=== PATIENT | male | born 1980 | race African-American/Black ===

== ENCOUNTER 2016-05-15 11:04 | Emergency (ER) | payer MEDICARE, OTHER ==
[2016-05-15 11:27] VITALS: RESP 18
[2016-05-15] MEDS ORDERED: IPRATROPIUM-ALBUTEROL 3 ML NEB INHALATION STA (11:50)
--- NOTE | 2016-05-15 11:51 | ED ---
General Adult HPI - General Chief complaint: Upper Respiratory Infection Stated complaint: poss bronchitis, body pain Time Seen by Provider: 05/15/16 11:40 Source: patient, RN notes reviewed Mode of arrival: ambulatory Limitations: no limitations - History of Present Illness Initial comments: Patient 35-year-old male who presents emergency room today with a chief complaint of cough congestion body aches with chills over the last 3 days. He does admit to positive sputum production as been yellow in color. Patient does admit to a history of asthma. He denies any other complaints or associated symptoms currently. Patient denies any recent shortness of breath, chest pain, back pain, abdominal pain, nausea or vomiting, numbness or tingling, dysuria or hematuria, constipation or diarrhea, headaches or visual changes, or any other complaints. - Related Data Home Medications Medication Instructions Recorded Confirmed ALPRAZolam [Xanax] 1 mg PO TID PRN 12/12/13 05/15/16 HYDROcodone/APAP 10-325MG [[place] 1 tab PO QID PRN 12/12/13 05/15/16 10-325] Previous Rx's Medication Instructions Recorded Albuterol Nebulized [Ventolin 2.5 mg INHALATION Q4H PRN 10 Days 05/15/16 Nebulized] Azithromycin [Zithromax Z-pack] 0 mg PO DIRECTED #6 tab 05/15/16 Allergies Allergy/AdvReac Type Severity Reaction Status Date / Time Penicillins Allergy Nausea & Verified 05/15/16 12:09 Vomiting Review of Systems ROS Statement: Those systems with pertinent positive or pertinent negative responses have been documented in the HPI. ROS Other: All systems not noted in ROS Statement are negative. Past Medical History Additional Past Medical History / Comment(s): Sickle Cell History of Any Multi-Drug Resistant Organisms: None Reported Past Surgical History: No Surgical Hx Reported Past Psychological History: Anxiety Smoking Status: Current some day smoker Past Alcohol Use History: Occasional Past Drug Use History: None Reported General Exam - General Exam Comments Initial Comments: General: The patient is awake and alert, in no distress, and does not appear acutely ill. Eye: Pupils are equal, round and reactive to light, extra-ocular movements are intact. No nystagmus. There is normal conjunctiva bilaterally. No signs of icterus. Ears, nose, mouth and throat: There are moist mucous membranes and no oral lesions. Neck: The neck is supple, there is no tenderness or JVD. Cardiovascular: There is a regular rate and rhythm. No murmur, rub or gallop is appreciated. Respiratory: Expiratory wheeze on the right. respirations are non-labored, breath sounds are equal. No stridor, rales, or rhonchi. Musculoskeletal: Normal ROM, no tenderness. Strength 5/5. Sensation intact. Pulses equal bilaterally 2+. Neurological: A&O x 3. CN II-XII intact, There are no obvious motor or sensory deficits. Coordination appears grossly intact. Speech is normal. Skin: Skin is warm and dry and no rashes or lesions are noted. Psychiatric: Cooperative, appropriate mood & affect, normal judgment. Limitations: no limitations Course Vital Signs 05/15/16 05/15/16 11:24 12:02 Temperature 99.6 F Pulse Rate 91 92 Respiratory 18 18 Rate Blood Pressure 126/77 O2 Sat by Pulse 96 Oximetry Medical Decision Making - Medical Decision Making Patient's influenza test negative. The emergency room. Chest x-ray negative for any sign of pneumonia. Does show some possible nodular densities on the right suprahilar region. Discussed findings with patient and advised follow-up chest x-ray to be repeated. Patient does have cough congestion with positive sputum production. History of asthma. Will be covered with antibiotic of azithromycin. - Lab Data Lab Results 05/15/16 Range/Units 11:56 Influenza Type A RNA Not Detected (Not Detectd) Influenza Type B (PCR) Not Detected (Not Detectd) Disposition Clinical Impression: Acute bronchitis Disposition: HOME SELF-CARE Condition: Good Instructions: Upper Respiratory Infection (ED) Additional Instructions: Please use medication as discussed. Please follow-up with family doctor in the next 2 days. Please follow-up family doctor have repeat chest x-ray as discussed. Please return to emergency room if the symptoms increase or worsen or for any other concerns. Prescriptions: Albuterol Nebulized [Ventolin Nebulized] 2.5 mg INHALATION Q4H PRN 10 Days PRN Reason: Cough Azithromycin [Zithromax Z-pack] 0 mg PO DIRECTED #6 tab Time of Disposition: 12:32
--- NOTE | 2016-05-15 12:26 | XR ---
EXAMINATION TYPE: XR chest 2V DATE OF EXAM: 05/15/2016 12:21 PM COMPARISON: 05/02/2016 HISTORY: The FINDINGS: The lungs are clear and there is no pneumothorax, pleural effusion, or focal pneumonia. Heart is enl arged. More nodular density seen in the right suprahilar region measuring 1 cm. IMPRESSION: 1. No acute process. Stable cardiomegaly. 2. Nodular density right suprahilar region may be on the basis of superimposed structures. Recommend short-term follow-up PA and lateral views the chest.
[2016-05-15 12:44] VITALS: BP 142/89; PULSE 85; TEMP 98.7
== END 2016-05-15 12:45 | disposition home or self-care (01) ==
LOC: EC 11:04
DX: J02.9 Acute pharyngitis, unspecified (principal); I51.7 Cardiomegaly; F17.200 Nicotine dependence, unspecified, uncomplicated; Z88.0 Allergy status to penicillin
CPT/HCPCS: 71020; 87502; 94640; 99283

== ENCOUNTER 2016-07-31 03:10 | Emergency (ER) | payer MEDICARE, OTHER ==
[2016-07-31 03:15] VITALS: TEMP 98.3
[2016-07-31] MEDS ORDERED: HYDROmorphone 1 MG/ML 1 ML SYRINGE IVP STA ×2 (03:23→04:09)
[2016-07-31] MEDS ORDERED: SODIUM CHLORIDE 0.9% 1,000 ML IV STA ×2 (03:23)
[2016-07-31] MEDS ORDERED: ONDANSETRON 4 MG/2 ML VIAL IVP STA (03:23)
[2016-07-31 03:54] LABS: ALT 26 U/L (21-72); AST 25 U/L (17-59); Alkaline Phosphatase 58 U/L (38-126); Amylase 126 U/L (30-110); Anion Gap 9 mmol/L; Blood Urea Nitrogen 9 mg/dL (9-20); Calcium 9.1 mg/dL (8.4-10.2); Carbon Dioxide 26 mmol/L (22-30); Chloride 106 mmol/L (98-107); Glucose 83 mg/dL (74-99); INR 1.1 (<1.1); Non-African American GFR(MDRD) >60 (>60 ml/min/1.73 sqM); Partial Thromboplastin Time 27.4 sec (22.0-30.0); Potassium 3.8 mmol/L (3.5-5.1); Prothrombin Time 10.9 sec (9.0-12.0); Sodium 141 mmol/L (137-145); Total Bilirubin 1.3 mg/dL (0.2-1.3); Total Protein 6.9 g/dL (6.3-8.2)
--- NOTE | 2016-07-31 04:06 | ED ---
Abdominal Pain HPI - General Source: patient, family, RN notes reviewed Mode of arrival: EMS Limitations: no limitations <Emma Curran - Last Filed: 07/31/16 05:01> <Birgit Guerrero - Last Filed: 07/31/16 08:32> - General Chief Complaint: Abdominal Pain Stated Complaint: Pain/Hx sickel cell anemia Time Seen by Provider: 07/31/16 03:22 - History of Present Illness Initial Comments: Patient is a 35-year-old male with a history of sickle cell disease presents emergency Department with a chief complaint of acute onset of flank and left lower quadrant abdominal pain. Patient reports that he still has his spleen. Patient states that he takes pain medication but does not take anything else at this time to manage his sickle cell. Patient reports that he was feeling somewhat ill earlier in the evening however it got progressively worse in the past 2 hours. Patient states that he's had a few episodes of vomiting. Patient states the pain is currently 10 out of 10. Is worse with movement. Patient reports that he has been treated for bronchitis for the past few days, he does not know the antibiotic and is currently on.. He has had a mild cough with sputum. Patient states that prior to today's been eating and drinking normally denies any pain with bowel movements or blood in his stools. Patient states that he has never had a pain crisis in which it's been in his abdomen before. (Emma Curran) - Related Data Home Medications Medication Instructions Recorded Confirmed ALPRAZolam [Xanax] 1 mg PO TID PRN 12/12/13 05/15/16 HYDROcodone/APAP 10-325MG [Golden 1 tab PO QID PRN 12/12/13 05/15/16 10-325] Previous Rx's Medication Instructions Recorded Albuterol Nebulized [Ventolin 2.5 mg INHALATION Q4H PRN 10 Days 05/15/16 Nebulized] Azithromycin [Zithromax Z-pack] 0 mg PO DIRECTED #6 tab 05/15/16 Clarithromycin [Biaxin] 500 mg PO Q12HR #20 tablet 07/31/16 Allergies Allergy/AdvReac Type Severity Reaction Status Date / Time Penicillins Allergy Nausea & Verified 05/15/16 12:09 Vomiting Review of Systems ROS Other: All systems not noted in ROS Statement are negative. <Emma Curran - Last Filed: 07/31/16 05:01> ROS Other: All systems not noted in ROS Statement are negative. <Birgit Guerrero - Last Filed: 07/31/16 08:32> ROS Statement: Those systems with pertinent positive or pertinent negative responses have been documented in the HPI. Past Medical History Additional Past Medical History / Comment(s): Sickle Cell History of Any Multi-Drug Resistant Organisms: None Reported Past Surgical History: No Surgical Hx Reported Past Psychological History: Anxiety Smoking Status: Current some day smoker Past Alcohol Use History: Occasional Past Drug Use History: None Reported <Emma Curran - Last Filed: 07/31/16 05:01> General Exam Limitations: no limitations General appearance: alert, in no apparent distress Head exam: Present: atraumatic, normocephalic, normal inspection Eye exam: Present: normal appearance, PERRL, EOMI. Absent: scleral icterus, conjunctival injection, periorbital swelling ENT exam: Present: normal exam, mucous membranes moist Neck exam: Present: normal inspection. Absent: tenderness, meningismus, lymphadenopathy Respiratory exam: Present: normal lung sounds bilaterally. Absent: respiratory distress, wheezes, rales, rhonchi, stridor Cardiovascular Exam: Present: regular rate, normal rhythm, normal heart sounds. Absent: systolic murmur, diastolic murmur, rubs, gallop, clicks GI/Abdominal exam: Present: soft, tenderness (Left lower quadrant and left upper quadrant abdominal tenderness.), normal bowel sounds. Absent: distended, guarding, rebound, rigid Extremities exam: Present: normal inspection, full ROM, normal capillary refill. Absent: tenderness, pedal edema, joint swelling, calf tenderness Back exam: Present: normal inspection, CVA tenderness (L). Absent: CVA tenderness (R), muscle spasm, paraspinal tenderness, vertebral tenderness Neurological exam: Present: alert, oriented X3, CN II-XII intact Psychiatric exam: Present: normal affect, normal mood Skin exam: Present: warm, dry, intact, normal color. Absent: rash <Emma Curran - Last Filed: 07/31/16 05:01> <Birgit Guerrero - Last Filed: 07/31/16 08:32> - General Exam Comments Initial Comments: Ill appearing 35-year-old male. Patient appears to be in discomfort. (Emma Curran) Course <Emma Curran - Last Filed: 07/31/16 05:01> <Birgit Guerrero - Last Filed: 07/31/16 08:32> Vital Signs 07/31/16 07/31/16 07/31/16 03:13 05:15 05:46 Temperature 98.3 F Pulse Rate 69 57 L 68 Respiratory 14 16 16 Rate Blood Pressure 135/78 128/71 136/75 O2 Sat by Pulse [address] Morgan endorsed the patient to me around 8 AM to follow up on his CT of the abdomen, his CT was reviewed around 8 8:15 AM, reviewed his labs from white count is 811.8 with some left shift T count is 2.7 Has a metabolic panel is negative. INR is negative UA is positive for some hematuria CT of the abdomen showed chronic old infiltrate to the right posterior long then I went to see the patient, there was nobody in the room . Considering the old infiltrate at the right posterior elongation considering a history of sickle cell I'll go ahead and now will start him on antibiotics though he had left AMA before I seen him over call antibiotics to his pharmacy is [facility] to penicillin will go ahead and do Biaxin 500 mg twice daily for 10 days and is advised follow-up with his family doctor or come back to the ER (Birgit Guerrero) Medical Decision Making - Lab Data Result diagrams: 07/31/16 03:34 07/31/16 03:34 - Radiology Data Radiology results: report reviewed <Emma Curran - Last Filed: 07/31/16 05:01> - Lab Data Result diagrams: 07/31/16 03:34 07/31/16 03:34 <Birgit Guerrero - Last Filed: 07/31/16 08:32> - Lab Data Lab Results 07/31/16 07/31/16 07/31/16 Range/Units 03:34 03:34 03:34 WBC 11.8 H (3.8-10.6) k/uL RBC 4.15 L (4.30-5.90) m/uL Hgb 12.3 L (13.0-17.5) gm/dL Hct 35.5 L (39.0-53.0) % MCV 85.5 (80.0-100.0) fL MCH 29.7 (25.0-35.0) pg MCHC 34.8 (31.0-37.0) g/dL RDW 15.5 (11.5-15.5) % Plt Count 176 (150-450) k/uL Neutrophils % (Manual) 67.0 % Band Neutrophils % 3.5 % Lymphocytes % (Manual) 23.5 % Monocytes % (Manual) 6.0 % Neutrophils # (Manual) 8.3 H (1.3-7.7) k/uL Lymphocytes # (Manual) 2.8 (1.0-4.8) k/uL Monocytes # (Manual) 0.7 (0-1.0) k/uL Nucleated RBCs 1 H (0-0) /100 WBC Toxic Vacuolation Present Large Platelets Present Polychromasia Present Hyperchromasia Slight Poikilocytosis Slight Anisocytosis (manual) Present Target Cells Present Fragmented RBCs Present Retic Count (0.5-2.0) % PT 10.9 (9.0-12.0) sec INR 1.1 (<1.1) APTT 27.4 (22.0-30.0) sec Sodium 141 (137-145) mmol/L Potassium 3.8 (3.5-5.1) mmol/L Chloride 106 (98-107) mmol/L Carbon Dioxide 26 (22-30) mmol/L Anion Gap 9 mmol/L BUN 9 (9-20) mg/dL Creatinine 0.90 (0.66-1.25) mg/dL Est GFR (MDRD) Af Amer >60 (>60 ml/min/1.73 sqM) Est GFR (MDRD) Non-Af >60 (>60 ml/min/1.73 sqM) Glucose 83 (74-99) mg/dL Calcium 9.1 (8.4-10.2) mg/dL Total Bilirubin 1.3 (0.2-1.3) mg/dL AST 25 (17-59) U/L ALT 26 (21-72) U/L Alkaline Phosphatase 58 (38-126) U/L Total Protein 6.9 (6.3-8.2) g/dL Albumin 4.1 (3.5-5.0) g/dL Amylase 126 H (30-110) U/L Lipase 265 (23-300) U/L Urine Color Urine Appearance (Clear) Urine pH (5.0-8.0) Ur Specific [place] (1.001-1.035) Urine Protein (Negative) Urine Glucose (UA) (Negative) Urine Ketones (Negative) Urine Blood (Negative) Urine Nitrite (Negative) Urine Bilirubin (Negative) Urine Urobilinogen (<2.0) mg/dL Ur Leukocyte Esterase (Negative) Urine RBC (0-5) /hpf Urine WBC (0-5) /hpf Urine Mucus (None) /hpf 07/31/16 07/31/16 Range/Units 03:34 04:40 WBC (3.8-10.6) k/uL RBC (4.30-5.90) m/uL Hgb (13.0-17.5) gm/dL Hct (39.0-53.0) % MCV (80.0-100.0) fL MCH (25.0-35.0) pg MCHC (31.0-37.0) g/dL RDW (11.5-15.5) % Plt Count (150-450) k/uL Neutrophils % (Manual) % Band Neutrophils % % Lymphocytes % (Manual) % Monocytes % (Manual) % Neutrophils # (Manual) (1.3-7.7) k/uL Lymphocytes # (Manual) (1.0-4.8) k/uL Monocytes # (Manual) (0-1.0) k/uL Nucleated RBCs (0-0) /100 WBC Toxic Vacuolation Large Platelets Polychromasia Hyperchromasia Poikilocytosis Anisocytosis (manual) Target Cells Fragmented RBCs Retic Count 2.7 H (0.5-2.0) % PT (9.0-12.0) sec INR (<1.1) APTT (22.0-30.0) sec Sodium (137-145) mmol/L Potassium (3.5-5.1) mmol/L Chloride (98-107) mmol/L Carbon Dioxide (22-30) mmol/L Anion Gap mmol/L BUN (9-20) mg/dL Creatinine (0.66-1.25) mg/dL Est GFR (MDRD) Af Amer (>60 ml/min/1.73 sqM) Est GFR (MDRD) Non-Af (>60 ml/min/1.73 sqM) Glucose (74-99) mg/dL Calcium (8.4-10.2) mg/dL Total Bilirubin (0.2-1.3) mg/dL AST (17-59) U/L ALT (21-72) U/L Alkaline Phosphatase (38-126) U/L Total Protein (6.3-8.2) g/dL Albumin (3.5-5.0) g/dL Amylase (30-110) U/L Lipase (23-300) U/L Urine Color Yellow Urine Appearance Clear (Clear) Urine pH 5.5 (5.0-8.0) Ur Specific [place] 1.008 (1.001-1.035) Urine Protein Negative (Negative) Urine Glucose (UA) Negative (Negative) Urine Ketones Trace H (Negative) Urine Blood Moderate H (Negative) Urine Nitrite Negative (Negative) Urine Bilirubin Negative (Negative) Urine Urobilinogen <2.0 (<2.0) mg/dL Ur Leukocyte Esterase Trace H (Negative) Urine RBC 37 H (0-5) /hpf Urine WBC 7 H (0-5) /hpf Urine Mucus Rare H (None) /hpf - Radiology Data Nonspecific bowel gas pattern. Serial abdominal radiographs recommended as indicated to assess for any change. Externally CT abdomen and pelvis confirmed for further evaluation. No radiopaque renal calculi. Probable pelvic phleboliths. Chest x-ray shows no dense consolidation or effusion. Finding of a right suprahilar region. Decreased in conspicuity. (Emma Curran) Disposition <Emma Curran - Last Filed: 07/31/16 05:01> <Birgit Guerrero - Last Filed: 07/31/16 08:32> Clinical Impression: Chronic pneumonia Disposition: Left Against Medical Advice Condition: Fair Prescriptions: Clarithromycin [Biaxin] 500 mg PO Q12HR #20 tablet Referrals: Rosalino Martinez MD [Primary Care Provider] - 1-2 days
[2016-07-31 04:28] LABS: CH 32.3; CHCM 38.1; HCT 35.5 % (39.0-53.0); HDW 3.47; HGB 12.3 gm/dL (13.0-17.5); Hyperchromasia Slight; MCH 29.7 pg (25.0-35.0); MCHC 34.8 g/dL (31.0-37.0); MCV 85.5 fL (80.0-100.0); Mean Platelet Volume 8.9; Poikilocytosis Slight; RBC 4.15 m/uL (4.30-5.90); RDW 15.5 % (11.5-15.5); WBC (Perox) 12.83
--- NOTE | 2016-07-31 04:32 | XR ---
EXAM: XR Abdomen Complete, 2 or More Views. CLINICAL HISTORY: Reason: abdominal pain TECHNIQUE: Frontal view of the abdomen/pelvis with upright view of the abdomen. COMPARISON: No relevant prior studies available. FINDINGS: Intraperitoneal space: No free air identified. No abnormal calcification in the upper abdomen. Gastrointestinal tract: Scattered air-fluid levels in small and large bowel loops, nonspecific. No focal small bowel dilatation. Air seen throughout the large bowel Organs: Calcifications in the pelvis, probable phleboliths. Bones/joints: Unremarkable. IMPRESSION: Nonspecific bowel gas pattern. Serial abdominal radiographs recommended as indicated to assess for any change. Alternatively, CT of the abdomen and pelvis could be performed for further evaluation No radiopaque renal calculi. Probable pelvic phleboliths.
--- NOTE | 2016-07-31 04:41 | XR ---
EXAM: XR Chest, 2 Views. CLINICAL HISTORY: Reason: Pain TECHNIQUE: Frontal and lateral views of the chest. COMPARISON: FINDINGS: Lungs: No dense consolidation. Previously noted slight nodularity in the right suprahilar region appears slightly decreased in conspicuity. No new lesions seen. Pleural space: Unremarkable. No pneumothorax. Heart: Stable cardiovascular silhouette. Cardiovascular silhouette is upper limits of normal. Mediastinum: See above. Bones/joints: Unremarkable. IMPRESSION: No dense consolidation or effusion. Finding in the right suprahilar region, decreased in conspicuity likely benign.
[2016-07-31 05:01] LABS: Reticulocyte % 2.7 % (0.5-2.0)
[2016-07-31 05:09] LABS: Add Differential Manual Differential
[2016-07-31 05:15] LABS: Band Neutrophils % 3.5 %; Nucleated Red Blood Cells 1 /100 WBC (0-0); Total Cells Counted 200
[2016-07-31 05:16] LABS: WBC 11.8 k/uL (3.8-10.6)
[2016-07-31 05:17] VITALS: RESP 16
[2016-07-31 05:18] LABS: Polychromasia Present; Target Cells Present
[2016-07-31 05:24] LABS: Large Platelets Present; Toxic Vacuolation Present
[2016-07-31 05:47] VITALS: BP 136/75; PULSE 68
[2016-07-31 05:48] LABS: Appearance,Urine Clear (Clear); Bilirubin,Urine Negative (Negative); Glucose,Urine (UA) Negative (Negative); Ketones,Urine Trace (Negative); Leukocyte Esterase,Urine Trace (Negative); Mucus,Urine Rare /hpf; Nitrite,Urine Negative (Negative); PH, Urine 5.5 (5.0-8.0); Particle Count 1562; Protein,Urine Negative (Negative); RBC,Urine 37 /hpf (0-5); Specific Gravity,Urine 1.008 (1.001-1.035); UA Billing (MACRO vs. MICRO) MICRO; Urobilinogen,Urine <2.0 mg/dL (<2.0); WBC,Urine 7 /hpf (0-5)
[2016-07-31] MEDS ORDERED: LORazepam 1 MG TAB PO STA (06:59)
--- NOTE | 2016-07-31 07:56 | CT ---
EXAMINATION TYPE: CT abdomen pelvis wo con DATE OF EXAM: 07/31/2016 7:26 AM COMPARISON: NONE HISTORY: Lt flank pain, microscopic hematuria CT DLP: 218.9 mGycm Automated exposure control for dose reduction was used. TECHNIQUE: Helical acquisition of images was performed from the lung bases through the pelvis. FINDINGS: There is some mild infiltrate at the right posterior lung base. There is no pleural effusion. Left amaya ng bases clear. Liver appears normal. There are numerous calcifications throughout the spleen. This could relate to s plenic infarct. There is no evidence of a pancreatic mass. Gallbladder appears normal. Kidneys have normal size and contour. There is no hydronephrosis. There is no sign of retroperitoneal adenopathy. There is no ascites. I see no intestinal wall thickening. There are no dilated loops. Bl adder distends smoothly. There are multiple phleboliths in the pelvis. I see no bony destructive proc ess. There is linear calcification in the right lower quadrant. This is probably the appendix which is not enlarged. Exam is limited by lack of any contrast. IMPRESSION: CHRONIC INFILTRATE AT THE RIGHT POSTERIOR LUNG BASE IS CONSISTENT WITH SCARRING. NO EVIDENCE OF RENAL STONE OR OBSTRUCTION. 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 NO ADVERSE CHANGE COMPARED TO OLD CT SCAN OF 09/15/2012.
== END 2016-07-31 08:30 | disposition left against medical advice (07) ==
LOC: EC 03:10
DX: J18.9 Pneumonia, unspecified organism (principal); D57.1 Sickle-cell disease without crisis; F17.200 Nicotine dependence, unspecified, uncomplicated; Z88.0 Allergy status to penicillin
CPT/HCPCS: 99285 ×2; 96365 ×2; 96375 ×3; 96376 ×2; 96361 ×4; 96374; 36415; 80053; 82150; 83021; 83690; 85025; 85610; 85045; 85730; 81001; 71020; 74000; 74176; J2405; J0696; J1170

== ENCOUNTER 2016-09-02 12:43 | Emergency (ER) | payer MEDICARE, OTHER ==
[2016-09-02 12:54] VITALS: RESP 18
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
[2016-09-02 15:02] VITALS: BP 123/71; PULSE 98; TEMP 100.8
== END 2016-09-02 15:16 | disposition home or self-care (01) ==
LOC: EC 12:43
DX: M54.5 Low back pain (principal); F41.9 Anxiety disorder, unspecified; F41.0 Panic disorder [episodic paroxysmal anxiety]; V79.59XA Passenger on bus injured in collision with other motor vehicles in traffic accident, initial encounter; G89.29 Other chronic pain; D57.1 Sickle-cell disease without crisis; J44.9 Chronic obstructive pulmonary disease, unspecified; F17.200 Nicotine dependence, unspecified, uncomplicated; Z88.0 Allergy status to penicillin
CPT/HCPCS: 72110; 99284

== ENCOUNTER 2016-10-25 20:55 | Observation (INO) | payer MEDICARE, OTHER ==
[2016-10-25] MEDS ORDERED: SODIUM CHLORIDE 0.9% 1,000 ML IV STA (22:34)
[2016-10-25] MEDS ORDERED: ONDANSETRON 4 MG/2 ML VIAL IVP STA (22:34)
[2016-10-25] MEDS ORDERED: PANTOPRAZOLE 40 MG/10 ML VIAL IVP STA (22:34)
[2016-10-25] MEDS ORDERED: HYDROmorphone 1 MG/ML 1 ML SYRINGE IVP STA (22:34)
--- NOTE | 2016-10-25 22:41 | ED ---
General Adult HPI - General Source: patient, RN notes reviewed, old records reviewed Mode of arrival: ambulatory Limitations: no limitations <Perry Stein - Last Filed: 10/26/16 00:59> <Zenon Amador - Last Filed: 10/26/16 03:29> - General Chief complaint: Abdominal Pain Stated complaint: abd pain Time Seen by Provider: 10/25/16 21:39 - History of Present Illness Initial comments: Chief complaint and history of present illness this is a 36-year-old male to complaint of nausea vomiting diarrhea. 10 days ago he did take some antibiotics for bronchitis. He also has a history of sickle cell disease. For which he takes [place] tens at home. Denies seeing blood in the vomit or diarrhea. (Perry Stein) - Related Data Home Medications Medication Instructions Recorded Confirmed ALPRAZolam [Xanax] 1 mg PO TID PRN 12/12/13 10/25/16 HYDROcodone/APAP 10-325MG [[place] 1 tab PO QID PRN 12/12/13 10/25/16 10-325] Levofloxacin [Levaquin] 500 mg PO DAILY 10/25/16 10/25/16 Allergies Allergy/AdvReac Type Severity Reaction Status Date / Time Penicillins Allergy Anaphylaxis Verified 10/25/16 21:27 Review of Systems ROS Other: All systems not noted in ROS Statement are negative. <Perry Stein - Last Filed: 10/26/16 00:59> ROS Other: All systems not noted in ROS Statement are negative. <Zenon Amador - Last Filed: 10/26/16 03:29> ROS Statement: Those systems with pertinent positive or pertinent negative responses have been documented in the HPI. review of systems no headache or visual acuity changes no chest pain or shortness of breath he has abdominal discomfort mainly in the left side. Nausea vomiting and diarrhea. No back pain. No complaint of a neuro deficits. All systems are reviewed. Past medical problems significant for sickle cell disease, COPD. Occasional bronchitis. Denies any surgeries. Family history hypertension diabetes. ALLERGIES to penicillin. He does smoke strongly encouraged stop drink alcohol socially. (Perry Stein) Past Medical History Past Medical History: COPD Additional Past Medical History / Comment(s): Sickle Cell History of Any Multi-Drug Resistant Organisms: None Reported Past Surgical History: No Surgical Hx Reported Past Psychological History: Anxiety Smoking Status: Current some day smoker Past Alcohol Use History: Occasional Past Drug Use History: None Reported <Perry Stein - Last Filed: 10/26/16 00:59> General Exam Limitations: no limitations <Perry Stein - Last Filed: 10/26/16 00:59> <Zenon Amador - Last Filed: 10/26/16 03:29> - General Exam Comments Initial Comments: General: The patient is awake and alert, playing of abdominal pain. Ongoing for about a 0.1 day nausea vomiting diarrhea. Vital signs show temperature 98.8 pulse 85 respiratory rate 20 pulse ox 96% room air blood pressure 142/77 Eye: Pupils are equal, round and reactive to light, extra-ocular movements are intact ; there is normal conjunctiva bilaterally. No signs of icterus. Ears, nose, mouth and throat: There are moist mucous membranes and no oral lesions. Neck: The neck is supple, there is no tenderness . Cardiovascular: There is a regular rate and rhythm. No murmur, rub or gallop is appreciated. Respiratory: Lungs are clear to auscultation, respirations are non-labored, breath sounds are equal. No wheezes, stridor, rales, or rhonchi. Gastrointestinal: patient complains of abdominal pain. Active bowel sounds. voluntary guarding.. Back: There is no tenderness to palpation in the midline. There is no obvious deformity. No rashes noted. Musculoskeletal: Normal ROM, no tenderness, There is no pedal edema. There is no calf tenderness or swelling. Sensation intact. Pulses equal bilaterally 2+. Neurological: no neuro deficits Skin: Skin is warm and dry and no rashes or lesions are noted. (Perry Stein) Course <EmilPerry - Last Filed: 10/26/16 00:59> <Zenon Amador - Last Filed: 10/26/16 03:29> Vital Signs 10/25/16 10/25/16 10/25/16 21:01 22:55 23:24 Temperature 98.8 F 97.9 F 98.9 F Pulse Rate 65 52 L 71 Respiratory 20 18 18 Rate Blood Pressure 142/77 140/82 140/83 O2 Sat by Pulse 96 96 96 Oximetry 10/26/16 10/26/16 10/26/16 00:24 01:08 01:59 Temperature 98.8 F 97.8 F Pulse Rate 60 57 L 50 L Respiratory 16 18 16 Rate Blood Pressure 132/93 137/72 119/70 O2 Sat by Pulse 97 96 98 Oximetry 10/26/16 02:45 Temperature 99.3 F Pulse Rate 54 L Respiratory 16 Rate Blood Pressure 127/65 O2 Sat by Pulse 95 Oximetry - Reevaluation(s) Reevaluation #1: 10/26/16 01:23 I did evaluate the patient after/mL. The patient continues to have crampy abdominal pain he thinks he may have a bug such as food poisoning. He will receive further IV fluids and medication. (Zenon Amador) Reevaluation #2: 10/26/16 03:28 The patient is so arranged some nausea with a bowel pain radiated slight improvement. His been having watery diarrhea is likely a combination of sickle cell was gastroenteritis. He will be admitted for continued hydration and pain control. (Zenon Amador) Medical Decision Making - Lab Data Result diagrams: 10/25/16 21:37 10/25/16 21:37 <Perry Stein - Last Filed: 10/26/16 00:59> - Lab Data Result diagrams: 10/25/16 21:37 10/25/16 21:37 <Zenon Amador - Last Filed: 10/26/16 03:29> - Medical Decision Making medical decision making white count is 10.9 and hemoglobin 15 hematocrit of 43 with a potassium 4.9 C. diff is negative. BUN 9 creatinine 0.8 GFR greater than 60, glucose 76.retic count elevated 3.1 x-ray of the abdomen was done and reviewed by radiologist his findings are intact.No pneumatosis or pneumoperitoneum. Nonobstructive bowel gas pattern. No acute osseous abnormality. 7 cm pelvic calcifications or favored to be vascular. Impression; nonobstructive bowel gas pattern. No pneumatosis or pneumoperitoneum. As read by Dr. moseley Patient states that very slightly better after the first hydration and pain medication. The patient will receive more fluids and decision was made after approximately one hour S without the patient should be admitted. The patient prefers to go home. Final disposition by Dr. Davey Amador (Perry Stein) - Lab Data Lab Results 10/25/16 10/25/16 10/25/16 Range/Units 21:37 21:37 21:37 WBC 10.9 H (3.8-10.6) k/uL RBC 5.02 (4.30-5.90) m/uL Hgb 15.0 (13.0-17.5) gm/dL Hct 43.9 (39.0-53.0) % MCV 87.4 (80.0-100.0) fL MCH 29.8 (25.0-35.0) pg MCHC 34.1 (31.0-37.0) g/dL RDW 15.0 (11.5-15.5) % Plt Count 285 (150-450) k/uL Neutrophils % 62 % Lymphocytes % 30 % Monocytes % 6 % Eosinophils % 1 % Basophils % 0 % Neutrophils # 6.7 (1.3-7.7) k/uL Lymphocytes # 3.2 (1.0-4.8) k/uL Monocytes # 0.6 (0-1.0) k/uL Eosinophils # 0.1 (0-0.7) k/uL Basophils # 0.0 (0-0.2) k/uL Manual Slide Review Performed Target Cells Present Retic Count 3.1 H (0.5-2.0) % Sodium 142 (137-145) mmol/L Potassium 4.9 (3.5-5.1) mmol/L Chloride 102 (98-107) mmol/L Carbon Dioxide 27 (22-30) mmol/L Anion Gap 13 mmol/L BUN 9 (9-20) mg/dL Creatinine 0.80 (0.66-1.25) mg/dL Est GFR (MDRD) Af Amer >60 (>60 ml/min/1.73 sqM) Est GFR (MDRD) Non-Af >60 (>60 ml/min/1.73 sqM) Glucose 76 (74-99) mg/dL Plasma Lactic Acid Jony 1.4 (0.7-2.0) mmol/L Calcium 10.0 (8.4-10.2) mg/dL Total Bilirubin 1.5 H (0.2-1.3) mg/dL AST 32 (17-59) U/L ALT 26 (21-72) U/L Alkaline Phosphatase 77 (38-126) U/L Total Protein 8.0 (6.3-8.2) g/dL Albumin 4.9 (3.5-5.0) g/dL Amylase 110 (30-110) U/L Lipase 31 (23-300) U/L Urine Color Urine Appearance (Clear) Urine pH (5.0-8.0) Ur Specific [place] (1.001-1.035) Urine Protein (Negative) Urine Glucose (UA) (Negative) Urine Ketones (Negative) Urine Blood (Negative) Urine Nitrite (Negative) Urine Bilirubin (Negative) Urine Urobilinogen (<2.0) mg/dL Ur Leukocyte Esterase (Negative) Urine WBC (0-5) /hpf Ur Squamous Epith Cells (0-4) /hpf Urine Mucus (None) /hpf C. difficile (EIA) Intrp (Negative) 10/25/16 10/25/16 Range/Units 21:37 22:37 WBC (3.8-10.6) k/uL RBC (4.30-5.90) m/uL Hgb (13.0-17.5) gm/dL Hct (39.0-53.0) % MCV (80.0-100.0) fL MCH (25.0-35.0) pg MCHC (31.0-37.0) g/dL RDW (11.5-15.5) % Plt Count (150-450) k/uL Neutrophils % % Lymphocytes % % Monocytes % % Eosinophils % % Basophils % % Neutrophils # (1.3-7.7) k/uL Lymphocytes # (1.0-4.8) k/uL Monocytes # (0-1.0) k/uL Eosinophils # (0-0.7) k/uL Basophils # (0-0.2) k/uL Manual Slide Review Target Cells Retic Count (0.5-2.0) % Sodium (137-145) mmol/L Potassium (3.5-5.1) mmol/L Chloride (98-107) mmol/L Carbon Dioxide (22-30) mmol/L Anion Gap mmol/L BUN (9-20) mg/dL Creatinine (0.66-1.25) mg/dL Est GFR (MDRD) Af Amer (>60 ml/min/1.73 sqM) Est GFR (MDRD) Non-Af (>60 ml/min/1.73 sqM) Glucose (74-99) mg/dL Plasma Lactic Acid Jony (0.7-2.0) mmol/L Calcium (8.4-10.2) mg/dL Total Bilirubin (0.2-1.3) mg/dL AST (17-59) U/L ALT (21-72) U/L Alkaline Phosphatase (38-126) U/L Total Protein (6.3-8.2) g/dL Albumin (3.5-5.0) g/dL Amylase (30-110) U/L Lipase (23-300) U/L Urine Color Yellow Urine Appearance Cloudy (Clear) Urine pH 5.5 (5.0-8.0) Ur Specific [place] 1.013 (1.001-1.035) Urine Protein 1+ H (Negative) Urine Glucose (UA) Negative (Negative) Urine Ketones 1+ H (Negative) Urine Blood Small H (Negative) Urine Nitrite Negative (Negative) Urine Bilirubin Negative (Negative) Urine Urobilinogen <2.0 (<2.0) mg/dL Ur Leukocyte Esterase Negative (Negative) Urine WBC 3 (0-5) /hpf Ur Squamous Epith Cells 1 (0-4) /hpf Urine Mucus Moderate H (None) /hpf C. difficile (EIA) Intrp Negative (Negative) Disposition <Perry Stein - Last Filed: 10/26/16 00:59> <Zenon Amador - Last Filed: 10/26/16 03:29> Clinical Impression: Abdominal pain, Sickle cell crisis, Gastroenteritis Disposition: ADMITTED IP TO THIS [facility] Condition: Stable Referrals: Rosalino Martinez MD [Primary Care Provider] - 1-2 days
[2016-10-25 22:53] LABS: Basophils % (A) 0 %; CH 32.4; CHCM 37.4; Eosinophils # (A) 0.1 k/uL (0-0.7); Eosinophils % (A) 1 %; HCT 43.9 % (39.0-53.0); HDW 3.17; Luc # (Auto) 0.18; Luc % (Auto) 2; Lymphocytes # (A) 3.2 k/uL (1.0-4.8); Lymphocytes % (A) 30 %; MCH 29.8 pg (25.0-35.0); MCHC 34.1 g/dL (31.0-37.0); MCV 87.4 fL (80.0-100.0); Mean Platelet Volume 7.4; Monocytes # (A) 0.6 k/uL (0-1.0); Monocytes % (A) 6 %; Neutrophils # (A) 6.7 k/uL (1.3-7.7); Neutrophils % (A) 62 %; RBC 5.02 m/uL (4.30-5.90); Reticulocyte % 3.1 % (0.5-2.0); WBC 10.9 k/uL (3.8-10.6); WBC (Perox) 12.09
[2016-10-25 23:01] LABS: ALT 26 U/L (21-72); AST 32 U/L (17-59); Alkaline Phosphatase 77 U/L (38-126); Amylase 110 U/L (30-110); Anion Gap 13 mmol/L; Appearance,Urine Cloudy (Clear); Bilirubin,Urine Negative (Negative); Blood Urea Nitrogen 9 mg/dL (9-20); Carbon Dioxide 27 mmol/L (22-30); Chloride 102 mmol/L (98-107); Glucose 76 mg/dL (74-99); Glucose,Urine (UA) Negative (Negative); Ketones,Urine 1+ (Negative); Leukocyte Esterase,Urine Negative (Negative); Mucus,Urine Moderate /hpf; Nitrite,Urine Negative (Negative); Non-African American GFR(MDRD) >60 (>60 ml/min/1.73 sqM); PH, Urine 5.5 (5.0-8.0); Particle Count 11615; Potassium 4.9 mmol/L (3.5-5.1); Protein,Urine 1+ (Negative); Sodium 142 mmol/L (137-145); Specific Gravity,Urine 1.013 (1.001-1.035); Squamous Epithelial Cell,Urine 1 /hpf (0-4); Total Bilirubin 1.5 mg/dL (0.2-1.3); UA Billing (MACRO vs. MICRO) MICRO; Urobilinogen,Urine <2.0 mg/dL (<2.0); WBC,Urine 3 /hpf (0-5)
--- NOTE | 2016-10-25 23:22 | XR ---
EXAM: XR Abdomen Complete, 2 or More Views CLINICAL HISTORY: Reason: abdominal pain TECHNIQUE: Frontal view of the abdomen/pelvis with upright view of the abdomen. COMPARISON: 07/31/2016 FINDINGS: Intraperitoneal space: No pneumatosis or pneumoperitoneum. Gastrointestinal tract: Nonobstructive bowel gas pattern. Bones/joints: No acute osseous abnormality. Vasculature: Subcentimeter pelvic calcifications are favored to be vascular. IMPRESSION: Nonobstructive bowel gas pattern. No pneumatosis or pneumoperitoneum.
[2016-10-26 00:09] LABS: Manual Review Performed; Target Cells Present
[2016-10-26] MEDS ORDERED: SODIUM CHLORIDE 0.9% 500 ML IV STA (00:58)
[2016-10-26] MEDS ORDERED: MORPHINE SULFATE 2 MG/ML SYRINGE IVP ONE (00:59)
[2016-10-26] MEDS ORDERED: SODIUM CHLORIDE 0.9% 1,000 ML IV STA (01:22)
[2016-10-26] MEDS ORDERED: KETOROLAC 30 MG/ML 1 ML VIAL IVP STA (01:22)
[2016-10-26] MEDS ORDERED: DICYCLOMINE 10 MG/ML 2 ML AMP IM STA (01:22)
[2016-10-26 02:00] VITALS: RESP 16
[2016-10-26] MEDS ORDERED: ONDANSETRON 4 MG/2 ML VIAL IVP PRN (03:29)
[2016-10-26] MEDS ORDERED: NALOXONE 0.4 MG/ML 1 ML VIAL IV PRN (03:29)
[2016-10-26] MEDS ORDERED: KETOROLAC 30 MG/ML 1 ML VIAL IVP PRN (03:29)
[2016-10-26] MEDS ORDERED: ALPRAZolam 0.5 MG TAB PO PRN (03:32)
[2016-10-26 04:26] VITALS: BMI 19.7
[2016-10-26] MEDS: HYDROcodone/APAP 10-325MG 1 EACH TAB PO PRN ×3 (04:46→16:52)
[2016-10-26] MEDS: SODIUM CHLORIDE 0.9% 1,000 ML IV SCH ×2 (04:48→12:58)
[2016-10-26] MEDS ORDERED: PANTOPRAZOLE 40 MG/10 ML VIAL IV SCH (09:00)
[2016-10-26] MEDS ORDERED: RX INFO: IV CONTRAST WAS GIVEN 1 EACH MISC MISCELLANE PRN (12:45)
[2016-10-26] MEDS: IOHEXOL 350 MG/ML 25 ML BOTTLE (ORAL USE) PO PRN ×2 (14:31→15:22)
[2016-10-26 16:00] VITALS: BP 132/85; PULSE 45; TEMP 98.3
--- NOTE | 2016-10-26 16:34 | CT ---
EXAMINATION TYPE: CT abdomen pelvis w con DATE OF EXAM: 10/26/2016 COMPARISON: CT abdomen and pelvis July 31, 2016 HISTORY: Patient complains of generalized pelvic pain, nausea, vomiting, and diarrhea. CT DLP: 732 mGycm, Automated Exposure Control for Dose Reduction was Utilized. CONTRAST: CT scan of the abdomen and pelvis is performed with oral and with IV Contrast, patient injected with 100 mL of Omnipaque 300. FINDINGS: Patient has very little intra-abdominal fat making evaluation suboptimal LUNG BASES: There are persistent tiny effusions and associated bibasilar atelectasis. LIVER/GB: No significant abnormality is appreciated. PANCREAS: No significant abnormality is seen. SPLEEN: Heterogeneous partially calcified spleen is redemonstrated. ADRENALS: No significant abnormality is seen. KIDNEYS: No significant abnormality is seen. BOWEL: Oral contrast reaches at least level of transverse colon. There is no suspicious small or larg e bowel dilatation appreciated PROSTATE/SEMINAL VESICLES: Prostate gland is upper limits of normal in size. LYMPH NODES: No greater than 1cm abdominal or pelvic lymph nodes are appreciated. OSSEOUS STRUCTURES: No significant abnormality is seen. OTHER: Small to moderate amount of free fluid in pelvis is present, etiology uncertain. IMPRESSION: Small to moderate amount of free fluid in pelvis of uncertain etiology. No bowel obstruct ion is present.
--- NOTE | 2016-10-27 07:59 | HP ---
DATE OF ADMISSION: This dictation is both H&P and DISCHARGE SUMMARY. The patient is a 36-year-old with history of ( ) , which is sickle cell disease, not a trait. Comes in with nausea, vomiting, diarrhea. Ten days ago, the patient received antibiotics for bronchitis. Patient was admitted for possibility of C. difficile, testing was obtained which was negative. Patient is still complaining of lower crampy abdominal pain about 7 out of [address] Obt[address] a [address] of the abdomen, which did not show any significant abnormality. Patient will be discharged today. Patient is able to tolerate diet well and I do not believe patient has any sickle cell crisis. The patient was diagnosed with sickle cell ( ) at [facility] when he was months old, although patient's hemoglobin is ( ) , not typical for ( ). Patient denied any fever, chills. Patient completed his antibiotic therapy. Patient's bronchitis symptoms improved. REVIEW OF SYSTEMS: CONSTITUTIONAL: No fever, no malaise, no fatigue. HEENT: No recent visual problems or hearing problems. Denied any sore throat. CARDIOVASCULAR: No chest pain, orthopnea, PND, no palpitations, no syncope. PULMONARY: No shortness of breath, no cough, no hemoptysis. GASTROINTESTINAL: As described in HPI. NEUROLOGICAL: No headaches, no weakness, no numbness. HEMATOLOGICAL: Denies any bleeding or petechiae. GENITOURINARY: Denies any burning micturition, frequency, or urgency. MUSCULOSKELETAL/RHEUMATOLOGICAL: Denies any joint pain, swelling, or any muscle pain. ENDOCRINE: Denies any polyuria or polydipsia. The rest of the 14 point review of systems is negative. Home medications include: 1. Xanax. 2. Hydrocodone. 3. Acetaminophen. 4. Levofloxacin. ALLERGIES: Allergic to PENICILLIN. PAST MEDICAL HISTORY: Significant for COPD, sickle cell disease, anxiety disorder. Patient does smoke, denied any alcohol abuse or any drug abuse. FAMILY HISTORY: Significant for sickle cell anemia in the family. PHYSICAL EXAMINATION: VITAL SIGNS: Temperature 98.4, pulse of 54. Patient has sinus bradycardia, going down to as low as 45. Blood pressure is 132/85. Saturating at 97% on room. GENERAL: The patient is alert and oriented x3, not in any acute distress. Well developed, well nourished. HEENT: Pupils are round and equally reacting to light. EOMI. No scleral icterus. No conjunctival pallor. Normocephalic, atraumatic. No pharyngeal erythema. No thyromegaly. CARDIOVASCULAR: S1 and S2 present. No murmurs, rubs, or gallops. PULMONARY: Chest is clear to auscultation, no wheezing or crackles. ABDOMEN: Soft, nontender, nondistended, normoactive bowel sounds. No palpable organomegaly. MUSCULOSKELETAL: No joint swelling or deformity. EXTREMITIES: No cyanosis, clubbing, or pedal edema. NEUROLOGICAL: Gross neurological examination did not reveal any focal deficits. SKIN: No rashes. LABORATORY DATA: CBC and CMP are abnormal for elevated WBC of 10,900 secondary to gastritis and reactive in nature. CT of the abdomen and pelvis showed some nonspecific fluid in the abdomen. ASSESSMENT AND PLAN: 1. Nausea, vomiting, diarrhea, may be related to gastritis or related to antibiotics, although patient completed antibiotic therapy and ruled out for Clostridium difficile. Patient will be discharged today. 2. Leukocytosis, reactive in nature. 3. Nicotine abuse counseling was provided. 4. History of sickle cell disease. I do not believe patient has sickle cell crisis at this point of time. Patient will be discharged today in stable medical condition to home. Recent bronchitis for which patient is on levofloxacin. Anxiety disorder. Continue with his home medications. Patient will be discharged today. This dictation is both H&P and discharge summary
== END 2016-10-26 17:37 | disposition home or self-care (01) ==
LOC: EC 20:55 → 4MS4W 10-26 03:29
PROVIDERS: ADMIT Family Medicine; ATTEND Family Medicine
DX: R11.2 Nausea with vomiting, unspecified (principal); R19.7 Diarrhea, unspecified; R10.30 Lower abdominal pain, unspecified; D72.829 Elevated white blood cell count, unspecified; F17.200 Nicotine dependence, unspecified, uncomplicated; J40 Bronchitis, not specified as acute or chronic; F41.9 Anxiety disorder, unspecified; D57.1 Sickle-cell disease without crisis; Z88.0 Allergy status to penicillin; Z82.49 Family history of ischemic heart disease and other diseases of the circulatory system
CPT/HCPCS: 99285 ×2; 96361 ×3; 96374 ×2; 96375 ×7; 96372 ×2; 96376; 36415; 80053; 82150; 83605; 83690; 85025; 85045; 81001; 87324; 87045; 87046; 74020; 74177; G0378; J0500; J2405 ×2; J1885; J2270; J1170; Q9967; C9113 ×2

== ENCOUNTER 2016-11-18 02:26 | Emergency (ER) | payer MEDICARE ==
[2016-11-18 02:34] VITALS: RESP 18
[2016-11-18] MEDS ORDERED: SODIUM CHLORIDE 0.9% 1,000 ML IV STA (02:53)
--- NOTE | 2016-11-18 02:55 | ED ---
Abdominal Pain HPI - General Stated Complaint: abd pain Time Seen by Provider: 11/18/16 02:44 Source: patient, RN notes reviewed Mode of arrival: ambulatory Limitations: no limitations - History of Present Illness Initial Comments: 36 yo male presents to the ER with cc of abdominal pain. Patient has been having the specific abdominal pain on and off for a long time now. Patient states it never actually found the cause of it. Patient states his flareup out of nowhere and will go away. Patient states he has had a few episodes of vomiting and a few episodes of diarrhea with this. Patient states that he has thought that he has not noticed any fever at home. Patient states he doesn't have history of sickle cell. Patient states that he was concerned due to his symptoms he thought that he should be evaluated. Patient denies any recent fever, chills, shortness of breath, chest pain, back pain, numbness or tingling , dysuria or hematuria, constipation, headaches or visual changes, or any other current symptoms. - Related Data Home Medications Medication Instructions Recorded Confirmed ALPRAZolam [Xanax] 1 mg PO TID PRN 12/12/13 11/18/16 HYDROcodone/APAP 10-325MG [[place] 1 tab PO QID PRN 12/12/13 11/18/16 10-325] Allergies Allergy/AdvReac Type Severity Reaction Status Date / Time amoxicillin Allergy Unknown Verified 11/18/16 02:34 Penicillins Allergy Anaphylaxis Verified 11/18/16 02:34 Review of Systems ROS Statement: Those systems with pertinent positive or pertinent negative responses have been documented in the HPI. ROS Other: All systems not noted in ROS Statement are negative. Past Medical History Past Medical History: COPD Additional Past Medical History / Comment(s): Sickle Cell History of Any Multi-Drug Resistant Organisms: None Reported Past Surgical History: No Surgical Hx Reported Past Anesthesia/Blood Transfusion Reactions: No Reported Reaction Past Psychological History: Anxiety, Depression Smoking Status: Current every day smoker Past Alcohol Use History: None Reported Past Drug Use History: None Reported - Past Family History Mother Additional Family Medical History / Comment(s): sickle cell trait Father Additional Family Medical History / Comment(s): sickle cell trait General Exam - General Exam Comments Initial Comments: General: The patient is awake and alert, in no distress, and does not appear acutely ill. Eye: Pupils are equal, round and reactive to light, extra-ocular movements are intact; there is normal conjunctiva bilaterally. No signs of icterus. Ears, nose, mouth and throat: There are moist mucous membranes. Neck: The neck is supple, there is no tenderness. Cardiovascular: There is a regular rate and rhythm. No murmur, rub or gallop is appreciated. Respiratory: Lungs are clear to auscultation, respirations are non-labored, breath sounds are equal. No wheezes, stridor, rales, or rhonchi. Gastrointestinal: Soft, non-distended, non-tender abdomen without masses or organomegaly noted. There is no rebound or guarding present. No CVA tenderness. Bowel sounds are unremarkable. Back: There is no tenderness to palpation in the midline. There is no obvious deformity. No rashes noted. Musculoskeletal: Normal ROM, no tenderness, There is no pedal edema. There is no calf tenderness or swelling. Sensation intact. Pulses equal bilaterally 2+. Neurological: CN II-XII intact, There are no obvious motor or sensory deficits. Coordination appears grossly intact. Speech is normal. Skin: Skin is warm and dry and no rashes or lesions are noted. Psychiatric: Cooperative, appropriate mood & affect, normal judgment. Limitations: no limitations Course Vital Signs 11/18/16 02:32 Temperature 99.2 F Pulse Rate 96 Respiratory 18 Rate Blood Pressure 163/77 O2 Sat by Pulse 98 Oximetry Medical Decision Making - Medical Decision Making 36-year-old male presents to the emergency department with a chief complaint of abdominal pain that he has on and off for many years. At this time x-ray is reviewed as well as lab work. At this time patient states this is much like his typical chronic abdominal pain. Patient at this time was given pain medication he did start to feel better. She was offered a CAT scan be states this is much like his typical pain. Patient did state that he rather have discharge and follow-up. This time we discussed continued outpatient follow-up we did give him GI for follow-up. We discussed return parameters all of the patient's questions. He stated that he understood and he is in agreement with this plan. This time we will be discharged home. - Lab Data Result diagrams: 11/18/16 03:15 Lab Results 11/18/16 11/18/16 Range/Units 03:15 03:15 Sodium 141 (137-145) mmol/L Potassium 4.0 (3.5-5.1) mmol/L Chloride 108 H (98-107) mmol/L Carbon Dioxide 24 (22-30) mmol/L Anion Gap 9 mmol/L BUN 8 L (9-20) mg/dL Creatinine 0.90 (0.66-1.25) mg/dL Est GFR (MDRD) Af Amer >60 (>60 ml/min/1.73 sqM) Est GFR (MDRD) Non-Af >60 (>60 ml/min/1.73 sqM) Glucose 91 (74-99) mg/dL Calcium 9.2 (8.4-10.2) mg/dL Total Bilirubin 1.3 (0.2-1.3) mg/dL AST 31 (17-59) U/L ALT 27 (21-72) U/L Alkaline Phosphatase 77 (38-126) U/L Total Protein 6.7 (6.3-8.2) g/dL Albumin 4.2 (3.5-5.0) g/dL Urine Color Yellow Urine Appearance Clear (Clear) Urine pH 6.0 (5.0-8.0) Ur Specific [place] 1.013 (1.001-1.035) Urine Protein Negative (Negative) Urine Glucose (UA) Negative (Negative) Urine Ketones Negative (Negative) Urine Blood Trace H (Negative) Urine Nitrite Negative (Negative) Urine Bilirubin Negative (Negative) Urine Urobilinogen 2.0 (<2.0) mg/dL Ur Leukocyte Esterase Moderate H (Negative) Urine RBC 1 (0-5) /hpf Urine WBC 13 H (0-5) /hpf Ur Squamous Epith Cells <1 (0-4) /hpf Urine Bacteria Rare H (None) /hpf Urine Mucus Rare H (None) /hpf - Radiology Data Radiology results: report reviewed, image reviewed Disposition Clinical Impression: Abdominal pain Disposition: HOME SELF-CARE Condition: Stable Instructions: Abdominal Pain (ED) Additional Instructions: Please use medication as discussed. Please follow up with family doctor if symptoms have not improved over the next two days. Please return to the emergency room if your symptoms increase or worsen or for any other concerns. Referrals: Rosalino Mratinez MD [Primary Care Provider] - 1-2 days Felix Phillip MD [STAFF PHYSICIAN] - 1-2 days
[2016-11-18 03:35] LABS: CH 31.5; CHCM 38.7; HCT 35.1 % (39.0-53.0); HDW 3.42; HGB 13.4 gm/dL (13.0-17.5); Hyperchromasia Moderate; MCH 31.3 pg (25.0-35.0); Mean Platelet Volume 7.2; Poikilocytosis Slight; RBC 4.28 m/uL (4.30-5.90); RDW 15.5 % (11.5-15.5); Reticulocyte % 4.1 % (0.5-2.0); WBC 10.9 k/uL (3.8-10.6)
[2016-11-18 03:42] LABS: ALT 27 U/L (21-72); AST 31 U/L (17-59); Alkaline Phosphatase 77 U/L (38-126); Anion Gap 9 mmol/L; Blood Urea Nitrogen 8 mg/dL (9-20); Calcium 9.2 mg/dL (8.4-10.2); Carbon Dioxide 24 mmol/L (22-30); Chloride 108 mmol/L (98-107); Glucose 91 mg/dL (74-99); Non-African American GFR(MDRD) >60 (>60 ml/min/1.73 sqM); Sodium 141 mmol/L (137-145); Total Bilirubin 1.3 mg/dL (0.2-1.3); Total Protein 6.7 g/dL (6.3-8.2)
--- NOTE | 2016-11-18 03:49 | XR ---
EXAM: XR Abdomen Complete, 2 or More Views CLINICAL HISTORY: Abdominal pain and diarrhea TECHNIQUE: Frontal view of the abdomen/pelvis with upright view of the abdomen. COMPARISON: 10/25/2016 FINDINGS: Intraperitoneal space: No free air. Gastrointestinal tract: Subtle thickening of the colonic haustral folds is suspected, which appears to be present on the prior study. Cannot definitively exclude the possibility of mild colitis given the history of diarrhea. No dilation. Bones/joints: Unremarkable. IMPRESSION: Subtle thickening of the colonic haustral folds is suspected, which appears to be present on the prior study. Cannot definitively exclude the possibility of mild colitis given the history of abdominal pain with diarrhea. Clinical correlation recommended.
[2016-11-18 03:50] LABS: Appearance,Urine Clear (Clear); Bacteria,Urine Rare /hpf; Bilirubin,Urine Negative (Negative); Glucose,Urine (UA) Negative (Negative); Ketones,Urine Negative (Negative); Leukocyte Esterase,Urine Moderate (Negative); Mucus,Urine Rare /hpf; Nitrite,Urine Negative (Negative); Particle Count 1701; Protein,Urine Negative (Negative); RBC,Urine 1 /hpf (0-5); Specific Gravity,Urine 1.013 (1.001-1.035); Squamous Epithelial Cell,Urine <1 /hpf (0-4); UA Billing (MACRO vs. MICRO) MICRO; WBC,Urine 13 /hpf (0-5)
[2016-11-18] MEDS ORDERED: HYDROmorphone 1 MG/ML 1 ML SYRINGE IVP STA (04:03)
[2016-11-18 04:21] LABS: MCHC 38.1 g/dL (31.0-37.0); MCV 82.1 fL (80.0-100.0)
[2016-11-18 04:22] LABS: Add Differential Manual Differential
[2016-11-18 04:30] LABS: Nucleated Red Blood Cells 0 /100 WBC (0-0); Total Cells Counted 100
[2016-11-18 04:31] LABS: Target Cells Present
[2016-11-18 04:32] LABS: Polychromasia Present
[2016-11-18 05:14] VITALS: BP 122/78; PULSE 85; TEMP 98.1
== END 2016-11-18 05:14 | disposition home or self-care (01) ==
LOC: EC 02:26
DX: R10.9 Unspecified abdominal pain (principal); R11.10 Vomiting, unspecified; R19.7 Diarrhea, unspecified; F17.200 Nicotine dependence, unspecified, uncomplicated; Z88.0 Allergy status to penicillin
CPT/HCPCS: 36415; 80053; 85025; 85045; 81001; 87086; 74020; 99284; 96374; 96361; J1170

== ENCOUNTER 2017-01-08 17:49 | Emergency (ER) | payer MEDICARE ==
[2017-01-08 17:55] VITALS: RESP 18
[2017-01-08] MEDS ORDERED: HYDROmorphone 1 MG/ML 1 ML SYRINGE IVP STA (18:11)
[2017-01-08] MEDS ORDERED: SODIUM CHLORIDE 0.9% 1,000 ML IV STA ×2 (18:11)
[2017-01-08] MEDS ORDERED: ONDANSETRON 4 MG/2 ML VIAL IVP STA (18:11)
[2017-01-08] MEDS ORDERED: diphenhydrAMINE 50 MG/ML 1 ML VIAL IVP STA (18:12)
--- NOTE | 2017-01-08 18:50 | ED ---
General Adult HPI - General Chief complaint: Abdominal Pain Stated complaint: nausea, weakness, body aches Time Seen by Provider: 01/08/17 18:08 Source: patient, RN notes reviewed, old records reviewed Mode of arrival: ambulatory Limitations: no limitations - History of Present Illness Initial comments: This is a 36-year-old male out of the ER for evaluation. This patient presents for evaluation regarding the bowel pain, generalized pain. History of sickle cell disease. Patient denies recent illness, no fever or cough or congestion. No nausea vomiting or diarrhea. This is his normal sickle cell pain - Related Data Home Medications Medication Instructions Recorded Confirmed ALPRAZolam [Xanax] 1 mg PO TID PRN 12/12/13 01/08/17 HYDROcodone/APAP 10-325MG [[place] 1 tab PO QID PRN 12/12/13 01/08/17 10-325] Albuterol Nebulized [Ventolin 2.5 mg INHALATION RT-Q6H PRN 01/08/17 01/08/17 Nebulized] Allergies Allergy/AdvReac Type Severity Reaction Status Date / Time amoxicillin Allergy Unknown Verified 01/08/17 18:24 Penicillins Allergy Anaphylaxis Verified 01/08/17 18:24 Review of Systems ROS Statement: Those systems with pertinent positive or pertinent negative responses have been documented in the HPI. ROS Other: All systems not noted in ROS Statement are negative. Past Medical History Past Medical History: COPD Additional Past Medical History / Comment(s): Sickle Cell History of Any Multi-Drug Resistant Organisms: None Reported Past Surgical History: No Surgical Hx Reported Past Anesthesia/Blood Transfusion Reactions: No Reported Reaction Past Psychological History: Anxiety, Depression Smoking Status: Current every day smoker Past Alcohol Use History: None Reported Past Drug Use History: None Reported - Past Family History Mother Additional Family Medical History / Comment(s): sickle cell trait Father Additional Family Medical History / Comment(s): sickle cell trait General Exam Limitations: no limitations General appearance: alert, in no apparent distress Head exam: Present: atraumatic, normocephalic, normal inspection Eye exam: Present: normal appearance, PERRL, EOMI. Absent: scleral icterus, conjunctival injection, periorbital swelling ENT exam: Present: normal exam, mucous membranes moist Neck exam: Present: normal inspection. Absent: tenderness, meningismus, lymphadenopathy Respiratory exam: Present: normal lung sounds bilaterally. Absent: respiratory distress, wheezes, rales, rhonchi, stridor Cardiovascular Exam: Present: regular rate, normal rhythm, normal heart sounds. Absent: systolic murmur, diastolic murmur, rubs, gallop, clicks GI/Abdominal exam: Present: soft, normal bowel sounds. Absent: distended, tenderness, guarding, rebound, rigid Extremities exam: Present: normal inspection, full ROM, normal capillary refill. Absent: tenderness, pedal edema, joint swelling, calf tenderness Back exam: Present: normal inspection Neurological exam: Present: alert, oriented X3, CN II-XII intact Psychiatric exam: Present: normal affect, normal mood Skin exam: Present: warm, dry, intact, normal color. Absent: rash Course Vital Signs 01/08/17 17:52 Temperature 98.5 F Pulse Rate 62 Respiratory 18 Rate Blood Pressure 140/80 O2 Sat by Pulse 99 Oximetry - Reevaluation(s) Reevaluation #1: 01/08/17 19:38 Pain is resolved Medical Decision Making - Medical Decision Making 36 valve ER for evaluation of bright pain, sickle cell pain, generalized pain. Patient will be discharged home - Lab Data Result diagrams: 01/08/17 18:18 01/08/17 18:18 Lab Results 01/08/17 01/08/17 01/08/17 Range/Units 18:18 18:18 18:18 WBC 6.7 (3.8-10.6) k/uL RBC 4.48 (4.30-5.90) m/uL Hgb 14.0 (13.0-17.5) gm/dL Hct 38.4 L (39.0-53.0) % MCV 85.5 (80.0-100.0) fL MCH 31.3 (25.0-35.0) pg MCHC 36.6 (31.0-37.0) g/dL RDW 15.5 (11.5-15.5) % Plt Count 356 (150-450) k/uL Neutrophils % 46 % Lymphocytes % 44 % Monocytes % 7 % Eosinophils % 1 % Basophils % 1 % Neutrophils # 3.1 (1.3-7.7) k/uL Lymphocytes # 2.9 (1.0-4.8) k/uL Monocytes # 0.4 (0-1.0) k/uL Eosinophils # 0.1 (0-0.7) k/uL Basophils # 0.1 (0-0.2) k/uL Hyperchromasia Slight Retic Count 4.9 H (0.5-2.0) % PT (9.0-12.0) sec INR (<1.2) APTT (22.0-30.0) sec Sodium 140 (137-145) mmol/L Potassium 4.3 (3.5-5.1) mmol/L Chloride 105 (98-107) mmol/L Carbon Dioxide 27 (22-30) mmol/L Anion Gap 8 mmol/L BUN 7 L (9-20) mg/dL Creatinine 0.80 (0.66-1.25) mg/dL Est GFR (MDRD) Af Amer >60 (>60 ml/min/1.73 sqM) Est GFR (MDRD) Non-Af >60 (>60 ml/min/1.73 sqM) Glucose 93 (74-99) mg/dL Calcium 9.6 (8.4-10.2) mg/dL Phosphorus 3.2 (2.5-4.5) mg/dL Magnesium 1.9 (1.6-2.3) mg/dL Total Bilirubin 1.4 H (0.2-1.3) mg/dL AST 26 (17-59) U/L ALT 23 (21-72) U/L Alkaline Phosphatase 64 (38-126) U/L Lactate Dehydrogenase 739 H (313-618) U/L Total Creatine Kinase 101 (55-170) U/L CK-MB (CK-2) 0.4 (0.0-2.4) ng/mL CK-MB (CK-2) Rel Index 0.4 Troponin I 0.018 (0.000-0.034) ng/mL Total Protein 7.2 (6.3-8.2) g/dL Albumin 4.2 (3.5-5.0) g/dL 01/08/17 Range/Units 18:18 WBC (3.8-10.6) k/uL RBC (4.30-5.90) m/uL Hgb (13.0-17.5) gm/dL Hct (39.0-53.0) % MCV (80.0-100.0) fL MCH (25.0-35.0) pg MCHC (31.0-37.0) g/dL RDW (11.5-15.5) % Plt Count (150-450) k/uL Neutrophils % % Lymphocytes % % Monocytes % % Eosinophils % % Basophils % % Neutrophils # (1.3-7.7) k/uL Lymphocytes # (1.0-4.8) k/uL Monocytes # (0-1.0) k/uL Eosinophils # (0-0.7) k/uL Basophils # (0-0.2) k/uL Hyperchromasia Retic Count (0.5-2.0) % PT 10.7 (9.0-12.0) sec INR 1.1 (<1.2) APTT 25.7 (22.0-30.0) sec Sodium (137-145) mmol/L Potassium (3.5-5.1) mmol/L Chloride (98-107) mmol/L Carbon Dioxide (22-30) mmol/L Anion Gap mmol/L BUN (9-20) mg/dL Creatinine (0.66-1.25) mg/dL Est GFR (MDRD) Af Amer (>60 ml/min/1.73 sqM) Est GFR (MDRD) Non-Af (>60 ml/min/1.73 sqM) Glucose (74-99) mg/dL Calcium (8.4-10.2) mg/dL Phosphorus (2.5-4.5) mg/dL Magnesium (1.6-2.3) mg/dL Total Bilirubin (0.2-1.3) mg/dL AST (17-59) U/L ALT (21-72) U/L Alkaline Phosphatase (38-126) U/L Lactate Dehydrogenase (313-618) U/L Total Creatine Kinase (55-170) U/L CK-MB (CK-2) (0.0-2.4) ng/mL CK-MB (CK-2) Rel Index Troponin I (0.000-0.034) ng/mL Total Protein (6.3-8.2) g/dL Albumin (3.5-5.0) g/dL - Radiology Data Radiology results: report reviewed (X-ray abdominal series and chest is negative for acute disease), image reviewed Disposition Clinical Impression: Sickle cell pain crisis Disposition: HOME SELF-CARE Condition: Good Instructions: Sickle Cell Crisis (ED) Referrals: Rosalino Martinez MD [Primary Care Provider] - 1-2 days
[2017-01-08 19:02] LABS: INR 1.1 (<1.2); Partial Thromboplastin Time 25.7 sec (22.0-30.0); Prothrombin Time 10.7 sec (9.0-12.0)
--- NOTE | 2017-01-08 19:06 | XR ---
EXAMINATION TYPE: XR abdomen acute w cxr DATE OF EXAM: 01/08/2017 COMPARISON: NONE HISTORY: Pain nausea weakness TECHNIQUE: Acute abdominal series with frontal chest upright and supine views of the abdomen. FINDINGS: Normal bowel gas is present. No free air is present. No differential air-fluid levels are p resent. Psoas margins are normal. Organomegaly is not evident. Lung marin are clear IMPRESSION: 1. Normal acute abdominal series
[2017-01-08 19:15] LABS: ALT 23 U/L (21-72); AST 26 U/L (17-59); Alkaline Phosphatase 64 U/L (38-126); Anion Gap 8 mmol/L; Blood Urea Nitrogen 7 mg/dL (9-20); Calcium 9.6 mg/dL (8.4-10.2); Carbon Dioxide 27 mmol/L (22-30); Chloride 105 mmol/L (98-107); Glucose 93 mg/dL (74-99); LDH 739 U/L (313-618); Magnesium 1.9 mg/dL (1.6-2.3); Non-African American GFR(MDRD) >60 (>60 ml/min/1.73 sqM); Phosphorous 3.2 mg/dL (2.5-4.5); Potassium 4.3 mmol/L (3.5-5.1); Sodium 140 mmol/L (137-145); Total Bilirubin 1.4 mg/dL (0.2-1.3); Total Protein 7.2 g/dL (6.3-8.2)
[2017-01-08 19:23] LABS: Creatine Kinase MB 0.4 ng/mL (0.0-2.4); Troponin I 0.018 ng/mL (0.000-0.034)
[2017-01-08 19:24] LABS: Basophils # (A) 0.1 k/uL (0-0.2); Basophils % (A) 1 %; CH 31.9; CHCM 37.6; Eosinophils # (A) 0.1 k/uL (0-0.7); Eosinophils % (A) 1 %; HCT 38.4 % (39.0-53.0); HDW 3.37; Hyperchromasia Slight; Luc # (Auto) 0.14; Luc % (Auto) 2; Lymphocytes # (A) 2.9 k/uL (1.0-4.8); Lymphocytes % (A) 44 %; MCH 31.3 pg (25.0-35.0); MCHC 36.6 g/dL (31.0-37.0); MCV 85.5 fL (80.0-100.0); Mean Platelet Volume 7.7; Monocytes # (A) 0.4 k/uL (0-1.0); Monocytes % (A) 7 %; Neutrophils # (A) 3.1 k/uL (1.3-7.7); Neutrophils % (A) 46 %; RBC 4.48 m/uL (4.30-5.90); RDW 15.5 % (11.5-15.5); WBC 6.7 k/uL (3.8-10.6); WBC (Perox) 6.88
[2017-01-08 19:26] LABS: Reticulocyte % 4.9 % (0.5-2.0)
[2017-01-08 20:12] VITALS: BP 139/86; PULSE 56; TEMP 98.7
== END 2017-01-08 19:59 | disposition home or self-care (01) ==
LOC: EC 17:49
DX: D57.00 Hb-SS disease with crisis, unspecified (principal); R11.0 Nausea; F17.200 Nicotine dependence, unspecified, uncomplicated; Z88.0 Allergy status to penicillin
CPT/HCPCS: 99284; 96374; 96375 ×2; 96361; 36415; 80053; 82550; 82553; 83615; 83735; 84100; 84484; 85025; 85610; 85045; 85730; 74022; J1200; J2405; J1170

== ENCOUNTER 2017-07-04 09:07 | Emergency (ER) | payer MEDICARE, OTHER ==
[2017-07-04] MEDS ORDERED: ACETAMINOPHEN TAB 500 MG TAB PO STA (09:20)
--- NOTE | 2017-07-04 09:46 | ED ---
URI HPI - General Chief Complaint: Upper Respiratory Infection Stated Complaint: Sob/body pain Time Seen by Provider: 07/04/17 09:19 Source: patient, RN notes reviewed Mode of arrival: ambulatory Limitations: no limitations - History of Present Illness Initial Comments: This a 36-year-old male presents emergency Department chief complaint of fever cough body aches. Patient states symptoms started last 24-48 hours. Patient states he aches all over denies any chest pain. He states he does have sickle cell but states is not having a crisis. Patient states she just feels a he has a cold. Patient denies any ear pain or sore throat. Patient has known ALLERGIES to penicillin. Patient denies any sick contacts. Patient denies any nausea vomiting diarrhea constipation no abdominal pain. - Related Data Previous Rx's Medication Instructions Recorded Azithromycin [Zithromax Z-pack] 0 mg PO DIRECTED #1 pack 07/04/17 Allergies Allergy/AdvReac Type Severity Reaction Status Date / Time amoxicillin Allergy Unknown Verified 07/04/17 09:33 Penicillins Allergy Anaphylaxis Verified 07/04/17 09:33 shellfish derived [Shrimp] Allergy Anaphylaxis Verified 07/04/17 09:33 Review of Systems ROS Statement: Those systems with pertinent positive or pertinent negative responses have been documented in the HPI. ROS Other: All systems not noted in ROS Statement are negative. Past Medical History Past Medical History: COPD Additional Past Medical History / Comment(s): Sickle Cell History of Any Multi-Drug Resistant Organisms: None Reported Past Surgical History: No Surgical Hx Reported Past Anesthesia/Blood Transfusion Reactions: No Reported Reaction Past Psychological History: Anxiety, Depression Smoking Status: Current every day smoker Past Alcohol Use History: None Reported Past Drug Use History: Marijuana - Past Family History Mother Additional Family Medical History / Comment(s): sickle cell trait Father Additional Family Medical History / Comment(s): sickle cell trait General Exam Limitations: no limitations General appearance: alert, in no apparent distress Head exam: Present: atraumatic, normocephalic, normal inspection Eye exam: Present: normal appearance, PERRL, EOMI. Absent: scleral icterus, conjunctival injection, periorbital swelling ENT exam: Present: normal exam, normal oropharynx, mucous membranes moist, TM's normal bilaterally, normal external ear exam Neck exam: Present: normal inspection, full ROM. Absent: tenderness, meningismus, lymphadenopathy Respiratory exam: Present: normal lung sounds bilaterally. Absent: respiratory distress, wheezes, rales, rhonchi, stridor Cardiovascular Exam: Present: regular rate, normal rhythm, normal heart sounds. Absent: systolic murmur, diastolic murmur, rubs, gallop, clicks GI/Abdominal exam: Present: soft, normal bowel sounds. Absent: distended, tenderness, guarding, rebound, rigid Back exam: Absent: CVA tenderness (R), CVA tenderness (L) Skin exam: Present: warm, dry, intact, normal color. Absent: rash Course Vital Signs 07/04/17 07/04/17 07/04/17 09:17 09:20 10:25 Temperature 101.8 F H 100 F H Pulse Rate 94 87 Respiratory 18 18 18 Rate Blood Pressure 133/60 121/67 O2 Sat by Pulse 97 99 Oximetry Medical Decision Making - Medical Decision Making 36-year-old male presents from for fever cough bodyaches. Patient's symptoms are only a few days ago. Patient chest x-ray shows some atelectasis, fluids negative. Patient had lab work which is sent with his history of sickle cell. Patient does not appear to be in acute chest syndrome or crisis. Patient will be treated with azithromycin advise follow-up with PCP and then 14 hours return for worsening symptoms. - Lab Data Result diagrams: 07/04/17 10:14 07/04/17 10:14 Lab Results 07/04/17 07/04/17 07/04/17 Range/Units 09:23 10:14 10:14 WBC 11.8 H (3.8-10.6) k/uL RBC 4.17 L (4.30-5.90) m/uL Hgb 12.6 L (13.0-17.5) gm/dL Hct 35.5 L (39.0-53.0) % MCV 85.0 (80.0-100.0) fL MCH 30.3 (25.0-35.0) pg MCHC 35.7 (31.0-37.0) g/dL RDW 15.0 (11.5-15.5) % Plt Count 245 (150-450) k/uL Retic Count (0.5-2.0) % Sodium 138 (137-145) mmol/L Potassium 4.0 (3.5-5.1) mmol/L Chloride 103 (98-107) mmol/L Carbon Dioxide 29 (22-30) mmol/L Anion Gap 6 mmol/L BUN 6 L (9-20) mg/dL Creatinine 0.80 (0.66-1.25) mg/dL Est GFR (MDRD) Af Amer >60 (>60 ml/min/1.73 sqM) Est GFR (MDRD) Non-Af >60 (>60 ml/min/1.73 sqM) Glucose 79 (74-99) mg/dL Plasma Lactic Acid Jony (0.7-2.0) mmol/L Calcium 9.4 (8.4-10.2) mg/dL Total Bilirubin 1.1 (0.2-1.3) mg/dL AST 25 (17-59) U/L ALT 20 L (21-72) U/L Alkaline Phosphatase 50 (38-126) U/L Lactate Dehydrogenase 850 H (313-618) U/L Total Protein 6.8 (6.3-8.2) g/dL Albumin 4.0 (3.5-5.0) g/dL Influenza Type A RNA Not Detected (Not Detectd) Influenza Type B (PCR) Not Detected (Not Detectd) 07/04/17 07/04/17 Range/Units 10:14 10:14 WBC (3.8-10.6) k/uL RBC (4.30-5.90) m/uL Hgb (13.0-17.5) gm/dL Hct (39.0-53.0) % MCV (80.0-100.0) fL MCH (25.0-35.0) pg MCHC (31.0-37.0) g/dL RDW (11.5-15.5) % Plt Count (150-450) k/uL Retic Count 5.2 H (0.5-2.0) % Sodium (137-145) mmol/L Potassium (3.5-5.1) mmol/L Chloride (98-107) mmol/L Carbon Dioxide (22-30) mmol/L Anion Gap mmol/L BUN (9-20) mg/dL Creatinine (0.66-1.25) mg/dL Est GFR (MDRD) Af Amer (>60 ml/min/1.73 sqM) Est GFR (MDRD) Non-Af (>60 ml/min/1.73 sqM) Glucose (74-99) mg/dL Plasma Lactic Acid Jony 0.8 (0.7-2.0) mmol/L Calcium (8.4-10.2) mg/dL Total Bilirubin (0.2-1.3) mg/dL AST (17-59) U/L ALT (21-72) U/L Alkaline Phosphatase (38-126) U/L Lactate Dehydrogenase (313-618) U/L Total Protein (6.3-8.2) g/dL Albumin (3.5-5.0) g/dL Influenza Type A RNA (Not Detectd) Influenza Type B (PCR) (Not Detectd) Disposition Clinical Impression: Acute bronchitis Disposition: HOME SELF-CARE Condition: Stable Instructions: Upper Respiratory Infection (ED) Additional Instructions: Please return to the Emergency Department if symptoms worsen or any other concerns. Prescriptions: Azithromycin [Zithromax Z-pack] 0 mg PO DIRECTED #1 pack Referrals: Rosalino Martinez MD [Primary Care Provider] - 1-2 days Time of Disposition: 11:49
--- NOTE | 2017-07-04 09:50 | XR ---
EXAMINATION TYPE: XR chest 2V DATE OF EXAM: 07/04/2017 COMPARISON: 07/31/2016 HISTORY: Cough and congestion for 2 days TECHNIQUE: Frontal and lateral views of the chest are obtained. FINDINGS: There is no focal air space opacity, pleural effusion, or pneumothorax seen. Minimal subs egmental right basilar atelectasis is noted. The cardiac silhouette size is within normal limits. T he osseous structures are intact. IMPRESSION: Minimal right basilar subsegmental atelectasis with no other acute cardiopulmonary proce ss.
[2017-07-04] MEDS ORDERED: cefTRIAXone IN SWFI 1,000 MG/10 ML SYRINGE IVP STA (10:03)
[2017-07-04 10:48] LABS: ALT 20 U/L (21-72); AST 25 U/L (17-59); Alkaline Phosphatase 50 U/L (38-126); Anion Gap 6 mmol/L; Blood Urea Nitrogen 6 mg/dL (9-20); Calcium 9.4 mg/dL (8.4-10.2); Carbon Dioxide 29 mmol/L (22-30); Chloride 103 mmol/L (98-107); Glucose 79 mg/dL (74-99); LDH 850 U/L (313-618); Sodium 138 mmol/L (137-145); Total Bilirubin 1.1 mg/dL (0.2-1.3); Total Protein 6.8 g/dL (6.3-8.2)
[2017-07-04 10:56] LABS: HCT 35.5 % (39.0-53.0); HGB 12.6 gm/dL (13.0-17.5); Hyperchromasia Slight; MCH 30.3 pg (25.0-35.0); MCHC 35.7 g/dL (31.0-37.0); Mean Platelet Volume 8.1; Platelet Count 245 k/uL (150-450); Poikilocytosis Slight; RBC 4.17 m/uL (4.30-5.90)
[2017-07-04 11:14] LABS: Reticulocyte % 5.2 % (0.5-2.0)
[2017-07-04 11:42] LABS: Band Neutrophils % 2 %; Lymphocytes # (M) 0.83 k/uL (1.0-4.8); Monocytes # (M) 0.47 k/uL (0-1.0); Neutrophils % (M) 88 %; Nucleated Red Blood Cells 1 /100 WBC (0-0); Total Cells Counted 200; WBC 11.8 k/uL (3.8-10.6)
[2017-07-04 11:43] LABS: Target Cells Present
[2017-07-04 11:44] LABS: Anisocytosis (M) Present
[2017-07-04 11:45] LABS: RBC Fragments Present; Spherocytes Present
[2017-07-04] MEDS ORDERED: KETOROLAC 30 MG/ML 1 ML VIAL IVP STA (11:59)
--- NOTE | 2017-07-04 12:32 | ED ---
Medical Decision Making - Medical Decision Making Patient is refusing to be discharged because he wants narcotic pain meds. I did explain that we do not write chronic pain meds. He states that he has not had his pain meds because his PCP stopped writing from. I did explain that we will not write his pain meds he is complaining, causing a scene. Patient is having drug-seeking behavior. - Lab Data Result diagrams: 07/04/17 10:14 07/04/17 10:14 Lab Results 07/04/17 07/04/17 07/04/17 Range/Units 09:23 10:14 10:14 WBC 11.8 H (3.8-10.6) k/uL RBC 4.17 L (4.30-5.90) m/uL Hgb 12.6 L (13.0-17.5) gm/dL Hct 35.5 L (39.0-53.0) % MCV 85.0 (80.0-100.0) fL MCH 30.3 (25.0-35.0) pg MCHC 35.7 (31.0-37.0) g/dL RDW 15.0 (11.5-15.5) % Plt Count 245 (150-450) k/uL Neutrophils % (Manual) 88 % Band Neutrophils % 2 % Lymphocytes % (Manual) 7 % Monocytes % (Manual) 4 % Neutrophils # (Manual) 10.60 H (1.3-7.7) k/uL Lymphocytes # (Manual) 0.83 L (1.0-4.8) k/uL Monocytes # (Manual) 0.47 (0-1.0) k/uL Nucleated RBCs 1 H (0-0) /100 WBC Hyperchromasia Slight Poikilocytosis Slight Anisocytosis (manual) Present Spherocytes Present Target Cells Present Fragmented RBCs Present Retic Count (0.5-2.0) % Sodium 138 (137-145) mmol/L Potassium 4.0 (3.5-5.1) mmol/L Chloride 103 (98-107) mmol/L Carbon Dioxide 29 (22-30) mmol/L Anion Gap 6 mmol/L BUN 6 L (9-20) mg/dL Creatinine 0.80 (0.66-1.25) mg/dL Est GFR (MDRD) Af Amer >60 (>60 ml/min/1.73 sqM) Est GFR (MDRD) Non-Af >60 (>60 ml/min/1.73 sqM) Glucose 79 (74-99) mg/dL Plasma Lactic Acid Jony (0.7-2.0) mmol/L Calcium 9.4 (8.4-10.2) mg/dL Total Bilirubin 1.1 (0.2-1.3) mg/dL AST 25 (17-59) U/L ALT 20 L (21-72) U/L Alkaline Phosphatase 50 (38-126) U/L Lactate Dehydrogenase 850 H (313-618) U/L Total Protein 6.8 (6.3-8.2) g/dL Albumin 4.0 (3.5-5.0) g/dL Influenza Type A RNA Not Detected (Not Detectd) Influenza Type B (PCR) Not Detected (Not Detectd) 07/04/17 07/04/17 Range/Units 10:14 10:14 WBC (3.8-10.6) k/uL RBC (4.30-5.90) m/uL Hgb (13.0-17.5) gm/dL Hct (39.0-53.0) % MCV (80.0-100.0) fL MCH (25.0-35.0) pg MCHC (31.0-37.0) g/dL RDW (11.5-15.5) % Plt Count (150-450) k/uL Neutrophils % (Manual) % Band Neutrophils % % Lymphocytes % (Manual) % Monocytes % (Manual) % Neutrophils # (Manual) (1.3-7.7) k/uL Lymphocytes # (Manual) (1.0-4.8) k/uL Monocytes # (Manual) (0-1.0) k/uL Nucleated RBCs (0-0) /100 WBC Hyperchromasia Poikilocytosis Anisocytosis (manual) Spherocytes Target Cells Fragmented RBCs Retic Count 5.2 H (0.5-2.0) % Sodium (137-145) mmol/L Potassium (3.5-5.1) mmol/L Chloride (98-107) mmol/L Carbon Dioxide (22-30) mmol/L Anion Gap mmol/L BUN (9-20) mg/dL Creatinine (0.66-1.25) mg/dL Est GFR (MDRD) Af Amer (>60 ml/min/1.73 sqM) Est GFR (MDRD) Non-Af (>60 ml/min/1.73 sqM) Glucose (74-99) mg/dL Plasma Lactic Acid Jony 0.8 (0.7-2.0) mmol/L Calcium (8.4-10.2) mg/dL Total Bilirubin (0.2-1.3) mg/dL AST (17-59) U/L ALT (21-72) U/L Alkaline Phosphatase (38-126) U/L Lactate Dehydrogenase (313-618) U/L Total Protein (6.3-8.2) g/dL Albumin (3.5-5.0) g/dL Influenza Type A RNA (Not Detectd) Influenza Type B (PCR) (Not Detectd) Disposition Clinical Impression: Acute bronchitis, Drug-seeking behavior Disposition: HOME SELF-CARE Condition: Stable Instructions: Upper Respiratory Infection (ED) Additional Instructions: Please return to the Emergency Department if symptoms worsen or any other concerns. Prescriptions: Azithromycin [Zithromax Z-pack] 0 mg PO DIRECTED #1 pack Referrals: Rosalino Martinez MD [Primary Care Provider] - 1-2 days
[2017-07-04 12:48] VITALS: BP 133/56; PULSE 68; RESP 20; TEMP 99.9
== END 2017-07-04 12:30 | disposition home or self-care (01) ==
LOC: EC 09:07
DX: J20.9 Acute bronchitis, unspecified (principal); J98.11 Atelectasis; F17.200 Nicotine dependence, unspecified, uncomplicated; Z88.0 Allergy status to penicillin; Z91.013 Allergy to seafood
CPT/HCPCS: 36415; 80053; 83605; 83615; 85025; 85045; 87040; 87502; 71046; 99284; 96374; 96375; J0696; J1885

== ENCOUNTER 2018-04-02 13:38 | Inpatient (IN) | payer MEDICARE, OTHER ==
[2018-04-02] MEDS ORDERED: SODIUM CHLORIDE 0.9% 1,000 ML IV STA ×2 (14:49)
[2018-04-02] MEDS ORDERED: ACETAMINOPHEN TAB 500 MG TAB PO STA (14:50)
[2018-04-02] MEDS ORDERED: IPRATROPIUM-ALBUTEROL 3 ML NEB INHALATION STA (15:17)
--- NOTE | 2018-04-02 15:29 | XR ---
EXAMINATION TYPE: XR chest 2V DATE OF EXAM: 04/02/2018 COMPARISON: 01/16/2018 HISTORY: Cough and generalized pain for 2 days TECHNIQUE: Frontal and lateral views of the chest are obtained. FINDINGS: Heart is enlarged. There is strand-like density at the right hemidiaphragm unchanged from the prior relating to minimal platelike atelectasis. No new focal consolidation is seen. No sizable p neumothorax or pleural effusion. IMPRESSION: Minimal platelike right basilar atelectasis and cardiomegaly are stable from the prior. No acute cardiopulmonary process.
[2018-04-02 15:39] LABS: Appearance,Urine Clear (Clear); Bilirubin,Urine Negative (Negative); Blood,Urine Negative (Negative); Color,Urine Yellow; Glucose,Urine (UA) Negative (Negative); Ketones,Urine Negative (Negative); Leukocyte Esterase,Urine Negative (Negative); Nitrite,Urine Negative (Negative); PH, Urine 5.5 (5.0-8.0); Protein,Urine Negative (Negative); Urobilinogen,Urine <2.0 mg/dL (<2.0)
[2018-04-02 15:50] LABS: HCT 37.5 % (39.0-53.0); HGB 13.2 gm/dL (13.0-17.5); Hyperchromasia Slight; MCH 30.5 pg (25.0-35.0); MCHC 35.2 g/dL (31.0-37.0); MCV 86.6 fL (80.0-100.0); Mean Platelet Volume 8.1; Platelet Count 321 k/uL (150-450); Poikilocytosis Slight; RBC 4.33 m/uL (4.30-5.90); RDW 15.5 % (11.5-15.5); WBC 14.5 k/uL (3.8-10.6)
--- NOTE | 2018-04-02 15:51 | ED ---
Fever HPI - General Source: patient, RN notes reviewed, old records reviewed Mode of arrival: ambulatory Limitations: no limitations <Emma Curran - Last Filed: 04/02/18 18:00> <Zenon Amador - Last Filed: 04/02/18 18:11> - General Chief Complaint: Fever Stated Complaint: Weak/cough Time Seen by Provider: 04/02/18 14:43 - History of Present Illness Initial Comments: 37-year-old male presents referred to acute plan of weakness, cough. He has history of sickle cell disease. Patient reports that he has had diffuse pain. He reports he feels very dehydrated as well. Patient is a smoker. Patient denies any abdominal pain. He does report some productive cough. He's been vomiting due to the amount of coughing. No history of sick contacts that he is aware of. Patient denies any recent chest pain, back pain, abdominal pain, nausea vomiting, numbness or tingling, dysuria or hematuria, constipation or diarrhea, headaches or visual changes, or any other current symptoms (Emma Curran) - Related Data Home Medications Medication Instructions Recorded Confirmed Acetaminophen Tab [Tylenol Tab] 1,000 mg PO Q6HR PRN 04/02/18 04/02/18 Ibuprofen [Motrin Ib] 200 mg PO Q6H PRN 04/02/18 04/02/18 Allergies Allergy/AdvReac Type Severity Reaction Status Date / Time amoxicillin Allergy Unknown Verified 04/02/18 14:36 Penicillins Allergy Anaphylaxis Verified 04/02/18 14:36 shellfish derived [Shrimp] Allergy Anaphylaxis Verified 04/02/18 14:36 Review of Systems ROS Other: All systems not noted in ROS Statement are negative. <Emma Curran - Last Filed: 04/02/18 18:00> ROS Other: All systems not noted in ROS Statement are negative. <Zenon Amador - Last Filed: 04/02/18 18:11> ROS Statement: Those systems with pertinent positive or pertinent negative responses have been documented in the HPI. Past Medical History Past Medical History: COPD Additional Past Medical History / Comment(s): Sickle Cell History of Any Multi-Drug Resistant Organisms: None Reported Past Surgical History: No Surgical Hx Reported Past Anesthesia/Blood Transfusion Reactions: No Reported Reaction Past Psychological History: Anxiety, Depression Smoking Status: Current every day smoker Past Alcohol Use History: None Reported Past Drug Use History: Marijuana - Past Family History Mother Additional Family Medical History / Comment(s): sickle cell trait Father Additional Family Medical History / Comment(s): sickle cell trait <Emma Curran - Last Filed: 04/02/18 18:00> General Exam Limitations: no limitations General appearance: alert, in no apparent distress Head exam: Present: atraumatic, normocephalic, normal inspection Eye exam: Present: normal appearance, PERRL, EOMI. Absent: scleral icterus, conjunctival injection, periorbital swelling ENT exam: Present: normal exam, mucous membranes moist Neck exam: Present: normal inspection. Absent: tenderness, meningismus, lymphadenopathy Respiratory exam: Present: wheezes. Absent: normal lung sounds bilaterally, respiratory distress, rales, rhonchi, stridor Cardiovascular Exam: Present: regular rate, normal rhythm, normal heart sounds. Absent: systolic murmur, diastolic murmur, rubs, gallop, clicks GI/Abdominal exam: Present: soft, normal bowel sounds. Absent: distended, tenderness, guarding, rebound, rigid Extremities exam: Present: normal inspection, full ROM, normal capillary refill. Absent: tenderness, pedal edema, joint swelling, calf tenderness Back exam: Present: normal inspection Neurological exam: Present: alert, oriented X3, CN II-XII intact Psychiatric exam: Present: normal affect, normal mood Skin exam: Present: warm, dry, intact, normal color. Absent: rash <Emma Curran - Last Filed: 04/02/18 18:00> <Zenon Amador - Last Filed: 04/02/18 18:11> - General Exam Comments Initial Comments: 37-year-old male. Alert. Patient appears in moderate discomfort. (Emma Curran) Course <Emma Curran - Last Filed: 04/02/18 18:00> <Zenon Amador - Last Filed: 04/02/18 18:11> Vital Signs 04/02/18 04/02/18 04/02/18 13:53 15:46 15:56 Temperature 102.5 F H Pulse Rate 77 75 85 Respiratory 18 Rate Blood Pressure 153/82 O2 Sat by Pulse 98 Oximetry 04/02/18 17:23 Temperature 100.6 F H Pulse Rate 73 Respiratory 18 Rate Blood Pressure 112/69 O2 Sat by Pulse 95 Oximetry - Reevaluation(s) Reevaluation #1: 04/02/18 18:10 PA supervision: I proceeded [id number] evaluation the patient and did discuss the findings with him and his . Patient has a fever cough with yellow phlegm right side crepitus with ventilation evidence of atelectasis on x-ray clinically however presents more like pneumonia. Patient also is a smoker with COPD. We did discuss smoking cessation issues the entire conversation lasting 3.1 minutes. Patient will be admitted for inpatient treatment of pneumonia COPD exacerbation. I did discuss case with Dr. garsia. I do agree with the assessment and plan (Zenon Amador) Medical Decision Making - Lab Data Result diagrams: 04/02/18 15:18 04/02/18 15:18 - Radiology Data Radiology results: report reviewed <Emma Curran - Last Filed: 04/02/18 18:00> - Lab Data Result diagrams: 04/02/18 15:18 04/02/18 15:18 <Zenon Amador - Last Filed: 04/02/18 18:11> - Medical Decision Making 37-year-old male with history of sickle cell disease presents today with fever cough congestion. He has significant wheezing noted. Given DuoNeb treatment with minimal improvement. Patient had a fever 102.5. Blood cultures were obtained. Chest x-ray shows evidence of myocardial megaly and atelectasis noted. Clinical concern for bronchitis possibility of early pneumonia. Patient 's white blood cell count is elevated at 14,000. Increased reticulocyte count. Patient at this time will be admitted for bronchitis, COPD exacerbation, and early pneumonia. Started on Rocephin and azithromycin. (Emma Curran) - Lab Data Lab Results 04/02/18 04/02/18 04/02/18 Range/Units 15:18 15:18 15:18 WBC 14.5 H (3.8-10.6) k/uL RBC 4.33 (4.30-5.90) m/uL Hgb 13.2 (13.0-17.5) gm/dL Hct 37.5 L (39.0-53.0) % MCV 86.6 (80.0-100.0) fL MCH 30.5 (25.0-35.0) pg MCHC 35.2 (31.0-37.0) g/dL RDW 15.5 (11.5-15.5) % Plt Count 321 (150-450) k/uL Neutrophils % (Manual) 80 % Band Neutrophils % 2 % Lymphocytes % (Manual) 17 % Monocytes % (Manual) 1 % Neutrophils # (Manual) 11.80 H (1.3-7.7) k/uL Lymphocytes # (Manual) 2.47 (1.0-4.8) k/uL Monocytes # (Manual) 0.15 (0-1.0) k/uL Nucleated RBCs 0 (0-0) /100 WBC Manual Slide Review Performed Hyperchromasia Slight Poikilocytosis Slight Target Cells Present Retic Count (0.5-2.0) % Sodium 138 (137-145) mmol/L Potassium 4.7 (3.5-5.1) mmol/L Chloride 103 (98-107) mmol/L Carbon Dioxide 27 (22-30) mmol/L Anion Gap 8 mmol/L BUN 7 L (9-20) mg/dL Creatinine 0.96 (0.66-1.25) mg/dL Est GFR (CKD-EPI)AfAm >90 (>60 ml/min/1.73 sqM) Est GFR (CKD-EPI)NonAf >90 (>60 ml/min/1.73 sqM) Glucose 75 (74-99) mg/dL Plasma Lactic Acid Jony (0.7-2.0) mmol/L Calcium 9.2 (8.4-10.2) mg/dL Total Bilirubin 1.7 H (0.2-1.3) mg/dL AST 52 (17-59) U/L ALT 14 L (21-72) U/L Alkaline Phosphatase 60 (38-126) U/L Total Protein 7.5 (6.3-8.2) g/dL Albumin 4.2 (3.5-5.0) g/dL Urine Color Urine Appearance (Clear) Urine pH (5.0-8.0) Ur Specific [place] (1.001-1.035) Urine Protein (Negative) Urine Glucose (UA) (Negative) Urine Ketones (Negative) Urine Blood (Negative) Urine Nitrite (Negative) Urine Bilirubin (Negative) Urine Urobilinogen (<2.0) mg/dL Ur Leukocyte Esterase (Negative) Heterophile Antibody Negative (Negative) Influenza Type A RNA (Not Detectd) Influenza Type B (PCR) (Not Detectd) 04/02/18 04/02/18 04/02/18 Range/Units 15:18 15:18 15:18 WBC (3.8-10.6) k/uL RBC (4.30-5.90) m/uL Hgb (13.0-17.5) gm/dL Hct (39.0-53.0) % MCV (80.0-100.0) fL MCH (25.0-35.0) pg MCHC (31.0-37.0) g/dL RDW (11.5-15.5) % Plt Count (150-450) k/uL Neutrophils % (Manual) % Band Neutrophils % % Lymphocytes % (Manual) % Monocytes % (Manual) % Neutrophils # (Manual) (1.3-7.7) k/uL Lymphocytes # (Manual) (1.0-4.8) k/uL Monocytes # (Manual) (0-1.0) k/uL Nucleated RBCs (0-0) /100 WBC Manual Slide Review Hyperchromasia Poikilocytosis Target Cells Retic Count (0.5-2.0) % Sodium (137-145) mmol/L Potassium (3.5-5.1) mmol/L Chloride (98-107) mmol/L Carbon Dioxide (22-30) mmol/L Anion Gap mmol/L BUN (9-20) mg/dL Creatinine (0.66-1.25) mg/dL Est GFR (CKD-EPI)AfAm (>60 ml/min/1.73 sqM) Est GFR (CKD-EPI)NonAf (>60 ml/min/1.73 sqM) Glucose (74-99) mg/dL Plasma Lactic Acid Jony 1.2 (0.7-2.0) mmol/L Calcium (8.4-10.2) mg/dL Total Bilirubin (0.2-1.3) mg/dL AST (17-59) U/L ALT (21-72) U/L Alkaline Phosphatase (38-126) U/L Total Protein (6.3-8.2) g/dL Albumin (3.5-5.0) g/dL Urine Color Yellow Urine Appearance Clear (Clear) Urine pH 5.5 (5.0-8.0) Ur Specific [place] 1.010 (1.001-1.035) Urine Protein Negative (Negative) Urine Glucose (UA) Negative (Negative) Urine Ketones Negative (Negative) Urine Blood Negative (Negative) Urine Nitrite Negative (Negative) Urine Bilirubin Negative (Negative) Urine Urobilinogen <2.0 (<2.0) mg/dL Ur Leukocyte Esterase Negative (Negative) Heterophile Antibody (Negative) Influenza Type A RNA Not Detected (Not Detectd) Influenza Type B (PCR) Not Detected (Not Detectd) 04/02/18 Range/Units 15:18 WBC (3.8-10.6) k/uL RBC (4.30-5.90) m/uL Hgb (13.0-17.5) gm/dL Hct (39.0-53.0) % MCV (80.0-100.0) fL MCH (25.0-35.0) pg MCHC (31.0-37.0) g/dL RDW (11.5-15.5) % Plt Count (150-450) k/uL Neutrophils % (Manual) % Band Neutrophils % % Lymphocytes % (Manual) % Monocytes % (Manual) % Neutrophils # (Manual) (1.3-7.7) k/uL Lymphocytes # (Manual) (1.0-4.8) k/uL Monocytes # (Manual) (0-1.0) k/uL Nucleated RBCs (0-0) /100 WBC Manual Slide Review Hyperchromasia Poikilocytosis Target Cells Retic Count 5.1 H (0.5-2.0) % Sodium (137-145) mmol/L Potassium (3.5-5.1) mmol/L Chloride (98-107) mmol/L Carbon Dioxide (22-30) mmol/L Anion Gap mmol/L BUN (9-20) mg/dL Creatinine (0.66-1.25) mg/dL Est GFR (CKD-EPI)AfAm (>60 ml/min/1.73 sqM) Est GFR (CKD-EPI)NonAf (>60 ml/min/1.73 sqM) Glucose (74-99) mg/dL Plasma Lactic Acid Jony (0.7-2.0) mmol/L Calcium (8.4-10.2) mg/dL Total Bilirubin (0.2-1.3) mg/dL AST (17-59) U/L ALT (21-72) U/L Alkaline Phosphatase (38-126) U/L Total Protein (6.3-8.2) g/dL Albumin (3.5-5.0) g/dL Urine Color Urine Appearance (Clear) Urine pH (5.0-8.0) Ur Specific [place] (1.001-1.035) Urine Protein (Negative) Urine Glucose (UA) (Negative) Urine Ketones (Negative) Urine Blood (Negative) Urine Nitrite (Negative) Urine Bilirubin (Negative) Urine Urobilinogen (<2.0) mg/dL Ur Leukocyte Esterase (Negative) Heterophile Antibody (Negative) Influenza Type A RNA (Not Detectd) Influenza Type B (PCR) (Not Detectd) - Radiology Data Platelike basilar atelectasis and cardiomegaly stable from prior. No acute cardio pulmonary process. (Emma Curran) Disposition Is patient prescribed a controlled substance at d/c from ED?: No Time of Disposition: 18:02 <Emma Curran - Last Filed: 04/02/18 18:00> <Zenon Amador - Last Filed: 04/02/18 18:11> Clinical Impression: Sickle cell anemia, Pneumonia, COPD exacerbation Clinical Impression: (Ruled Out): Bacterial meningitis Disposition: ADMITTED IP TO THIS HOSP Condition: Stable Additional Instructions: Patient advised follow-up with primary care physician. Return to the emergency department if any alarming signs or symptoms occur. Referrals: Christy Sung MD [Primary Care Provider] - 1-2 days
[2018-04-02 15:53] LABS: Reticulocyte % 5.1 % (0.5-2.0)
[2018-04-02 15:56] LABS: ALT 14 U/L (21-72); AST 52 U/L (17-59); Albumin 4.2 g/dL (3.5-5.0); Alkaline Phosphatase 60 U/L (38-126); Anion Gap 8 mmol/L; Blood Urea Nitrogen 7 mg/dL (9-20); Calcium 9.2 mg/dL (8.4-10.2); Carbon Dioxide 27 mmol/L (22-30); Chloride 103 mmol/L (98-107); Glucose 75 mg/dL (74-99); Sodium 138 mmol/L (137-145); Total Bilirubin 1.7 mg/dL (0.2-1.3); Total Protein 7.5 g/dL (6.3-8.2)
[2018-04-02 15:57] LABS: Potassium 4.7 mmol/L (3.5-5.1)
[2018-04-02 16:04] LABS: Band Neutrophils % 2 %; Lymphocytes # (M) 2.47 k/uL (1.0-4.8); Monocytes # (M) 0.15 k/uL (0-1.0); Neutrophils % (M) 80 %; Nucleated Red Blood Cells 0 /100 WBC (0-0); Target Cells Present; Total Cells Counted 100
[2018-04-02] MEDS ORDERED: AZITHROMYCIN 500 MG TAB PO STA (17:23)
[2018-04-02] MEDS ORDERED: PNEUMONIA PROTOCOL UTILIZED 1 EACH MISC PO PRN (18:03)
[2018-04-03] MEDS: HYDROcodone/APAP 10-325MG 1 EACH TAB PO PRN ×4 (00:19→18:52)
[2018-04-03] MEDS: IPRATROPIUM-ALBUTEROL 3 ML NEB INHALATION PRN (08:04)
--- NOTE | 2018-04-03 08:11 | XR ---
EXAMINATION TYPE: XR chest 2V DATE OF EXAM: 04/03/2018 COMPARISON: 04/02/2018 INDICATION: Pneumonia TECHNIQUE: Frontal and lateral views of the chest are obtained. FINDINGS: The heart size is prominent. The pulmonary vasculature is normal. Bibasilar infiltrates are present. This is likely greater at the right base. IMPRESSION: 1. Bibasilar infiltrates can be compatible with pneumonia. 2. Findings are worsening from comparison 04/02/2018
[2018-04-03] MEDS: SODIUM CHLORIDE 0.9% 1,000 ML IV SCH ×2 (10:45→20:16)
[2018-04-03 11:40] LABS: ALT 21 U/L (21-72); AST 24 U/L (17-59); Albumin 3.3 g/dL (3.5-5.0); Alkaline Phosphatase 44 U/L (38-126); Anion Gap 7 mmol/L; Blood Urea Nitrogen 8 mg/dL (9-20); Calcium 8.6 mg/dL (8.4-10.2); Carbon Dioxide 25 mmol/L (22-30); Chloride 106 mmol/L (98-107); Glucose 88 mg/dL (74-99); LDH 847 U/L (313-618); Potassium 4.2 mmol/L (3.5-5.1); Sodium 138 mmol/L (137-145); Total Bilirubin 0.7 mg/dL (0.2-1.3); Total Protein 6.1 g/dL (6.3-8.2)
[2018-04-03 11:54] LABS: HCT 33.2 % (39.0-53.0); MCH 31.2 pg (25.0-35.0); MCHC 36.2 g/dL (31.0-37.0); MCV 86.2 fL (80.0-100.0); Mean Platelet Volume 8.6; Platelet Count 247 k/uL (150-450); RBC 3.86 m/uL (4.30-5.90); RDW 14.4 % (11.5-15.5); WBC 14.3 k/uL (3.8-10.6)
[2018-04-03 12:22] LABS: Anisocytosis (M) Present; Lymphocytes # (M) 3.86 k/uL (1.0-4.8); Monocytes # (M) 0.57 k/uL (0-1.0); Neutrophils # (M) 9.87 k/uL (1.3-7.7); Neutrophils % (M) 69 %; Nucleated Red Blood Cells 0 /100 WBC (0-0); Total Cells Counted 100
[2018-04-03] MEDS ORDERED: ACETAMINOPHEN TAB 500 MG TAB PO PRN (12:25)
[2018-04-03] MEDS ORDERED: IBUPROFEN 200 MG TAB PO PRN (12:25)
[2018-04-03] MEDS ORDERED: ALPRAZolam 0.25 MG TAB PO PRN (12:26)
[2018-04-03] MEDS ORDERED: LORazepam 0.5 MG TAB PO PRN (16:01)
--- NOTE | 2018-04-03 16:03 | P.CNPUL ---
History of Present Illness Consult date: 04/03/18 Reason for consult: dyspnea, cough, hypoxemia, other Chief complaint: Weakness, cough, shortness of breath, diffuse pain History of present illness: This is a 37-year-old -[place] male, patient of Dr. Ana Lilia Harrison, who presented to the emergency department on 04/02/2018 for evaluation of weakness, cough, shortness of breath, fever of 102F, and diffuse generalized pain. Patient has a history of sickle cell disease. Patient felt very dehydrated as well. He is a current smoker. He has been vomiting due to the amount of coughing. His cough is productive. Patient also follows with Dr. Sol for his sickle cell disease. No history of sick contacts, denied any nausea, diarrhea, abdominal pain. Denied any numbness or tingling, denied any headaches, visual changes, denied any lightheadedness or dizziness. Other medical history includes anxiety, depression, marijuana use. Chest x-ray was completed and showed minimal platelike right basilar atelectasis and cardiomegaly, no acute cardiopulmonary process. Follow-up chest x-ray on 2017 showed bibasilar infiltrates. Initial labs showed WBC of 14.5, hemoglobin of 13.2, electrolytes were normal, BUN was 7, creatinine 0.96. LDH was 847, influenza screen was negative, urinalysis was negative. Patient was started on empiric antibiotics with Zithromax and Rocephin, nebulized bronchodilators. Patient was given a liter of IV fluids 0.9 normal saline, and his maintenance IV fluids his 0.9 normal saline at a rate of 100 ML per hour. He is receiving [place] and ibuprofen for pain. Were consulted in regards to dyspnea and acute chest syndrome Review of Systems All systems: negative Constitutional: Reports chronic pain, Reports weakness, Denies chills, Denies fever Eyes: denies blurred vision, denies pain Ears, nose, mouth and throat: Denies headache, Denies sore throat Cardiovascular: Denies chest pain, Denies shortness of breath Respiratory: Reports cough with sputum, Reports dyspnea, Denies cough Gastrointestinal: Denies abdominal pain, Denies diarrhea, Denies nausea, Denies vomiting Musculoskeletal: Denies myalgias Integumentary: Denies pruritus, Denies rash Neurological: Denies numbness, Denies weakness Psychiatric: Denies anxiety, Denies depression Endocrine: Denies fatigue, Denies weight change Past Medical History Past Medical History: COPD Additional Past Medical History / Comment(s): Sickle Cell History of Any Multi-Drug Resistant Organisms: None Reported Past Surgical History: No Surgical Hx Reported Past Anesthesia/Blood Transfusion Reactions: No Reported Reaction Past Psychological History: Anxiety, Depression Smoking Status: Current every day smoker Past Alcohol Use History: Occasional Additional Past Alcohol Use History / Comment(s): Pt states he is a social drinker, infrequent Past Drug Use History: Marijuana - Past Family History Mother Additional Family Medical History / Comment(s): sickle cell trait Father Additional Family Medical History / Comment(s): sickle cell trait Medications and Allergies Home Medications Medication Instructions Recorded Confirmed Type Acetaminophen Tab [Tylenol Tab] 1,000 mg PO Q6HR PRN 04/02/18 04/02/18 History Ibuprofen [Motrin Ib] 200 mg PO Q6H PRN 04/02/18 04/02/18 History Allergies Allergy/AdvReac Type Severity Reaction Status Date / Time amoxicillin Allergy Unknown Verified 04/02/18 14:36 Penicillins Allergy Anaphylaxis Verified 04/02/18 14:36 shellfish derived [Shrimp] Allergy Anaphylaxis Verified 04/02/18 14:36 Physical Exam Vitals: Vital Signs Temp Pulse Pulse Pulse Resp BP BP 04/03/18 14:52 98.6 F 59 L 16 127/80 04/03/18 09:24 16 04/03/18 08:14 84 04/03/18 08:04 84 04/03/18 07:48 97 F L 86 16 114/72 04/03/18 07:24 16 04/03/18 07:00 98.9 F 73 20 134/77 04/03/18 02:26 98.4 F 04/03/18 00:00 16 04/02/18 21:47 97.9 F 79 16 120/68 04/02/18 20:04 100.1 F H 79 18 112/69 04/02/18 17:23 100.6 F H 73 18 112/69 04/02/18 15:56 85 Pulse Ox 04/03/18 14:52 94 L 04/03/18 09:24 04/03/18 08:14 04/03/18 08:04 04/03/18 07:48 97 04/03/18 07:24 04/03/18 07:00 95 04/03/18 02:26 04/03/18 00:00 04/02/18 21:47 96 04/02/18 20:04 95 04/02/18 17:23 95 04/02/18 15:56 Intake and Output 04/03/18 04/03/18 04/03/18 06:59 14:59 22:59 Intake Total 500 Output Total 400 Balance 100 Intake: Oral 500 Output: Urine 400 Other: # Voids 2 # Bowel Movements 0 GENERAL EXAM: Alert, pleasant 37-year-old -[place] male comfortable in no apparent distress. HEAD: Normocephalic/atraumatic. EYES: Normal reaction of pupils, equal size. Conjunctiva pink, sclera white. NOSE: Clear with pink turbinates. THROAT: No erythema or exudates. NECK: No masses, no JVD, no thyroid enlargement, no adenopathy. CHEST: No chest wall deformity. Symmetrical expansion. LUNGS: Equal air entry with no crackles, wheeze, rhonchi or dullness. Diminished breath sounds bilaterally CVS: Regular rate and rhythm, normal S1 and S2, no gallops, no murmurs, no rubs ABDOMEN: Soft, nontender. No hepatosplenomegaly, normal bowel sounds, no guarding or rigidity. EXTREMITIES: No clubbing, no edema, no cyanosis, 2+ pulses and upper and lower extremities. MUSCULOSKELETAL: Muscle strength and tone normal. SPINE: No scoliosis or deformity SKIN: No rashes CENTRAL NERVOUS SYSTEM: Alert and oriented -3. No focal deficits, tone is normal in all 4 extremities. PSYCHIATRIC: Alert and oriented -3. Appropriate affect. Intact judgment and insight. Results - Laboratory Findings CBC and BMP: 04/03/18 10:20 04/03/18 10:20 Abnormal lab findings: Abnormal Labs 04/02/18 04/02/18 04/02/18 15:18 15:18 15:18 WBC 14.5 H RBC Hgb Hct 37.5 L Neutrophils # (Manual) 11.80 H Retic Count 5.1 H BUN 7 L Total Bilirubin 1.7 H ALT 14 L Lactate Dehydrogenase Total Protein Albumin 04/03/18 04/03/18 10:20 10:20 WBC 14.3 H RBC 3.86 L Hgb 12.0 L Hct 33.2 L Neutrophils # (Manual) 9.87 H Retic Count 5.0 H BUN 8 L Total Bilirubin ALT Lactate Dehydrogenase 847 H Total Protein 6.1 L Albumin 3.3 L - Diagnostic Findings Chest x-ray: report reviewed, image reviewed Additional studies: EKG reviewed Assessment and Plan Plan: Assessment: #1. Acute chest syndrome #2. Dyspnea, diffuse pain, cough, fever, mild leukocytosis related to the above #3. Sickle cell disease #4. COPD #5. Family history of sickle cell anemia #6. Anxiety Plan: Continue with IV fluids, continue with empiric antibiotics, and with pain management. Continue supplemental oxygen, nebulized bronchodilators, GI and DVT prophylaxis. Chest x-rays were reviewed by Dr. Patel, patient was seen and evaluated by Dr. Patel. Sputum for culture. We'll continue to follow. I performed a history & physical examination of the patient and discussed their management with my nurse practitioner, Mdeina Gomez. I reviewed the nurse practitioner's note and agree with the documented findings and plan of care. Lung sounds are positive for diminished breath sounds bilaterally. The findings and the impression was discussed with the patient. I attest to the documentation by the nurse practitioner. Time with Patient: Greater than 30
[2018-04-03 17:47] LABS: Glucose,Whole Blood 89 mg/dL (75-99)
--- NOTE | 2018-04-03 18:05 | HP ---
HISTORY AND PHYSICAL CHIEF COMPLAINTS: Shortness of breath, cough and feeling weak. HISTORY OF PRESENT ILLNESS: This 37-year-old gentleman with a past medical history of multiple medical problems, including sickle cell anemia, being followed by Dr. Christy Sung in the outpatient setting, was not feeling well over the past several days. The patient had increasing cough and sputum. Because of lack of improvement the patient came to [facility] and was admitted for further evaluation and treatment. Bibasilar pneumonia is suspected at this time. There is no history of any fever, rigor or chills. No history of headache, loss of consciousness, seizures. The patient also has a history of COPD and anxiety, depression. PAST MEDICAL HISTORY: 1. History of COPD. 2. Sickle cell. 3. Anxiety. 4. Depression. 5. History of nicotine dependence. MEDICATIONS: 1. Ibuprofen 200 mg q.6 hours p.r.n. 2. Tylenol 1000 mg q.6 p.r.n. ALLERGIES: 1. AMOXICILLIN. 2. PENICILLIN. 3. SHELLFISH. FAMILY HISTORY: History of sickle cell trait in the family. SOCIAL HISTORY: History of continued smoking. History of occasional alcohol and marijuana. REVIEW OF SYSTEMS: ENT: No diminished hearing. No diminished vision. CARDIOVASCULAR SYSTEM: No angina, palpitations. RESPIRATORY SYSTEM: As mentioned earlier. GI: No nausea, vomiting. : No dysuria or retention. NERVOUS SYSTEM: No numbness, weakness. ALLERGY/IMMUNOLOGY: No asthma, hayfever. MUSCULOSKELETAL: As mentioned earlier. HEMATOLOGY/ONCOLOGY: No history of anemia. ENDOCRINE: No history of diabetes, hypothyroidism. CONSTITUTIONAL: As mentioned earlier. DERMATOLOGY: Negative. RHEUMATOLOGY: Negative. PSYCHIATRY: As mentioned earlier. PHYSICAL EXAMINATION: Patient is alert and oriented x3. Pulse is 59, blood pressure 127/80, respirations 16, temperature 98.6, pulse ox 94% on room air. HEENT: Conjunctivae normal. NECK: No jugular venous distention. CARDIOVASCULAR SYSTEM: S1, S2 muffled. RESPIRATORY SYSTEM: Breath sounds diminished at the bases. Bilateral scattered rhonchi and crackles. Expiratory wheezing also present. ABDOMEN: Soft, non-tender. No mass palpable. LEGS: No edema. No swelling. NERVOUS SYSTEM: Higher functions as mentioned earlier. Moves all 4 limbs. No focal motor or sensory deficit. LYMPHATICS: No lymph node palpable in neck, axillae or groin. SKIN: No ulcer, rash, bleeding. LABS: WBC 14.3, hemoglobin 12. LDH 847. Flu is negative. ASSESSMENT: 1. Chronic obstructive pulmonary disease, acute exacerbation, with bibasilar pneumonia, possibly gram-negative. 2. Sickle cell anemia. 3. History of chronic obstructive pulmonary disease. 4. History of anxiety, depression. 5. History of nicotine dependence. RECOMMENDATIONS AND DISCUSSION: In this 37-year-old gentleman who presented with multiple complex medical issues, we will monitor the patient closely, continue the current management, continue with symptomatic treatment. Will optimize the bronchodilator treatment. Otherwise, steroids and antibiotics. Closely follow with Pulmonary. Incentive spirometry. Guarded prognosis because of multiple complex medical issues. Further recommendations to follow. A copy of this dictation is being forwarded to Dr. Christy Sung, who is the primary physician. MMANNABELLAL / KAYLEYN: [id number] /
--- NOTE | 2018-04-03 18:48 | P.CONS ---
History of Present Illness - Reason for Consult Consult date: 04/03/18 Sickle Cell Trait Requesting physician: Juan Luis E Sheet - Chief Complaint Pain - History of Present Illness Mr Cabral is a pleasant AAM, initially seen in consult at [facility], in 09/17, when admitted with abdominal pain, nausea, and decreased oral intake. He had a h/o sickle cell trait and had had admissions in 11/16 and 03/19 , for similiar complaints, both attributed to " sickle crises" . It was felt that it was not clear if his symptoms were even due to sickling. His radiologic studies were reviewed with Radiology, and showed no signs of cholecystitis or mesenteric ischemia. The pt followed up post discharge with Dr De Los Santos, and then also with Dr Gillespie, for his chronic pain issues. He continued to have frequent visits to the ER with c/o pain. He was thus referred here for further evaluation. He was put on hydrea trial,did not take it. Hydrea was not recommended as he does not have Sickle Cell Disease and his musculoskeletal pain is not felt to be related to his SS trait. He was seen and evaluated by Dr. Herrera as out patient and then by Dr. Sol. Both felt there was no continued requirement for hematology follow-up as his blood counts and SS trait rarely would relate to the amount of pain he has had recurrent and re-admissions for. It was felt by both blender helper his symptoms were not due to sickling, as SS trait rarely causes symptoms. He presents today with complaints of pain in right chest and abdomen. Chest Xray shows positive infiltrates possible presentation of pneumonia. He states he has chronic pain and manages this with pain medications at home. He continues to smoke marijuana and cigarettes. He has cough, non-productive. Pulmonary is following. Review of Systems A 14 point review of systems is assessed and completed and all negative except HPI. Past Medical History Past Medical History: COPD Additional Past Medical History / Comment(s): Sickle Cell History of Any Multi-Drug Resistant Organisms: None Reported Past Surgical History: No Surgical Hx Reported Past Anesthesia/Blood Transfusion Reactions: No Reported Reaction Past Psychological History: Anxiety, Depression Smoking Status: Current every day smoker Past Alcohol Use History: Occasional Additional Past Alcohol Use History / Comment(s): Pt states he is a social drinker, infrequent Past Drug Use History: Marijuana - Past Family History Mother Additional Family Medical History / Comment(s): sickle cell trait Father Additional Family Medical History / Comment(s): sickle cell trait Medications and Allergies Home Medications Medication Instructions Recorded Confirmed Type Acetaminophen Tab [Tylenol Tab] 1,000 mg PO Q6HR PRN 04/02/18 04/02/18 History Ibuprofen [Motrin Ib] 200 mg PO Q6H PRN 04/02/18 04/02/18 History Allergies Allergy/AdvReac Type Severity Reaction Status Date / Time amoxicillin Allergy Unknown Verified 04/02/18 14:36 Penicillins Allergy Anaphylaxis Verified 04/02/18 14:36 shellfish derived [Shrimp] Allergy Anaphylaxis Verified 04/02/18 14:36 Physical Exam Vitals: Vital Signs Temp Pulse Pulse Pulse Resp BP BP 04/03/18 16:05 98.3 F 53 L 18 126/72 04/03/18 16:00 18 04/03/18 15:59 04/03/18 15:58 53 L 18 04/03/18 14:52 98.6 F 59 L 16 127/80 04/03/18 09:24 16 04/03/18 08:14 84 04/03/18 08:04 84 04/03/18 07:48 97 F L 86 16 114/72 04/03/18 07:24 16 04/03/18 07:00 98.9 F 73 20 134/77 04/03/18 02:26 98.4 F 04/03/18 00:00 16 04/02/18 21:47 97.9 F 79 16 120/68 04/02/18 20:04 100.1 F H 79 18 112/69 Pulse Ox 04/03/18 16:05 96 04/03/18 16:00 04/03/18 15:59 94 L 04/03/18 15:58 04/03/18 14:52 94 L 04/03/18 09:24 04/03/18 08:14 04/03/18 08:04 04/03/18 07:48 97 04/03/18 07:24 04/03/18 07:00 95 04/03/18 02:26 04/03/18 00:00 04/02/18 21:47 96 04/02/18 20:04 95 Intake and Output 04/03/18 04/03/18 04/03/18 06:59 14:59 22:59 Intake Total 500 Output Total 400 Balance 100 Intake: Oral 500 Output: Urine 400 Other: Voiding Method Urinal # Voids 2 # Bowel Movements 0 HEAD: NC, NT EYES: Conjunctiva pink, sclera white. Mouth: No erythema or exudates. NECK: supple no adenopathy. LUNGS: Diminished breath sounds bilaterally CVS: RRR, S1, S2 ABDOMEN: Soft, nontender. No hepatosplenomegaly, normal bowel sounds, no guarding or rigidity. EXTREMITIES: No clubbing, no edema, no cyanosis, 2+ pulses and upper and lower extremities. SKIN: No rashes PSYCHIATRIC: Alert and oriented . Appropriate affect. Intact judgment and insight. Results CBC & Chem 7: 04/03/18 10:20 04/03/18 10:20 Labs: Abnormal Lab Results - Last 24 Hours (Table) 04/03/18 04/03/18 Range/Units 10:20 10:20 WBC 14.3 H (3.8-10.6) k/uL RBC 3.86 L (4.30-5.90) m/uL Hgb 12.0 L (13.0-17.5) gm/dL Hct 33.2 L (39.0-53.0) % Neutrophils # (Manual) 9.87 H (1.3-7.7) k/uL Retic Count 5.0 H (0.5-2.0) % BUN 8 L (9-20) mg/dL Lactate Dehydrogenase 847 H (313-618) U/L Total Protein 6.1 L (6.3-8.2) g/dL Albumin 3.3 L (3.5-5.0) g/dL Microbiology - Last 24 Hours (Table) 04/02/18 15:18 Blood Culture - Preliminary Blood No Growth after 24 hours 04/02/18 15:18 Urine Culture - Preliminary Urine,Clean Catch Assessment and Plan Plan: Assessment and Recommendations: 1. Sickle Cell Trait, no Evidence of Sickle Cell Disease: - CBC Daily - No indication for Hydrea, when previously prescribed he was not compliant - IV Hydration continued - Folic Acid Daily. - Mild Hemolysis, continue to monitor LFTs 2. Pneumonia: - Pulmonary Following - IV Abx - Defer CT Thank you for allowing us to participate in care of your patient we will follow along with you
[2018-04-03] MEDS: INSULIN ASPART 100 UNIT/ML 1 ML 10 ML VIAL SQ SCH ×2 (18:50→21:10)
[2018-04-03] MEDS: methylPREDNISolone SOD SUCCI 125 MG/2 ML VIAL IV SCH ×2 (18:54→23:20)
[2018-04-03] MEDS: HEPARIN SODIUM,PORCINE 5,000 UNIT/ML 1 ML VIAL SQ SCH (20:16)
[2018-04-03] MEDS: SYMBICORT 160-4.5 MCG INHALER INHALATION SCH (20:28)
[2018-04-03 20:57] LABS: Glucose,Whole Blood 126 mg/dL (75-99)
[2018-04-03] MEDS ORDERED: TEMAZEPAM 15 MG CAP PO PRN (21:00)
[2018-04-04] MEDS: HYDROcodone/APAP 10-325MG 1 EACH TAB PO PRN ×3 (00:47→16:53)
[2018-04-04] MEDS: SODIUM CHLORIDE 0.9% 1,000 ML IV SCH ×2 (05:03→16:56)
[2018-04-04] MEDS: methylPREDNISolone SOD SUCCI 125 MG/2 ML VIAL IV SCH (05:04)
[2018-04-04] MEDS: IPRATROPIUM-ALBUTEROL 3 ML NEB INHALATION PRN (06:58)
[2018-04-04] MEDS: SYMBICORT 160-4.5 MCG INHALER INHALATION SCH ×2 (06:58→20:20)
[2018-04-04 07:24] LABS: Glucose,Whole Blood 128 mg/dL (75-99)
[2018-04-04] MEDS: INSULIN ASPART 100 UNIT/ML 1 ML 10 ML VIAL SQ SCH ×4 (07:26→21:05)
[2018-04-04] MEDS: AZITHROMYCIN 500 MG in SODIUM CHLORIDE 0.9% 250 ML IVPB SCH (07:36)
[2018-04-04] MEDS: PANTOPRAZOLE 40 MG TABLET PO SCH (08:57)
[2018-04-04] MEDS: HEPARIN SODIUM,PORCINE 5,000 UNIT/ML 1 ML VIAL SQ SCH ×2 (08:57→20:00)
[2018-04-04] MEDS: NICOTINE 14MG/24HR PATCH TRANSDERM SCH (08:58)
[2018-04-04 09:42] LABS: Basophils % (A) 0 %; Eosinophils # (A) 0.1 k/uL (0-0.7); Eosinophils % (A) 1 %; HCT 38.3 % (39.0-53.0); HGB 13.2 gm/dL (13.0-17.5); Lymphocytes # (A) 1.1 k/uL (1.0-4.8); Lymphocytes % (A) 12 %; MCHC 34.5 g/dL (31.0-37.0); MCV 87.1 fL (80.0-100.0); Mean Platelet Volume 7.7; Monocytes # (A) 0.1 k/uL (0-1.0); Monocytes % (A) 1 %; Neutrophils # (A) 8.5 k/uL (1.3-7.7); Neutrophils % (A) 86 %; Platelet Count 343 k/uL (150-450); RDW 14.6 % (11.5-15.5); WBC 9.9 k/uL (3.8-10.6)
[2018-04-04 09:47] LABS: Anion Gap 8 mmol/L; Blood Urea Nitrogen 10 mg/dL (9-20); Calcium 9.2 mg/dL (8.4-10.2); Carbon Dioxide 28 mmol/L (22-30); Chloride 105 mmol/L (98-107); Glucose 194 mg/dL (74-99); Potassium 4.5 mmol/L (3.5-5.1); Sodium 141 mmol/L (137-145)
[2018-04-04] MEDS: FOLIC ACID 1 MG TAB PO SCH (11:12)
[2018-04-04] MEDS: MULTIVITAMINS, THERA 1 EACH TAB PO SCH (11:12)
[2018-04-04 11:24] LABS: Glucose,Whole Blood 112 mg/dL (75-99)
--- NOTE | 2018-04-04 13:51 | P.PN ---
Subjective Progress Note Date: 04/04/18 Principal diagnosis: Acute chest syndrome, dyspnea, diffuse pain, cough and fever This is a 37-year-old -[place] Citizen male, patient of Dr. Ana Lilia Harrison, who presented to the emergency department on 04/02/2018 for evaluation of weakness, cough, shortness of breath, fever of 102F, and diffuse generalized pain. Patient has a history of sickle cell disease. Patient felt very dehydrated as well. He is a current smoker. He has been vomiting due to the amount of coughing. His cough is productive. Patient also follows with Dr. Sol for his sickle cell disease. No history of sick contacts, denied any nausea, diarrhea, abdominal pain. Denied any numbness or tingling, denied any headaches, visual changes, denied any lightheadedness or dizziness. Other medical history includes anxiety, depression, marijuana use. Chest x-ray was completed and showed minimal platelike right basilar atelectasis and cardiomegaly, no acute cardiopulmonary process. Follow-up chest x-ray on 2017 showed bibasilar infiltrates. Initial labs showed WBC of 14.5, hemoglobin of 13.2, electrolytes were normal, BUN was 7, creatinine 0.96. LDH was 847, influenza screen was negative, urinalysis was negative. Patient was started on empiric antibiotics with Zithromax and Rocephin, nebulized bronchodilators. Patient was given a liter of IV fluids 0.9 normal saline, and his maintenance IV fluids his 0.9 normal saline at a rate of 100 ML per hour. He is receiving [place] and ibuprofen for pain. Were consulted in regards to dyspnea and acute chest syndrome On 03/27/2018 patient seen in follow-up on medical surgical floor. He is feeling slightly better, although she still has the diffuse pain. Continues to bring up colored phlegm. Afebrile, room air pulse ox is 95%, his labs showed a WBC is 9.9, hemoglobin of 13.2, electrodes profile within normal limits. He continues on empiric antibiotics in the form of Zithromax and Rocephin, no fever no chills, he was started on IV Solu-Medrol, no significant wheezing, no significant chest congestion, we will switch patient to oral prednisone. Continue with current treatment. Obtain a sputum culture. Objective - Vital Signs Vital signs: Vital Signs Temp 97.6 F 04/04/18 07:55 Pulse 60 04/04/18 07:55 Resp 18 04/04/18 09:34 BP 126/70 04/04/18 07:55 Pulse Ox 95 04/04/18 07:55 Intake & Output 04/03/18 04/04/18 04/04/18 18:59 06:59 18:59 Output Total 550 600 Balance -550 -600 Output: Urine 550 600 Other: Voiding Method Urinal Toilet Urinal # Voids 2 - Exam GENERAL EXAM: Alert, pleasant 37-year-old -[place] Citizen male comfortable in no apparent distress. HEAD: Normocephalic/atraumatic. EYES: Normal reaction of pupils, equal size. Conjunctiva pink, sclera white. NOSE: Clear with pink turbinates. THROAT: No erythema or exudates. NECK: No masses, no JVD, no thyroid enlargement, no adenopathy. CHEST: No chest wall deformity. Symmetrical expansion. LUNGS: Equal air entry with no crackles, wheeze, rhonchi or dullness. Diminished breath sounds bilaterally CVS: Regular rate and rhythm, normal S1 and S2, no gallops, no murmurs, no rubs ABDOMEN: Soft, nontender. No hepatosplenomegaly, normal bowel sounds, no guarding or rigidity. EXTREMITIES: No clubbing, no edema, no cyanosis, 2+ pulses and upper and lower extremities. MUSCULOSKELETAL: Muscle strength and tone normal. SPINE: No scoliosis or deformity SKIN: No rashes CENTRAL NERVOUS SYSTEM: Alert and oriented -3. No focal deficits, tone is normal in all 4 extremities. PSYCHIATRIC: Alert and oriented -3. Appropriate affect. Intact judgment and insight. - Labs CBC & Chem 7: 04/04/18 08:47 04/04/18 08:47 Labs: Abnormal Lab Results - Last 24 Hours (Table) 04/03/18 04/03/18 04/04/18 Range/Units 10:20 20:56 06:57 Hct (39.0-53.0) % Neutrophils # (1.3-7.7) k/uL Haptoglobin 28.6 L (31.2-198.0) mg/dL Glucose (74-99) mg/dL POC Glucose (mg/dL) 126 H 128 H (75-99) mg/dL 11/04/04/18 04/04/18 Range/Units 08:47 08:47 11:15 Hct 38.3 L (39.0-53.0) % Neutrophils # 8.5 H (1.3-7.7) k/uL Haptoglobin (31.2-198.0) mg/dL Glucose 194 H (74-99) mg/dL POC Glucose (mg/dL) 112 H (75-99) mg/dL Microbiology - Last 24 Hours (Table) 04/02/18 15:18 Urine Culture - Final Urine,Clean Catch 04/02/18 15:18 Blood Culture - Preliminary Blood No Growth after 24 hours Assessment and Plan Plan: Assessment: #1. Acute chest syndrome #2. Dyspnea, diffuse pain, cough, fever, mild leukocytosis related to the above #3. Sickle cell disease #4. COPD #5. Family history of sickle cell anemia #6. Anxiety Plan: Obtain sputum culture, continue with current antibiotics, and with pain management. Continue supplemental oxygen, nebulized bronchodilators, GI and DVT prophylaxis. We'll switch the IV steroids to oral prednisone. Patient is doing a little better, continues to have diffuse generalized pain. We'll continue current medical treatment. We'll continue to follow. I performed a history & physical examination of the patient and discussed their management with my nurse practitioner, Medina Gomez. I reviewed the nurse practitioner's note and agree with the documented findings and plan of care. Lung sounds are positive for diminished breath sounds bilaterally. The findings and the impression was discussed with the patient. I attest to the documentation by the nurse practitioner. Time with Patient: Less than 30
[2018-04-04 16:51] LABS: Glucose,Whole Blood 127 mg/dL (75-99)
--- NOTE | 2018-04-04 17:09 | PN ---
PROGRESS NOTE DATE OF SERVICE: 04/04/2018 This 37-year-old gentleman who was admitted with COPD acute exacerbation also had possible acute chest syndrome as well. Bilateral pneumonia suspected. No chest pain. No palpitations. No fever. EXAM: Alert and oriented times three. Pulse 68. Blood pressure 132/60, respiration 20, temp 98.4, pulse ox 100 percent room air. HEENT: Conjunctivae normal. Neck: No jugular venous distention. Cardiovascular systems: S1, S2. Respiration: Breath sounds diminished in the bases. A few scattered rhonchi and crackles. Abdomen is soft, nontender. Legs are no edema. No swelling. Central nervous system: Higher functions as mentioned earlier. Moves all four extremities. No focal deficits. Lymphatics: No lymph nodes palpable in the neck, axillae or groin. Skin: No ulcer, rash or bleeding. LAB DATA: WBC 9.2, hemoglobin 13.2. ASSESSMENT: 1. Chronic obstructive pulmonary disease exacerbation with pneumonia possibly gram- negative. 2. Sickle cell anemia. 3. Possible acute chest syndrome. 4. History of chronic obstructive pulmonary disease. 5. History of anxiety, depression. 6. History of nicotine dependence. RECOMMENDATIONS AND DISCUSSION: Recommend to continue current medications, management. Symptomatic treatment. Continue the bronchodilators. Continue the rest of medications. Repeat labs. Further recommendations to follow. MMODL / IJN: [id number] /
[2018-04-04 20:54] LABS: Glucose,Whole Blood 133 mg/dL (75-99)
[2018-04-04 23:42] VITALS: RESP 18; TEMP 98.6
[2018-04-05] MEDS: SODIUM CHLORIDE 0.9% 1,000 ML IV SCH ×2 (03:09→12:42)
[2018-04-05 05:51] VITALS: BP 121/62
[2018-04-05 07:25] LABS: Glucose,Whole Blood 116 mg/dL (75-99)
[2018-04-05] MEDS: INSULIN ASPART 100 UNIT/ML 1 ML 10 ML VIAL SQ SCH ×2 (07:29→13:21)
[2018-04-05] MEDS: SYMBICORT 160-4.5 MCG INHALER INHALATION SCH (07:48)
[2018-04-05] MEDS: IPRATROPIUM-ALBUTEROL 3 ML NEB INHALATION PRN ×2 (07:48→11:36)
[2018-04-05] MEDS: HYDROcodone/APAP 10-325MG 1 EACH TAB PO PRN (08:12)
[2018-04-05] MEDS ORDERED: predniSONE 10 MG TAB PO SCH (09:00)
[2018-04-05] MEDS: NICOTINE 14MG/24HR PATCH TRANSDERM SCH (09:04)
[2018-04-05] MEDS: PANTOPRAZOLE 40 MG TABLET PO SCH (09:05)
[2018-04-05] MEDS: FOLIC ACID 1 MG TAB PO SCH (09:05)
[2018-04-05] MEDS: MULTIVITAMINS, THERA 1 EACH TAB PO SCH (09:05)
[2018-04-05] MEDS: HEPARIN SODIUM,PORCINE 5,000 UNIT/ML 1 ML VIAL SQ SCH (09:06)
[2018-04-05] MEDS: AZITHROMYCIN 500 MG in SODIUM CHLORIDE 0.9% 250 ML IVPB SCH (10:18)
[2018-04-05 11:26] LABS: Basophils # (A) 0.1 k/uL (0-0.2); Basophils % (A) 1 %; Eosinophils # (A) 0.1 k/uL (0-0.7); Eosinophils % (A) 1 %; HCT 35.8 % (39.0-53.0); HGB 12.2 gm/dL (13.0-17.5); Lymphocytes # (A) 3.6 k/uL (1.0-4.8); Lymphocytes % (A) 28 %; MCH 29.7 pg (25.0-35.0); MCHC 34.2 g/dL (31.0-37.0); MCV 86.6 fL (80.0-100.0); Mean Platelet Volume 8.7; Monocytes % (A) 7 %; Neutrophils % (A) 62 %; Platelet Count 308 k/uL (150-450); RBC 4.13 m/uL (4.30-5.90); RDW 14.6 % (11.5-15.5); WBC 12.9 k/uL (3.8-10.6)
[2018-04-05 11:27] LABS: Anion Gap 6 mmol/L; Blood Urea Nitrogen 11 mg/dL (9-20); Calcium 9.2 mg/dL (8.4-10.2); Carbon Dioxide 28 mmol/L (22-30); Chloride 106 mmol/L (98-107); Glucose 84 mg/dL (74-99); Potassium 4.3 mmol/L (3.5-5.1); Sodium 140 mmol/L (137-145)
[2018-04-05 11:49] VITALS: PULSE 60
[2018-04-05 11:49] LABS: Poikilocytosis (M) Present
[2018-04-05 11:50] LABS: Target Cells Present
[2018-04-05 12:28] LABS: Glucose,Whole Blood 157 mg/dL (75-99)
--- NOTE | 2018-04-05 14:15 | P.PN ---
Subjective Progress Note Date: 04/05/18 Principal diagnosis: Acute chest syndrome COPD exacerbation This is a 37-year-old -[place] male, patient of Dr. Ana Lilia Harrison, who presented to the emergency department on 04/02/2018 for evaluation of weakness, cough, shortness of breath, fever of 102F, and diffuse generalized pain. Patient has a history of sickle cell disease. Patient felt very dehydrated as well. He is a current smoker. He has been vomiting due to the amount of coughing. His cough is productive. Patient also follows with Dr. Sol for his sickle cell disease. No history of sick contacts, denied any nausea, diarrhea, abdominal pain. Denied any numbness or tingling, denied any headaches, visual changes, denied any lightheadedness or dizziness. Other medical history includes anxiety, depression, marijuana use. Chest x-ray was completed and showed minimal platelike right basilar atelectasis and cardiomegaly, no acute cardiopulmonary process. Follow-up chest x-ray on 2017 showed bibasilar infiltrates. Initial labs showed WBC of 14.5, hemoglobin of 13.2, electrolytes were normal, BUN was 7, creatinine 0.96. LDH was 847, influenza screen was negative, urinalysis was negative. Patient was started on empiric antibiotics with Zithromax and Rocephin, nebulized bronchodilators. Patient was given a liter of IV fluids 0.9 normal saline, and his maintenance IV fluids his 0.9 normal saline at a rate of 100 ML per hour. He is receiving [place] and ibuprofen for pain. Were consulted in regards to dyspnea and acute chest syndrome On 04/04/2018 patient seen in follow-up on medical surgical floor. He is feeling slightly better, although she still has the diffuse pain. Continues to bring up colored phlegm. Afebrile, room air pulse ox is 95%, his labs showed a WBC is 9.9, hemoglobin of 13.2, electrodes profile within normal limits. He continues on empiric antibiotics in the form of Zithromax and Rocephin, no fever no chills, he was started on IV Solu-Medrol, no significant wheezing, no significant chest congestion, we will switch patient to oral prednisone. Continue with current treatment. Obtain a sputum culture. The patient is seen today 04/05/2018 in follow-up on the regular medical floor. He is awake and alert in no acute distress. His chest discomfort has improved. He is maintaining good O2 saturations in the upper 90s on room air. He is afebrile. Hemodynamically stable. Blood and urine cultures reveal no growth. White count 12.9. Hemoglobin 12.2. Creatinine 0.75. He has been maintained on DuoNeb inhalations, Symbicort, IV Solu-Medrol. Antibiotics in the form of ceftriaxone and azithromycin. NicoDerm patch in place. Objective - Vital Signs Vital signs: Vital Signs Temp 98.6 F 04/05/18 05:50 Pulse 60 04/05/18 11:30 Resp 18 04/05/18 05:50 BP 121/62 04/05/18 05:50 Pulse Ox 97 04/05/18 07:48 Intake & Output 04/04/18 04/05/18 04/05/18 18:59 06:59 18:59 Intake Total 600 Output Total 600 700 Balance 0 -700 Weight 70.1 kg Intake: Oral 600 Output: Urine 600 700 Other: Voiding Method Toilet Toilet Urinal Urinal # Voids 1 1 - Exam GENERAL EXAM: Alert, pleasant 37-year-old -[place] male comfortable in no apparent distress. On room air. HEAD: Normocephalic/atraumatic. EYES: Normal reaction of pupils, equal size. Conjunctiva pink, sclera white. NOSE: Clear with pink turbinates. THROAT: No erythema or exudates. NECK: No masses, no JVD, no thyroid enlargement, no adenopathy. CHEST: No chest wall deformity. Symmetrical expansion. LUNGS: Equal air entry with no crackles, wheeze, rhonchi or dullness. Diminished breath sounds bilaterally CVS: Regular rate and rhythm, normal S1 and S2, no gallops, no murmurs, no rubs ABDOMEN: Soft, nontender. No hepatosplenomegaly, normal bowel sounds, no guarding or rigidity. EXTREMITIES: No clubbing, no edema, no cyanosis, 2+ pulses and upper and lower extremities. MUSCULOSKELETAL: Muscle strength and tone normal. SPINE: No scoliosis or deformity SKIN: No rashes CENTRAL NERVOUS SYSTEM: Alert and oriented -3. No focal deficits, tone is normal in all 4 extremities. PSYCHIATRIC: Alert and oriented -3. Appropriate affect. Intact judgment and insight. - Labs CBC & Chem 7: 11/29/18 10:08 04/05/18 10:08 Labs: Abnormal Lab Results - Last 24 Hours (Table) 04/04/18 04/04/18 04/05/18 Range/Units 16:40 20:53 07:23 WBC (3.8-10.6) k/uL RBC (4.30-5.90) m/uL Hgb (13.0-17.5) gm/dL Hct (39.0-53.0) % Neutrophils # (1.3-7.7) k/uL POC Glucose (mg/dL) 127 H 133 H 116 H (75-99) mg/dL 04/05/18 04/05/18 Range/Units 10:08 12:26 WBC 12.9 H (3.8-10.6) k/uL RBC 4.13 L (4.30-5.90) m/uL Hgb 12.2 L (13.0-17.5) gm/dL Hct 35.8 L (39.0-53.0) % Neutrophils # 8.0 H (1.3-7.7) k/uL POC Glucose (mg/dL) 157 H (75-99) mg/dL Microbiology - Last 24 Hours (Table) 04/02/18 15:18 Blood Culture - Preliminary Blood No Growth after 48 hours Assessment and Plan Assessment: Assessment: #1. Acute chest syndrome, improved. #2. Dyspnea, diffuse pain, cough, fever, mild leukocytosis related to the above. Recovered. #3. Sickle cell disease #4. COPD #5. Family history of sickle cell anemia #6. Anxiety Plan: The patient was seen and evaluated by Dr. Patel. He is cleared for discharge from the pulmonary standpoint. Complete a course of antibiotics. Complete a prednisone taper. He could follow-up in our office in 1-2 weeks' time. We'll repeat a chest x-ray then. He is however encouraged to call sooner with any recurrence of symptoms or other questions or concerns. I, the cosigning physician, performed a history & physical examination of the patient. Lungs sounds diminished in posterior bases. Maintaining good O2 saturations in the 90s on room air. I discussed the assessment and plan of care with my nurse practitioner, Rachele Gillespie. I attest to the above note as dictated by her.
[2018-04-05] MEDS ORDERED: IPRATROPIUM-ALBUTEROL 3 ML NEB INHALATION SCH (16:00)
--- NOTE | 2018-04-06 07:51 | CDI ---
Last Revision, April 2017 Documentation Clarification Form Date: 04/06/2018 7:35:53 AM From: Jaclyn Camacho Phone: If you have a question about this query, please contact Yasmine Wallace Sustainability Specialist at [phone] between 8am and 5pm. Admit Date: 04/02/2018 6:09:00 PM Patient Name: Nikko Cabral Visit Number: [id number] Discharge Date:04/05/18 ATTENTION: The Clinical Documentation Specialists (CDI) and [facility] Coding Staff appreciate your assistance in clarifying documentation. Please respond to the clarification below the line at the bottom and electronically sign. The CDI & [facility] Coding staff will review the response and follow-up if needed. Please note: Queries are made part of the Legal Health Record. If you have any questions, please contact the author of this message via ITS. Jimi Ruiz MD Gram negative pneumonia has been documented in the H and P and PN. CXR shows no acute cardiopulmonary process on day of admit. Infiltrates on CXR 04/03, day after admit. Please clarify if the gram neg. pneumonia is POA. History/Risk Factors: COPD exacerbation, smoker, fever, vomiting from cough, atelectasis, SS trait Clinical Indicators:04/03 CXR infiltrates Treatment: abx Definition of Present on Admission (POA): A diagnosis present at the time the order for admission to inpatient status was written. For each diagnosis, documentation must be clear to determine if the condition was present at the time of the patients inpatient admission or developed during the hospital stay. Please clarify if gram neg. pneumonia was one of the following: Y = Yes, the condition was present at the time of the order for inpatient admission. N = No, the condition was not present at the time of the order for inpatient admission. W = Clinically undetermined if the condition was present at the time of the order for inpatient admission. Y = Yes MTDD
--- NOTE | 2018-04-06 07:59 | DS ---
DISCHARGE SUMMARY DATE OF SERVICE: 04/05/2018 FINAL DIAGNOSES: 1. Chronic obstructive pulmonary disease acute exacerbation with bibasilar pneumonia possibly gram-negative. 2. Sickle cell anemia. 3. Possible acute chest syndrome. 4. History of chronic obstructive pulmonary disease. 5. History of anxiety, depression. 6. History of nicotine dependence. DISCHARGE DISPOSITION: The patient will be discharged in stable condition with guarded prognosis. Discharge cleared by Dr. Patel. HISTORY OF PRESENT ILLNESS: This 37-year-old gentleman with a past medical history of multiple medical problems including COPD, pneumonia possibly acute chest syndrome. The patient was treated asymptomatically with bronchodilators. Dr. Patel saw the patient, cleared the patient for discharge. On examination, vital signs are stable. CARDIOVASCULAR: S1 and S2 muffled. RESPIRATORY: A few scattered rhonchi. ABDOMEN: Soft, nontender. DISCHARGE ADVICE: 1. Diet is cardiac. 2. Activity limited until followup. 3. Follow up with Dr. Christy Sung in 2 to 3 days. 4. Follow up with Dr. Patel as recommended. MEDICATIONS ARE: 1. Tylenol 1000 mg q.6 p.r.n. 2. Motrin p.r.n. 3. ProAir 1 to 2 puffs q.i.d. 4. Zithromax 500 mg p.o. daily for 5 days. 5. Symbicort 160/4.5 puff b.i.d. 6. Ceftin 500 mg p.o. b.i.d. for 5 days. 7. Folic acid 1 mg daily. 8. Multivitamins one p.o. daily. 9. Habitrol 14. 10.Prednisone 30 mg daily for 3 days, 20 for 3 days, 10 for 3 days and then stop. Once again, the patient will be discharged in a stable condition with guarded prognosis. MMODL / IJN: [id number] /
[2018-04-06] MEDS ORDERED: AZITHROMYCIN 500 MG TAB PO SCH (09:00)
[2018-04-06 15:02] LABS: Hemoglobin A1C 3.9
== END 2018-04-05 14:48 | disposition home or self-care (01) | DRG 178 ==
LOC: EC 13:38 → 4MS4W 18:09
PROVIDERS: ADMIT Internal Medicine; ATTEND Internal Medicine
DX: J15.6 Pneumonia due to other Gram-negative bacteria (principal); J44.1 Chronic obstructive pulmonary disease with (acute) exacerbation; J98.11 Atelectasis; J44.0 Chronic obstructive pulmonary disease with (acute) lower respiratory infection; R09.02 Hypoxemia; G89.29 Other chronic pain; E86.0 Dehydration; F17.210 Nicotine dependence, cigarettes, uncomplicated; F41.9 Anxiety disorder, unspecified; R56.9 Unspecified convulsions; Z83.2 Family history of diseases of the blood and blood-forming organs and certain disorders involving the immune mechanism; F32.9 Major depressive disorder, single episode, unspecified; Z88.0 Allergy status to penicillin; Z91.013 Allergy to seafood; R11.10 Vomiting, unspecified; R07.1 Chest pain on breathing
CPT/HCPCS: 36415; 71046; 80048; 80053; 81003; 83010; 83036; 83605; 83615; 85025; 85045; 86308; 87040; 87070; 87086; 87205; 87502; 94640; 94760; 96360; 96361; 99285

== ENCOUNTER 2022-01-23 12:04 | Inpatient (IN) | payer MEDICARE, OTHER ==
[2022-01-23] MEDS ORDERED: SODIUM CHLORIDE 0.9% 1,000 ML IV STA (12:37)
[2022-01-23] MEDS ORDERED: ONDANSETRON 4 MG/2 ML VIAL IVP STA (12:38)
[2022-01-23] MEDS ORDERED: HYDROmorphone 1 MG/ML 1 ML SYRINGE IVP STA (12:38)
--- NOTE | 2022-01-23 12:42 | ED ---
General Adult HPI - General Chief complaint: Shortness of Breath Stated complaint: sickle cell crisis Time Seen by Provider: 01/23/22 12:33 Source: patient, RN notes reviewed, old records reviewed Mode of arrival: wheelchair Limitations: no limitations - History of Present Illness Initial comments: 41-year-old male presents to the emergency room with complaints of sickle cell pain that started at 5:30 this morning. Patient states both of his legs hurt and he feels short or breath with chest pain. He has nausea and vomiting. Last sickle cell crisis was a year and half ago he states. He does not smoke cigarettes but does smoke marijuana occasionally. Denies any other medical history. No recent sick exposures, no fevers. -: hour(s) (7) Location: chest, left, right, lower extremity Severity scale (1-10): 10 Quality: constant Consistency: constant Improves with: none Associated Symptoms: cough, nausea/vomiting, shortness of breath, other (body aches) - Related Data Home Medications Medication Instructions Recorded Confirmed Acetaminophen Tab [Tylenol] 1,000 mg PO Q6HR PRN 04/02/18 01/23/22 Ibuprofen [Motrin Ib] 200 mg PO Q6H PRN 04/02/18 01/23/22 Allergies Allergy/AdvReac Type Severity Reaction Status Date / Time shellfish derived [Shrimp] Allergy Anaphylaxis Verified 01/23/22 15:55 amoxicillin AdvReac Nausea & Verified 01/23/22 15:55 Vomiting & Diarrhea Penicillins AdvReac Nausea & Verified 01/23/22 15:55 Vomiting & Diarrhea Review of Systems ROS Statement: Those systems with pertinent positive or pertinent negative responses have been documented in the HPI. ROS Other: All systems not noted in ROS Statement are negative. Past Medical History Past Medical History: COPD Additional Past Medical History / Comment(s): Sickle Cell History of Any Multi-Drug Resistant Organisms: None Reported Past Surgical History: No Surgical Hx Reported Past Anesthesia/Blood Transfusion Reactions: No Reported Reaction Past Psychological History: Anxiety, Depression Smoking Status: Former smoker Past Alcohol Use History: Occasional Past Drug Use History: Marijuana - Past Family History Mother Additional Family Medical History / Comment(s): sickle cell trait Father Additional Family Medical History / Comment(s): sickle cell trait General Exam Limitations: no limitations General appearance: alert, in no apparent distress Head exam: Present: atraumatic Eye exam: Absent: scleral icterus, conjunctival injection, periorbital swelling ENT exam: Present: mucous membranes moist Neck exam: Absent: tenderness, meningismus Respiratory exam: Present: normal lung sounds bilaterally. Absent: respiratory distress, wheezes, rales, rhonchi, stridor, chest wall tenderness, accessory muscle use Cardiovascular Exam: Present: regular rate, normal rhythm GI/Abdominal exam: Present: soft. Absent: distended, tenderness, guarding, re bound, rigid Extremities exam: Present: full ROM, tenderness, normal capillary refill. Absent: pedal edema, calf tenderness Neurological exam: Present: alert, oriented X3 Psychiatric exam: Present: normal affect, normal mood Skin exam: Present: warm, dry, normal color. Absent: cyanosis, diaphoretic, petechiae, pallor Course Vital Signs 01/23/22 01/23/22 01/23/22 12:14 14:30 17:00 Temperature 99.2 F Pulse Rate 79 74 66 Respiratory 14 16 18 Rate Blood Pressure 143/80 132/84 127/71 O2 Sat by Pulse 100 97 96 Oximetry EKG Findings - EKG Results: EKG: sinus rhythm (Ventricular rate 72, FL interval 0.185, QRS 0.79, QTC 0.410; normal axis) Medical Decision Making - Medical Decision Making Patient presents with chest pain, productive cough, and bilateral lower extremity pain. States feels similar to previous sickle cell crisis. Chest x-ray shows borderline heart size with appearance of a trace effusion. Early CHF or fluid overload. There is a patchy right basilar atelectasis versus early infiltrate. BNP is 348. Labs show no evidence of leukocytosis. Reticulocyte count elevated at 4.3. Hemoglobin and hematocrit are stable at 15 and 43 respectively. Troponin is negative at 0.020. EKG shows sinus rhythm with no ST elevation. Magnesium 1.5 and patient was given Mag-Ox. Coronavirus swab is negative. Patient was given multiple doses of Dilaudid and IV fluids with minimal pain relief. He continues to complain of chest pain worse with cough and continued bilateral lower extremity pain. Case discussed with Dr. Cook, patient will be admitted to the hospital with pneumonia, sickle cell pain crisis rule out acute chest syndrome. - Lab Data Result diagrams: 01/23/22 12:50 01/23/22 12:50 Lab Results 01/23/22 01/23/2201/23/22 Range/Units 12:50 12:50 12:50 WBC 10.4 (3.8-10.6) k/uL RBC 5.00 (4.30-5.90) m/uL Hgb 15.7 (13.0-17.5) gm/dL Hct 43.4 (39.0-53.0) % MCV 86.8 (80.0-100.0) fL MCH 31.5 (25.0-35.0) pg MCHC 36.2 (31.0-37.0) g/dL RDW 15.1 (11.5-15.5) % Plt Count 307 (150-450) k/uL MPV 8.5 Neutrophils % 80 % Lymphocytes % 12 % Monocytes % 5 % Eosinophils % 2 % Basophils % 0 % Neutrophils # 8.4 H (1.3-7.7) k/uL Lymphocytes # 1.2 (1.0-4.8) k/uL Monocytes # 0.5 (0-1.0) k/uL Eosinophils # 0.2 (0-0.7) k/uL Basophils # 0.0 (0-0.2) k/uL Manual Slide Review Performed Hyperchromasia Slight Poikilocytosis Slight Target Cells Present Retic Count (0.5-2.0) % PT 10.8 (9.0-12.0) sec INR 1.0 (<1.2) APTT 25.5 (22.0-30.0) sec Sodium 137 (137-145) mmol/L Potassium 4.1 (3.5-5.1) mmol/L Chloride 99 (98-107) mmol/L Carbon Dioxide 27 (22-30) mmol/L Anion Gap 11 mmol/L BUN 7 L (9-20) mg/dL Creatinine 0.86 (0.66-1.25) mg/dL Est GFR (CKD-EPI)AfAm >90 (>60 ml/min/1.73 sqM) Est GFR (CKD-EPI)NonAf >90 (>60 ml/min/1.73 sqM) Glucose 92 (74-99) mg/dL Calcium 9.6 (8.4-10.2) mg/dL Magnesium 1.5 L (1.6-2.3) mg/dL Total Bilirubin 2.1 H (0.2-1.3) mg/dL AST 35 (17-59) U/L ALT 13 (4-49) U/L Alkaline Phosphatase 66 (38-126) U/L Troponin I (0.000-0.034) ng/mL NT-Pro-B Natriuret Pep pg/mL Total Protein 7.8 (6.3-8.2) g/dL Albumin 4.7 (3.5-5.0) g/dL Coronavirus (PCR) (Not Detectd) 01/23/22 01/23/22 01/23/22 Range/Units 12:50 12:50 12:50 WBC (3.8-10.6) k/uL RBC (4.30-5.90) m/uL Hgb (13.0-17.5) gm/dL Hct (39.0-53.0) % MCV (80.0-100.0) fL MCH (25.0-35.0) pg MCHC (31.0-37.0) g/dL RDW (11.5-15.5) % Plt Count (150-450) k/uL MPV Neutrophils % % Lymphocytes % % Monocytes % % Eosinophils % % Basophils % % Neutrophils # (1.3-7.7) k/uL Lymphocytes # (1.0-4.8) k/uL Monocytes # (0-1.0) k/uL Eosinophils # (0-0.7) k/uL Basophils # (0-0.2) k/uL Manual Slide Review Hyperchromasia Poikilocytosis Target Cells Retic Count 4.3 H (0.5-2.0) % PT (9.0-12.0) sec INR (<1.2) APTT (22.0-30.0) sec Sodium (137-145) mmol/L Potassium (3.5-5.1) mmol/L Chloride (98-107) mmol/L Carbon Dioxide (22-30) mmol/L Anion Gap mmol/L BUN (9-20) mg/dL Creatinine (0.66-1.25) mg/dL Est GFR (CKD-EPI)AfAm (>60 ml/min/1.73 sqM) Est GFR (CKD-EPI)NonAf (>60 ml/min/1.73 sqM) Glucose (74-99) mg/dL Calcium (8.4-10.2) mg/dL Magnesium (1.6-2.3) mg/dL Total Bilirubin (0.2-1.3) mg/dL AST (17-59) U/L ALT (4-49) U/L Alkaline Phosphatase (38-126) U/L Troponin I 0.020 (0.000-0.034) ng/mL NT-Pro-B Natriuret Pep 348 pg/mL Total Protein (6.3-8.2) g/dL Albumin (3.5-5.0) g/dL Coronavirus (PCR) (Not Detectd) 01/23/22 Range/Units 15:51 WBC (3.8-10.6) k/uL RBC (4.30-5.90) m/uL Hgb (13.0-17.5) gm/dL Hct (39.0-53.0) % MCV (80.0-100.0) fL MCH (25.0-35.0) pg MCHC (31.0-37.0) g/dL RDW (11.5-15.5) % Plt Count (150-450) k/uL MPV Neutrophils % % Lymphocytes % % Monocytes % % Eosinophils % % Basophils % % Neutrophils # (1.3-7.7) k/uL Lymphocytes # (1.0-4.8) k/uL Monocytes # (0-1.0) k/uL Eosinophils # (0-0.7) k/uL Basophils # (0-0.2) k/uL Manual Slide Review Hyperchromasia Poikilocytosis Target Cells Retic Count (0.5-2.0) % PT (9.0-12.0) sec INR (<1.2) APTT (22.0-30.0) sec Sodium (137-145) mmol/L Potassium (3.5-5.1) mmol/L Chloride (98-107) mmol/L Carbon Dioxide (22-30) mmol/L Anion Gap mmol/L BUN (9-20) mg/dL Creatinine (0.66-1.25) mg/dL Est GFR (CKD-EPI)AfAm (>60 ml/min/1.73 sqM) Est GFR (CKD-EPI)NonAf (>60 ml/min/1.73 sqM) Glucose (74-99) mg/dL Calcium (8.4-10.2) mg/dL Magnesium (1.6-2.3) mg/dL Total Bilirubin (0.2-1.3) mg/dL AST (17-59) U/L ALT (4-49) U/L Alkaline Phosphatase (38-126) U/L Troponin I (0.000-0.034) ng/mL NT-Pro-B Natriuret Pep pg/mL Total Protein (6.3-8.2) g/dL Albumin (3.5-5.0) g/dL Coronavirus (PCR) Not Detected (Not Detectd) Disposition Clinical Impression: Sickle cell crisis, Chest pain, Pneumonia Disposition: ADMITTED IP TO THIS HOSP Decision Date: 01/23/22 Decision Time: 16:49
[2022-01-23 13:14] LABS: Basophils % (A) 0 %; Eosinophils # (A) 0.2 k/uL (0-0.7); Eosinophils % (A) 2 %; HCT 43.4 % (39.0-53.0); HGB 15.7 gm/dL (13.0-17.5); Hyperchromasia Slight; Lymphocytes # (A) 1.2 k/uL (1.0-4.8); Lymphocytes % (A) 12 %; MCH 31.5 pg (25.0-35.0); MCHC 36.2 g/dL (31.0-37.0); MCV 86.8 fL (80.0-100.0); Mean Platelet Volume 8.5; Monocytes # (A) 0.5 k/uL (0-1.0); Monocytes % (A) 5 %; Neutrophils # (A) 8.4 k/uL (1.3-7.7); Neutrophils % (A) 80 %; Platelet Count 307 k/uL (150-450); Poikilocytosis Slight; RDW 15.1 % (11.5-15.5); WBC 10.4 k/uL (3.8-10.6)
[2022-01-23 13:25] LABS: Partial Thromboplastin Time 25.5 sec (22.0-30.0); Prothrombin Time 10.8 sec (9.0-12.0)
[2022-01-23 13:29] LABS: ALT 13 U/L (4-49); AST 35 U/L (17-59); African American GFR (CKD) >90 (>60 ml/min/1.73 sqM); Albumin 4.7 g/dL (3.5-5.0); Alkaline Phosphatase 66 U/L (38-126); Anion Gap 11 mmol/L; Blood Urea Nitrogen 7 mg/dL (9-20); Calcium 9.6 mg/dL (8.4-10.2); Carbon Dioxide 27 mmol/L (22-30); Chloride 99 mmol/L (98-107); Glucose 92 mg/dL (74-99); Magnesium 1.5 mg/dL (1.6-2.3); Non-African American GFR(CKD) >90 (>60 ml/min/1.73 sqM); Potassium 4.1 mmol/L (3.5-5.1); Sodium 137 mmol/L (137-145); Total Bilirubin 2.1 mg/dL (0.2-1.3); Total Protein 7.8 g/dL (6.3-8.2)
--- NOTE | 2022-01-23 13:32 | XR ---
EXAMINATION TYPE: XR chest 2V DATE OF EXAM: 01/23/2022 COMPARISON: 04/03/2018 HISTORY: 41 year-old male shortness of breath, difficulty breathing, body aches TECHNIQUE: AP and lateral views FINDINGS: Heart appears borderline enlarged. Mild interstitial/vascular prominence. Trace effusion on the later al view. Some additional patchy right basilar opacity. IMPRESSION: Borderline heart size, interstitial prominence, and the appearance of a trace effusion. Correlate for possible mild CHF/fluid overload. Patchy right basilar atelectasis versus early infiltrate.
[2022-01-23 13:40] LABS: Target Cells Present
[2022-01-23] MEDS ORDERED: MAGNESIUM OXIDE 400 MG TAB PO STA (13:52)
[2022-01-23 14:16] LABS: Reticulocyte % 4.3 % (0.5-2.0)
[2022-01-23] MEDS ORDERED: HYDROmorphone 0.5 MG/0.5 ML SYRINGE IVP STA ×2 (14:25→16:48)
[2022-01-23] MEDS ORDERED: cefTRIAXone IN SWFI 1,000 MG/10 ML SYRINGE IVP STA (16:47)
[2022-01-23] MEDS ORDERED: AZITHROMYCIN 500 MG in SODIUM CHLORIDE 0.9% 250 ML IVPB STA (16:47)
[2022-01-23] MEDS ORDERED: METOCLOPRAMIDE 5 MG/ML 2 ML VIAL IVP STA (16:48)
[2022-01-23] MEDS ORDERED: NALOXONE 0.4 MG/ML 1 ML VIAL IV PRN (17:03)
[2022-01-23] MEDS: SODIUM CHLORIDE 0.9% 1,000 ML IV SCH (17:14)
[2022-01-23] MEDS: ACETAMINOPHEN TAB 325 MG TAB PO PRN (17:43)
[2022-01-23 17:47] LABS: Appearance,Urine Clear (Clear); Bilirubin,Urine Negative (Negative); Blood,Urine Negative (Negative); Color,Urine Yellow; Glucose,Urine (UA) Negative (Negative); Ketones,Urine Negative (Negative); Leukocyte Esterase,Urine Negative (Negative); Nitrite,Urine Negative (Negative); Protein,Urine Negative (Negative); Specific Gravity,Urine 1.012 (1.001-1.035)
--- NOTE | 2022-01-23 17:51 | P.HPIM ---
History of Present Illness H&P Date: 01/23/22 Chief Complaint: Shortness of breath/sickle cell crisis 41-year-old male presents to the emergency room with complaints of sickle cell pain that started at 5:30 this morning. Patient states both of his legs hurt and he feels short or breath with chest pain. He has nausea and vomiting. Last sickle cell crisis was a year and half ago he states. He does not smoke cigarettes but does smoke marijuana occasionally. Denies any other medical history. No recent sick exposures, no fevers. Patient presents with chest pain, productive cough, and bilateral lower extremity pain. States feels similar to previous sickle cell crisis. Chest x-ray shows borderline heart size with appearance of a trace effusion. Early CHF or fluid overload. There is a patchy right basilar atelectasis versus early infiltrate. BNP is 348. Labs show no evidence of leukocytosis. Reticulocyte count elevated at 4.3. Hemoglobin and hematocrit are stable at 15 and 43 respectively. Troponin is negative at 0.020. EKG shows sinus rhythm with no ST elevation. Magnesium 1.5 and patient was given Mag-Ox. Coronavirus swab is negative. Patient was given multiple doses of Dilaudid and IV fluids with minimal pain relief. He continues to complain of chest pain worse with cough and continued b ilateral lower extremity pain. Review of Systems REVIEW OF SYSTEMS: CONSTITUTIONAL: No fever, no malaise, no fatigue. HEENT: No recent visual problems or hearing problems. Denied any sore throat. CARDIOVASCULAR: No chest pain, orthopnea, PND, no palpitations, no syncope. PULMONARY: No shortness of breath, no cough, no hemoptysis. GASTROINTESTINAL: No diarrhea, no nausea, no vomiting, no abdominal pain. NEUROLOGICAL: No headaches, no weakness, no numbness. HEMATOLOGICAL: Denies any bleeding or petechiae. GENITOURINARY: Denies any burning micturition, frequency, or urgency. MUSCULOSKELETAL/RHEUMATOLOGICAL: Denies any joint pain, swelling, or any muscle pain. ENDOCRINE: Denies any polyuria or polydipsia. The rest of the 14-point review of systems is negative. Past Medical History Past Medical History: COPD Additional Past Medical History / Comment(s): Sickle Cell History of Any Multi-Drug Resistant Organisms: None Reported Past Surgical History: No Surgical Hx Reported Past Anesthesia/Blood Transfusion Reactions: No Reported Reaction Past Psychological History: Anxiety, Depression Smoking Status: Former smoker Past Alcohol Use History: Occasional Past Drug Use History: Marijuana - Past Family History Mother Additional Family Medical History / Comment(s): sickle cell trait Father Additional Family Medical History / Comment(s): sickle cell trait Medications and Allergies Home Medications Medication Instructions Recorded Confirmed Type Acetaminophen Tab [Tylenol] 1,000 mg PO Q6HR PRN 04/02/18 01/23/22 History Ibuprofen [Motrin Ib] 200 mg PO Q6H PRN 04/02/18 01/23/22 History Allergies Allergy/AdvReac Type Severity Reaction Status Date / Time shellfish derived [Shrimp] Allergy Anaphylaxis Verified 01/23/22 15:55 amoxicillin AdvReac Nausea & Verified 01/23/22 15:55 Vomiting & Diarrhea Penicillins AdvReac Nausea & Verified 01/23/22 15:55 Vomiting & Diarrhea Physical Exam Vitals: Vital Signs Temp Pulse Resp BP Pulse Ox 01/23/22 17:38 101.5 F H 01/23/22 17:00 66 18 127/71 96 01/23/22 14:30 74 16 132/84 97 01/23/22 12:14 99.2 F 79 14 143/80 100 Intake and Output 01/23/22 01/23/22 01/23/22 06:59 14:59 22:59 Other: Weight 65.771 kg General appearance: alert, in no apparent distress Head exam: Present: atraumatic Eye exam: Absent: scleral icterus, conjunctival injection, periorbital swelling ENT exam: Present: mucous membranes moist Neck exam: Absent: tenderness, meningismus Respiratory exam: Present: normal lung sounds bilaterally. Absent: respiratory distress, wheezes, rales, rhonchi, stridor, chest wall tenderness, accessory muscle use Cardiovascular Exam: Present: regular rate, normal rhythm GI/Abdominal exam: Present: soft. Absent: distended, tenderness, guarding, rebound, rigid Extremities exam: Present: full ROM, tenderness, normal capillary refill. Absent: pedal edema, calf tenderness Neurological exam: Present: alert, oriented X3 Psychiatric exam: Present: normal affect, normal mood Skin exam: Present: warm, dry, normal color. Absent: cyanosis, diaphoretic, petechiae, pallor Results CBC & Chem 7: 01/23/22 12:50 01/23/22 12:50 Labs: Abnormal Lab Results - Last 24 Hours (Table) 01/23/22 01/23/22 01/23/22 Range/Units 12:50 12:50 12:50 Neutrophils # 8.4 H (1.3-7.7) k/uL Retic Count 4.3 H (0.5-2.0) % BUN 7 L (9-20) mg/dL Magnesium 1.5 L (1.6-2.3) mg/dL Total Bilirubin 2.1 H (0.2-1.3) mg/dL Assessment and Plan Assessment: 1. Sickle cell crisis; rule out acute chest syndrome - patient is placed on supplemental oxygen and IV fluids in form of normal saline at a rate of 75 mL an hour; start patient on; folic acid - Monitor CBC daily - consult hematology for further recommendations 2. Chest pain; likely related to sickle cell crisis; EKG is unremarkable and troponin is negative initially; we will monitor EKG and trend troponin with plans to consult cardiology if any abnormality; obtain a 2-D echo 3. Pneumonia; patient received IV ceftriaxone and azithromycin in ED; we will continue current antibiotics and monitor CBC, CRP and pro-calcitonin 4. Electrolyte imbalance/hypomagnesemia; supplemented in ED; monitor electrolytes closely with plans for further supplementation as needed DVT prophylaxis; SCDs CODE STATUS; full code
[2022-01-23] MEDS: HYDROmorphone 0.5 MG/0.5 ML SYRINGE IVP PRN (19:32)
[2022-01-23] MEDS: FOLIC ACID 1 MG TAB PO SCH (19:34)
[2022-01-24] MEDS: ACETAMINOPHEN TAB 325 MG TAB PO PRN (04:06)
[2022-01-24] MEDS: FOLIC ACID 1 MG TAB PO SCH (08:12)
[2022-01-24] MEDS: SODIUM CHLORIDE 0.9% 1,000 ML IV SCH ×2 (08:13→20:43)
[2022-01-24 09:34] LABS: Basophils # (A) 0.05 X 10*3/uL (0.00-0.10); Basophils % (A) 0.7 %; Eosinophils # (A) 0.02 X 10*3/uL (0.04-0.35); Eosinophils % (A) 0.3 %; HCT 33.7 % (39.6-50.0); HGB 12.3 g/dL (13.0-17.0); Immature Grans, Automated 0.3 %; Lymphocytes # (A) 1.81 X 10*3/uL (0.90-5.00); Lymphocytes % (A) 24.5 %; MCH 30.5 pg (27.0-32.0); MCHC 36.5 g/dL (32.0-37.0); MCV 83.6 fL (80.0-97.0); Mean Platelet Volume 10.7 fL (9.5-12.2); Monocytes # (A) 1.14 X 10*3/uL (0.20-1.00); Monocytes % (A) 15.4 %; NRBC Per 100 WBC 1.2 /100 WBCS (0.0-0.0); Neutrophils # (A) 4.34 X 10*3/uL (1.80-7.70); Neutrophils % (A) 58.8 %; Platelet Count 220 X 10*3/uL (140-440); RBC 4.03 X 10*6/uL (4.40-5.60); RDW 14.5 % (11.5-14.5); WBC 7.38 X 10*3/uL (4.50-10.00)
[2022-01-24 09:44] LABS: African American GFR (CKD) 109.4 (60.0-200.0); Albumin 3.7 g/dL (3.8-4.9); Albumin/Globulin Ratio 1.76 (1.60-3.17); BUN/Creat Ratio 5.3 Ratio (12.00-20.00); Bilirubin, Conjugated 0.29 mg/dL (0.20-0.40); Bilirubin,Unconjugated 0.51 mg/dL (0.20-1.00); Blood Urea Nitrogen 5.3 mg/dL (9.0-27.0); Calcium 8.3 mg/dL (8.7-10.3); Globulin 2.1 g/dL (1.6-3.3); Magnesium 1.6 mg/dL (1.5-2.4); Non-African American GFR(CKD) 94.4 (60.0-200.0); Potassium 3.6 mmol/L (3.5-5.5); Total Bilirubin 0.8 mg/dL (0.30-1.20); Total Protein 5.8 g/dL (6.2-8.2)
[2022-01-24] MEDS: HYDROmorphone 0.5 MG/0.5 ML SYRINGE IVP PRN ×2 (17:36→20:41)
--- NOTE | 2022-01-24 18:07 | CA ---
Transthoracic Echo Report Name: Nkiko Cabral Age: 41 Gender: M : 1980 Exam Date: 01/24/2022 09:47 Exam Location: [facility] Ht (in): 69 Wt (lb): 145 Ordering Physician: Nia Manley MD Attending/Referring Phys: [id number], [employer] Yvette Awad RDCS Procedure CPT: Indications: Chest Pain Cardiac Hx: Technical Quality: Fair Contrast 1: Total Dose (mL): Contrast 2: Total Dose (mL): MEASUREMENTS (Male / Female) Normal Values 2D ECHO LV Diastolic Diameter PLAX 4.8 cm 4.2 - 5.9 / 3.9 - 5.3 cm LV Systolic Diameter PLAX 2.8 cm IVS Diastolic Thickness 1.1 cm 0.6 - 1.0 / 0.6 - 0.9 cm LVPW Diastolic Thickness 1.0 cm 0.6 - 1.0 / 0.6 - 0.9 cm LV Relative Wall Thickness 0.4 RV Internal Dim ED PLAX 3.6 cm M-MODE Aortic Root Diameter MM 3.2 cm LA Systolic Diameter MM 4.1 cm LA Ao Ratio MM 1.3 AV Cusp Separation MM 2.0 cm DOPPLER AV Peak Velocity 133.9 cm/s AV Peak Gradient 7.2 mmHg MV Area PHT 2.7 cm??? Mitral E Point Velocity 96.9 cm/s Mitral A Point Velocity 67.3 cm/s Mitral E to A Ratio 1.4 MV Deceleration Time 281.7 ms TR Peak Velocity 237.5 cm/s TR Peak Gradient 22.6 mmHg Right Ventricular Systolic Press 26.4 mmHg FINDINGS Left Ventricle Mildly increased left ventricular wall thickness. Normal left ventricular systolic function with no obvious regional wall motion abnormalities. Left ventricular ejection fraction is estimated at 55-60 %. Right Ventricle Mild right ventricular dilatation. Right ventricular systolic pressure within normal limits. Right Atrium Normal right atrial size. Left Atrium Mildly increased left atrial area. Mitral Valve Structurally normal mitral valve. Mild mitral regurgitation. Aortic Valve Trileaflet aortic valve. No aortic valve stenosis or regurgitation. Tricuspid Valve Structurally normal tricuspid valve. Mild tricuspid regurgitation. Pulmonic Valve Structurally normal pulmonic valve. Trace pulmonic regurgitation. Pericardium No pericardial effusion. Aorta Normal size aortic root and proximal ascending aorta. CONCLUSIONS Normal LV function mild mitral regurgitation and mild left atrial enlargement Previewed by: Dr. Blaine Chahal MD (Electronically Signed) Final Date: 24 January 2022 18:06
--- NOTE | 2022-01-24 18:08 | P.CONS ---
History of Present Illness - Reason for Consult Consult date: 01/24/22 rule out acute chest Requesting physician: Hebert Caldwell - Chief Complaint cough, weakness - History of Present Illness Mister Cabral is a very pleasant 41-year-old AAM, initially seen in consult at [facility] in 09/17, admitted with abdominal pain, nausea, and decreased oral intake. He had a h/o sickle cell trait and had had admissions in 11/16 and 03/19 for similar complaints. patient was seen by both Dr. Herrera and Dr. Sol. Patient was recommended a trial of Hydrea but he did not want to do the same. Patient states he has crisis 1-2 times a year, usually flares with concurrent illness. Patient has had hemoglobin electrophoresis, he is positive for hemoglobin S and C. Patient reports feeling well until yesterday, he now has mod/severe fatigue and tiredness, cough, shortness of breath and generalized joint pains. States that his daughter had been ill for several days prior with cough and nasal congestion. Reports pain is fairly well controlled current analgesic regimen. MAXIMUM TEMPERATURE 102.2F. Patient is on folic acid in the hospital, he admits to not taking it outpatient. He also reports a history of a recent stroke, about 3-4 months ago at [facility]. When asked if he was on any medications for his stroke he states he thinks he should be on something. Patient has been up here for the summer, usually stays in [place]. 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 States he was doing well up until yesterday. Review of Systems 10 point review of systems is negative except as stated in HPI Past Medical History Past Medical History: Blood Disorder, COPD Additional Past Medical History / Comment(s): Sickle Cell History of Any Multi-Drug Resistant Organisms: None Reported Past Surgical History: No Surgical Hx Reported Past Anesthesia/Blood Transfusion Reactions: No Reported Reaction Past Psychological History: Anxiety, Depression Smoking Status: Former smoker Past Alcohol Use History: Occasional Past Drug Use History: Marijuana - Past Family History Mother Additional Family Medical History / Comment(s): sickle cell trait Father Additional Family Medical History / Comment(s): sickle cell trait Medications and Allergies Home Medications Medication Instructions Recorded Confirmed Type Acetaminophen Tab [Tylenol] 1,000 mg PO Q6HR PRN 04/02/18 01/23/22 History Ibuprofen [Motrin Ib] 200 mg PO Q6H PRN 04/02/18 01/23/22 History Allergies Allergy/AdvReac Type Severity Reaction Status Date / Time shellfish derived [Shrimp] Allergy Anaphylaxis Verified 01/23/22 15:55 amoxicillin AdvReac Nausea & Verified 01/23/22 15:55 Vomiting & Diarrhea Penicillins AdvReac Nausea & Verified 01/23/22 15:55 Vomiting & Diarrhea Physical Exam Vitals: Vital Signs Temp Pulse Resp BP Pulse Ox 01/24/22 11:24 98.8 F 45 L 16 115/67 100 01/24/22 04:10 99 01/24/22 04:00 100.2 F H 75 15 126/44 94 L 01/23/22 22:33 100.1 F H 01/23/22 19:42 18 01/23/22 18:11 102.2 F H 74 16 130/62 98 Intake and Output 01/24/22 01/24/22 01/24/22 06:59 14:59 22:59 Intake Total 750 Output Total 850 450 Balance -100 -450 Intake: IV 750 Sodium Chloride 0.9% 1, 750 000 ml @ 75 mls/hr IV . [id number] [facility] Rx#:[id number] Output: Urine 850 450 Other: Voiding Method Urinal # Voids 2 - Constitutional General appearance: cooperative, no acute distress, thin - EENT Eyes: anicteric sclerae, EOMI ENT: hearing grossly normal, normal oropharynx - Neck Neck: no lymphadenopathy - Respiratory Respiratory: bilateral: CTA - Cardiovascular Rhythm: regular Heart sounds: normal: S1, S2 Abnormal Heart Sounds: no systolic murmur, no diastolic murmur, no rub, no S3 Gallop, no S4 Gallop, no click, no other leg Peripheral Edema: bilateral: None - Gastrointestinal General gastrointestinal: no absent bowel sounds, no decreased bowel sounds, no distended, no hepatomegaly, no hyperactive bowel sounds, normal bowel sounds, no organomegaly, no rigid, no scaphoid, soft, no splenomegaly, tenderness, no umbilical hernia, no ventral hernia - Neurologic Neurologic: CNII-XII intact (grossly) - Musculoskeletal Musculoskeletal: generalized weakness, strength equal bilaterally - Psychiatric Psychiatric: A&O x's 3, appropriate affect, intact judgment & insight Results CBC & Chem 7: 01/24/22 04:40 01/24/22 04:40 Labs: Abnormal Lab Results - Last 24 Hours (Table) 01/24/22 01/24/22 01/24/22 Range/Units 04:40 04:40 04:40 RBC 4.03 L (4.40-5.60) X 10*6/uL Hgb 12.3 L (13.0-17.0) g/dL Hct 33.7 L (39.6-50.0) % Absolute Nucleated RBC 0.09 H (0.00-0.00) X 10*3/uL Monocytes # 1.14 H (0.20-1.00) X 10*3/uL Eosinophils # 0.02 L (0.04-0.35) X 10*3/uL NRBC/100 WBC Diff 1.2 H (0.0-0.0) /100 WBCS BUN 5.3 L (9.0-27.0) mg/dL BUN/Creatinine Ratio 5.30 L (12.00-20.00) Ratio Calcium 8.3 L (8.7-10.3) mg/dL ALT 9 L (10-49) U/L Total Protein 5.8 L (6.2-8.2) g/dL Albumin 3.7 L (3.8-4.9) g/dL Procalcitonin 0.26 H (0.02-0.09) ng/mL Chest x-ray: report reviewed, image reviewed Assessment and Plan (1) Sickle cell crisis Current Visit: Yes Status: Acute Priority: High Code(s): D57.00 - HB-SS DISEASE WITH CRISIS, UNSPECIFIED SNOMED Code(s): 027101629 Plan: Dr. Kari Renee reviewed the chest x-ray-trace effusion, possible mild CHF/fluid overload, patchy right baslar atelectasis versus an early infiltrate, patient is fatigued and had a fever. No increase in oxygen needs to maintain an adequate O2 saturation, respiratory rate normal. Patient is on antibiotics, he's been started on folic acid, continue fluids and pain management. Will repeat a chest x-ray in the a.m. Acute chest not completely ruled out. Will cont to monitor and treat. Abx re-ordered. Influenza and RSV testing requested. LDH and haptoglobin ordered for the change in hemoglobin from admit. Patient may have been hemoconcentrated as he hadn't been feeling well for several days. Will continue to follow with you and with patient. Recheck of hemoglobin electrophoresis. Patient has a history of being docu mented as SS trait, there are laboratories with S and C trait, showing both with high percentages. attests: I have seen and examined patient, performed H&P, developed impression and plan of care. Discussed with dictator. Agree with documentation, dictated as a scribe
--- NOTE | 2022-01-24 20:20 | P.PN ---
Subjective 41-year-old male presents to the emergency room with complaints of sickle cell pain that started at 5:30 this morning. Patient states both of his legs hurt and he feels short or breath with chest pain. He has nausea and vomiting. Last sickle cell crisis was a year and half ago he states. He does not smoke cigarettes but does smoke marijuana occasionally. Denies any other medical history. No recent sick exposures, no fevers. Patient presents with chest pain, productive cough, and bilateral lower extremity pain. States feels similar to previous sickle cell crisis. Chest x-ray shows borderline heart size with appearance of a trace effusion. Early CHF or fluid overload. There is a patchy right basilar atelectasis versus early infiltrate. BNP is 348. Labs show no evidence of leukocytosis. Reticulocyte count elevated at 4.3. Hemoglobin and hematocrit are stable at 15 and 43 respectively. Troponin is negative at 0.020. EKG shows sinus rhythm with no ST elevation. Magnesium 1.5 and patient was given Mag-Ox. Coronavirus swab is negative. Patient was given multiple doses of Dilaudid and IV fluids with minimal pain relief. He continues to complain of chest pain worse with cough and continued bilateral lower extremity pain. 01/24/2022 Patient admitted with sickle cell crisis, also he has a fever of 102.2 on admission, pneumonia as suspected based on chest x-ray showing possible mild CHF versus patchy right basilar infiltrate versus atelectasis. He is currently on ceftriaxone and Zithromax and normal saline at 75 mL/h. Also he has generalized pain and old body aches which is controlled with the current pain medication of Dilaudid at [place]. He rates his pain as 5/10 sitting improvement and he does not look in distress. He has little dyspnea which is improving, total cough and phlegm. He denies bilateral leg pain. Ejection fraction is normal 55-60%, he does not looks like cardiac symptoms today. Also patient does not look septic however he is currently on antibiotics ceftriaxone and Zithromax. procalcitonin is 0.26. Consult ID team Objective - Vital Signs Vital signs: Vital Signs Temp 98.8 F 01/24/22 11:24 Pulse 45 L 01/24/22 11:24 Resp 16 01/24/22 11:24 BP 115/67 01/24/22 11:24 Pulse Ox 100 01/24/22 11:24 FiO2 Intake & Output 01/24/22 01/24/22 01/25/22 06:59 18:59 06:59 Intake Total 750 Output Total 850 450 Balance -100 -450 Intake: IV 750 Sodium Chloride 0.9% 1, 750 000 ml @ 75 mls/hr IV . [id number] [facility] Rx#:[id number] Output: Urine 850 450 Other: Voiding Method Urinal # Voids 2 1 - Exam GENERAL: The patient is alert and oriented x3, not in any acute distress. Well developed, well nourished. HEENT: Pupils are round and equally reacting to light. EOMI. No scleral icterus. No conjunctival pallor. Normocephalic, atraumatic. No pharyngeal erythema. No thyromegaly. CARDIOVASCULAR: S1 and S2 present. No murmurs, rubs, or gallops. PULMONARY: Chest is clear to auscultation, no wheezing or crackles. ABDOMEN: Soft, nontender, nondistended, normoactive bowel sounds. No palpable organomegaly. MUSCULOSKELETAL: No joint swelling or deformity. EXTREMITIES: No cyanosis, clubbing, or pedal edema. NEUROLOGICAL: Gross neurological examination did not reveal any focal deficits. SKIN: No rashes. no petechiae. - Labs CBC & Chem 7: 01/24/22 04:40 01/24/22 04:40 Labs: Abnormal Lab Results - Last 24 Hours (Table) 01/24/22 01/24/22 01/24/22 Range/Units 04:40 04:40 04:40 RBC 4.03 L (4.40-5.60) X 10*6/uL Hgb 12.3 L (13.0-17.0) g/dL Hct 33.7 L (39.6-50.0) % Absolute Nucleated RBC 0.09 H (0.00-0.00) X 10*3/uL Monocytes # 1.14 H (0.20-1.00) X 10*3/uL Eosinophils # 0.02 L (0.04-0.35) X 10*3/uL NRBC/100 WBC Diff 1.2 H (0.0-0.0) /100 WBCS BUN 5.3 L (9.0-27.0) mg/dL BUN/Creatinine Ratio 5.30 L (12.00-20.00) Ratio Calcium 8.3 L (8.7-10.3) mg/dL ALT 9 L (10-49) U/L Lactate Dehydrogenase (313-618) U/L Total Protein 5.8 L (6.2-8.2) g/dL Albumin 3.7 L (3.8-4.9) g/dL Procalcitonin 0.26 H (0.02-0.09) ng/mL 01/24/22 Range/Units 18:29 RBC (4.40-5.60) X 10*6/uL Hgb (13.0-17.0) g/dL Hct (39.6-50.0) % Absolute Nucleated RBC (0.00-0.00) X 10*3/uL Monocytes # (0.20-1.00) X 10*3/uL Eosinophils # (0.04-0.35) X 10*3/uL NRBC/100 WBC Diff (0.0-0.0) /100 WBCS BUN (9.0-27.0) mg/dL BUN/Creatinine Ratio (12.00-20.00) Ratio Calcium (8.7-10.3) mg/dL ALT (10-49) U/L Lactate Dehydrogenase 873 H (313-618) U/L Total Protein (6.2-8.2) g/dL Albumin (3.8-4.9) g/dL Procalcitonin (0.02-0.09) ng/mL Microbiology - Last 24 Hours (Table) 01/23/22 17:00 Blood Culture - Preliminary Blood No Growth after 24 hours 01/23/22 16:45 Blood Culture - Preliminary Blood No Growth after 24 hours Assessment and Plan Assessment: 1. Sickle cell crisis; rule out acute chest syndrome - patient is placed on supplemental oxygen and IV fluids in form of normal saline at a rate of 75 mL an hour; start patient on; folic acid - Monitor CBC daily -Continue with the current pain management - consult hematology for further recommendations 2. Possible right lower lobe pneumonia,; continue with ceftriaxone and Zithromax. Follow-up sputum culture. Infectious disease consult 3. Pneumonia; patient received IV ceftriaxone and azithromycin in ED; we will continue current antibiotics and monitor CBC, CRP and pro-calcitonin 4. Electrolyte imbalance/hypomagnesemia; supplemented in ED; monitor electrolytes closely with plans for further supplementation as needed DVT prophylaxis; SCDs CODE STATUS; full code
[2022-01-25] MEDS: HYDROmorphone 0.5 MG/0.5 ML SYRINGE IVP PRN ×4 (03:03→20:34)
[2022-01-25] MEDS: SODIUM CHLORIDE 0.9% 1,000 ML IV SCH ×3 (03:06→20:37)
--- NOTE | 2022-01-25 07:30 | XR ---
EXAMINATION TYPE: XR chest 2V DATE OF EXAM: 01/25/2022 6:41 AM COMPARISON: 01/23/2022 TECHNIQUE: XR chest 2V Frontal and lateral views of the chest. CLINICAL INDICATION:Male, 41 years old with history of sickle cell crisis, SOB, follow up; FINDINGS: Lungs/Pleura: There is improved aeration along with decreased interstitial markings. There remains ri ght basilar interstitial prominence possibly trace effusions bilaterally. There is no evidence of ple ural effusion, focal consolidation, or pneumothorax. Pulmonary vascularity: Unremarkable. Heart/mediastinum: Cardiomediastinal silhouette is unremarkable. Musculoskeletal: No acute osseous pathology. IMPRESSION: Improved aeration of the lungs on today's exam.
[2022-01-25 09:19] LABS: Basophils # (A) 0.05 X 10*3/uL (0.00-0.10); Basophils % (A) 0.7 %; Eosinophils # (A) 0.28 X 10*3/uL (0.04-0.35); Eosinophils % (A) 3.9 %; HCT 34.5 % (39.6-50.0); HGB 12.6 g/dL (13.0-17.0); Immature Grans, Automated 0.4 %; Lymphocytes % (A) 35.1 %; MCH 30.9 pg (27.0-32.0); MCHC 36.5 g/dL (32.0-37.0); MCV 84.6 fL (80.0-97.0); Mean Platelet Volume 11.8 fL (9.5-12.2); Monocytes # (A) 0.96 X 10*3/uL (0.20-1.00); Monocytes % (A) 13.5 %; Neutrophils % (A) 46.4 %; Platelet Count 188 X 10*3/uL (140-440); RBC 4.08 X 10*6/uL (4.40-5.60); RDW 14.8 % (11.5-14.5); WBC 7.12 X 10*3/uL (4.50-10.00)
[2022-01-25] MEDS: FOLIC ACID 1 MG TAB PO SCH (09:24)
[2022-01-25 09:35] LABS: African American GFR (CKD) 130.4 (60.0-200.0); Anion Gap 11.7 mmol/L (10.00-18.00); BUN/Creat Ratio 9.25 Ratio (12.00-20.00); Blood Urea Nitrogen 7.4 mg/dL (9.0-27.0); Calcium 8.4 mg/dL (8.7-10.3); Carbon Dioxide 26.3 mmol/L (20.0-27.5); Magnesium 1.8 mg/dL (1.5-2.4); Non-African American GFR(CKD) 112.5 (60.0-200.0); Potassium 4.2 mmol/L (3.5-5.5)
[2022-01-25] MEDS: guaiFENesin-DM 100-10MG/5ML 10 ML CUP PO PRN ×2 (11:19→17:25)
--- NOTE | 2022-01-25 17:01 | P.PN ---
Subjective Progress Note Date: 01/25/22 Principal diagnosis: sickle cell crisis in follow-up today patient continues to be tired, he is taking cough syrup with improvement in his cough, less chest heaviness/discomfort. No fevers Objective - Vital Signs Vital signs: Vital Signs Temp 98.2 F 01/25/22 11:22 Pulse 44 L 01/25/22 11:22 Resp 16 01/25/22 11:22 BP 129/80 01/25/22 11:22 Pulse Ox 99 01/25/22 11:22 FiO2 Intake & Output 01/24/22 01/25/22 01/25/22 18:59 06:59 18:59 Output Total 450 600 Balance -450 -600 Output: Urine 450 600 Other: Voiding Method Urinal Urinal Urinal # Voids 1 - Constitutional General appearance: Present: average body habitus, cooperative, no acute distress - EENT EENT Comment(s): left eye- absent upward, outward gaze when compared with the right - Respiratory Respiratory: bilateral: CTA - Cardiovascular Rhythm: regular Heart sounds: normal: S1, S2 - Peripheral edema leg Peripheral Edema: bilateral: None - Gastrointestinal General gastrointestinal: Present: normal bowel sounds, soft - Integumentary Integumentary: Present: normal - Neurologic Neurologic: Present: focal deficits - Musculoskeletal Musculoskeletal: Present: generalized weakness - Psychiatric Psychiatric: Present: A&O x's 3, appropriate affect, intact judgment & insight - Labs CBC & Chem 7: 01/25/22 04:35 01/25/22 04:35 Labs: Abnormal Lab Results - Last 24 Hours (Table) 01/24/22 01/24/22 01/25/22 Range/Units 18:29 18:29 04:35 RBC 4.08 L (4.40-5.60) X 10*6/uL Hgb 12.6 L (13.0-17.0) g/dL Hct 34.5 L (39.6-50.0) % RDW 14.8 H (11.5-14.5) % Absolute Nucleated RBC 0.07 H (0.00-0.00) X 10*3/uL NRBC/100 WBC Diff 1.0 H (0.0-0.0) /100 WBCS Haptoglobin <10.0 L (31.2-198.0) mg/dL BUN (9.0-27.0) mg/dL BUN/Creatinine Ratio (12.00-20.00) Ratio Calcium (8.7-10.3) mg/dL Lactate Dehydrogenase 873 H (313-618) U/L 01/25/22 Range/Units 04:35 RBC (4.40-5.60) X 10*6/uL Hgb (13.0-17.0) g/dL Hct (39.6-50.0) % RDW (11.5-14.5) % Absolute Nucleated RBC (0.00-0.00) X 10*3/uL NRBC/100 WBC Diff (0.0-0.0) /100 WBCS Haptoglobin (31.2-198.0) mg/dL BUN 7.4 L (9.0-27.0) mg/dL BUN/Creatinine Ratio 9.25 L (12.00-20.00) Ratio Calcium 8.4 L (8.7-10.3) mg/dL Lactate Dehydrogenase (313-618) U/L Microbiology - Last 24 Hours (Table) 01/23/22 17:00 Blood Culture - Preliminary Blood No Growth after 24 hours 01/23/22 16:45 Blood Culture - Preliminary Blood No Growth after 24 hours - Imaging and Cardiology Chest x-ray: report reviewed (improved from yesterday) echo LVEF 55-60% Assessment and Plan (1) Sickle cell crisis Current Visit: Yes Status: Acute Priority: High Code(s): D57.00 - HB-SS DISEASE WITH CRISIS, UNSPECIFIED SNOMED Code(s): 290404405 Plan: CXR improved today. Pt reporting small improvements in respiratory status. No new symptoms reported. No fevers. Continue on antibiotics, and folic acid, continue fluids and pain management. Influenza and RSV testing negative. LDH and haptoglobin suggestive of hemolysis. Hemoglobin is stable today. No acute intervention at this time. Recheck of hemoglobin electrophoresis pending.
--- NOTE | 2022-01-25 18:58 | P.PN ---
Subjective 41-year-old male presents to the emergency room with complaints of sickle cell pain that started at 5:30 this morning. Patient states both of his legs hurt and he feels short or breath with chest pain. He has nausea and vomiting. Last sickle cell crisis was a year and half ago he states. He does not smoke cigarettes but does smoke marijuana occasionally. Denies any other medical history. No recent sick exposures, no fevers. Patient presents with chest pain, productive cough, and bilateral lower extremity pain. States feels similar to previous sickle cell crisis. Chest x-ray shows borderline heart size with appearance of a trace effusion. Early CHF or fluid overload. There is a patchy right basilar atelectasis versus early infiltrate. BNP is 348. Labs show no evidence of leukocytosis. Reticulocyte count elevated at 4.3. Hemoglobin and hematocrit are stable at 15 and 43 respectively. Troponin is negative at 0.020. EKG shows sinus rhythm with no ST elevation. Magnesium 1.5 and patient was given Mag-Ox. Coronavirus swab is negative. Patient was given multiple doses of Dilaudid and IV fluids with minimal pain relief. He continues to complain of chest pain worse with cough and continued bilateral lower extremity pain. 01/24/2022 Patient admitted with sickle cell crisis, also he has a fever of 102.2 on admission, pneumonia as suspected based on chest x-ray showing possible mild CHF versus patchy right basilar infiltrate versus atelectasis. He is currently on ceftriaxone and Zithromax and normal saline at 75 mL/h. Also he has generalized pain and old body aches which is controlled with the current pain medication of Dilaudid at [place]. He rates his pain as 5/10 sitting improvement and he does not look in distress. He has little dyspnea which is improving, total cough and phlegm. He denies bilateral leg pain. Ejection fraction is normal 55-60%, he does not looks like cardiac symptoms today. Also patient does not look septic however he is currently on antibiotics ceftriaxone and Zithromax. procalcitonin is 0.26. Consult ID team 01/25/2022 Patient still complaining of from coughing, Robitussin is added. Dyspnea is improving. No significant chest pain. Chest x-ray showing improvement, patient continued on ceftriaxone. He tolerates diet well, 75-100%. 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 Consult medical fee clerk team for bradycardia Objective - Vital Signs Vital signs: Vital Signs Temp 98.1 F 01/25/22 08:43 Pulse 50 L 01/25/22 08:46 Resp 17 01/25/22 08:46 BP 137/73 01/25/22 08:43 Pulse Ox 95 01/25/22 04:01 FiO2 Intake & Output 01/24/22 01/25/22 01/25/22 18:59 06:59 18:59 Output Total 450 600 Balance -450 -600 Output: Urine 450 600 Other: Voiding Method Urinal Urinal Urinal # Voids 1 - Exam GENERAL: The patient is alert and oriented x3, not in any acute distress. Well developed, well nourished. HEENT: Pupils are round and equally reacting to light. EOMI. No scleral icterus. No conjunctival pallor. Normocephalic, atraumatic. No pharyngeal erythema. No thyromegaly. CARDIOVASCULAR: S1 and S2 present. No murmurs, rubs, or gallops. PULMONARY: Chest is clear to auscultation, no wheezing or crackles. ABDOMEN: Soft, nontender, nondistended, normoactive bowel sounds. No palpable organomegaly. MUSCULOSKELETAL: No joint swelling or deformity. EXTREMITIES: No cyanosis, clubbing, or pedal edema. NEUROLOGICAL: Gross neurological examination did not reveal any focal deficits. SKIN: No rashes. no petechiae. - Labs CBC & Chem 7: 01/25/22 04:35 01/25/22 04:35 Labs: Abnormal Lab Results - Last 24 Hours (Table) 01/24/22 01/24/22 01/25/22 Range/Units 18:29 18:29 04:35 RBC 4.08 L (4.40-5.60) X 10*6/uL Hgb 12.6 L (13.0-17.0) g/dL Hct 34.5 L (39.6-50.0) % RDW 14.8 H (11.5-14.5) % Absolute Nucleated RBC 0.07 H (0.00-0.00) X 10*3/uL NRBC/100 WBC Diff 1.0 H (0.0-0.0) /100 WBCS Haptoglobin <10.0 L (31.2-198.0) mg/dL BUN (9.0-27.0) mg/dL BUN/Creatinine Ratio (12.00-20.00) Ratio Calcium (8.7-10.3) mg/dL Lactate Dehydrogenase 873 H (313-618) U/L 01/25/22 Range/Units 04:35 RBC (4.40-5.60) X 10*6/uL Hgb (13.0-17.0) g/dL Hct (39.6-50.0) % RDW (11.5-14.5) % Absolute Nucleated RBC (0.00-0.00) X 10*3/uL NRBC/100 WBC Diff (0.0-0.0) /100 WBCS Haptoglobin (31.2-198.0) mg/dL BUN 7.4 L (9.0-27.0) mg/dL BUN/Creatinine Ratio 9.25 L (12.00-20.00) Ratio Calcium 8.4 L (8.7-10.3) mg/dL Lactate Dehydrogenase (313-618) U/L Microbiology - Last 24 Hours (Table) 01/23/22 17:00 Blood Culture - Preliminary Blood No Growth after 24 hours 01/23/22 16:45 Blood Culture - Preliminary Blood No Growth after 24 hours Assessment and Plan Assessment: 1. Sickle cell crisis; rule out acute chest syndrome - patient is placed on supplemental oxygen and IV fluids in form of normal saline at a rate of 75 mL an hour; start patient on; folic acid - Monitor CBC daily -Continue with the current pain management - consult hematology for further recommendations 2. Possible right lower lobe pneumonia,; continue with ceftriaxone and Zithromax. Follow-up sputum culture. Infectious disease consult 3. Pneumonia; patient received IV ceftriaxone and azithromycin in ED; we will continue current antibiotics and monitor CBC, CRP and pro-calcitonin 4. bradycardia, could be due to pain medication, consult cardiology team.. Check TSH DVT prophylaxis; SCDs CODE STATUS; full code
[2022-01-26] MEDS: HYDROmorphone 0.5 MG/0.5 ML SYRINGE IVP PRN (02:12)
[2022-01-26] MEDS: SODIUM CHLORIDE 0.9% 1,000 ML IV SCH ×3 (04:38→22:17)
[2022-01-26] MEDS: FOLIC ACID 1 MG TAB PO SCH (08:06)
[2022-01-26 09:06] LABS: Basophils # (A) 0.04 X 10*3/uL (0.00-0.10); Basophils % (A) 0.7 %; Eosinophils # (A) 0.26 X 10*3/uL (0.04-0.35); Eosinophils % (A) 4.3 %; HCT 33.9 % (39.6-50.0); HGB 12.4 g/dL (13.0-17.0); Immature Grans, Automated 0.3 %; Lymphocytes # (A) 2.22 X 10*3/uL (0.90-5.00); Lymphocytes % (A) 36.8 %; MCH 30.6 pg (27.0-32.0); MCHC 36.6 g/dL (32.0-37.0); MCV 83.7 fL (80.0-97.0); Mean Platelet Volume 12.2 fL (9.5-12.2); Monocytes # (A) 0.81 X 10*3/uL (0.20-1.00); Monocytes % (A) 13.4 %; NRBC Per 100 WBC 1.3 /100 WBCS (0.0-0.0); Neutrophils # (A) 2.68 X 10*3/uL (1.80-7.70); Neutrophils % (A) 44.5 %; Platelet Count 179 X 10*3/uL (140-440); RBC 4.05 X 10*6/uL (4.40-5.60); RDW 14.8 % (11.5-14.5); WBC 6.03 X 10*3/uL (4.50-10.00)
[2022-01-26 09:23] LABS: African American GFR (CKD) 130.4 (60.0-200.0); Anion Gap 10.1 mmol/L (10.00-18.00); BUN/Creat Ratio 7.75 Ratio (12.00-20.00); Blood Urea Nitrogen 6.2 mg/dL (9.0-27.0); Calcium 8.6 mg/dL (8.7-10.3); Carbon Dioxide 27.9 mmol/L (20.0-27.5); Magnesium 1.8 mg/dL (1.5-2.4); Non-African American GFR(CKD) 112.5 (60.0-200.0); Potassium 4.3 mmol/L (3.5-5.5)
--- NOTE | 2022-01-26 09:29 | P.CRDCN ---
History of Present Illness History of present illness: HISTORY OF PRESENTING ILLNESS This is a pleasant 41-year-old male past medical history significant for sickle cell disease, marijuana use, COPD. He does not follow with a business risk analyst. No history of cardiac disease. We have been asked to see in consultation for sinus bradycardia. Patient presented to the ER on 01/23/2022 with complaints of sickle cell pain crisis. He has pain in his bilateral legs, chest, he had symptoms of nausea, vomiting, decreased PO intake and shortness of breath. He was started on IV fluids and pain control. He was on telemetry and HR in the 45-70s, sinus bradycardia. He does not have any symptoms of lightheadedness, dizziness, syncope or near syncope. No history of CAD, MD, Stroke, hypertension, diabetes. DIAGNOSTICS * EKG reveals sinus rhythm, heart rate 72, nonspecific T abnormalities, poor R wave progression, No acute ischemia noted. * Echocardiogram revealed EF 5560 percent, mild mitral regurgitation * Telemetry tracings indicate sinus rhythm with heart rates in the 4570s * Laboratory reviewed, troponin negative 4, proBNP 348 WBC 6.0, hemoglobin 1 2.4, platelets 179, sodium 139, potassium 4.3, P1-6.2, serum crit 0.8, TSH within normal limits * Current home meds include PRN tylenol and PRN ibuprofen REVIEW OF SYSTEMS At the time of my exam: CONSTITUTIONAL: Denies fever or chills. CARDIOVASCULAR: Denies chest pain, shortness of breath, orthopnea, PND or palpitations. RESPIRATORY: Denies cough. GASTROINTESTINAL: Denies abdominal pain, diarrhea, constipation, nausea or vomiting. MUSCULOSKELETAL: +generalized pain NEUROLOGIC: Denies numbness, tingling, headacbe or weakness. ENDOCRINE: Denies fatigue, weight change, polydipsia or polyurina. GENITOURINARY: Denies burning, hematuria or urgency with micturation. HEMATOLOGIC:+sickle cell disease PHYSICAL EXAMINATION Blood pressure 114/62, heart rate 47, afebrile, saturation 94% on room air CONSTITUTIONAL: No apparent distress. HEENT: Head is normocephalic. Pupils are equal, round. Sclerae anicteric. Mucous membranes of the mouth are moist. No JVD. No carotid bruit. CHEST EXAMINATION: Lungs are clear to auscultation. No chest wall tenderness is noted on palpation or with deep breathing. HEART EXAMINATION: Regular rate and rhythm. S1, S2 heard. No murmurs, gallops or rub. ABDOMEN: Soft, nontender. Positive bowel sounds. EXTREMITIES: 2+ peripheral pulses, no lower extremity edema and no calf tenderness. NEUROLOGIC EXAMINATION: Patient is awake, alert and oriented x3. ASSESSMENT Sinus bradycardia, asymptomatic Sickle cell disease with sickle cell pain crisis History of COPD PLAN No further workup from a cardiology perspective, telemetry reviewed with sinus bradycardia HR 45-70s. No evidence of significant pauses of high degree AV block. Echocardiogram obtained with EF 55-60%, TSH within normal limits. Bradycardia could be exacerbated by pain, pain medication. No further inpatient workup indicated at this time. Nurse practitioner note has been reviewed by physician. Signing provider agrees with the documented findings, assessment, and plan of care. Past Medical History Past Medical History: Blood Disorder, COPD Additional Past Medical History / Comment(s): Sickle Cell History of Any Multi-Drug Resistant Organisms: None Reported Past Surgical History: No Surgical Hx Reported Past Anesthesia/Blood Transfusion Reactions: No Reported Reaction Past Psychological History: Anxiety, Depression Smoking Status: Former smoker Past Alcohol Use History: Occasional Past Drug Use History: Marijuana - Past Family History Mother Additional Family Medical History / Comment(s): sickle cell trait Father Additional Family Medical History / Comment(s): sickle cell trait Medications and Allergies Home Medications Medication Instructions Recorded Confirmed Type Acetaminophen Tab [Tylenol] 1,000 mg PO Q6HR PRN 04/02/18 01/23/22 History Ibuprofen [Motrin Ib] 200 mg PO Q6H PRN 04/02/18 01/23/22 History Allergies Allergy/AdvReac Type Severity Reaction Status Date / Time shellfish derived [Shrimp] Allergy Anaphylaxis Verified 01/23/22 15:55 amoxicillin AdvReac Nausea & Verified 01/23/22 15:55 Vomiting & Diarrhea Penicillins AdvReac Nausea & Verified 01/23/22 15:55 Vomiting & Diarrhea Physical Exam Vitals: Vital Signs Temp Pulse Resp BP Pulse Ox 01/26/22 05:00 97.8 F 47 L 18 114/62 94 L 01/25/22 20:47 98.2 F 53 L 18 139/85 01/25/22 20:28 98.5 F 47 L 18 159/81 98 01/25/22 20:00 53 L 18 01/25/22 11:22 98.2 F 44 L 16 129/80 99 Intake and Output 01/25/22 01/26/22 01/26/22 22:59 06:59 14:59 Intake Total 2930 Balance 2930 Intake: Intake, IV Titration 1500 Amount Sodium Chloride 0.9% 1, 1500 000 ml @ 125 mls/hr IV . Q8H [facility] Rx#:[id number] Oral 1430 Other: Voiding Method Urinal # Voids 4 3 Results 01/26/22 04:33 01/25/22 04:35 CBC 01/26/22 Range/Units 04:33 WBC 6.03 (4.50-10.00) X 10*3/uL RBC 4.05 L (4.40-5.60) X 10*6/uL Hgb 12.4 L (13.0-17.0) g/dL Hct 33.9 L (39.6-50.0) % Plt Count 179 (140-440) X 10*3/uL Comprehensive Metabolic Panel 01/25/22 Range/Units 04:35 Sodium 138 (135-145) mmol/L Potassium 4.2 (3.5-5.5) mmol/L Chloride 100 (96-109) mmol/L Carbon Dioxide 26.3 (20.0-27.5) mmol/L BUN 7.4 L (9.0-27.0) mg/dL Creatinine 0.8 (0.6-1.5) mg/dL Glucose 76 (70-110) mg/dL Calcium 8.4 L (8.7-10.3) mg/dL Current Medications Generic Name Dose Route Start Last Admin Trade Name Masoudq PRN Reason Stop Dose Admin Acetaminophen 650 mg 01/23/22 17:03 01/24/22 04:06 Acetaminophen Tab 325 Mg Tab PO 650 mg Q6HR PRN Administration Mild Pain or Fever > 100.5 Folic Acid 1 mg 01/23/22 18:15 01/26/22 08:06 Folic Acid 1 Mg Tab PO 1 mg DAILY [facility] Administration Guaifenesin/Dextromethorphan 10 ml 01/25/22 10:17 01/25/22 17:25 Guaifenesin-Dm 100-10mg/5ml 10 Ml Cup PO 10 ml Q6HR PRN Administration Cough Hydromorphone HCl 0.5 mg 01/23/22 17:03 01/26/22 02:12 Hydromorphone 0.5 Mg/0.5 Ml Syringe IVP 0.5 mg Q3HR PRN Administration Moderate Pain (Scale 4 to 6) Sodium Chloride 1,000 mls @ 125 mls/hr 01/23/22 17:15 01/26/22 04:38 Saline 0.9% IV 125 mls/hr .Q8H [facility] Administration Ceftriaxone Sodium 1 gm/ 50 mls @ 100 mls/hr 01/24/22 18:15 01/26/22 08:06 Sodium Chloride IVPB 100 mls/hr Q24HR [facility] Administration Protocol Naloxone HCl 0.2 mg 01/23/22 17:03 Naloxone 0.4 Mg/Ml 1 Ml Vial IV Q2M PRN Opioid Reversal Intake and Output 01/25/22 01/26/22 01/26/22 22:59 06:59 14:59 Intake Total 2930 Balance 2930 Intake: Intake, IV Titration 1500 Amount Sodium Chloride 0.9% 1, 1500 000 ml @ 125 mls/hr IV . Q8H [facility] Rx#:[id number] Oral 1430 Other: Voiding Method Urinal # Voids 4 3 01/26/22 04:33 01/25/22 04:35
--- NOTE | 2022-01-26 11:34 | P.PN ---
Subjective 41-year-old male presents to the emergency room with complaints of sickle cell pain that started at 5:30 this morning. Patient states both of his legs hurt and he feels short or breath with chest pain. He has nausea and vomiting. Last sickle cell crisis was a year and half ago he states. He does not smoke cigarettes but does smoke marijuana occasionally. Denies any other medical history. No recent sick exposures, no fevers. Patient presents with chest pain, productive cough, and bilateral lower extremity pain. States feels similar to previous sickle cell crisis. Chest x-ray shows borderline heart size with appearance of a trace effusion. Early CHF or fluid overload. There is a patchy right basilar atelectasis versus early infiltrate. BNP is 348. Labs show no evidence of leukocytosis. Reticulocyte count elevated at 4.3. Hemoglobin and hematocrit are stable at 15 and 43 respectively. Troponin is negative at 0.020. EKG shows sinus rhythm with no ST elevation. Magnesium 1.5 and patient was given Mag-Ox. Coronavirus swab is negative. Patient was given multiple doses of Dilaudid and IV fluids with minimal pain relief. He continues to complain of chest pain worse with cough and continued bilateral lower extremity pain. 01/24/2022 Patient admitted with sickle cell crisis, also he has a fever of 102.2 on admission, pneumonia as suspected based on chest x-ray showing possible mild CHF versus patchy right basilar infiltrate versus atelectasis. He is currently on ceftriaxone and Zithromax and normal saline at 75 mL/h. Also he has generalized pain and old body aches which is controlled with the current pain medication of Dilaudid at [place]. He rates his pain as 5/10 sitting improvement and he does not look in distress. He has little dyspnea which is improving, total cough and phlegm. He denies bilateral leg pain. Ejection fraction is normal 55-60%, he does not looks like cardiac symptoms today. Also patient does not look septic however he is currently on antibiotics ceftriaxone and Zithromax. procalcitonin is 0.26. Consult ID team 01/25/2022 Patient still complaining of from coughing, Robitussin is added. Dyspnea is improving. No significant chest pain. Chest x-ray showing improvement, patient continued on ceftriaxone. He tolerates diet well, 75-100%. Nursing Education Specialist team of the case, bilirubin back to normal, no active hemolysis. Consult screen printing equipment setter team for bradycardia 01/26/2022 Patient still complaining from some dyspnea and coughing although improving . Also is complaining of from some low back pain and leg pain about 5/10 in severity. He remains on IV fluids, oxygen and antibiotic obstruction and Zithromax. No leukocytosis, hemoglobin stable. No more fever. He has a symptomatic bradycardia, screen printing equipment setter recommended no further workup We'll check ultrasound of the legs repeat chest x-ray tomorrow and labs Objective - Vital Signs Vital signs: Vital Signs Temp 98.1 F 01/26/22 09:20 Pulse 44 L 01/26/22 09:28 Resp 17 01/26/22 09:28 BP 145/77 01/26/22 09:20 Pulse Ox 99 01/26/22 09:20 FiO2 Intake & Output 01/25/22 01/26/22 01/26/22 18:59 06:59 18:59 Intake Total 2930 Balance 2930 Intake: Intake, IV Titration 1500 Amount Sodium Chloride 0.9% 1, 1500 000 ml @ 125 mls/hr IV . Q8H [facility] Rx#:[id number] Oral 1430 Other: Voiding Method Urinal Urinal # Voids 4 3 - Exam GENERAL: The patient is alert and oriented x3, not in any acute distress. Well developed, well nourished. HEENT: Pupils are round and equally reacting to light. EOMI. No scleral icterus. No conjunctival pallor. Normocephalic, atraumatic. No pharyngeal erythema. No thyromegaly. CARDIOVASCULAR: S1 and S2 present. No murmurs, rubs, or gallops. PULMONARY: Chest is clear to auscultation, no wheezing or crackles. ABDOMEN: Soft, nontender, nondistended, normoactive bowel sounds. No palpable organomegaly. MUSCULOSKELETAL: No joint swelling or deformity. EXTREMITIES: No cyanosis, clubbing, or pedal edema. NEUROLOGICAL: Gross neurological examination did not reveal any focal deficits. SKIN: No rashes. no petechiae. - Labs CBC & Chem 7: 01/26/22 04:33 01/26/22 04:33 Labs: Abnormal Lab Results - Last 24 Hours (Table) 01/24/22 01/26/22 01/26/22 Range/Units 10:51 04:33 04:33 RBC 4.05 L (4.40-5.60) X 10*6/uL Hgb 12.4 L (13.0-17.0) g/dL Hct 33.9 L (39.6-50.0) % RDW 14.8 H (11.5-14.5) % Absolute Nucleated RBC 0.08 H (0.00-0.00) X 10*3/uL NRBC/100 WBC Diff 1.3 H (0.0-0.0) /100 WBCS Hemoglobin A1 0.0 L (96.5-97.8) % Hemoglobin C 43.7 H (0.0) % Hemoglobin S 52.5 H (0.0) % Carbon Dioxide 27.9 H (20.0-27.5) mmol/L BUN 6.2 L (9.0-27.0) mg/dL BUN/Creatinine Ratio 7.75 L (12.00-20.00) Ratio Calcium 8.6 L (8.7-10.3) mg/dL Microbiology - Last 24 Hours (Table) 01/25/22 17:45 Gram Stain - Preliminary Sputum Sputum Culture - Preliminary 01/23/22 17:00 Blood Culture - Preliminary Blood No Growth after 48 hours 01/23/22 16:45 Blood Culture - Preliminary Blood No Growth after 48 hours Assessment and Plan Assessment: 1. Sickle cell crisis; rule out acute chest syndrome - patient is placed on supplemental oxygen and IV fluids in form of normal saline at a rate of 75 mL an hour; start patient on; folic acid - Monitor CBC daily -Continue with the current pain management - consult hematology for further recommendations 2. Possible right lower lobe pneumonia,; continue with ceftriaxone and Zithromax. Follow-up sputum culture. Infectious disease consult 3. Pneumonia; patient received IV ceftriaxone and azithromycin in ED; we will continue current antibiotics and monitor CBC, CRP and pro-calcitonin 4. bradycardia, asymptomatic, no further workup DVT prophylaxis; SCDs CODE STATUS; full code
[2022-01-26] MEDS: ACETAMINOPHEN TAB 325 MG TAB PO PRN (12:22)
--- NOTE | 2022-01-26 13:51 | P.CONS ---
History of Present Illness - Reason for Consult Consult date: 01/25/22 fever Requesting physician: Juan Luis E Rishi - Chief Complaint shortness of breath and cough x few days - History of Present Illness History of Present Illness : Patient is a 41-year-old -British male with a past medical he significant for sickle cell anemia presenting to the ER 2 days ago for evaluation of increasing shortness of breath cough and bringing up some yellow sputum no hemoptysis patient denies any URI symptoms patient did have fever of 101.2 F on 01/23/2022 patient did have a normal white count recorded was 4.3 kidney function has been normal liver enzymes are normal, Pro-Dharmesh was mildly elevated chest x-ray with interstitial prominence, repeat x-ray done this morning shows decreased interstitial markings patient is currently being treated with Rocephin infectious he was consulted for further management of antibiotic therapy. Patient mention feeling slightly better she is breathing more comfortably denies any chest pain but have a cough with occasional sputum no nausea vomiting and no diarrhea Review of system: CONSTITUTIONAL: Positive for weakness fever. EYES: No complaint. ENT: No complaint. RESPIRATORY: As per history of present illness. CARDIOVASCULAR: No complaint. GENITOURINARY: No complaint. GASTROINTESTINAL: No complaint. MUSCULOSKELETAL: No complaint. INTEGUMENTARY : No complaint. PSYCHOLOGIC: No complaint. ENDOCRINE: No complaint. NEUROLOGIC: No complaint. Past medical history : Reviewed, documented below Past surgical history : Reviewed, documented below Social history: Reviewed, documented below Medications: Reviewed, as documented below EXAMINATION: Vital sigans= Reviewed and documented below GENERAL DESCRIPTION: Middle-aged male lying in bed, no distress. No tachypnea or accessory muscle of respiration use. HEENT: Shows Pallor , no scleral icterus. Oral mucous membrane is dry. NECK: Trachea central, no thyromegaly. LUNGS: Unlabored breathing. Coarse breath sounds bilaterally HEART: S1, S2, regular rate and rhythm. ABDOMEN: Soft, no tenderness , guarding or rigidity EXTREMITIES: No edema feet SKIN: No rash, no masses palpable. NEUROLOGICAL: The patient is awake, alert, oriented x3, mood and affect normal. LABS AND RADIOLOGY: Reviewed results see below Assessment : 1patient presented to hospital with increasing shortness of breath cough sputum production with evidence of infiltrate on chest x-ray patient did have a fever elevated procalcitonin likely pneumonia likely community-acquired in this patient with clinical response to the Rocephin Plan: 1-obtain a sputum for gram stain culture 2-Rocephin 1 g daily to continue 3-gentle IV fluid We will follow on clinical condition and cultures to further adjust medication if needed Thank you for this consultation we will follow the patient along with you Past Medical History Past Medical History: Blood Disorder, COPD Additional Past Medical History / Comment(s): Sickle Cell History of Any Multi-Drug Resistant Organisms: None Reported Past Surgical History: No Surgical Hx Reported Past Anesthesia/Blood Transfusion Reactions: No Reported Reaction Past Psychological History: Anxiety, Depression Smoking Status: Former smoker Past Alcohol Use History: Occasional Past Drug Use History: Marijuana - Past Family History Mother Additional Family Medical History / Comment(s): sickle cell trait Father Additional Family Medical History / Comment(s): sickle cell trait Medications and Allergies Home Medications Medication Instructions Recorded Confirmed Type Acetaminophen Tab [Tylenol] 1,000 mg PO Q6HR PRN 04/02/18 01/23/22 History Ibuprofen [Motrin Ib] 200 mg PO Q6H PRN 04/02/18 01/23/22 History Allergies Allergy/AdvReac Type Severity Reaction Status Date / Time shellfish derived [Shrimp] Allergy Anaphylaxis Verified 01/23/22 15:55 amoxicillin AdvReac Nausea & Verified 01/23/22 15:55 Vomiting & Diarrhea Penicillins AdvReac Nausea & Verified 01/23/22 15:55 Vomiting & Diarrhea Physical Exam Vitals: Vital Signs Temp Pulse Pulse Resp BP Pulse Ox 01/25/22 08:46 50 L 17 01/25/22 08:43 98.1 F 50 L 17 137/73 01/25/22 04:01 98.6 F 45 L 15 140/75 95 01/24/22 20:00 49 L 14 01/24/22 19:15 99.1 F 49 L 14 137/51 100 Intake and Output 01/24/22 01/25/22 01/25/22 22:59 06:59 14:59 Output Total 300 300 Balance -300 -300 Output: Urine 300 300 Other: Voiding Method Urinal Urinal # Voids 1 Results CBC & Chem 7: 01/26/22 04:33 01/26/22 04:33 Labs: Abnormal Lab Results - Last 24 Hours (Table) 01/24/22 01/24/22 01/25/22 Range/Units 18:29 18:29 04:35 RBC 4.08 L (4.40-5.60) X 10*6/uL Hgb 12.6 L (13.0-17.0) g/dL Hct 34.5 L (39.6-50.0) % RDW 14.8 H (11.5-14.5) % Absolute Nucleated RBC 0.07 H (0.00-0.00) X 10*3/uL NRBC/100 WBC Diff 1.0 H (0.0-0.0) /100 WBCS Haptoglobin <10.0 L (31.2-198.0) mg/dL BUN (9.0-27.0) mg/dL BUN/Creatinine Ratio (12.00-20.00) Ratio Calcium (8.7-10.3) mg/dL Lactate Dehydrogenase 873 H (313-618) U/L 01/25/22 Range/Units 04:35 RBC (4.40-5.60) X 10*6/uL Hgb (13.0-17.0) g/dL Hct (39.6-50.0) % RDW (11.5-14.5) % Absolute Nucleated RBC (0.00-0.00) X 10*3/uL NRBC/100 WBC Diff (0.0-0.0) /100 WBCS Haptoglobin (31.2-198.0) mg/dL BUN 7.4 L (9.0-27.0) mg/dL BUN/Creatinine Ratio 9.25 L (12.00-20.00) Ratio Calcium 8.4 L (8.7-10.3) mg/dL Lactate Dehydrogenase (313-618) U/L Microbiology - Last 24 Hours (Table) 01/23/22 17:00 Blood Culture - Preliminary Blood No Growth after 24 hours 01/23/22 16:45 Blood Culture - Preliminary Blood No Growth after 24 hours
--- NOTE | 2022-01-26 16:08 | P.PN ---
Subjective Progress Note Date: 01/26/22 Principal diagnosis: Fever/pneumonia Patient is a 41-year-old -[place] male with a past medical history significant for sickle cell anemia present to the hospital increasing shortness of breath cough some yellow sputum and fever concerning for pneumonia. On today's evaluation that is 01/26/2022, the patient denies having any fever or any chills, the patient is breathing slightly comfortably denies having any chest pain no worsening cough or sputum production no abdominal pain and no diarrhea Objective - Vital Signs Vital signs: Vital Signs Temp 98.3 F 01/26/22 12:36 Pulse 47 L 01/26/22 12:36 Resp 18 01/26/22 12:36 BP 161/75 01/26/22 12:36 Pulse Ox 99 01/26/22 12:36 FiO2 Intake & Output 01/25/22 01/26/22 01/26/22 18:59 06:59 18:59 Intake Total 2930 Balance 2930 Intake: Intake, IV Titration 1500 Amount Sodium Chloride 0.9% 1, 1500 000 ml @ 125 mls/hr IV . Q8H [facility] Rx#:[id number] Oral 1430 Other: Voiding Method Urinal Urinal # Voids 4 3 - Exam GENERAL DESCRIPTION: Middle-aged male lying in bed, no distress. No tachypnea or accessory muscle of respiration use. LUNGS: Unlabored breathing. Coarse breath sounds bilaterally no wheeze HEART: S1, S2, regular rate and rhythm. No loud murmur ABDOMEN: Soft, no tenderness , guarding or rigidity, no organomegaly EXTREMITIES: No edema of feet. - Labs CBC & Chem 7: 01/26/22 04:33 01/26/22 04:33 Labs: Abnormal Lab Results - Last 24 Hours (Table) 01/24/22 01/26/22 01/26/22 Range/Units 10:51 04:33 04:33 RBC 4.05 L (4.40-5.60) X 10*6/uL Hgb 12.4 L (13.0-17.0) g/dL Hct 33.9 L (39.6-50.0) % RDW 14.8 H (11.5-14.5) % Absolute Nucleated RBC 0.08 H (0.00-0.00) X 10*3/uL NRBC/100 WBC Diff 1.3 H (0.0-0.0) /100 WBCS Hemoglobin A1 0.0 L (96.5-97.8) % Hemoglobin C 43.7 H (0.0) % Hemoglobin S 52.5 H (0.0) % Carbon Dioxide 27.9 H (20.0-27.5) mmol/L BUN 6.2 L (9.0-27.0) mg/dL BUN/Creatinine Ratio 7.75 L (12.00-20.00) Ratio Calcium 8.6 L (8.7-10.3) mg/dL Microbiology - Last 24 Hours (Table) 01/25/22 17:45 Gram Stain - Preliminary Sputum Sputum Culture - Preliminary 01/23/22 17:00 Blood Culture - Preliminary Blood No Growth after 48 hours 01/23/22 16:45 Blood Culture - Preliminary Blood No Growth after 48 hours Assessment and Plan (1) Pneumonia Current Visit: Yes Status: Acute Code(s): J18.9 - PNEUMONIA, UNSPECIFIED ORGANISM SNOMED Code(s): 498110828 Plan: 1patient presented hospital with shortness of breath cough fever concerning for pneumonia patient fever has responded to the Rocephin to continue sputum culture will be followed and antibiotic adjusted further if needed Time with Patient: Less than 30
--- NOTE | 2022-01-26 16:37 | P.PN ---
Subjective Progress Note Date: 01/26/22 Principal diagnosis: sickle cell crisis In follow-up today patient feels a little better today, less tired, sleeping a little less. Coughing is decreased, less chest heaviness and shortness of breath with activity. He has not had any fevers. Objective - Vital Signs Vital signs: Vital Signs Temp 98.3 F 01/26/22 12:36 Pulse 47 L 01/26/22 12:36 Resp 18 01/26/22 12:36 BP 161/75 01/26/22 12:36 Pulse Ox 99 01/26/22 12:36 FiO2 Intake & Output 01/25/22 01/26/22 01/26/22 18:59 06:59 18:59 Intake Total 2930 Balance 2930 Intake: Intake, IV Titration 1500 Amount Sodium Chloride 0.9% 1, 1500 000 ml @ 125 mls/hr IV . Q8H [facility] Rx#:[id number] Oral 1430 Other: Voiding Method Urinal Urinal # Voids 4 3 - Constitutional General appearance: Present: cooperative, no acute distress, thin - EENT Eyes: Present: anicteric sclerae, EOMI ENT: Present: hearing grossly normal - Respiratory Respiratory: left: rales (in the base), bilateral: CTA - Cardiovascular Details: bradycardia Abnormal Heart Sounds: Absent: systolic murmur, diastolic murmur, rub, S3 Gallop, S4 Gallop, click, other - Integumentary Integumentary: Present: normal - Neurologic Neurologic: Present: focal deficits - Musculoskeletal Musculoskeletal: Present: strength equal bilaterally - Psychiatric Psychiatric: Present: A&O x's 3, appropriate affect, intact judgment & insight - Labs CBC & Chem 7: 01/26/22 04:33 01/26/22 04:33 Labs: Abnormal Lab Results - Last 24 Hours (Table) 01/24/22 01/26/22 01/26/22 Range/Units 10:51 04:33 04:33 RBC 4.05 L (4.40-5.60) X 10*6/uL Hgb 12.4 L (13.0-17.0) g/dL Hct 33.9 L (39.6-50.0) % RDW 14.8 H (11.5-14.5) % Absolute Nucleated RBC 0.08 H (0.00-0.00) X 10*3/uL NRBC/100 WBC Diff 1.3 H (0.0-0.0) /100 WBCS Hemoglobin A1 0.0 L (96.5-97.8) % Hemoglobin C 43.7 H (0.0) % Hemoglobin S 52.5 H (0.0) % Carbon Dioxide 27.9 H (20.0-27.5) mmol/L BUN 6.2 L (9.0-27.0) mg/dL BUN/Creatinine Ratio 7.75 L (12.00-20.00) Ratio Calcium 8.6 L (8.7-10.3) mg/dL Microbiology - Last 24 Hours (Table) 01/25/22 17:45 Gram Stain - Preliminary Sputum Sputum Culture - Preliminary 01/23/22 17:00 Blood Culture - Preliminary Blood No Growth after 48 hours 01/23/22 16:45 Blood Culture - Preliminary Blood No Growth after 48 hours Assessment and Plan (1) Sickle cell crisis Current Visit: Yes Status: Acute Priority: High SNOMED Code(s): 347647241 (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 No new symptoms reported. No fevers. Continue on antibiotics, and folic acid, continue fluids. Recommended by Cardiology to reduce pain medications due to bradycardia. Patient has been placed on [place]. Patient has been worked up for bradycardia, no specific medical cause identified on work up. Influenza and RSV testing negative. LDH and haptoglobin suggestive of hemolysis. Hemoglobin Continues to be stable. No acute intervention at this time. Hemoglobin electrophoresis shows the patient is positive for hemoglobin C and S, therefore confirming sickle cell disease, not just SS trait. Follow-up is being scheduled with Chemical Pathologist locally. He was encouraged to follow with Chemical Pathologist in [place] when he spends time there as well.
--- NOTE | 2022-01-26 17:10 | US ---
EXAMINATION TYPE: US venous doppler duplex LE DATE OF EXAM: 01/26/2022 4:32 PM COMPARISON: NONE CLINICAL HISTORY: leg swelling. Exam done portable SIDE PERFORMED: Bilateral TECHNIQUE: The lower extremity deep venous system is examined utilizing real time linear array sonog christal with graded compression, doppler sonography and color-flow sonography. VESSELS IMAGED: Common Femoral Vein Deep Femoral Vein Greater Saphenous Vein * Femoral Vein Popliteal Vein Small Saphenous Vein * Proximal Calf Veins (* superficial vessels) Right Leg: Appears negative for DVT Left Leg: Appears negative for DVT Grayscale, color doppler, spectral doppler imaging performed of the deep veins of the lower extremiti es. There is normal flow, compressibility, vascular waveforms. IMPRESSION: No evidence of deep vein thrombus of either lower extremity.
[2022-01-26 19:19] VITALS: RESP 16
[2022-01-27] MEDS: SODIUM CHLORIDE 0.9% 1,000 ML IV SCH ×2 (04:21→11:25)
[2022-01-27 05:48] LABS: Basophils # (A) 0.1 k/uL (0-0.2); Basophils % (A) 1 %; Eosinophils # (A) 0.2 k/uL (0-0.7); Eosinophils % (A) 4 %; HCT 38.1 % (39.0-53.0); HGB 13.4 gm/dL (13.0-17.5); Hyperchromasia Slight; Lymphocytes # (A) 2.8 k/uL (1.0-4.8); Lymphocytes % (A) 46 %; MCH 30.7 pg (25.0-35.0); MCHC 35.2 g/dL (31.0-37.0); MCV 87.4 fL (80.0-100.0); Monocytes # (A) 0.4 k/uL (0-1.0); Monocytes % (A) 6 %; Neutrophils # (A) 2.5 k/uL (1.3-7.7); Neutrophils % (A) 41 %; Platelet Count 191 k/uL (150-450); Poikilocytosis Slight; RBC 4.35 m/uL (4.30-5.90); RDW 14.9 % (11.5-15.5); WBC 6.1 k/uL (3.8-10.6)
[2022-01-27 07:00] LABS: Poikilocytosis (M) Present; Target Cells Present
[2022-01-27] MEDS: FOLIC ACID 1 MG TAB PO SCH (08:38)
[2022-01-27] MEDS: HYDROcodone/APAP 5-325MG 1 EACH TAB PO PRN ×3 (08:45→22:27)
--- NOTE | 2022-01-27 09:47 | XR ---
EXAMINATION TYPE: XR chest 1V DATE OF EXAM: 01/27/2022 9:21 AM COMPARISON: Chest radiographs from 01/25/2022 TECHNIQUE: XR chest 1V Frontal view of the chest. CLINICAL INDICATION:Male, 41 years old with history of sob; FINDINGS: Lungs/Pleura: There is no evidence of pleural effusion, focal consolidation, or pneumothorax. Pulmonary vascularity: Unremarkable. Heart/mediastinum: Cardiomediastinal silhouette is unremarkable. Musculoskeletal: No acute osseous pathology. IMPRESSION: No acute cardiopulmonary disease/process.
--- NOTE | 2022-01-27 10:53 | P.PN ---
Subjective This is a pleasant 41-year-old male past medical history significant for sickle cell disease, marijuana use, COPD. He does not follow with a traveling passenger agent. No history of cardiac disease. We have been asked to see in consultation for sinus bradycardia. Patient presented to the ER on 01/23/2022 with complaints of sickle cell pain crisis. He has pain in his bilateral legs, chest, he had symptoms of nausea, vomiting, decreased PO intake and shortness of breath. He was started on IV fluids and pain control. He was on telemetry and HR in the 45-70s, sinus bradycardia. He does not have any symptoms of lightheadedness, dizziness, syncope or near syncope. No history of CAD, VT, Stroke, hypertension, diabetes. EKG revealed sinus rhythm, heart rate 72, nonspecific T abnormalities, poor R wave progression, No acute ischemia noted. Echocardiogram revealed EF 5560 percent, mild mitral regurgitation 01/27 Patient seen and examined at bedside, no acute distress. He denies any lightheadedness, dizziness, palpitations. Telemetry tracings indicate sinus rhythm with heart rates in the 4550s. TSH was normal limits. Blood pressure 148/76. PHYSICAL EXAMINATION Blood pressure CONSTITUTIONAL: No apparent distress. HEENT: Neck supple No JVD. CHEST EXAMINATION: Lungs are clear to auscultation. No chest wall tenderness is noted on palpation or with deep breathing. HEART EXAMINATION: Regular rate and rhythm. S1, S2 heard. No murmurs, gallops or rub. ABDOMEN: Soft, nontender. Positive bowel sounds. EXTREMITIES: 2+ peripheral pulses, no lower extremity edema and no calf tenderness. NEUROLOGIC EXAMINATION: Patient is awake, alert and oriented x3. ASSESSMENT Sinus bradycardia, asymptomatic Sickle cell disease with sickle cell pain crisis History of COPD PLAN No further workup from a cardiology perspective, telemetry reviewed with sinus bradycardia HR 45-50s No evidence of significant pauses of high degree AV block. Echocardiogram obtained with EF 55-60%, TSH within normal limits. Bradycardia could be exacerbated by pain, pain medication. No further inpatient workup indicated at this time. We will follow the patient as needed. Please reconsult if needed. Nurse practitioner note has been reviewed by physician. Signing provider agrees with the documented findings, assessment, and plan of care. Objective - Vital Signs Vital signs: Vital Signs Temp 97.8 F 01/27/22 05:00 Pulse 47 L 01/27/22 05:00 Resp 16 01/27/22 05:00 BP 148/76 01/27/22 05:00 Pulse Ox 91 L 01/27/22 05:00 FiO2 Intake & Output 01/26/22 01/27/22 01/27/22 18:59 06:59 18:59 Intake Total 590 Balance 590 Intake: Oral 590 Other: Voiding Method Urinal # Voids 3 - Labs CBC & Chem 7: 01/27/22 05:14 01/26/22 04:33 Labs: Abnormal Lab Results - Last 24 Hours (Table) 01/26/22 01/27/22 Range/Units 04:33 05:14 Hct 38.1 L (39.0-53.0) % Carbon Dioxide 27.9 H (20.0-27.5) mmol/L BUN 6.2 L (9.0-27.0) mg/dL BUN/Creatinine Ratio 7.75 L (12.00-20.00) Ratio Calcium 8.6 L (8.7-10.3) mg/dL Microbiology - Last 24 Hours (Table) 01/23/22 17:00 Blood Culture - Preliminary Blood No Growth after 72 hours 01/23/22 16:45 Blood Culture - Preliminary Blood No Growth after 72 hours 01/25/22 17:45 Gram Stain - Preliminary Sputum Sputum Culture - Preliminary
[2022-01-27 11:08] LABS: African American GFR (CKD) 130.4 (60.0-200.0); Anion Gap 10.7 mmol/L (10.00-18.00); BUN/Creat Ratio 11.63 Ratio (12.00-20.00); Blood Urea Nitrogen 9.3 mg/dL (9.0-27.0); Calcium 8.7 mg/dL (8.7-10.3); Carbon Dioxide 26.3 mmol/L (20.0-27.5); Non-African American GFR(CKD) 112.5 (60.0-200.0); Potassium 4.2 mmol/L (3.5-5.5)
--- NOTE | 2022-01-27 15:24 | P.PN ---
Subjective Progress Note Date: 01/27/22 Principal diagnosis: sickle cell crisis, Confirmed Hgb SC disease In follow-up today patient feels good, he is ready to go home. Breathing comfortably, pain is adequately controlled. Cough is less, no fever, fatigue and weakness much improved. Objective - Vital Signs Vital signs: Vital Signs Temp 97.8 F 01/27/22 05:00 Pulse 47 L 01/27/22 05:00 Resp 16 01/27/22 05:00 BP 148/76 01/27/22 05:00 Pulse Ox 91 L 01/27/22 05:00 FiO2 Intake & Output 01/26/22 01/27/22 01/27/22 18:59 06:59 18:59 Intake Total 590 Balance 590 Intake: Oral 590 Other: Voiding Method Urinal # Voids 3 - Constitutional General appearance: Present: cooperative, no acute distress, thin - EENT EENT Comment(s): EOMs lt upper out gaze weak, rt medial and up gaze weak Eyes: Present: anicteric sclerae ENT: Present: hearing grossly normal - Respiratory Respiratory: bilateral: CTA - Cardiovascular Details: bradycardia Heart sounds: normal: S1, S2 - Peripheral edema leg Peripheral Edema: bilateral: None - Gastrointestinal General gastrointestinal: Present: normal bowel sounds, soft - Neurologic Neurologic: Present: focal deficits - Psychiatric Psychiatric: Present: A&O x's 3, appropriate affect, intact judgment & insight - Labs CBC & Chem 7: 01/27/22 05:14 01/27/22 05:14 Labs: Abnormal Lab Results - Last 24 Hours (Table) 01/27/22 01/27/22 Range/Units 05:14 05:14 Hct 38.1 L (39.0-53.0) % Procalcitonin 0.31 H (0.02-0.09) ng/mL Microbiology - Last 24 Hours (Table) 01/23/22 17:00 Blood Culture - Preliminary Blood No Growth after 72 hours 01/23/22 16:45 Blood Culture - Preliminary Blood No Growth after 72 hours 01/25/22 17:45 Gram Stain - Preliminary Sputum Sputum Culture - Preliminary Assessment and Plan (1) Sickle cell crisis Current Visit: Yes Status: Acute Priority: High SNOMED Code(s): 099546356 (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 Hgb SC disease confirmed. No acute chest. Stable/improved respiratory status after abx therapy. Patient has been worked up for bradycardia, no specific medical cause identified on work up. LDH and haptoglobin suggestive of hemolysis. Hemoglobin remained normal level and stable throughout hospitalization. Follow-up scheduled with [facility], appt in DC plan. Pain from crisis improved. 3 days of norco prescribed. Folic acid Rx already sent, pt encouraged to continue Ok from Hem/Onc for DC once cleared by IM and Consulting MDs.
--- NOTE | 2022-01-27 19:28 | P.PN ---
Subjective 41-year-old male presents to the emergency room with complaints of sickle cell pain that started at 5:30 this morning. Patient states both of his legs hurt and he feels short or breath with chest pain. He has nausea and vomiting. Last sickle cell crisis was a year and half ago he states. He does not smoke cigarettes but does smoke marijuana occasionally. Denies any other medical history. No recent sick exposures, no fevers. Patient presents with chest pain, productive cough, and bilateral lower extremity pain. States feels similar to previous sickle cell crisis. Chest x-ray shows borderline heart size with appearance of a trace effusion. Early CHF or fluid overload. There is a patchy right basilar atelectasis versus early infiltrate. BNP is 348. Labs show no evidence of leukocytosis. Reticulocyte count elevated at 4.3. Hemoglobin and hematocrit are stable at 15 and 43 respectively. Troponin is negative at 0.020. EKG shows sinus rhythm with no ST elevation. Magnesium 1.5 and patient was given Mag-Ox. Coronavirus swab is negative. Patient was given multiple doses of Dilaudid and IV fluids with minimal pain relief. He continues to complain of chest pain worse with cough and continued bilateral lower extremity pain. 01/24/2022 Patient admitted with sickle cell crisis, also he has a fever of 102.2 on admission, pneumonia as suspected based on chest x-ray showing possible mild CHF versus patchy right basilar infiltrate versus atelectasis. He is currently on ceftriaxone and Zithromax and normal saline at 75 mL/h. Also he has generalized pain and old body aches which is controlled with the current pain medication of Dilaudid at [place]. He rates his pain as 5/10 sitting improvement and he does not look in distress. He has little dyspnea which is improving, total cough and phlegm. He denies bilateral leg pain. Ejection fraction is normal 55-60%, he does not looks like cardiac symptoms today. Also patient does not look septic however he is currently on antibiotics ceftriaxone and Zithromax. procalcitonin is 0.26. Consult ID team 01/25/2022 Patient still complaining of from coughing, Robitussin is added. Dyspnea is improving. No significant chest pain. Chest x-ray showing improvement, patient continued on ceftriaxone. He tolerates diet well, 75-100%. Transplant Immunologist team of the case, bilirubin back to normal, no active hemolysis. Consult midwife practitioner team for bradycardia 01/26/2022 Patient still complaining from some dyspnea and coughing although improving . Also is complaining of from some low back pain and leg pain about 5/10 in severity. He remains on IV fluids, oxygen and antibiotic obstruction and Zithromax. No leukocytosis, hemoglobin stable. No more fever. He has a symptomatic bradycardia, midwife practitioner recommended no further workup We'll check ultrasound of the legs repeat chest x-ray tomorrow and labs 01/27/2022 Patient today significantly improved, at his room he was standing at bedside and trochanter and swollen with no difficulty. Gait is normal. Pain is minimal. Less lethargic. Patient active and he thinks U and go home whenever he is medically ready. Patient also was cleared for discharge by hematology/oncology team, his hemoglobin is stable. Fever subsided. He has asymptomatic bradycardia, pain and medication for pain may be contributing as well, cardiac workup was unremarkable and patient was cleared for discharge by midwife practitioner. Telemetry showing no pauses. MN interval was checked by midwife practitioner team with no concerns. However sputum culture still pending as well as blood culture pending to be finalized The patient in the meantime remains on ceftriaxone Discussed the case with infectious disease team and agree with recommendation Objective - Vital Signs Vital signs: Vital Signs Temp 98.3 F 01/27/22 17:26 Pulse 48 L 01/27/22 17:26 Resp 16 01/27/22 17:26 BP 160/82 01/27/22 17:26 Pulse Ox 98 01/27/22 17:26 FiO2 Intake & Output 01/27/22 01/27/22 01/28/22 06:59 18:59 06:59 Intake Total 590 Balance 590 Intake: Oral 590 Other: Voiding Method Urinal - Exam GENERAL: The patient is alert and oriented x3, not in any acute distress. Well developed, well nourished. HEENT: Pupils are round and equally reacting to light. EOMI. No scleral icterus. No conjunctival pallor. Normocephalic, atraumatic. No pharyngeal erythema. No thyromegaly. CARDIOVASCULAR: S1 and S2 present. No murmurs, rubs, or gallops. PULMONARY: Chest is clear to auscultation, no wheezing or crackles. ABDOMEN: Soft, nontender, nondistended, normoactive bowel sounds. No palpable organomegaly. MUSCULOSKELETAL: No joint swelling or deformity. EXTREMITIES: No cyanosis, clubbing, or pedal edema. NEUROLOGICAL: Gross neurological examination did not reveal any focal deficits. SKIN: No rashes. no petechiae. - Labs CBC & Chem 7: 01/27/22 05:14 01/27/22 05:14 Labs: Abnormal Lab Results - Last 24 Hours (Table) 01/27/22 01/27/22 01/27/22 Range/Units 05:14 05:14 05:14 Hct 38.1 L (39.0-53.0) % BUN/Creatinine Ratio 11.63 L (12.00-20.00) Ratio Procalcitonin 0.31 H (0.02-0.09) ng/mL Microbiology - Last 24 Hours (Table) 01/23/22 17:00 Blood Culture - Preliminary Blood No Growth after 96 hours 01/23/22 16:45 Blood Culture - Preliminary Blood No Growth after 96 hours 01/25/22 17:45 Gram Stain - Preliminary Sputum Sputum Culture - Preliminary Assessment and Plan Assessment: 1. Sickle cell crisis; rule out acute chest syndrome - patient is placed on supplemental oxygen and IV fluids in form of normal saline at a rate of 75 mL an hour; start patient on; folic acid - Monitor CBC daily -Continue with the current pain management - consult hematology for further recommendations 2. Possible right lower lobe pneumonia,; continue with ceftriaxone and Zithromax. Follow-up sputum culture. Infectious disease consult 3. Pneumonia; patient received IV ceftriaxone and azithromycin in ED; we will continue current antibiotics and monitor CBC, CRP and pro-calcitonin 4. bradycardia, asymptomatic, no further workup DVT prophylaxis; SCDs CODE STATUS; full code
--- NOTE | 2022-01-27 22:52 | P.PN ---
Subjective Progress Note Date: 01/27/22 Principal diagnosis: Fever/pneumonia Patient is a 41-year-old -[place] Citizen male with a past medical history significant for sickle cell anemia present to the hospital increasing shortness of breath cough some yellow sputum and fever concerning for pneumonia. On today's evaluation that is 01/27/2022, the patient remains to be afebrile, the patient is breathing slightly comfortably on room air, the patient denies having any chest pain no worsening cough or sputum production no abdominal pain and no diarrhea Objective - Vital Signs Vital signs: Vital Signs Temp 98.5 F 01/27/22 11:49 Pulse 48 L 01/27/22 11:49 Resp 16 01/27/22 11:49 BP 134/79 01/27/22 11:49 Pulse Ox 97 01/27/22 11:49 FiO2 Intake & Output 01/26/22 01/27/22 01/27/22 18:59 06:59 18:59 Intake Total 590 Balance 590 Intake: Oral 590 Other: Voiding Method Urinal # Voids 3 - Exam GENERAL DESCRIPTION: Middle-aged male lying in bed, no distress. No tachypnea or accessory muscle of respiration use. LUNGS: Unlabored breathing. Coarse breath sounds bilaterally no wheeze HEART: S1, S2, regular rate and rhythm. No loud murmur ABDOMEN: Soft, no tenderness , guarding or rigidity, no organomegaly EXTREMITIES: No edema of feet. - Labs CBC & Chem 7: 01/27/22 05:14 01/27/22 05:14 Labs: Abnormal Lab Results - Last 24 Hours (Table) 01/27/22 01/27/22 01/27/22 Range/Units 05:14 05:14 05:14 Hct 38.1 L (39.0-53.0) % BUN/Creatinine Ratio 11.63 L (12.00-20.00) Ratio Procalcitonin 0.31 H (0.02-0.09) ng/mL Microbiology - Last 24 Hours (Table) 01/25/22 17:45 Gram Stain - Preliminary Sputum Sputum Culture - Preliminary 01/23/22 17:00 Blood Culture - Preliminary Blood No Growth after 72 hours 01/23/22 16:45 Blood Culture - Preliminary Blood No Growth after 72 hours Assessment and Plan (1) Pneumonia Current Visit: Yes Status: Acute Code(s): J18.9 - PNEUMONIA, UNSPECIFIED ORGANISM SNOMED Code(s): 100790793 Plan: 1patient presented hospital with shortness of breath cough fever concerning for pneumonia patient fever has responded to the Rocephin which will be continued while waiting for the sputum cultures to finalize to determine his discharge antibiotics, if the sputum cultures are negative we will be able to finish therapy with oral Ceftin Time with Patient: Less than 30
[2022-01-28] MEDS: SODIUM CHLORIDE 0.9% 1,000 ML IV SCH ×3 (04:02→16:00)
[2022-01-28 05:07] VITALS: BP 131/83; PULSE 56; TEMP 98.5
[2022-01-28] MEDS: FOLIC ACID 1 MG TAB PO SCH (08:57)
[2022-01-28] MEDS: HYDROcodone/APAP 5-325MG 1 EACH TAB PO PRN (08:59)
[2022-01-28 11:16] VITALS: BMI 21.4
--- NOTE | 2022-01-28 21:23 | P.DS ---
Providers Date of admission: 01/23/22 16:43 Attending physician: Jimi Garvey Consults: 01/23/22 17:03 Consult Physician Routine Consulting Provider: Antony Herrera Consult Reason/Comments: Sickle cell crisis rule out acute chest syndrome, pneumonia Do you want consulting provider notified?: Yes, Notify in am 01/24/22 20:15 Consult Physician Urgent Consulting Provider: Gurpreet Guerrero Consult Reason/Comments: fever Do you want consulting provider notified?: Yes, Notify in am 01/25/22 16:26 Consult Physician Urgent Consulting Provider: Angeles Ellis Consult Reason/Comments: bradycardia Do you want consulting provider notified?: Yes Primary care physician: Stated None Hospital Course: Diagnoses: 1. Sickle cell crisis; 2. Right lower lobe pneumonia 4. bradycardia, asymptomatic, no further workup Hospital course 41-year-old -[place] male presents to the emergency room with complaints of sickle cell pain that started at 5:30 in the morning. Patient states both of his legs hurt and he feels short or breath with chest pain. Patient found to have right lower lobe pneumonia and sickle cell anemia with crisis. Patient was treated with pain medication, IV fluids as well as antibiotics ceftriaxone and Zithromax. Patient felt closely by hematology and oncology team, and infectious disease team, patient showed interval improvement and patient back to baseline, his dyspnea significantly improved, is not tachypneic at rest or with exertion, no chest pain, no significant cough. Also denies any other symptoms, no vomiting or diarrhea or urinary complaints. No fever. Walking normal and has good appetite. Patient feels ready for discharge Patient will be discharged on short course of oral antibiotics Patient was cleared for discharge by hematology oncology and infectious disease team Cardiology saw the patient for asymptomatic bradycardia and recommended no further workup upon discharge. Patient is cleared for discharge. Problems and management plan were discussed with the patient and he verbalized understanding and acceptance Patient was found stable and can be discharged home however he needs follow-up as an outpatient. Patient was instructed to follow up with PCP within one week and patient agrees Patient was instructed to call his medical insurance provider and find a nearby PCP and call in one week Also patient was instructed to follow up with Dr. Renee in 2-3 weeks and he agrees also he was instructed to follow up with director multiple sclerosis [facility] Dr. Chahal in one week and he agrees Physical exam Gen: patient is a AAOx3, no distress CVS: S1-S2, RRR, no murmur Lungs: B/L CTA, no wheezing Abdomen: soft, no distention, no tenderness, positive bowel sounds Extremity: no leg edema or induration Time spent more than 35 minutes Plan - Discharge Summary Discharge Rx Participant: No New Discharge Prescriptions: New Ibuprofen 400 mg PO Q8HR PRN 3 Days #9 tablet PRN Reason: Pain Folic Acid 1 mg PO DAILY #30 tab HYDROcodone/APAP 5-325MG [[place] 5-325] 1 tab PO Q6HR PRN 3 Days #12 tab PRN Reason: Pain cefUROXime axetiL [Ceftin] 500 mg PO BID 7 Days #14 tab Continue Acetaminophen Tab [Tylenol] 1,000 mg PO Q6HR PRN PRN Reason: Pain Discontinued Ibuprofen [Motrin Ib] 200 mg PO Q6H PRN PRN Reason: Pain Or Fever > 100.5 Discharge Medication List Acetaminophen Tab [Tylenol] 1,000 mg PO Q6HR PRN 04/02/18 [History] Folic Acid 1 mg PO DAILY #30 tab 01/27/22 [Rx] HYDROcodone/APAP 5-325MG [[place] 5-325] 1 tab PO Q6HR PRN 3 Days #12 tab 01/27/22 [Rx] Ibuprofen 400 mg PO Q8HR PRN 3 Days #9 tablet 01/28/22 [Rx] cefUROXime axetiL [Ceftin] 500 mg PO BID 7 Days #14 tab 01/28/22 [Rx] Follow up Appointment(s)/Referral(s): Pennie Renee MD [STAFF PHYSICIAN] - 02/18/22 10:30 am Blaine Chahal MD [STAFF PHYSICIAN] - 1 Week (patient will have to call and schedule own appt) Patient Instructions/Handouts: Heart Healthy Diet (DC), Sickle Cell Crisis (DC), Pneumonia (DC) Activity/Diet/Wound Care/Special Instructions: Please call your health insurance provider to find any by primary care doctor, and then call to make an appointment within 1 week Heart healthy diet Activity is restricted till you see your doctor Discharge Disposition: HOME SELF-CARE
== END 2022-01-28 16:55 | disposition home or self-care (01) | DRG 193 ==
LOC: EC 12:04 → 5NMEDONC 16:43
PROVIDERS: ADMIT Hospitalist; ATTEND Hospitalist
PROC: 3E0F7SF Introduction of Other Gas into Respiratory Tract, Via Natural or Artificial Opening (ICD-10-PCS; principal; 2022-01-23)
DX: J18.9 Pneumonia, unspecified organism (principal); D57.219 Sickle-cell/Hb-C disease with crisis, unspecified; J44.0 Chronic obstructive pulmonary disease with (acute) lower respiratory infection; R00.1 Bradycardia, unspecified; E83.42 Hypomagnesemia; I08.1 Rheumatic disorders of both mitral and tricuspid valves; I37.1 Nonrheumatic pulmonary valve insufficiency; F32.A Depression, unspecified; F41.9 Anxiety disorder, unspecified; Z87.891 Personal history of nicotine dependence; Z20.822 Contact with and (suspected) exposure to COVID-19; Z88.0 Allergy status to penicillin; Z88.1 Allergy status to other antibiotic agents; Z91.013 Allergy to seafood
CPT/HCPCS: 36415; 71045; 71046; 80048; 80053; 80076; 81003; 83010; 83021; 83615; 83735; 83880; 84145; 84443; 84484; 85025; 85045; 85610; 85730; 87040; 87070; 87205; 87502; 87634; 87635; 93005; 93306; 93970; 96361; 96365; 96375; 96376; 99285

== ENCOUNTER 2022-05-13 07:07 | Inpatient (IN) | payer BC, OTHER ==
[2022-05-13] MEDS ORDERED: HYDROmorphone 1 MG/ML 1 ML SYRINGE IVP STA (07:29)
[2022-05-13] MEDS ORDERED: SODIUM CHLORIDE 0.9% 500 ML 500 ML IV ONE (08:26)
--- NOTE | 2022-05-13 08:34 | XR ---
EXAMINATION TYPE: XR chest 2V DATE OF EXAM: 05/13/2022 8:26 AM COMPARISON: Chest radiographs from 01/27/2022 TECHNIQUE: XR chest 2V Frontal and lateral views of the chest. CLINICAL INDICATION:Male, 41 years old with history of pain; FINDINGS: Lungs/Pleura: There is no evidence of pleural effusion, focal consolidation, or pneumothorax. Pulmonary vascularity: Unremarkable. Heart/mediastinum: Cardiomediastinal silhouette is unremarkable. Musculoskeletal: No acute osseous pathology. IMPRESSION: No acute cardiopulmonary disease/process. No significant change from prior examination.
--- NOTE | 2022-05-13 08:43 | ED ---
General Adult HPI - General Chief complaint: Recheck/Abnormal Lab/Rx Stated complaint: weakness, pain Time Seen by Provider: 05/13/22 07:25 Source: patient, RN notes reviewed Mode of arrival: ambulatory Limitations: no limitations - History of Present Illness Initial comments: 41-year-old male presents emergency Department chief complaints of pain. Lizeth ent has history of sickle cell states that he is having sickle cell crisis. Patient complain severe joint pain, chest pain. Patient states is his normal pain when he has a crisis. Patient's pain is not controlled with current medication. He denies any recent fever he states 10 mild URI symptoms. Patient has a hospice in the past because of his sickle cell. Denies any nausea vomiting. - Related Data Home Medications Medication Instructions Recorded Confirmed Acetaminophen Tab [Tylenol] 1,000 mg PO Q6HR PRN 04/02/18 01/23/22 Previous Rx's Medication Instructions Recorded Folic Acid 1 mg PO DAILY #30 tab 01/27/22 HYDROcodone/APAP 5-325MG [[place] 1 tab PO Q6HR PRN 3 Days #12 tab 01/27/22 5-325] Ibuprofen 400 mg PO Q8HR PRN 3 Days #9 tablet 01/28/22 cefUROXime axetiL [Ceftin] 500 mg PO BID 7 Days #14 tab 01/28/22 Allergies Allergy/AdvReac Type Severity Reaction Status Date / Time shellfish derived [Shrimp] Allergy Anaphylaxis Verified 05/13/22 07:20 amoxicillin AdvReac Nausea & Verified 05/13/22 07:20 Vomiting & Diarrhea Penicillins AdvReac Nausea & Verified 05/13/22 07:20 Vomiting & Diarrhea Review of Systems ROS Statement: Those systems with pertinent positive or pertinent negative responses have been documented in the HPI. ROS Other: All systems not noted in ROS Statement are negative. Past Medical History Past Medical History: Blood Disorder, COPD Additional Past Medical History / Comment(s): Sickle Cell History of Any Multi-Drug Resistant Organisms: None Reported Past Surgical History: No Surgical Hx Reported Past Anesthesia/Blood Transfusion Reactions: No Reported Reaction Past Psychological History: Anxiety, Depression Smoking Status: Current every day smoker Past Alcohol Use History: Occasional Past Drug Use History: Marijuana - Past Family History Mother Additional Family Medical History / Comment(s): sickle cell trait Father Additional Family Medical History / Comment(s): sickle cell trait General Exam Limitations: no limitations General appearance: alert, in no apparent distress Head exam: Present: atraumatic, normocephalic, normal inspection Eye exam: Present: normal appearance, PERRL, EOMI. Absent: scleral icterus, conjunctival injection, periorbital swelling ENT exam: Present: normal exam, normal oropharynx, mucous membranes moist Neck exam: Present: normal inspection, full ROM. Absent: tenderness, meningismus, lymphadenopathy Respiratory exam: Present: normal lung sounds bilaterally. Absent: respiratory distress, wheezes, rales, rhonchi, stridor Cardiovascular Exam: Present: regular rate, normal rhythm, normal heart sounds. Absent: systolic murmur, diastolic murmur, rubs, gallop, clicks GI/Abdominal exam: Present: soft, normal bowel sounds. Absent: distended, tenderness, guarding, rebound, rigid Course Vital Signs 05/13/22 07:17 Temperature 98.4 F Pulse Rate 67 Respiratory 20 Rate Blood Pressure 114/76 O2 Sat by Pulse 96 Oximetry Medical Decision Making - Medical Decision Making Was pt. sent in by a medical professional or institution (Dr. PA, [facility]OR[facility]CH[facility], urgent care, hospital, or [facility]...) When possible be specific @ -[No] Did you speak to anyone other than the patient for history (EMS, parent, family, police, friend...)? What history was obtained from this source @ -[No] Did you review nursing and triage notes (agree or disagree)? Why? @ -[I reviewed and agree with nursing and triage notes] Were old charts reviewed (outside hosp., previous admission, EMS record, old EKG, old radiological studies, urgent care reports/EKG's, [facility] records)? Report findings @ -[No old charts were reviewed] Differential Diagnosis (chest pain, altered mental status, abdominal pain women, abdominal pain men, vaginal bleeding, weakness, fever, dyspnea, syncope, headache, dizziness, GI bleed, back pain, seizure, CVA, palpatations, mental health)? @ -[not applicable] EKG interpreted by me (3pts min.). @ -EKG performed at 9:12 sinus bradycardia rate of 51.RI 176 QRS 88 QT/QTC 501/478. X-rays interpreted by me (1pt min.). @ -Chest x-ray no acute carpal or process, no acute changes prior CT interpreted by me (1pt min.). @ -[None done] U/S interpreted by me (1pt. min.). @ -[None done] What testing was considered but not performed or refused? (CT, X-rays, U/S, labs)? Why? @ -[None] What meds were considered but not given or refused? Why? @ -[None] Did you discuss the management of the patient with other professionals (professionals i.e. , PA, FLOR[facility] MERCHANDISER, lab, RT, psych nurse, social service worker, historical manuscripts curator, teacher, navy senior officer, welfare case worker)? Give summary @ -[No] Was smoking cessation discussed for >3mins.? @ -[No] Was critical care preformed (if so, how long)? @ -[No] Were there social determinants of health that impacted care today? How? (Homelessness, low income, unemployed, alcoholism, drug addiction, transportation, low edu. Level, literacy, decrease access to med. care, half-way, rehab)? @ -[No] Was there de-escalation of care discussed even if they declined (Discuss DNR or withdrawal of care, Hospice)? DNR status @ -[No] What co-morbidities impacted this encounter? (DM, HTN, Smoking, COPD, CAD, Cancer, CVA, ARF, Chemo, Hep., AIDS, mental health diagnosis, sleep apnea, morbid obesity)? @ -Sickle cell Was patient admitted / discharged? Hospital course, mention meds given and route, prescriptions, significant lab abnormalities, going to OR and other pe rtinent info. @ -Admitted Undiagnosed new problem with uncertain prognosis? @ -[No] Drug Therapy requiring intensive monitoring for toxicity (Heparin, Nitro, Insulin, Cardizem)? @ -[No] Were any procedures done? @ -[No] Diagnosis/symptom? @ -Sickle cell crisis Acute, or Chronic, or Acute on Chronic? @ -Acute on chronic Uncomplicated (without systemic symptoms) or Complicated (systemic symptoms)? @ -[default] Side effects of treatment? @ -[No] Exacerbation, Progression, or Severe Exacerbation? @ -Exacerbation Poses a threat to life or bodily function? How? (Chest pain, [place], PR, pneumonia, PE, COPD, DKA, ARF, appy, cholecystitis, CVA, Diverticulitis, Homicidal, Suicidal, threat to staff... and all critical care pts) @ -[No] - Lab Data Result diagrams: 05/13/22 07:55 05/13/22 07:55 Lab Results 05/13/22 05/13/22 05/13/22 Range/Units 07:55 07:55 07:56 WBC 8.9 (3.8-10.6) k/uL RBC 4.18 L (4.30-5.90) m/uL Hgb 13.5 (13.0-17.5) gm/dL Hct 35.8 L (39.0-53.0) % MCV 85.7 (80.0-100.0) fL MCH 32.2 (25.0-35.0) pg MCHC 37.6 H (31.0-37.0) g/dL RDW 14.5 (11.5-15.5) % Plt Count 237 (150-450) k/uL MPV 9.0 Neutrophils % 66 % Lymphocytes % 19 % Monocytes % 10 % Eosinophils % 2 % Basophils % 1 % Neutrophils # 5.9 (1.3-7.7) k/uL Lymphocytes # 1.7 (1.0-4.8) k/uL Monocytes # 0.9 (0-1.0) k/uL Eosinophils # 0.2 (0-0.7) k/uL Basophils # 0.1 (0-0.2) k/uL Manual Slide Review Performed Hyperchromasia Slight Poikilocytosis Slight Target Cells Present Retic Count 4.2 H (0.5-2.0) % Sodium 136 L (137-145) mmol/L Potassium 4.1 (3.5-5.1) mmol/L Chloride 104 (98-107) mmol/L Carbon Dioxide 30 (22-30) mmol/L Anion Gap 2 mmol/L BUN 11 (9-20) mg/dL Creatinine 0.81 (0.66-1.25) mg/dL Est GFR (CKD-EPI)AfAm >90 (>60 ml/min/1.73 sqM) Est GFR (CKD-EPI)NonAf >90 (>60 ml/min/1.73 sqM) Glucose 62 L (74-99) mg/dL Calcium 8.6 (8.4-10.2) mg/dL Total Bilirubin 1.8 H (0.2-1.3) mg/dL AST 41 (17-59) U/L ALT 18 (4-49) U/L Alkaline Phosphatase 66 (38-126) U/L Lactate Dehydrogenase 820 H (313-618) U/L Total Protein 7.2 (6.3-8.2) g/dL Albumin 4.3 (3.5-5.0) g/dL Urine Color Yellow Urine Appearance Clear (Clear) Urine pH 6.0 (5.0-8.0) Ur Specific [place] 1.013 (1.001-1.035) Urine Protein Negative (Negative) Urine Glucose (UA) Negative (Negative) Urine Ketones Negative (Negative) Urine Blood Trace H (Negative) Urine Nitrite Negative (Negative) Urine Bilirubin Negative (Negative) Urine Urobilinogen 2.0 (<2.0) mg/dL Ur Leukocyte Esterase Negative (Negative) Urine RBC <1 (0-5) /hpf Urine WBC 2 (0-5) /hpf Ur Squamous Epith Cells 1 (0-4) /hpf Urine Mucus Rare H (None) /hpf Disposition Clinical Impression: Sickle cell crisis, Sickle cell anemia Disposition: ADMITTED IP TO THIS [facility] Condition: Fair Referrals: None,Stated [Primary Care Provider] - 1-2 days Time of Disposition: 10:02
[2022-05-13 08:47] LABS: ALT 18 U/L (4-49); AST 41 U/L (17-59); African American GFR (CKD) >90 (>60 ml/min/1.73 sqM); Albumin 4.3 g/dL (3.5-5.0); Alkaline Phosphatase 66 U/L (38-126); Anion Gap 2 mmol/L; Blood Urea Nitrogen 11 mg/dL (9-20); Calcium 8.6 mg/dL (8.4-10.2); Carbon Dioxide 30 mmol/L (22-30); Chloride 104 mmol/L (98-107); Glucose 62 mg/dL (74-99); LDH 820 U/L (313-618); Non-African American GFR(CKD) >90 (>60 ml/min/1.73 sqM); Potassium 4.1 mmol/L (3.5-5.1); Sodium 136 mmol/L (137-145); Total Bilirubin 1.8 mg/dL (0.2-1.3); Total Protein 7.2 g/dL (6.3-8.2)
[2022-05-13 08:56] LABS: Basophils # (A) 0.1 k/uL (0-0.2); Basophils % (A) 1 %; Eosinophils # (A) 0.2 k/uL (0-0.7); Eosinophils % (A) 2 %; HCT 35.8 % (39.0-53.0); HGB 13.5 gm/dL (13.0-17.5); Hyperchromasia Slight; Lymphocytes # (A) 1.7 k/uL (1.0-4.8); Lymphocytes % (A) 19 %; MCH 32.2 pg (25.0-35.0); MCHC 37.6 g/dL (31.0-37.0); MCV 85.7 fL (80.0-100.0); Monocytes # (A) 0.9 k/uL (0-1.0); Monocytes % (A) 10 %; Neutrophils # (A) 5.9 k/uL (1.3-7.7); Neutrophils % (A) 66 %; Poikilocytosis Slight; RBC 4.18 m/uL (4.30-5.90); RDW 14.5 % (11.5-15.5); WBC 8.9 k/uL (3.8-10.6)
[2022-05-13] MEDS: SODIUM CHLORIDE 0.9% 1,000 ML IV SCH (08:57)
[2022-05-13 09:10] LABS: Reticulocyte % 4.2 % (0.5-2.0)
[2022-05-13 09:24] LABS: Appearance,Urine Clear (Clear); Bilirubin,Urine Negative (Negative); Blood,Urine Trace (Negative); Color,Urine Yellow; Glucose,Urine (UA) Negative (Negative); Ketones,Urine Negative (Negative); Leukocyte Esterase,Urine Negative (Negative); Mucus,Urine Rare /hpf; Nitrite,Urine Negative (Negative); Protein,Urine Negative (Negative); RBC,Urine <1 /hpf (0-5); Specific Gravity,Urine 1.013 (1.001-1.035); Squamous Epithelial Cell,Urine 1 /hpf (0-4); WBC,Urine 2 /hpf (0-5)
[2022-05-13 09:40] LABS: Platelet Count 237 k/uL (150-450)
[2022-05-13 09:41] LABS: Target Cells Present
[2022-05-13 10:13] LABS: Glucose,Whole Blood 176 mg/dL (70-110)
[2022-05-13] MEDS ORDERED: ONDANSETRON 4 MG/2 ML VIAL IVP PRN (10:17)
[2022-05-13] MEDS ORDERED: NALOXONE 0.4 MG/ML 1 ML VIAL IV PRN (10:17)
[2022-05-13] MEDS ORDERED: HYDROmorphone 0.5 MG/0.5 ML SYRINGE IVP PRN (10:17)
[2022-05-13] MEDS: HYDROmorphone 1 MG/ML 1 ML SYRINGE IVP PRN ×3 (13:43→20:53)
--- NOTE | 2022-05-13 15:47 | P.HPIM ---
History of Present Illness H&P Date: 05/13/22 Patient is a 41-year-old male with history of sickle cell presenting with vaso-occlusive sickle cell crisis. He claims that the pain started yesterday during the day. The pain is similar to his prior sickle cell crisis. It is all over his body including most of the joints. He is also having some chest pain. He denies any significant shortness of breath, cough, abdominal pain, diarrhea, constipation, or urinary complaints. He denies any recent travel history or sick contacts. His last episode of vaso-occlusive crisis was 2 months ago, and he mostly close to [facility] for these episodes. He is not taking any medications for sickle cell at the moment. He does not have a primary care physician. He smokes cigar daily, he denies any illicit drug use, but drinks occasional alcohol. In the ED, vitals signs are normal. Chest x-ray showed no acute process. EKG showed sinus bradycardia, mildly prolonged QTC at 478. Laboratory workup showed normal hemoglobin at 13.5, mildly elevated total bilirubin at 1.8, LDH 820. UA was negative for nitrites and leukocyte esterase. Patient seen and examined at bedside. Pertinent positives and negatives as discussed in HPI, a complete review of systems was performed and all other systems are negative. Vital signs reviewed General: nontoxic, no distress, appears at stated age Derm: warm, dry Head: atraumatic, normocephalic, symmetric Eyes: EOMI, no lid lag, anicteric sclera, pupils equal round reactive to light ENT: Nose and ears atraumatic Neck: No thyromegaly, supple Mouth: no lip lesion, mucus membranes moist Cardiovascular: S1S2 reg, no murmur, no edema Lungs: clear to auscultation bilateral, no rhonchi, no rales, no wheeze, no accessory muscle use Abdominal: soft, nontender to palpation, no guarding, no appreciable organomegaly Ext: no gross muscle atrophy, muscle strength muscle strength 5 out of 5 in all 4 extremities, no contractures, tender to palpation in all joints, no signs of synovitis Neuro: CN II-XII grossly intact Psych: Alert, oriented, appropriate affect Assessment/Plan: Vaso-occlusive sickle cell crisis Hemolysis Bilirubinemia Sinus bradycardia Prolonged QTC -0.5 IV Dilaudid every 3 hours as needed for moderate pain -1 mg IV Dilaudid every 3 hours as needed for severe pain -We'll try to transition to oral opiates when pain better controlled -Continue IV fluids -Telemetry He eventually needs a primary care doctor, will need to be updated on his immunizations. Patient still has his spleen. The patient is admitted with an anticipated greater than 2 midnight stay for evaluation of recent Sickle cell crisis. Surrogate decision-maker: Mother CODE STATUS: Full Code DVT prophylaxis: Subcu heparin Anticipated discharge date: Pending clinical course Anticipated discharge place: pending clinical course A total of 55 minutes was spent on the care of this complex patient more than 50% of the time was spent in counseling and care coordination. Past Medical History Past Medical History: Blood Disorder, COPD Additional Past Medical History / Comment(s): Sickle Cell History of Any Multi-Drug Resistant Organisms: None Reported Past Surgical History: No Surgical Hx Reported Past Anesthesia/Blood Transfusion Reactions: No Reported Reaction Past Psychological History: Anxiety, Depression Smoking Status: Current every day smoker Past Alcohol Use History: Occasional Past Drug Use History: Marijuana - Past Family History Mother Additional Family Medical History / Comment(s): sickle cell trait Father Additional Family Medical History / Comment(s): sickle cell trait Medications and Allergies Home Medications Medication Instructions Recorded Confirmed Type No Known Home Medications 05/13/22 05/13/22 History Allergies Allergy/AdvReac Type Severity Reaction Status Date / Time shellfish derived [Shrimp] Allergy Anaphylaxis Verified 05/13/22 11:12 amoxicillin AdvReac Nausea & Verified 05/13/22 11:12 Vomiting & Diarrhea Penicillins AdvReac Nausea & Verified 05/13/22 11:12 Vomiting & Diarrhea Physical Exam Vitals: Vital Signs Temp Pulse Resp BP Pulse Ox 05/13/22 13:33 99.3 F 59 L 18 121/76 100 05/13/22 07:17 98.4 F 67 20 114/76 96 Intake and Output 05/12/22 05/13/22 05/13/22 22:59 06:59 14:59 Other: Weight 63.503 kg Results CBC & Chem 7: 05/13/22 07:55 05/13/22 07:55 Labs: Abnormal Lab Results - Last 24 Hours (Table) 05/13/22 05/13/22 05/13/22 Range/Units 07:55 07:55 07:56 RBC 4.18 L (4.30-5.90) m/uL Hct 35.8 L (39.0-53.0) % MCHC 37.6 H (31.0-37.0) g/dL Retic Count 4.2 H (0.5-2.0) % Sodium 136 L (137-145) mmol/L Glucose 62 L (74-99) mg/dL POC Glucose (mg/dL) (70-110) mg/dL Total Bilirubin 1.8 H (0.2-1.3) mg/dL Lactate Dehydrogenase 820 H (313-618) U/L Urine Blood Trace H (Negative) Urine Mucus Rare H (None) /hpf 05/13/22 Range/Units 10:11 RBC (4.30-5.90) m/uL Hct (39.0-53.0) % MCHC (31.0-37.0) g/dL Retic Count (0.5-2.0) % Sodium (137-145) mmol/L Glucose (74-99) mg/dL POC Glucose (mg/dL) 176 H (70-110) mg/dL Total Bilirubin (0.2-1.3) mg/dL Lactate Dehydrogenase (313-618) U/L Urine Blood (Negative) Urine Mucus (None) /hpf
[2022-05-13] MEDS: HEPARIN SODIUM,PORCINE/PF 5,000 UNIT/0.5 ML SYRINGE SQ SCH (17:45)
[2022-05-14] MEDS: SODIUM CHLORIDE 0.9% 1,000 ML IV SCH ×3 (01:06→17:14)
[2022-05-14] MEDS: HEPARIN SODIUM,PORCINE/PF 5,000 UNIT/0.5 ML SYRINGE SQ SCH ×3 (01:06→17:10)
[2022-05-14] MEDS: HYDROmorphone 1 MG/ML 1 ML SYRINGE IVP PRN ×2 (01:13→04:25)
[2022-05-14] MEDS ORDERED: HYDROmorphone 1 MG/ML 1 ML SYRINGE IVP PRN (12:44)
--- NOTE | 2022-05-14 12:46 | P.PN ---
Subjective Progress Note Date: 05/14/22 Hospital Course: 41-year-old male with history of sickle cell presenting with vaso-occlusive sickle cell crisis. In the ED, vitals signs are normal. Chest x-ray showed no acute process. EKG showed sinus bradycardia, mildly prolonged QTC at 478. Laboratory workup showed normal hemoglobin at 13.5, mildly elevated total bilirubin at 1.8, LDH 820. UA was negative for nitrites and leukocyte esterase. Changing IV opiates to oral today. Subjective: Patient seen and examined at bedside. No acute events overnight. He claims that his pain is improved. He denies any shortness of breath, cough, abdominal pain, diarrhea, constipation, or urinary complaints. Pertinent positives and negatives as discussed above, a complete review of systems was performed and all other systems are negative. Vitals Signs Reviewed. General: nontoxic, no distress, appears at stated age Derm: warm, dry Head: atraumatic, normocephalic, symmetric Eyes: EOMI, no lid lag, anicteric sclera Mouth: no lip lesion, mucus membranes moist Cardiovascular: S1S2 reg, no murmur Lungs: CTA bilateral, no rhonchi, no rales , no accessory muscle use Abdominal: soft, nontender to palpation, no guarding, no appreciable organomegaly Ext: no gross muscle atrophy, no edema, no contractures Neuro: CN II-XI grossly intact, no focal neuro deficits Psych: Alert, oriented, appropriate affect Assessment and Plan: Vaso-occlusive sickle cell crisis Hemolysis Bilirubinemia Sinus bradycardia Prolonged QTC - has oral Dilaudid for moderate and severe pain, IV Dilaudid for severe breakthrough pain. -Continue IV fluids -Telemetry DVT ppx: Subcu heparin Code status: Full code Anticipated discharge place: Home Anticipated discharge time: To 2 days Objective - Vital Signs Vital signs: Vital Signs Temp 100.4 F H 05/14/22 12:04 Pulse 61 05/14/22 08:11 Resp 16 05/14/22 12:04 BP 127/72 05/14/22 12:04 Pulse Ox 97 05/14/22 12:04 FiO2 Intake & Output 05/13/22 05/14/22 05/14/22 18:59 06:59 18:59 Weight 63.503 kg Other: # Voids 1 1 # Bowel Movements 0 - Labs CBC & Chem 7: 05/13/22 07:55 05/13/22 07:55 Labs: Abnormal Lab Results - Last 24 Hours (Table) 05/13/22 Range/Units 07:55 Haptoglobin <10.0 L (31.2-198.0) mg/dL
[2022-05-14] MEDS: HYDROmorphone 2 MG TAB PO PRN ×2 (12:58→20:40)
[2022-05-15] MEDS: HEPARIN SODIUM,PORCINE/PF 5,000 UNIT/0.5 ML SYRINGE SQ SCH ×2 (00:21→09:43)
[2022-05-15] MEDS: SODIUM CHLORIDE 0.9% 1,000 ML IV SCH ×3 (00:22→20:22)
[2022-05-15] MEDS: HYDROmorphone 2 MG TAB PO PRN ×4 (00:29→19:39)
--- NOTE | 2022-05-15 11:12 | P.PN ---
Subjective Progress Note Date: 05/15/22 Hospital Course: 41-year-old male with history of sickle cell presenting with vaso-occlusive sickle cell crisis. In the ED, vitals signs are normal. Chest x-ray showed no acute process. EKG showed sinus bradycardia, mildly prolonged QTC at 478. Laboratory workup showed normal hemoglobin at 13.5, mildly elevated total bilirubin at 1.8, LDH 820. UA was negative for nitrites and leukocyte esterase. Probably an oral opiates. Subjective: Patient seen and examined at bedside. No acute events overnight. He claims that his pain is improved. He denies any shortness of breath, cough, abdominal pain, diarrhea, constipation, or urinary complaints. Pertinent positives and negatives as discussed above, a complete review of systems was performed and all other systems are negative. Vitals Signs Reviewed. General: nontoxic, no distress, appears at stated age Derm: warm, dry Head: atraumatic, normocephalic, symmetric Eyes: EOMI, no lid lag, anicteric sclera Mouth: no lip lesion, mucus membranes moist Cardiovascular: S1S2 reg, no murmur Lungs: CTA bilateral, no rhonchi, no rales , no accessory muscle use Abdominal: soft, nontender to palpation, no guarding, no appreciable organomegaly Ext: no gross muscle atrophy, no edema, no contractures Neuro: CN II-XI grossly intact, no focal neuro deficits Psych: Alert, oriented, appropriate affect Assessment and Plan: Vaso-occlusive sickle cell crisis Hemolysis Bilirubinemia Sinus bradycardia Prolonged QTC - has oral Dilaudid for moderate and severe pain, IV Dilaudid for severe breakthrough pain. -Continue IV fluids -Telemetry DVT ppx: Lovenox Code status: Full code Anticipated discharge place: Home Anticipated discharge time: Likely tomorrow Objective - Vital Signs Vital signs: Vital Signs Temp 98.6 F 05/15/22 08:08 Pulse 69 05/15/22 08:08 Resp 18 05/15/22 08:08 BP 128/69 05/15/22 08:08 Pulse Ox 95 05/15/22 08:08 FiO2 Intake & Output 05/14/22 05/15/22 05/15/22 18:59 06:59 18:59 Intake Total 1200 400 Balance 1200 400 Intake: Intake, IV Titration 1200 Amount Sodium Chloride 0.9% 1, 1200 000 ml @ 100 mls/hr IV . Q10H HOMER Rx#:[id number] Oral 400 Other: # Voids 2 - Labs CBC & Chem 7: 05/13/22 07:55 05/13/22 07:55
[2022-05-16] MEDS: SODIUM CHLORIDE 0.9% 1,000 ML IV SCH (06:02)
[2022-05-16 07:23] VITALS: BP 136/79; PULSE 63; RESP 18; TEMP 98.3
[2022-05-16] MEDS ORDERED: ENOXAPARIN 40 MG/0.4 ML SYRINGE SQ SCH (09:00)
[2022-05-16] MEDS: HYDROmorphone 2 MG TAB PO PRN (09:10)
--- NOTE | 2022-05-16 13:37 | P.DS ---
Providers Date of admission: 05/13/22 10:16 Expected date of discharge: 05/16/22 Attending physician: Lyndon Duong MD Primary care physician: Stated None Hospital Course: Discharge Diagnosis: Vaso-occlusive sickle cell crisis Hemolysis Bilirubinemia Sinus bradycardia Prolonged QTC Hospital Course: 41-year-old male with history of sickle cell presenting with vaso-occlusive sickle cell crisis. In the ED, vitals signs are normal. Chest x-ray showed no acute process. EKG showed sinus bradycardia, mildly prolonged QTC at 478. Laboratory workup showed normal hemoglobin at 13.5, mildly elevated total bilirubin at 1.8, LDH 820. UA was negative for nitrites and leukocyte esterase. Symptoms improved with fluids and opiate therapy. 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 Patient seen and examined at bedside. Vital signs reviewed and stable. General: nontoxic, no distress, appears at stated age Derm: warm, dry Head: atraumatic, normocephalic, symmetric Eyes: EOMI, no lid lag, anicteric sclera Mouth: no lip lesion, mucus membranes moist Cardiovascular: S1S2 reg, no murmur Lungs: CTA bilateral, no rhonchi, no rales , no accessory muscle use Abdominal: soft, nontender to palpation, no guarding, no appreciable organomegaly Ext: no gross muscle atrophy, no edema, no contractures Neuro: CN II-XI grossly intact, no focal neuro deficits Psych: Alert, oriented, appropriate affect A total of 33 minutes of time were spent preparing this complex discharge summary. Patient was discharged on 05/16/22 at 10:22. Patient Condition at Discharge: Stable Plan - Discharge Summary Discharge Rx Participant: Yes New Discharge Prescriptions: New HYDROmorphone [Dilaudid] 2 mg PO Q6HR PRN #12 tab PRN Reason: Moderate To Severe Pain (4-10) Discharge Medication List HYDROmorphone [Dilaudid] 2 mg PO Q6HR PRN #12 tab 05/16/22 [Rx] Follow up Appointment(s)/Referral(s): None,Stated [Primary Care Provider] - 1-2 days Patient Instructions/Handouts: Hydromorphone (By mouth), Sickle Cell Crisis (DC), Narcotic Safety (DC) Activity/Diet/Wound Care/Special Instructions: Please see a PCP as soon as possible. Discharge Disposition: HOME SELF-CARE
== END 2022-05-16 11:51 | disposition home or self-care (01) | DRG 812 ==
LOC: EC 07:07 → 5NMEDONC 10:16
PROVIDERS: ADMIT Family Medicine; ATTEND Family Medicine
DX: D57.00 Hb-SS disease with crisis, unspecified (principal); R17 Unspecified jaundice; D59.10 Autoimmune hemolytic anemia, unspecified; F32.A Depression, unspecified; F41.9 Anxiety disorder, unspecified; F17.210 Nicotine dependence, cigarettes, uncomplicated; I45.81 Long QT syndrome; R00.1 Bradycardia, unspecified; Z83.2 Family history of diseases of the blood and blood-forming organs and certain disorders involving the immune mechanism; Z88.1 Allergy status to other antibiotic agents; Z88.0 Allergy status to penicillin; Z91.013 Allergy to seafood
CPT/HCPCS: 36415; 71046; 80053; 81001; 83010; 83615; 85025; 85045; 93005; 96361; 96374; 96376; 99285

== ENCOUNTER 2022-12-25 15:28 | Emergency (ER) | payer BC, OTHER ==
[2022-12-25] MEDS ORDERED: HYDROmorphone 1 MG/ML 1 ML SYRINGE IVP STA (16:15)
[2022-12-25] MEDS ORDERED: ASPIRIN 81 MG PO STA (16:15)
[2022-12-25] MEDS ORDERED: ACETAMINOPHEN TAB 500 MG TAB PO STA (16:22)
[2022-12-25] MEDS ORDERED: SODIUM CHLORIDE 0.45% 1,000 ML IV SCH (16:30)
--- NOTE | 2022-12-25 16:44 | ED ---
Recheck HPI - General Chief Complaint: Recheck/Abnormal Lab/Rx Stated Complaint: Abd pain,sob Time Seen by Provider: 12/25/22 16:09 Source: patient Mode of arrival: wheelchair - History of Present Illness Initial Comments: 42-year-old male with history of sickle cell anemia presenting with chief complaint of diffuse pain. Patient believes he is having a sickle cell crisis. States that his last crisis was about a year ago. Patient is febrile upon arrival. He does admit to shortness of breath. Admits to chest pain which feels consistent with previous sickle cell crises. He states he did vomit once at home. He has not taken anything for pain. Patient smokes cigars daily. - Related Data Previous Rx's Medication Instructions Recorded HYDROmorphone [Dilaudid] 2 mg PO Q6HR PRN #12 tab 05/16/22 HYDROmorphone [Dilaudid] 2 mg PO Q6H PRN 3 Days #12 tab 05/17/22 HYDROcodone/APAP 10-325MG [[place] 1 tab PO Q6HR PRN 3 Days #12 tab 12/25/22 10-325] Molnupiravir [Lagevrio (Eua)] 800 mg PO Q12HR 5 Days #40 cap 12/25/22 Allergies Allergy/AdvReac Type Severity Reaction Status Date / Time shellfish derived [Shrimp] Allergy Anaphylaxis Verified 12/25/22 15:46 amoxicillin AdvReac Nausea & Verified 12/25/22 15:46 Vomiting & Diarrhea Penicillins AdvReac Nausea & Verified 12/25/22 15:46 Vomiting & Diarrhea Review of Systems ROS Statement: Those systems with pertinent positive or pertinent negative responses have been documented in the HPI. ROS Other: All systems not noted in ROS Statement are negative. Past Medical History Past Medical History: Blood Disorder, COPD Additional Past Medical History / Comment(s): Sickle Cell History of Any Multi-Drug Resistant Organisms: None Reported Past Surgical History: No Surgical Hx Reported Past Anesthesia/Blood Transfusion Reactions: No Reported Reaction Past Psychological History: Anxiety, Depression Smoking Status: Current every day smoker Past Alcohol Use History: Occasional Past Drug Use History: Marijuana - Past Family History Mother Additional Family Medical History / Comment(s): sickle cell trait Father Additional Family Medical History / Comment(s): sickle cell trait General Exam Limitations: no limitations General appearance: alert, in distress (in pain) Head exam: Present: atraumatic, normocephalic, normal inspection Eye exam: Present: normal appearance, EOMI Neck exam: Present: normal inspection, full ROM Respiratory exam: Present: normal lung sounds bilaterally. Absent: respiratory distress, wheezes, rales, rhonchi, stridor Cardiovascular Exam: Present: regular rate, normal rhythm, normal heart sounds. Absent: systolic murmur, diastolic murmur, rubs, gallop, clicks Neurological exam: Present: alert, oriented X3, CN II-XII intact Psychiatric exam: Present: normal affect, normal mood Skin exam: Present: warm, dry, intact, normal color. Absent: rash Course Vital Signs 12/25/22 12/25/22 12/25/22 15:41 16:45 16:51 Temperature 103.3 F H Pulse Rate 81 65 Respiratory 18 24 20 Rate Blood Pressure 112/69 130/80 O2 Sat by Pulse 99 98 Oximetry 12/25/22 12/25/22 12/25/22 17:00 18:28 19:23 Temperature 99.6 F 98.7 F Pulse Rate 75 67 59 L Respiratory 20 20 18 Rate Blood Pressure 130/86 108/60 113/63 O2 Sat by Pulse 98 98 96 Oximetry Medical Decision Making - Medical Decision Making Was pt. sent in by a medical professional or institution (HANNA Roberto, MICRO LAB ANALYST, urgent care, hospital, or snf...) When possible be specific @ -No Did you speak to anyone other than the patient for history (EMS, parent, family, police, friend...)? What history was obtained from this source @ -No Did you review nursing and triage notes (agree or disagree)? Why? @ -I reviewed and agree with nursing and triage notes Were old charts reviewed (outside hosp., previous admission, EMS record, old EKG, old radiological studies, urgent care reports/EKG's, snf records)? Report findings @ -No old charts were reviewed Differential Diagnosis (chest pain, altered mental status, abdominal pain women, abdominal pain men, vaginal bleeding, weakness, fever, dyspnea, syncope, headache, dizziness, GI bleed, back pain, seizure, CVA, palpatations, mental health, musculoskeletal)? @ -MDM Differential Chest Pain: Stable Angina, Unstable Angina, STEMI, NSTEMI Aortic Dissection, Pneumothorax, Musculoskeletal, Esophageal Spasm GERD, Cholecystitis, Pancreatitis, Zoster This is not meant to be an all-inclusive list. EKG interpreted by me (3pts min.). @ -Sinus rhythm ventricular rate 78. ME interval 176. QRS 75. QT 373. QTC 406. X-rays interpreted by me (1pt min.). @ -Chest x-ray shows no acute process CT interpreted by me (1pt min.). @ -None done U/S interpreted by me (1pt. min.). @ -None done What testing was considered but not performed or refused? (CT, X-rays, U/S, labs)? Why? @ -None What meds were considered but not given or refused? Why? @ -None Did you discuss the management of the patient with other professionals (professionals i.e. , PA, MICRO LAB ANALYST, lab, RT, psych nurse, social worker school, chief commercial officer, teacher, operations officer afloat, window caser)? Give summary @ -No Was smoking cessation discussed for >3mins.? @ -No Was critical care preformed (if so, how long)? @ -No Were there social determinants of health that impacted care today? How? (Homelessness, low income, unemployed, alcoholism, drug addiction, transportation, low edu. Level, literacy, decrease access to med. care, long term, rehab)? @ -No Was there de-escalation of care discussed even if they declined (Discuss DNR or withdrawal of care, Hospice)? DNR status @ -No What co-morbidities impacted this encounter? (DM, HTN, Smoking, COPD, CAD, Cancer, CVA, ARF, Chemo, Hep., AIDS, mental health diagnosis, sleep apnea, morbid obesity)? @ -Sickle cell Was patient admitted / discharged? Hospital course, mention meds given and route, prescriptions, significant lab abnormalities, going to OR and other pertinent info. @ -42-year-old male with history of sickle cell presenting with nausea and of diffuse pain, including pain across the joints and chest pain. Pain feels similar to previous sickle cell crises. Physical examination is conducted, patient is febrile upon arrival. Reticulocyte count 3.9. Glucose 70, patient is given juice on reassessment glucose is 149. Negative troponin and EKG shows no ischemic changes. Chest x-ray shows no acute process. Patient is positive for Covid. On reassessment after fluids and analgesia he reports significant improvement in his pain. Patient is educated on today's findings. He will be started on Molnupiravir provided with [place] for home. Follow-up with PCP. Report back to ER with any new or worsening symptoms. Discussed return parameters and answered all questions. Patient conveyed verbal understanding and agreed to the plan. I discussed this case in detail with my attending Dr. Colon Undiagnosed new problem with uncertain prognosis? @ -No Drug Therapy requiring intensive monitoring for toxicity (Heparin, Nitro, Insulin, Cardizem)? @ -No Were any procedures done? @ -No Diagnosis/symptom? @ -Covid Acute, or Chronic, or Acute on Chronic? @ -Acute Uncomplicated (without systemic symptoms) or Complicated (systemic symptoms)? @ -Uncomplicated Side effects of treatment? @ -No Exacerbation, Progression, or Severe Exacerbation? @ -No - Lab Data Result diagrams: 12/25/22 16:48 12/25/22 16:48 Lab Results 12/25/22 12/25/22 12/25/22 Range/Units 16:48 16:48 16:48 WBC 9.1 (3.8-10.6) k/uL RBC 4.47 (4.30-5.90) m/uL Hgb 14.0 (13.0-17.5) gm/dL Hct 39.0 (39.0-53.0) % MCV 87.3 (80.0-100.0) fL MCH 31.3 (25.0-35.0) pg MCHC 35.8 (31.0-37.0) g/dL RDW 14.8 (11.5-15.5) % Plt Count 244 (150-450) k/uL MPV 9.0 Neutrophils % (Manual) 71 % Band Neuts % (Manual) 1 % Lymphocytes % (Manual) 10 % Monocytes % (Manual) 17 % Eosinophils % (Manual) 1 % Neutrophils # (Manual) 6.50 (1.3-7.7) k/uL Lymphocytes # (Manual) 0.91 L (1.0-4.8) k/uL Monocytes # (Manual) 1.55 H (0-1.0) k/uL Eosinophils # (Manual) 0.09 (0-0.7) k/uL Nucleated RBCs 4 H (0-0) /100 WBC Manual Slide Review Performed Large Platelets Present Hyperchromasia Moderate Poikilocytosis Slight Retic Count (0.5-2.0) % PT 10.3 (9.0-12.0) sec INR 1.0 (<1.2) APTT 26.1 (22.0-30.0) sec Sodium 133 L (137-145) mmol/L Potassium 4.2 (3.5-5.1) mmol/L Chloride 98 (98-107) mmol/L Carbon Dioxide 26 (22-30) mmol/L Anion Gap 9 mmol/L BUN 7 L (9-20) mg/dL Creatinine 0.95 (0.66-1.25) mg/dL Est GFR (CKD-EPI)AfAm >90 (>60 ml/min/1.73 sqM) Est GFR (CKD-EPI)NonAf >90 (>60 ml/min/1.73 sqM) Glucose 70 L (74-99) mg/dL POC Glucose (mg/dL) (70-110) mg/dL POC Glu Weatherization Specialist ID Calcium 8.9 (8.4-10.2) mg/dL Magnesium 1.5 L (1.6-2.3) mg/dL Total Bilirubin 1.3 (0.2-1.3) mg/dL AST 36 (17-59) U/L ALT 17 (4-49) U/L Alkaline Phosphatase 66 (38-126) U/L Troponin I (0.000-0.034) ng/mL Total Protein 7.4 (6.3-8.2) g/dL Albumin 4.4 (3.5-5.0) g/dL Amylase 72 (30-110) U/L Lipase 81 (23-300) U/L Urine Color Urine Appearance (Clear) Urine pH (5.0-8.0) Ur Specific [place] (1.001-1.035) Urine Protein (Negative) Urine Glucose (UA) (Negative) Urine Ketones (Negative) Urine Blood (Negative) Urine Nitrite (Negative) Urine Bilirubin (Negative) Urine Urobilinogen (<2.0) mg/dL Ur Leukocyte Esterase (Negative) Influenza Type A (PCR) (Not Detectd) Influenza Type B (PCR) (Not Detectd) RSV (PCR) (Not Detectd) SARS-CoV-2 (PCR) (Not Detectd) 12/25/22 12/25/22 12/25/22 Range/Units 16:48 16:48 16:48 WBC (3.8-10.6) k/uL RBC (4.30-5.90) m/uL Hgb (13.0-17.5) gm/dL Hct (39.0-53.0) % MCV (80.0-100.0) fL MCH (25.0-35.0) pg MCHC (31.0-37.0) g/dL RDW (11.5-15.5) % Plt Count (150-450) k/uL MPV Neutrophils % (Manual) % Band Neuts % (Manual) % Lymphocytes % (Manual) % Monocytes % (Manual) % Eosinophils % (Manual) % Neutrophils # (Manual) (1.3-7.7) k/uL Lymphocytes # (Manual) (1.0-4.8) k/uL Monocytes # (Manual) (0-1.0) k/uL Eosinophils # (Manual) (0-0.7) k/uL Nucleated RBCs (0-0) /100 WBC Manual Slide Review Large Platelets Hyperchromasia Poikilocytosis Retic Count 3.9 H (0.5-2.0) % PT (9.0-12.0) sec INR (<1.2) APTT (22.0-30.0) sec Sodium (137-145) mmol/L Potassium (3.5-5.1) mmol/L Chloride (98-107) mmol/L Carbon Dioxide (22-30) mmol/L Anion Gap mmol/L BUN (9-20) mg/dL Creatinine (0.66-1.25) mg/dL Est GFR (CKD-EPI)AfAm (>60 ml/min/1.73 sqM) Est GFR (CKD-EPI)NonAf (>60 ml/min/1.73 sqM) Glucose (74-99) mg/dL POC Glucose (mg/dL) (70-110) mg/dL POC Glu Weatherization Specialist ID Calcium (8.4-10.2) mg/dL Magnesium (1.6-2.3) mg/dL Total Bilirubin (0.2-1.3) mg/dL AST (17-59) U/L ALT (4-49) U/L Alkaline Phosphatase (38-126) U/L Troponin I 0.017 (0.000-0.034) ng/mL Total Protein (6.3-8.2) g/dL Albumin (3.5-5.0) g/dL Amylase (30-110) U/L Lipase (23-300) U/L Urine Color Yellow Urine Appearance Clear (Clear) Urine pH 8.0 (5.0-8.0) Ur Specific [place] 1.010 (1.001-1.035) Urine Protein Negative (Negative) Urine Glucose (UA) Negative (Negative) Urine Ketones Negative (Negative) Urine Blood Negative (Negative) Urine Nitrite Negative (Negative) Urine Bilirubin Negative (Negative) Urine Urobilinogen 3.0 (<2.0) mg/dL Ur Leukocyte Esterase Negative (Negative) Influenza Type A (PCR) (Not Detectd) Influenza Type B (PCR) (Not Detectd) RSV (PCR) (Not Detectd) SARS-CoV-2 (PCR) (Not Detectd) 12/25/22 12/25/22 Range/Units 16:53 19:13 WBC (3.8-10.6) k/uL RBC (4.30-5.90) m/uL Hgb (13.0-17.5) gm/dL Hct (39.0-53.0) % MCV (80.0-100.0) fL MCH (25.0-35.0) pg MCHC (31.0-37.0) g/dL RDW (11.5-15.5) % Plt Count (150-450) k/uL MPV Neutrophils % (Manual) % Band Neuts % (Manual) % Lymphocytes % (Manual) % Monocytes % (Manual) % Eosinophils % (Manual) % Neutrophils # (Manual) (1.3-7.7) k/uL Lymphocytes # (Manual) (1.0-4.8) k/uL Monocytes # (Manual) (0-1.0) k/uL Eosinophils # (Manual) (0-0.7) k/uL Nucleated RBCs (0-0) /100 WBC Manual Slide Review Large Platelets Hyperchromasia Poikilocytosis Retic Count (0.5-2.0) % PT (9.0-12.0) sec INR (<1.2) APTT (22.0-30.0) sec Sodium (137-145) mmol/L Potassium (3.5-5.1) mmol/L Chloride (98-107) mmol/L Carbon Dioxide (22-30) mmol/L Anion Gap mmol/L BUN (9-20) mg/dL Creatinine (0.66-1.25) mg/dL Est GFR (CKD-EPI)AfAm (>60 ml/min/1.73 sqM) Est GFR (CKD-EPI)NonAf (>60 ml/min/1.73 sqM) Glucose (74-99) mg/dL POC Glucose (mg/dL) 149 H (70-110) mg/dL POC Glu Weatherization Specialist ID Estefani Raymundo Calcium (8.4-10.2) mg/dL Magnesium (1.6-2.3) mg/dL Total Bilirubin (0.2-1.3) mg/dL AST (17-59) U/L ALT (4-49) U/L Alkaline Phosphatase (38-126) U/L Troponin I (0.000-0.034) ng/mL Total Protein (6.3-8.2) g/dL Albumin (3.5-5.0) g/dL Amylase (30-110) U/L Lipase (23-300) U/L Urine Color Urine Appearance (Clear) Urine pH (5.0-8.0) Ur Specific [place] (1.001-1.035) Urine Protein (Negative) Urine Glucose (UA) (Negative) Urine Ketones (Negative) Urine Blood (Negative) Urine Nitrite (Negative) Urine Bilirubin (Negative) Urine Urobilinogen (<2.0) mg/dL Ur Leukocyte Esterase (Negative) Influenza Type A (PCR) Not Detected (Not Detectd) Influenza Type B (PCR) Not Detected (Not Detectd) RSV (PCR) Not Detected (Not Detectd) SARS-CoV-2 (PCR) Detected A (Not Detectd) Disposition Clinical Impression: COVID Disposition: HOME SELF-CARE Condition: Good Instructions (If sedation given, give patient instructions): COVID-19 (Coronavirus Disease 2019) (ED) Additional Instructions: Follow-up with PCP. Report back to ER with any new or worsening symptoms. Take medication as prescribed. You must quarantine at home for 5 days. This is then followed by 5 days of strict mask usage while in public. Prescriptions: Molnupiravir [Lagevrio (Eua)] 800 mg PO Q12HR 5 Days #40 cap HYDROcodone/APAP 10-325MG [[place] 10-325] 1 tab PO Q6HR PRN 3 Days #12 tab PRN Reason: Pain Is patient prescribed a controlled substance at d/c from ED?: No Referrals: None,Stated [Primary Care Provider] - 1-2 days Time of Disposition: 19:00
--- NOTE | 2022-12-25 17:17 | XR ---
EXAMINATION TYPE: XR chest 2V DATE OF EXAM: 12/25/2022 5:03 PM COMPARISON: Chest radiographs from 05/13/2022 TECHNIQUE: XR chest 2V Frontal and lateral views of the chest. CLINICAL INDICATION:Male, 42 years old with history of Chest Pain, fever, sickle cell; FINDINGS: Lungs/Pleura: There is no evidence of pleural effusion, focal consolidation, or pneumothorax. Pulmonary vascularity: Unremarkable. Heart/mediastinum: Cardiomediastinal silhouette is unremarkable. Musculoskeletal: No acute osseous pathology. IMPRESSION: No acute cardiopulmonary disease/process. No significant change from prior.
[2022-12-25 17:29] LABS: Partial Thromboplastin Time 26.1 sec (22.0-30.0); Prothrombin Time 10.3 sec (9.0-12.0)
[2022-12-25 17:32] LABS: Appearance,Urine Clear (Clear); Bilirubin,Urine Negative (Negative); Blood,Urine Negative (Negative); Color,Urine Yellow; Glucose,Urine (UA) Negative (Negative); Ketones,Urine Negative (Negative); Leukocyte Esterase,Urine Negative (Negative); Nitrite,Urine Negative (Negative); Protein,Urine Negative (Negative)
[2022-12-25 17:54] LABS: Hyperchromasia Moderate; MCH 31.3 pg (25.0-35.0); MCHC 35.8 g/dL (31.0-37.0); MCV 87.3 fL (80.0-100.0); Platelet Count 244 k/uL (150-450); Poikilocytosis Slight; RBC 4.47 m/uL (4.30-5.90); RDW 14.8 % (11.5-15.5)
[2022-12-25 17:55] LABS: ALT 17 U/L (4-49); AST 36 U/L (17-59); African American GFR (CKD) >90 (>60 ml/min/1.73 sqM); Albumin 4.4 g/dL (3.5-5.0); Alkaline Phosphatase 66 U/L (38-126); Amylase 72 U/L (30-110); Anion Gap 9 mmol/L; Blood Urea Nitrogen 7 mg/dL (9-20); Calcium 8.9 mg/dL (8.4-10.2); Carbon Dioxide 26 mmol/L (22-30); Chloride 98 mmol/L (98-107); Glucose 70 mg/dL (74-99); Lipase 81 U/L (23-300); Magnesium 1.5 mg/dL (1.6-2.3); Non-African American GFR(CKD) >90 (>60 ml/min/1.73 sqM); Potassium 4.2 mmol/L (3.5-5.1); Sodium 133 mmol/L (137-145); Total Bilirubin 1.3 mg/dL (0.2-1.3); Total Protein 7.4 g/dL (6.3-8.2)
[2022-12-25 18:25] LABS: Reticulocyte % 3.9 % (0.5-2.0)
[2022-12-25 18:28] LABS: Band Neutrophils % 1 %; Neutrophils % (M) 71 %; Nucleated Red Blood Cells 4 /100 WBC (0-0); Total Cells Counted 100
[2022-12-25 18:29] LABS: Eosinophils # (M) 0.09 k/uL (0-0.7); Large Platelets Present; Lymphocytes # (M) 0.91 k/uL (1.0-4.8); Monocytes # (M) 1.55 k/uL (0-1.0); WBC 9.1 k/uL (3.8-10.6)
[2022-12-25 19:21] LABS: Glucose,Whole Blood 149 mg/dL (70-110)
[2022-12-25 19:24] VITALS: BP 113/63; PULSE 59; RESP 18; TEMP 98.7
== END 2022-12-25 19:31 | disposition home or self-care (01) ==
LOC: EC 15:28
DX: U07.1 COVID-19 (principal); J44.9 Chronic obstructive pulmonary disease, unspecified; F17.290 Nicotine dependence, other tobacco product, uncomplicated; F12.90 Cannabis use, unspecified, uncomplicated; Z88.0 Allergy status to penicillin; Z91.013 Allergy to seafood
CPT/HCPCS: 36415; 93005; 80053; 82150; 83690; 83735; 84484; 85025; 85610; 85045; 85730; 81003; 87040; 87636; 71046; 99284; 96374; 96361 ×3; J1170

== ENCOUNTER 2023-04-14 10:44 | Emergency (ER) | payer MEDICARE, OTHER ==
[2023-04-14 11:01] VITALS: TEMP 98.2
--- NOTE | 2023-04-14 11:07 | ED ---
URI HPI - General Chief Complaint: Upper Respiratory Infection Stated Complaint: no voice dizzy Time Seen by Provider: 04/14/23 10:55 Source: patient, RN notes reviewed Mode of arrival: wheelchair Limitations: no limitations - History of Present Illness Initial Comments: Patient is a 42-year-old female presented ER with a chief complaint of body aches. Patient states his symptoms started last night and today just worsened. Patient has a past medical history significant for sickle cell. Patient states that he lost his voice this morning. He also endorses a headache, mild shortness of breath and mild chest pain. He denies any fevers, chills, night sweats. Patient states that his daughter does attend daycare and she recently had a cough. - Related Data Home Medications Medication Instructions Recorded Confirmed No Known Home Medications 04/14/23 04/14/23 Allergies Allergy/AdvReac Type Severity Reaction Status Date / Time shellfish derived [Shrimp] Allergy Anaphylaxis Verified 04/14/23 12:58 amoxicillin AdvReac Nausea & Verified 04/14/23 12:58 Vomiting & Diarrhea Penicillins AdvReac Nausea & Verified 04/14/23 12:58 Vomiting & Diarrhea Review of Systems ROS Statement: Those systems with pertinent positive or pertinent negative responses have been documented in the HPI. ROS Other: All systems not noted in ROS Statement are negative. Past Medical History Past Medical History: Blood Disorder, COPD Additional Past Medical History / Comment(s): Sickle Cell History of Any Multi-Drug Resistant Organisms: None Reported Past Surgical History: No Surgical Hx Reported Past Anesthesia/Blood Transfusion Reactions: No Reported Reaction Past Psychological History: Anxiety, Depression Smoking Status: Current some day smoker Past Alcohol Use History: Occasional Past Drug Use History: None Reported - Past Family History Mother Additional Family Medical History / Comment(s): sickle cell trait Father Additional Family Medical History / Comment(s): sickle cell trait General Exam Limitations: no limitations General appearance: alert, in no apparent distress Head exam: Present: atraumatic, normocephalic, normal inspection Eye exam: Present: conjunctival injection, other (swollen eyelids) Pupils: Present: normal accommodation ENT exam: Present: normal exam, mucous membranes moist Neck exam: Present: normal inspection. Absent: tenderness, meningismus, lymphadenopathy Respiratory exam: Present: normal lung sounds bilaterally. Absent: respiratory distress, wheezes, rales, rhonchi, stridor Cardiovascular Exam: Present: regular rate, normal rhythm, normal heart sounds. Absent: systolic murmur, diastolic murmur, rubs, gallop, clicks GI/Abdominal exam: Present: soft, tenderness (LUQ), normal bowel sounds. Absent: distended, guarding, rebound, rigid Extremities exam: Present: normal inspection, full ROM, normal capillary refill. Absent: tenderness, pedal edema, joint swelling, calf tenderness Neurological exam: Present: alert, oriented X3, CN II-XII intact Psychiatric exam: Present: normal affect, normal mood Skin exam: Present: warm, dry, intact, normal color. Absent: rash Course Vital Signs 04/14/23 04/14/23 04/14/23 10:48 10:59 11:00 Temperature 98.2 F Pulse Rate 94 Respiratory 18 22 Rate Blood Pressure 136/84 154/101 O2 Sat by Pulse 95 96 96 Oximetry 04/14/23 04/14/23 04/14/23 11:30 12:00 12:30 Temperature Pulse Rate 58 L 58 L 57 L Respiratory 18 18 Rate Blood Pressure 119/72 128/72 132/82 O2 Sat by Pulse 98 97 Oximetry 04/14/23 14:53 Temperature Pulse Rate 78 Respiratory 18 Rate Blood Pressure 115/70 O2 Sat by Pulse 98 Oximetry Medical Decision Making - Medical Decision Making Was pt. sent in by a medical professional or institution (HANNA Roberto, INSURANCE LEGAL ASSISTANT, urgent care, hospital, or long term...) When possible be specific @ -No Did you speak to anyone other than the patient for history (EMS, parent, family, police, friend...)? What history was obtained from this source @ -No Did you review nursing and triage notes (agree or disagree)? Why? @ -I reviewed and agree with nursing and triage notes Were old charts reviewed (outside hosp., previous admission, EMS record, old EKG, old radiological studies, urgent care reports/EKG's, long term records)? Report findings @ -No old charts were reviewed Differential Diagnosis (chest pain, altered mental status, abdominal pain women, abdominal pain men, vaginal bleeding, weakness, fever, dyspnea, syncope, headache, dizziness, GI bleed, back pain, seizure, CVA, palpatations, mental health, musculoskeletal)? @ -Differential Dyspnea:Coronary syndrome, arrhythmia, tamponade, asthma, COPD, pulmonary embolism, pneumonia, pneumothorax, pulmonary effusion, anaphylaxis, diabetic ketoacidosis, flailed chest, pulmonary contusion, diaphragmatic rupture, anemia, neuromuscular, this is not meant to be an all-inclusive list. licable EKG interpreted by me (3pts min.). @ -As above X-rays interpreted by me (1pt min.). @ -Chest x-ray was significant for cardiomegaly, mild pulmonary vascular congestion, mild interstitial prominence suggestive of edema. CT interpreted by me (1pt min.). @ -None done U/S interpreted by me (1pt. min.). @ -None done What testing was considered but not performed or refused? (CT, X-rays, U/S, labs)? Why? @ -None What meds were considered but not given or refused? Why? @ -None Did you discuss the management of the patient with other professionals (professionals i.e. , PA, INSURANCE LEGAL ASSISTANT, lab, RT, psych nurse, social professionals, director of counseling, teacher, boating safety officer, telephonic nurse case manager)? Give summary @ -No Was smoking cessation discussed for >3mins.? @ -No Was critical care preformed (if so, how long)? @ -No Were there social determinants of health that impacted care today? How? (Homelessness, low income, unemployed, alcoholism, drug addiction, transportation, low edu. Level, literacy, decrease access to med. care, correction, rehab)? @ -No Was there de-escalation of care discussed even if they declined (Discuss DNR or withdrawal of care, Hospice)? DNR status @ -No What co-morbidities impacted this encounter? (DM, HTN, Smoking, COPD, CAD, Cancer, CVA, ARF, Chemo, Hep., AIDS, mental health diagnosis, sleep apnea, morbid obesity)? @ -None Was patient admitted / discharged? Hospital course, mention meds given and route, prescriptions, significant lab abnormalities, going to OR and other pertinent info. @ -Discharged. Patient is a 42 year old male presenting to the ER with a chief complaint of body aches and sore throat. Patient has a past medical history of sickle cell anemia. Upon examination, patient was afebrile. Exam was significant for mild left upper quadrant tenderness. Labs obtained in the ER showed hemoglobin of 12.7, reticulocyte count 5.4 (last 8/20/23 was 3.9), urine showed trace glucose and blood. Chest x-ray was significant for cardiomegaly, mild pulmonary vascular congestion, mild interstitial prominence suggestive of edema. Strep swab is negative. Viral swabs obtained in the ER were also negative. Patient received 1L IV fluids, IV Dilaudid, Zofran for symptom control. Upon reexamination hanna vivi stated he was feeling slightly better. I discussed at length with the patient the findings. I also discussed with the patient his option for admission based on pain level. Patient decided to go home due to work. I discussed with the patient strict return parameters and that he should return if any sign of worsening continuous. Patient expressed medical decision making capabilities and understanding of his condition. Patient will be discharged in stable condition with follow-up to PCP. Undiagnosed new problem with uncertain prognosis? @ -No Drug Therapy requiring intensive monitoring for toxicity (Heparin, Nitro, Insulin, Cardizem)? @ -No Were any procedures done? @ -No Diagnosis/symptom? @ -Rule out sickle cell crisis/viral sinusitis Acute, or Chronic, or Acute on Chronic? @ -Acute Uncomplicated (without systemic symptoms) or Complicated (systemic symptoms)? @ -Complicated Side effects of treatment? @ -No Exacerbation, Progression, or Severe Exacerbation? @ -No Poses a threat to life or bodily function? How? (Chest pain, USA, MD, pneumonia, PE, COPD, DKA, ARF, appy, cholecystitis, CVA, Diverticulitis, Homicidal, Suicidal, threat to staff... and all critical care pts) @ -Possibly - Lab Data Result diagrams: 04/14/23 11:30 04/14/23 11:30 Lab Results 04/14/23 04/14/23 04/14/23 Range/Units 11:06 11:06 11:30 WBC 10.4 (3.8-10.6) k/uL RBC 4.04 L (4.30-5.90) m/uL Hgb 12.7 L (13.0-17.5) gm/dL Hct 35.5 L (39.0-53.0) % MCV 87.9 (80.0-100.0) fL MCH 31.3 (25.0-35.0) pg MCHC 35.6 (31.0-37.0) g/dL RDW 15.5 (11.5-15.5) % Plt Count 280 (150-450) k/uL MPV 7.7 Hyperchromasia Slight Poikilocytosis Slight Retic Count 5.4 H (0.5-2.0) % Sodium (137-145) mmol/L Potassium (3.5-5.1) mmol/L Chloride (98-107) mmol/L Carbon Dioxide (22-30) mmol/L Anion Gap mmol/L BUN (9-20) mg/dL Creatinine (0.66-1.25) mg/dL Est GFR (CKD-EPI)AfAm (>60 ml/min/1.73 sqM) Est GFR (CKD-EPI)NonAf (>60 ml/min/1.73 sqM) Glucose (74-99) mg/dL Plasma Lactic Acid Jony (0.7-2.0) mmol/L Calcium (8.4-10.2) mg/dL Total Bilirubin (0.2-1.3) mg/dL AST (17-59) U/L ALT (4-49) U/L Alkaline Phosphatase (38-126) U/L Total Protein (6.3-8.2) g/dL Albumin (3.5-5.0) g/dL Amylase (30-110) U/L Lipase (23-300) U/L Urine Color Urine Appearance (Clear) Urine pH (5.0-8.0) Ur Specific [place] (1.001-1.035) Urine Protein (Negative) Urine Glucose (UA) (Negative) Urine Ketones (Negative) Urine Blood (Negative) Urine Nitrite (Negative) Urine Bilirubin (Negative) Urine Urobilinogen (<2.0) mg/dL Ur Leukocyte Esterase (Negative) Urine RBC (0-5) /hpf Urine WBC (0-5) /hpf Urine Mucus (None) /hpf Influenza Type A (PCR) Not Detected (Not Detectd) Influenza Type B (PCR) Not Detected (Not Detectd) RSV (PCR) Not Detected (Not Detectd) SARS-CoV-2 (PCR) Not Detected (Not Detectd) Group A Strep (PCR) NOT DETECTED (Not Detectd) 04/14/23 04/14/23 04/14/23 Range/Units 11:30 11:30 12:47 WBC (3.8-10.6) k/uL RBC (4.30-5.90) m/uL Hgb (13.0-17.5) gm/dL Hct (39.0-53.0) % MCV (80.0-100.0) fL MCH (25.0-35.0) pg MCHC (31.0-37.0) g/dL RDW (11.5-15.5) % Plt Count (150-450) k/uL MPV Hyperchromasia Poikilocytosis Retic Count (0.5-2.0) % Sodium 144 (137-145) mmol/L Potassium 3.7 (3.5-5.1) mmol/L Chloride 108 H (98-107) mmol/L Carbon Dioxide 27 (22-30) mmol/L Anion Gap 9 mmol/L BUN 9 (9-20) mg/dL Creatinine 0.67 (0.66-1.25) mg/dL Est GFR (CKD-EPI)AfAm >90 (>60 ml/min/1.73 sqM) Est GFR (CKD-EPI)NonAf >90 (>60 ml/min/1.73 sqM) Glucose 90 (74-99) mg/dL Plasma Lactic Acid Jony 1.6 (0.7-2.0) mmol/L Calcium 8.9 (8.4-10.2) mg/dL Total Bilirubin 1.3 (0.2-1.3) mg/dL AST 38 (17-59) U/L ALT 16 (4-49) U/L Alkaline Phosphatase 61 (38-126) U/L Total Protein 7.4 (6.3-8.2) g/dL Albumin 4.3 (3.5-5.0) g/dL Amylase (30-110) U/L Lipase (23-300) U/L Urine Color Light Burt Urine Appearance Clear (Clear) Urine pH 6.0 (5.0-8.0) Ur Specific [place] 1.020 (1.001-1.035) Urine Protein Trace H (Negative) Urine Glucose (UA) Negative (Negative) Urine Ketones Negative (Negative) Urine Blood Trace H (Negative) Urine Nitrite Negative (Negative) Urine Bilirubin Negative (Negative) Urine Urobilinogen 0.2 (<2.0) mg/dL Ur Leukocyte Esterase Negative (Negative) Urine RBC 1 (0-5) /hpf Urine WBC 1 (0-5) /hpf Urine Mucus Rare H (None) /hpf Influenza Type A (PCR) (Not Detectd) Influenza Type B (PCR) (Not Detectd) RSV (PCR) (Not Detectd) SARS-CoV-2 (PCR) (Not Detectd) Group A Strep (PCR) (Not Detectd) 04/14/23 Range/Units 12:47 WBC (3.8-10.6) k/uL RBC (4.30-5.90) m/uL Hgb (13.0-17.5) gm/dL Hct (39.0-53.0) % MCV (80.0-100.0) fL MCH (25.0-35.0) pg MCHC (31.0-37.0) g/dL RDW (11.5-15.5) % Plt Count (150-450) k/uL MPV Hyperchromasia Poikilocytosis Retic Count (0.5-2.0) % Sodium (137-145) mmol/L Potassium (3.5-5.1) mmol/L Chloride (98-107) mmol/L Carbon Dioxide (22-30) mmol/L Anion Gap mmol/L BUN (9-20) mg/dL Creatinine (0.66-1.25) mg/dL Est GFR (CKD-EPI)AfAm (>60 ml/min/1.73 sqM) Est GFR (CKD-EPI)NonAf (>60 ml/min/1.73 sqM) Glucose (74-99) mg/dL Plasma Lactic Acid Jony (0.7-2.0) mmol/L Calcium (8.4-10.2) mg/dL Total Bilirubin (0.2-1.3) mg/dL AST (17-59) U/L ALT (4-49) U/L Alkaline Phosphatase (38-126) U/L Total Protein (6.3-8.2) g/dL Albumin (3.5-5.0) g/dL Amylase 69 (30-110) U/L Lipase 81 (23-300) U/L Urine Color Urine Appearance (Clear) Urine pH (5.0-8.0) Ur Specific [place] (1.001-1.035) Urine Protein (Negative) Urine Glucose (UA) (Negative) Urine Ketones (Negative) Urine Blood (Negative) Urine Nitrite (Negative) Urine Bilirubin (Negative) Urine Urobilinogen (<2.0) mg/dL Ur Leukocyte Esterase (Negative) Urine RBC (0-5) /hpf Urine WBC (0-5) /hpf Urine Mucus (None) /hpf Influenza Type A (PCR) (Not Detectd) Influenza Type B (PCR) (Not Detectd) RSV (PCR) (Not Detectd) SARS-CoV-2 (PCR) (Not Detectd) Group A Strep (PCR) (Not Detectd) - EKG Data -: EKG Interpreted by Tn EKG Comments: EKG taken at 11:03 shows normal sinus rhythm with 0.5-[address] segment elevation in inferior leads. Left ventricular hypertrophy is also noted. Ventricular rate 67, NE interval 189, QRS duration 90, QT/QTC 425/440. - Radiology Data Radiology results: report reviewed, image reviewed Disposition Clinical Impression: Sinusitis Disposition: HOME SELF-CARE Condition: Stable Additional Instructions: Please return to the Emergency Department if symptoms worsen or any other concerns. Is patient prescribed a controlled substance at d/c from ED?: No Referrals: None,Stated [Primary Care Provider] - 1-2 days Time of Disposition: 14:45
[2023-04-14] MEDS ORDERED: SODIUM CHLORIDE 0.9% 1,000 ML IV STA (11:23)
[2023-04-14] MEDS ORDERED: HYDROmorphone 1 MG/ML 1 ML SYRINGE IVP STA ×2 (11:23→12:46)
[2023-04-14] MEDS ORDERED: ONDANSETRON 4 MG/2 ML VIAL IVP STA (11:23)
--- NOTE | 2023-04-14 11:48 | XR ---
EXAMINATION TYPE: XR chest 2V DATE OF EXAM: 04/14/2023 11:41 AM CLINICAL INDICATION:Male, 42 years old with history of cough; [facility] COMPARISON: 12/25/2022 TECHNIQUE: XR chest 2V. Frontal PA and lateral views of the chest. FINDINGS: Lines/Tubes: EKG leads overlie the chest. No indwelling lines are seen. Heart/mediastinum: Cardiomediastinal silhouette is well defined. Heart appears mildly enlarged. Med iastinum appears normal. Pulmonary vascularity: Mild pulmonary vascular congestion. Increased interstitial markings can be see n with edema or pneumonitis. An element of chronic changes possible. Lungs/Pleura: There is no evidence of pleural effusion, focal consolidation, or pneumothorax. Musculoskeletal: No acute osseous abnormality demonstrated in the limits of the exam. Other findings: None. IMPRESSION: Cardiomegaly, mild pulmonary vascular congestion, mild interstitial prominence suggestive of edema. C orrelate clinically for mild CHF.
[2023-04-14 11:54] LABS: ALT 16 U/L (4-49); AST 38 U/L (17-59); African American GFR (CKD) >90 (>60 ml/min/1.73 sqM); Albumin 4.3 g/dL (3.5-5.0); Alkaline Phosphatase 61 U/L (38-126); Anion Gap 9 mmol/L; Blood Urea Nitrogen 9 mg/dL (9-20); Calcium 8.9 mg/dL (8.4-10.2); Carbon Dioxide 27 mmol/L (22-30); Chloride 108 mmol/L (98-107); Glucose 90 mg/dL (74-99); Non-African American GFR(CKD) >90 (>60 ml/min/1.73 sqM); Potassium 3.7 mmol/L (3.5-5.1); Sodium 144 mmol/L (137-145); Total Bilirubin 1.3 mg/dL (0.2-1.3); Total Protein 7.4 g/dL (6.3-8.2)
[2023-04-14 12:19] LABS: HCT 35.5 % (39.0-53.0); HGB 12.7 gm/dL (13.0-17.5); Hyperchromasia Slight; MCH 31.3 pg (25.0-35.0); MCHC 35.6 g/dL (31.0-37.0); MCV 87.9 fL (80.0-100.0); Mean Platelet Volume 7.7; Platelet Count 280 k/uL (150-450); Poikilocytosis Slight; RBC 4.04 m/uL (4.30-5.90); RDW 15.5 % (11.5-15.5); Reticulocyte % 5.4 % (0.5-2.0); WBC 10.4 k/uL (3.8-10.6)
[2023-04-14] MEDS ORDERED: METOCLOPRAMIDE 5 MG/ML 2 ML VIAL IVP STA (12:46)
[2023-04-14 12:57] LABS: Amylase 69 U/L (30-110); Lipase 81 U/L (23-300)
[2023-04-14 13:04] VITALS: RESP 18
[2023-04-14 14:10] LABS: Appearance,Urine Clear (Clear); Color,Urine Light Orange
[2023-04-14 14:11] LABS: Bilirubin,Urine Negative (Negative); Blood,Urine Trace (Negative); Glucose,Urine (UA) Negative (Negative); Ketones,Urine Negative (Negative); Leukocyte Esterase,Urine Negative (Negative); Nitrite,Urine Negative (Negative); Protein,Urine Trace (Negative); Urobilinogen,Urine 0.2 mg/dL (<2.0)
[2023-04-14 14:15] LABS: Mucus,Urine Rare /hpf; RBC,Urine 1 /hpf (0-5); WBC,Urine 1 /hpf (0-5)
[2023-04-14 15:04] VITALS: BP 115/70; PULSE 78
== END 2023-04-14 14:54 | disposition home or self-care (01) ==
LOC: EC 10:44
DX: J32.9 Chronic sinusitis, unspecified (principal); J44.9 Chronic obstructive pulmonary disease, unspecified; F17.200 Nicotine dependence, unspecified, uncomplicated; Z86.59 Personal history of other mental and behavioral disorders; Z91.013 Allergy to seafood; Z88.0 Allergy status to penicillin; Z20.822 Contact with and (suspected) exposure to COVID-19
CPT/HCPCS: 36415; 93005; 87651; 80053; 82150; 83605; 83690; 85027; 85045; 81001; 87636; 71046; 99284; 96374; 96375 ×2; 96376; 96361 ×3; J2765; J2405; J1170

== ENCOUNTER 2023-09-13 18:28 | Inpatient (IN) | payer OTHER ==
--- NOTE | 2023-09-13 18:50 | ED ---
General Adult HPI - General Source: patient, RN notes reviewed Mode of arrival: ambulatory Limitations: no limitations <Chel Oates - Last Filed: 09/13/23 18:46> <Hilaria Stacy - Last Filed: 09/14/23 02:16> - General Chief complaint: Recheck/Abnormal Lab/Rx Stated complaint: Sickle Cell Flare Up Time Seen by Provider: 09/13/23 18:39 - History of Present Illness Initial comments: Quick noteis a 43-year-old male with history of sickle cell disease open's emergency room chief complaint of 2 days of overall body aching and fatigue. He is also endorsing fevers, cough, rhinorrhea, congestion. (Chel Oates) 23-year-old male with history of sickle cell disease presenting with chief complaint of fever and diffuse body pain. states that symptoms started yesterday. He has taken ibuprofen which has not in his symptoms. He admits to a mild cough and congestion. Admits to mild sore throat. States that he has some chest discomfort when moving his arms. No nausea, vomiting, difficulty breathing, abdominal pain, dizziness, vision or hearing changes. (Hilaria Stacy) - Related Data Home Medications Medication Instructions Recorded Confirmed No Known Home Medications 04/14/23 09/13/23 Allergies Allergy/AdvReac Type Severity Reaction Status Date / Time shellfish derived [Shrimp] Allergy Anaphylaxis Verified 09/13/23 20:09 amoxicillin AdvReac Nausea & Verified 09/13/23 20:09 Vomiting & Diarrhea Penicillins AdvReac Nausea & Verified 09/13/23 20:09 Vomiting & Diarrhea Review of Systems ROS Other: All systems not noted in ROS Statement are negative. <Chel Oates - Last Filed: 09/13/23 18:46> ROS Other: All systems not noted in ROS Statement are negative. <Hilaria Stacy - Last Filed: 09/14/23 02:16> ROS Statement: Those systems with pertinent positive or pertinent negative responses have been documented in the HPI. Past Medical History Past Medical History: Blood Disorder, COPD Additional Past Medical History / Comment(s): Sickle Cell History of Any Multi-Drug Resistant Organisms: None Reported Past Surgical History: No Surgical Hx Reported Past Anesthesia/Blood Transfusion Reactions: No Reported Reaction Past Psychological History: Anxiety, Depression Smoking Status: Current some day smoker Past Alcohol Use History: Occasional Past Drug Use History: None Reported - Past Family History Mother Additional Family Medical History / Comment(s): sickle cell trait Father Additional Family Medical History / Comment(s): sickle cell trait <Chel Oates - Last Filed: 09/13/23 18:46> General Exam Limitations: no limitations <Chel Oates - Last Filed: 09/13/23 18:46> Limitations: no limitations General appearance: alert, in no apparent distress Head exam: Present: atraumatic, normocephalic Eye exam: Present: normal appearance, EOMI Neck exam: Present: normal inspection. Absent: meningismus Respiratory exam: Present: normal lung sounds bilaterally. Absent: respiratory distress, wheezes, rales, rhonchi, stridor Cardiovascular Exam: Present: regular rate, normal rhythm, normal heart sounds. Absent: systolic murmur, diastolic murmur, rubs, gallop, clicks Neurological exam: Present: alert, oriented X3 Psychiatric exam: Present: normal affect, normal mood Skin exam: Present: normal color <Hilaria Stacy - Last Filed: 09/14/23 02:16> - General Exam Comments Initial Comments: Visual Physical Exam Vital signs reviewed General: Well-appearing, nontoxic, no acute distress. Head: Normocephalic, atraumatic Eyes: PERRLA, EOMI ENT: Airway patent Chest: Nonlabored breathing Skin: No visual rash, normal skin tone Neuro: Alert and oriented 3 Musculoskeletal: No gross abnormalities (Chel Oates) Course Vital Signs 09/13/23 09/13/23 09/14/23 18:36 23:48 00:51 Temperature 101.9 F H 98.9 F 98.9 F Pulse Rate 86 54 L Respiratory 20 18 Rate Blood Pressure 144/83 124/64 O2 Sat by Pulse 97 96 Oximetry Medical Decision Making <Chel Oates - Last Filed: 09/13/23 18:46> - Lab Data Result diagrams: 09/13/23 19:10 09/13/23 19:10 <Hilaria Stacy - Last Filed: 09/14/23 02:16> - Medical Decision Making I completed the quick note portion of this chart signed Chel Oates PA-C (Chel Oates) Was pt. sent in by a medical professional or institution (, [facility], IMMUNOPATHOLOGIST, urgent care, hospital, or half-way...) When possible be specific @ -No Did you speak to anyone other than the patient for history (EMS, parent, family, police, friend...)? What history was obtained from this source @ -No Did you review nursing and triage notes (agree or disagree)? Why? @ -I reviewed and agree with nursing and triage notes Were old charts reviewed (outside hosp., previous admission, EMS record, old EKG, old radiological studies, urgent care reports/EKG's, half-way records)? Report findings @ -No old charts were reviewed Differential Diagnosis (chest pain, altered mental status, abdominal pain women, abdominal pain men, vaginal bleeding, weakness, fever, dyspnea, syncope, headache, dizziness, GI bleed, back pain, seizure, CVA, palpatations, mental health, musculoskeletal)? @ - MDM Differential Fever: Pneumonia, viral URI, endocarditis, myocarditis, pericarditis, otitis, sinusitis, peritonsillar Abscess, retropharyngeal Abscess, epiglottitis, peritonitis, appendicitis, Manisha cystitis, diverticulitis, hepatitis, colitis, UTI, PID, TOA, pyelonephritis, prostatitis, epididymitis, meningitis, encephalitis, pulmonary embolism, CVA, thyroid storm, pancreatitis, adrenal crisis, cavernous sinus thrombosis this is not meant to be an all-inclusive list. EKG interpreted by me (3pts min.). @ -EKG shows sinus rhythm ventricular rate 78. KS interval 170. QRS 90. QT 390. QTc 423. No acute changes from previous EKG X-rays interpreted by me (1pt min.). @ -Chest x-ray shows no acute cardiopulmonary disease/process CT interpreted by me (1pt min.). @ -None done U/S interpreted by me (1pt. min.). @ -None done What testing was considered but not performed or refused? (CT, X-rays, U/S, labs)? Why? @ -None What meds were considered but not given or refused? Why? @ -None Did you discuss the management of the patient with other professionals (professionals i.e. , [facility], IMMUNOPATHOLOGIST, lab, RT, psych nurse, social services counselor, welfare centre manager, teacher, supervisor dog license officer, supportive employment case manager)? Give summary @ -I spoke with Dr. Hoffmann who accepted admission Was smoking cessation discussed for >3mins.? @ -No Was critical care preformed (if so, how long)? @ -No Were there social determinants of health that impacted care today? How? (H omelessness, low income, unemployed, alcoholism, drug addiction, transportation, low edu. Level, literacy, decrease access to med. care, assisted, rehab)? @ -No Was there de-escalation of care discussed even if they declined (Discuss DNR or withdrawal of care, Hospice)? DNR status @ -No What co-morbidities impacted this encounter? (DM, HTN, Smoking, COPD, CAD, Cancer, CVA, ARF, Chemo, Hep., AIDS, mental health diagnosis, sleep apnea, morbid obesity)? @ -Sickle cell disease Was patient admitted / discharged? Hospital course, mention meds given and route, prescriptions, significant lab abnormalities, going to OR and other pertinent info. @ -43-year-old male with sickle cell disease fever and diffuse body pain. Workup is initiated by triage. Patient is later brought to the time where he is examined by myself. Lab work shows no leukocytosis or anemia. Reticulocyte count 5.9. Negative troponin. Urine shows no infectious process. He is negative for influenza, RSV, COVID, group A strep. Chest x-ray shows no acute process. Given that he has slight cough and congestion, fever likely viral in nature. However given his sickle cell disease he is given 2 g Rocephin empirically. Given 1 L IV fluid bolus and started on maintenance rate of 130 mL/h of half-normal saline. Provided with analgesic medication. He will be admitted for observation. He is agreeable to this plan. I discussed this case with my attending Dr. Mott Undiagnosed new problem with uncertain prognosis? @ -No Drug Therapy requiring intensive monitoring for toxicity (Heparin, Nitro, Insulin, Cardizem)? @ -No Were any procedures done? @ -No Diagnosis/symptom? @ -Sickle cell disease Acute, or Chronic, or Acute on Chronic? @ -Acute on chronic Uncomplicated (without systemic symptoms) or Complicated (systemic symptoms)? @ -Complicated Side effects of treatment? @ -No Exacerbation, Progression, or Severe Exacerbation? @ -No Poses a threat to life or bodily function? How? (Chest pain, USA, OR, pneumonia, PE, COPD, DKA, ARF, appy, cholecystitis, CVA, Diverticulitis, Homicidal, Suicidal, threat to staff... and all critical care pts) @ -Yes Diagnosis/symptom? @Fever of unknown origin Acute, or Chronic, or Acute on Chronic? @Acute Uncomplicated (without systemic symptoms) or Complicated (systemic symptoms)? @Complicated Side effects of treatment? @None Exacerbation, Progression, or Severe Exacerbation] @No Poses a threat to life or bodily function? @Yes (Hilaria Stacy) - Lab Data Lab Results 09/13/23 09/13/23 09/13/23 Range/Units 19:10 19:10 19:10 WBC 9.9 (3.8-10.6) k/uL RBC 4.26 L (4.30-5.90) m/uL Hgb 14.0 (13.0-17.5) gm/dL Hct 37.5 L (39.0-53.0) % MCV 88.0 (80.0-100.0) fL MCH 32.9 (25.0-35.0) pg MCHC 37.4 H (31.0-37.0) g/dL RDW 14.2 (11.5-15.5) % Plt Count 279 (150-450) k/uL MPV 8.5 Neutrophils % (Manual) 67 % Band Neuts % (Manual) 1 % Lymphocytes % (Manual) 17 % Monocytes % (Manual) 13 % Eosinophils % (Manual) 3 % Myelocytes % 1 % Neutrophils # (Manual) 6.70 (1.3-7.7) k/uL Lymphocytes # (Manual) 1.68 (1.0-4.8) k/uL Monocytes # (Manual) 1.29 H (0-1.0) k/uL Eosinophils # (Manual) 0.30 (0-0.7) k/uL Myelocytes # (Manual) 0.10 H (0) k/uL Nucleated RBCs 5 H (0-0) /100 WBC Manual Slide Review Performed Large Platelets Present Polychromasia Present Hyperchromasia Moderate Target Cells Present Retic Count 5.9 H (0.5-2.0) % Sodium 138 (137-145) mmol/L Potassium 4.2 (3.5-5.1) mmol/L Chloride 105 (98-107) mmol/L Carbon Dioxide 26 (22-30) mmol/L Anion Gap 7 mmol/L BUN 6 L (9-20) mg/dL Creatinine 0.81 (0.66-1.25) mg/dL Est GFR (CKD-EPI)AfAm >90 (>60 ml/min/1.73 sqM) Est GFR (CKD-EPI)NonAf >90 (>60 ml/min/1.73 sqM) Glucose 77 (74-99) mg/dL Calcium 9.3 (8.4-10.2) mg/dL Total Bilirubin 1.4 H (0.2-1.3) mg/dL AST 33 (17-59) U/L ALT 14 (4-49) U/L Alkaline Phosphatase 61 (38-126) U/L Troponin I (0.000-0.034) ng/mL Total Protein 7.4 (6.3-8.2) g/dL Albumin 4.3 (3.5-5.0) g/dL Amylase 98 (30-110) U/L Lipase 291 (23-300) U/L Urine Color Light Yellow Urine Appearance Clear (Clear) Urine pH 7.0 (5.0-8.0) Ur Specific [place] 1.009 (1.001-1.035) Urine Protein Negative (Negative) Urine Glucose (UA) Negative (Negative) Urine Ketones Negative (Negative) Urine Blood Negative (Negative) Urine Nitrite Negative (Negative) Urine Bilirubin Negative (Negative) Urine Urobilinogen 2.0 (<2.0) mg/dL Ur Leukocyte Esterase Negative (Negative) Influenza Type A (PCR) (Not Detectd) Influenza Type B (PCR) (Not Detectd) RSV (PCR) (Not Detectd) SARS-CoV-2 (PCR) (Not Detectd) Group A Strep (PCR) (Not Detectd) 09/13/23 09/13/23 09/13/23 Range/Units 19:10 19:10 21:12 WBC (3.8-10.6) k/uL RBC (4.30-5.90) m/uL Hgb (13.0-17.5) gm/dL Hct (39.0-53.0) % MCV (80.0-100.0) fL MCH (25.0-35.0) pg MCHC (31.0-37.0) g/dL RDW (11.5-15.5) % Plt Count (150-450) k/uL MPV Neutrophils % (Manual) % Band Neuts % (Manual) % Lymphocytes % (Manual) % Monocytes % (Manual) % Eosinophils % (Manual) % Myelocytes % % Neutrophils # (Manual) (1.3-7.7) k/uL Lymphocytes # (Manual) (1.0-4.8) k/uL Monocytes # (Manual) (0-1.0) k/uL Eosinophils # (Manual) (0-0.7) k/uL Myelocytes # (Manual) (0) k/uL Nucleated RBCs (0-0) /100 WBC Manual Slide Review Large Platelets Polychromasia Hyperchromasia Target Cells Retic Count (0.5-2.0) % Sodium (137-145) mmol/L Potassium (3.5-5.1) mmol/L Chloride (98-107) mmol/L Carbon Dioxide (22-30) mmol/L Anion Gap mmol/L BUN (9-20) mg/dL Creatinine (0.66-1.25) mg/dL Est GFR (CKD-EPI)AfAm (>60 ml/min/1.73 sqM) Est GFR (CKD-EPI)NonAf (>60 ml/min/1.73 sqM) Glucose (74-99) mg/dL Calcium (8.4-10.2) mg/dL Total Bilirubin (0.2-1.3) mg/dL AST (17-59) U/L ALT (4-49) U/L Alkaline Phosphatase (38-126) U/L Troponin I 0.014 (0.000-0.034) ng/mL Total Protein (6.3-8.2) g/dL Albumin (3.5-5.0) g/dL Amylase (30-110) U/L Lipase (23-300) U/L Urine Color Urine Appearance (Clear) Urine pH (5.0-8.0) Ur Specific [place] (1.001-1.035) Urine Protein (Negative) Urine Glucose (UA) (Negative) Urine Ketones (Negative) Urine Blood (Negative) Urine Nitrite (Negative) Urine Bilirubin (Negative) Urine Urobilinogen (<2.0) mg/dL Ur Leukocyte Esterase (Negative) Influenza Type A (PCR) Not Detected (Not Detectd) Influenza Type B (PCR) Not Detected (Not Detectd) RSV (PCR) Not Detected (Not Detectd) SARS-CoV-2 (PCR) Not Detected (Not Detectd) Group A Strep (PCR) NOT DETECTED (Not Detectd) Disposition <Chel Oates - Last Filed: 09/13/23 18:46> Time of Disposition: 23:06 <Hilaria Stacy - Last Filed: 09/14/23 02:16> Clinical Impression: Sickle cell anemia, Fever of unknown origin Disposition: ADMITTED IP TO THIS HOSP Condition: Fair
--- NOTE | 2023-09-13 19:02 | XR ---
EXAMINATION TYPE: XR chest 2V DATE OF EXAM: 09/13/2023 6:58 PM COMPARISON: Chest radiographs from 04/14/2023 TECHNIQUE: XR chest 2V Frontal and lateral views of the chest. CLINICAL INDICATION:Male, 43 years old with history of fever; FINDINGS: Lungs/Pleura: There is no evidence of pleural effusion, focal consolidation, or pneumothorax. Pulmonary vascularity: Unremarkable. Heart/mediastinum: Cardiomediastinal silhouette is unremarkable. Musculoskeletal: No acute osseous pathology. IMPRESSION: No acute cardiopulmonary disease/process.
[2023-09-13 20:19] LABS: Appearance,Urine Clear (Clear); Bilirubin,Urine Negative (Negative); Blood,Urine Negative (Negative); Color,Urine Light Yellow; Glucose,Urine (UA) Negative (Negative); Ketones,Urine Negative (Negative); Leukocyte Esterase,Urine Negative (Negative); Nitrite,Urine Negative (Negative); Protein,Urine Negative (Negative); Specific Gravity,Urine 1.009 (1.001-1.035)
[2023-09-13 20:22] LABS: HCT 37.5 % (39.0-53.0); Hyperchromasia Moderate; MCH 32.9 pg (25.0-35.0); MCHC 37.4 g/dL (31.0-37.0); Mean Platelet Volume 8.5; Platelet Count 279 k/uL (150-450); RBC 4.26 m/uL (4.30-5.90); RDW 14.2 % (11.5-15.5); Reticulocyte % 5.9 % (0.5-2.0)
[2023-09-13 20:55] LABS: Band Neutrophils % 1 %; Lymphocytes # (M) 1.68 k/uL (1.0-4.8); Monocytes # (M) 1.29 k/uL (0-1.0); Myelocytes % 1 %; Neutrophils % (M) 67 %; Nucleated Red Blood Cells 5 /100 WBC (0-0); Total Cells Counted 200; WBC 9.9 k/uL (3.8-10.6)
[2023-09-13 20:56] LABS: ALT 14 U/L (4-49); AST 33 U/L (17-59); African American GFR (CKD) >90 (>60 ml/min/1.73 sqM); Albumin 4.3 g/dL (3.5-5.0); Alkaline Phosphatase 61 U/L (38-126); Amylase 98 U/L (30-110); Anion Gap 7 mmol/L; Blood Urea Nitrogen 6 mg/dL (9-20); Calcium 9.3 mg/dL (8.4-10.2); Carbon Dioxide 26 mmol/L (22-30); Chloride 105 mmol/L (98-107); Glucose 77 mg/dL (74-99); Large Platelets Present; Lipase 291 U/L (23-300); Non-African American GFR(CKD) >90 (>60 ml/min/1.73 sqM); Polychromasia Present; Potassium 4.2 mmol/L (3.5-5.1); Sodium 138 mmol/L (137-145); Target Cells Present; Total Bilirubin 1.4 mg/dL (0.2-1.3); Total Protein 7.4 g/dL (6.3-8.2)
[2023-09-13] MEDS: HYDROmorphone 1 MG/ML 1 ML SYRINGE IVP STA (21:16)
[2023-09-13] MEDS: IBUPROFEN 800 MG TAB PO STA (21:19)
[2023-09-13] MEDS: ACETAMINOPHEN TAB 325 MG TAB PO STA (21:19)
[2023-09-13] MEDS: SODIUM CHLORIDE 0.9% 1,000 ML IV ONE (21:20)
[2023-09-13] MEDS ORDERED: IBUPROFEN 400 MG TAB PO PRN (23:04)
[2023-09-13] MEDS ORDERED: ONDANSETRON 4 MG/2 ML VIAL IVP PRN (23:04)
[2023-09-13] MEDS ORDERED: NALOXONE 0.4 MG/ML 1 ML VIAL IV PRN (23:04)
[2023-09-13] MEDS ORDERED: KETOROLAC 15 MG/ML 1 ML VIAL IVP PRN (23:04)
[2023-09-13] MEDS ORDERED: ACETAMINOPHEN TAB 325 MG TAB PO PRN (23:04)
[2023-09-14] MEDS: HYDROmorphone 1 MG/ML 1 ML SYRINGE IVP PRN (00:29)
[2023-09-14] MEDS: SODIUM CHLORIDE 0.45% 1,000 ML IV SCH (00:33)
--- NOTE | 2023-09-14 00:59 | P.HPIM ---
History of Present Illness H&P Date: 09/13/23 Patient is a 43-year-old male with a PMH of sickle cell disease who presents to the emergency room with complaints of diffuse bodyaches and fever for the past 2 to 3 days. The patient reports that he normally has 1-2 sickle cell crisis a year and routinely follows at [facility] and [facility]. He reports taking no maintenance sickle cell medication. States that his crises are normally preceded by some sort ofURI illness but that during this episode, he does not recall experiencing any URI-like symptoms. He does report fevers throughout the day today. Denies experiencing cough, shortness of breath, nausea, vomiting, diaphoresis, or dizziness. Chest x-ray in the emergency room was unremarkable with EKG showing sinus rhythm at 78 bpm with findings consistent with LVH. Laboratory evaluation was remarkable for unremarkable UA, respiratory viral panel negative, troponin 0.014, total bilirubin 1.4, WBC count 9.9. The patient had a Tmax of 101.9 F in the emergency room with BP 144/83, pulse 86, SpO2 97% on room air. ED documentation reviewed and case discussed with ED provider. Review of systems: Pertinent positives and negatives as discussed in HPI, a complete review of systems was performed and all other systems are negative. Physical examination: Vital signs reviewed General: non toxic, no distress, appears at stated age, normal weight Derm: no unusual rashes/lesions, warm Head: atraumatic, normocephalic, symmetric Eyes: EOMI, no lid lag, anicteric sclera, pupils equal round reactive to light ENT: Nose and ears atraumatic Neck: No cervical lymphadenopathy, trachea midline, supple Mouth: no lip lesion, mucus membranes moist Cardiovascular: S1S2 reg, no murmur, positive dorsalis pedis pulse bilateral, no edema Lungs: CTA bilateral, no rhonchi, no rales, no accessory muscle use Abdominal: soft, nontender to palpation, no guarding Ext: muscle strength 5 out of 5 in all 4 extremities grossly, no gross muscle atrophy, no contractures, Neuro: CN II-XI grossly intact, no gross focal neuro deficits Psych: Alert, oriented, appropriate affect Assessment: Sickle cell crisis SIRS without obvious infection etiology Elevated T bilirubin Imaging: Chest x-ray in the emergency room was unremarkable with EKG showing sinus rhythm at 78 bpm with findings consistent with LVH Data Review: Laboratory evaluation was remarkable for unremarkable UA, respiratory viral panel negative, troponin 0.014, total bilirubin 1.4, WBC count 9.9. The patient had a Tmax of 101.9 F in the emergency room with BP 144/83, pulse 86, SpO2 97% on room air. Plan: Continue with pain control with Dilaudid, Tylenol, and Toradol Follow-up blood cultures Hematology consulted Continue empiric ceftriaxone at this time Continue IV fluids 130 cc/h DVT prophylaxis: Lovenox Subq The patient is admitted with an anticipated less than 2 midnight stay for evaluation of sickle cell crisis CODE STATUS: Full Code Discussed with: Patient Anticipated discharge place: Home Past Medical History Past Medical History: Blood Disorder, COPD Additional Past Medical History / Comment(s): Sickle Cell History of Any Multi-Drug Resistant Organisms: None Reported Past Surgical History: No Surgical Hx Reported Past Anesthesia/Blood Transfusion Reactions: No Reported Reaction Past Psychological History: Anxiety, Depression Smoking Status: Current some day smoker Past Alcohol Use History: Occasional Past Drug Use History: None Reported - Past Family History Mother Additional Family Medical History / Comment(s): sickle cell trait Father Additional Family Medical History / Comment(s): sickle cell trait Medications and Allergies Home Medications Medication Instructions Recorded Confirmed Type No Known Home Medications 04/14/23 09/13/23 History Allergies Allergy/AdvReac Type Severity Reaction Status Date / Time shellfish derived [Shrimp] Allergy Anaphylaxis Verified 09/13/23 20:09 amoxicillin AdvReac Nausea & Verified 09/13/23 20:09 Vomiting & Diarrhea Penicillins AdvReac Nausea & Verified 09/13/23 20:09 Vomiting & Diarrhea Physical Exam Vitals: Vital Signs Temp Pulse Resp BP Pulse Ox 09/14/23 00:51 98.9 F 09/13/23 23:48 98.9 F 54 L 18 124/64 96 09/13/23 18:36 101.9 F H 86 20 144/83 97 Intake and Output 09/13/23 09/13/23 09/14/23 14:59 22:59 06:59 Other: Weight 65.771 kg Results CBC & Chem 7: 09/13/23 19:10 09/13/23 19:10 Labs: Abnormal Lab Results - Last 24 Hours (Table) 09/13/23 09/13/23 Range/Units 19:10 19:10 RBC 4.26 L (4.30-5.90) m/uL Hct 37.5 L (39.0-53.0) % MCHC 37.4 H (31.0-37.0) g/dL Monocytes # (Manual) 1.29 H (0-1.0) k/uL Myelocytes # (Manual) 0.10 H (0) k/uL Nucleated RBCs 5 H (0-0) /100 WBC Retic Count 5.9 H (0.5-2.0) % BUN 6 L (9-20) mg/dL Total Bilirubin 1.4 H (0.2-1.3) mg/dL
[2023-09-14 08:16] LABS: ALT 12 U/L (4-49); AST 28 U/L (17-59); African American GFR (CKD) >90 (>60 ml/min/1.73 sqM); Albumin 3.3 g/dL (3.5-5.0); Albumin/Globulin Ratio 1.2; Alkaline Phosphatase 59 U/L (38-126); Anion Gap 3 mmol/L; Blood Urea Nitrogen 6 mg/dL (9-20); Calcium 8.2 mg/dL (8.4-10.2); Carbon Dioxide 24 mmol/L (22-30); Chloride 107 mmol/L (98-107); Globulin 2.7 g/dL; Glucose 79 mg/dL (74-99); HGB 12.1 gm/dL (13.0-17.5); Hyperchromasia Slight; MCHC 36.7 g/dL (31.0-37.0); MCV 89.8 fL (80.0-100.0); Mean Platelet Volume 8.5; Non-African American GFR(CKD) >90 (>60 ml/min/1.73 sqM); Platelet Count 230 k/uL (150-450); Potassium 3.5 mmol/L (3.5-5.1); RBC 3.68 m/uL (4.30-5.90); RDW 14.3 % (11.5-15.5); Sodium 134 mmol/L (137-145); Total Bilirubin 1.1 mg/dL (0.2-1.3)
[2023-09-14] MEDS: ENOXAPARIN 40 MG/0.4 ML SYRINGE SQ SCH (09:01)
--- NOTE | 2023-09-14 17:53 | P.PN ---
Subjective Progress Note Date: 09/14/23 Hospital course: Patient is a very pleasant 43-year-old male with a past medical history of sickle cell anemia, COPD with continued nicotine dependence, anxiety, and depression. He presented to the emergency department on 09/13/2023 with a chief complaint of diffuse bodyaches and fever. Reports body aches are similar to his typical sickle cell crisis, patient reports approximately 1-2 sickle cell crisis per year and follows with both [facility] and [facility]. Upon ar rival to the emergency department, patient underwent evaluation. Vital signs upon arrival show blood pressure 144/83, heart rate 86, respiratory rate 20, temp 101.9 F, and SpO2 of 97% on room air. EKG was completed showing normal sinus rhythm at 78 bpm. Chest x-ray negative for acute cardiopulmonary process. Labs completed and reviewed. CBC showing WBC count of 9.9, hemoglobin of 14.0, platelet count of 279, and elevated reticulocyte count of 5.9. BMP unremarkable. Liver profile showing elevated total bili of 1.4 otherwise normal findings. Amylase and lipase normal findings. Troponin 0.014. Urinalysis negative for blood, protein, or infection. Influenza A, influenza B, RSV, COVID , and strep PCR were all negative. Patient was admitted under our services for sickle cell crisis with consultation to hematology. Physical exam: Patient seen and fully evaluated at bedside this morning. He reports generalized pain mostly in all joints of bilateral upper and lower extremities. He currently denies having any chest pain, palpitations, shortness of breath, dizziness, lightheadedness, abdominal pain, nausea, or vomiting. Vital signs reviewed and stable. General: Nontoxic, no distress and appears stated age. Derm: Skin warm and dry, normal coloration for ethnicity. Head: Atraumatic, normocephalic and symmetric. Eyes: EOMs intact, no lid lag, and anicteric sclera Mouth: no lip lesions, mucus membranes moist Cardiovascular: regular rate and rhythm with normal S1S2, no murmur, positive posterior tibial pulses bilaterally, and cap refill < 2 seconds. Lungs: Respirations even, regular, and unlabored on room air. Lungs CTA bilaterally, no rhonchi, no rales, no wheezing, and no accessory muscle usage. Abdominal: soft, nontender to palpation, no guarding, no appreciable organomegaly Ext: ROM intact. No gross muscle atrophy, no edema, no contractures Neuro: Speech clear, face symmetrical and CN II-XII grossly intact with no noted focal neuro deficits Psych: Alert and oriented to person, place, time, and situation. Appropriate and pleasant affect. Assessment and Plan of Care: Sickle cell crisis Sickle cell anemia Asymptomatic bradycardia Continue with vigorous IV fluid hydration with 0.9% normal saline at 130 cc/h. Pain management with Tylenol 650 mg every 6 hours as needed for mild pain, Toradol 15 mg IVP every 6 hours for moderate pain, and Dilaudid 1 mg IVP every 3 hours as needed for severe pain. Hematology consulted, appreciate recommendations Order placed for repeat CBC and reticulocyte count, will monitor closely. SIRS without obvious infectious process identified Continue prophylactic IV antibiotics with Rocephin 2 g daily pending blood culture results. Chest x-ray negative for acute cardiopulmonary process. Urinalysis negative for blood, protein, or infection. Influenza A, influenza B, RSV, COVID, and strep PCR were all negative Follow-up on blood cultures. Elevated temp possibly secondary to sickle cell crisis however 101.9 F is higher than typically seen with crisis. COPD with continued nicotine dependence COPD not in acute exacerbation. DuoNebs 4 times daily as needed for wheezing/shortness of breath. Recommend smoking cessation. Order placed for nicotine patch 14 mg daily. Data reviewed: Vital signs reviewed. Blood pressure 133/75, heart rate 47, respiratory rate 18, temp 97.8 F, and SpO2 of 98% on room air. Morning labs reviewed. CBC showing hemoglobin 12.1. BMP showing mild hyponatremia with sodium of 134. Liver profile unremarkable. CODE STATUS: Full code DVT prophylaxis: Lovenox Anticipated discharge date: Clinical course to determine Anticipated discharge place: Clinical course to determine Patient was seen independently by Nurse Pracitioner. This document was prepared using [employer] dictation software. Please allow for errors in rubber tubing backer, while rare they do occur. Amador An NP rendered care for this patient independently, reviewed the findings and plan as documented in the note above. I did not physically speak with or examine the patient on this date. Objective - Vital Signs Vital signs: Vital Signs Temp 97.8 F 09/14/23 07:28 Pulse 47 L 09/14/23 07:28 Resp 18 09/14/23 07:28 BP 133/75 09/14/23 07:28 Pulse Ox 98 09/14/23 07:28 FiO2 Intake & Output 09/13/23 09/14/23 09/14/23 18:59 06:59 18:59 Output Total 300 Balance -300 Weight 65.771 kg 65.771 kg Output: Urine 300 - Labs CBC & Chem 7: 09/14/23 07:35 09/14/23 07:35 Labs: Abnormal Lab Results - Last 24 Hours (Table) 09/13/23 09/13/23 09/14/23 Range/Units 19:10 19:10 07:35 RBC 4.26 L 3.68 L (4.30-5.90) m/uL Hgb 12.1 L (13.0-17.5) gm/dL Hct 37.5 L 33.0 L (39.0-53.0) % MCHC 37.4 H (31.0-37.0) g/dL Monocytes # (Manual) 1.29 H (0-1.0) k/uL Myelocytes # (Manual) 0.10 H (0) k/uL Nucleated RBCs 5 H (0-0) /100 WBC Retic Count 5.9 H (0.5-2.0) % Sodium (137-145) mmol/L BUN 6 L (9-20) mg/dL Calcium (8.4-10.2) mg/dL Total Bilirubin 1.4 H (0.2-1.3) mg/dL Total Protein (6.3-8.2) g/dL Albumin (3.5-5.0) g/dL 09/14/23 Range/Units 07:35 RBC (4.30-5.90) m/uL Hgb (13.0-17.5) gm/dL Hct (39.0-53.0) % MCHC (31.0-37.0) g/dL Monocytes # (Manual) (0-1.0) k/uL Myelocytes # (Manual) (0) k/uL Nucleated RBCs (0-0) /100 WBC Retic Count (0.5-2.0) % Sodium 134 L (137-145) mmol/L BUN 6 L (9-20) mg/dL Calcium 8.2 L (8.4-10.2) mg/dL Total Bilirubin (0.2-1.3) mg/dL Total Protein 6.0 L (6.3-8.2) g/dL Albumin 3.3 L (3.5-5.0) g/dL
[2023-09-14] MEDS: IPRATROPIUM-ALBUTEROL 3 ML NEB INHALATION SCH (21:07)
[2023-09-14] MEDS ORDERED: IPRATROPIUM-ALBUTEROL 3 ML NEB INHALATION PRN (21:12)
[2023-09-15] MEDS: NICOTINE 14MG/24HR PATCH TRANSDERM SCH (09:22)
[2023-09-15 09:27] LABS: ALT 10 U/L (10-49); AST 26 U/L (14-35); Albumin/Globulin Ratio 1.82 Ratio (1.60-3.17); Alkaline Phosphatase 63 U/L (41-126); BUN/Creat Ratio 4.56 Ratio (12.00-20.00); Blood Urea Nitrogen 4.1 mg/dL (9.0-27.0); Chloride 100 mmol/L (96-109); Globulin 2.2 g/dL (1.6-3.3); Glucose 89 mg/dL (70-110); Magnesium 1.8 mg/dL (1.5-2.4); Potassium 4.1 mmol/L (3.5-5.5); Sodium 137 mmol/L (135-145); Total Bilirubin 0.6 mg/dL (0.3-1.2); Total Protein 6.2 g/dL (6.2-8.2)
[2023-09-15] MEDS: IPRATROPIUM-ALBUTEROL 3 ML NEB INHALATION SCH (09:27)
[2023-09-15 10:43] LABS: HCT 35.1 % (39.6-50.0); HGB 12.9 g/dL (13.0-17.0); MCH 31.1 pg (27.0-32.0); MCHC 36.8 g/dL (32.0-37.0); MCV 84.6 FL (80.0-97.0); Mean Platelet Volume 10.3 FL (9.5-12.2); NRBC Per 100 WBC 0.19 X 10*3/uL (0.00-0.01); Platelet Count 182 X 10*3/uL (140-440); RBC 4.15 X 10*6/uL (4.40-5.60); RDW 13.1 % (11.5-14.5); WBC 7.46 X 10*3/uL (4.50-10.00)
[2023-09-15 13:58] LABS: Reticulocyte % 3.28 % (0.10-1.80)
[2023-09-15] MEDS: HYDROcodone/APAP 10-325MG 1 EACH TAB PO PRN (16:31)
--- NOTE | 2023-09-15 17:03 | P.PN ---
Subjective Progress Note Date: 09/15/23 Hospital course: Patient is a very pleasant 43-year-old male with a past medical history of sickle cell anemia, COPD with continued nicotine dependence, anxiety, and depression. He presented to the emergency department on 09/13/2023 with a chief complaint of diffuse bodyaches and fever. Reports body aches are similar to his typical sickle cell crisis, patient reports approximately 1-2 sickle cell crisis per year and follows with both [facility] and [facility]. Upon arri daksha to the emergency department, patient underwent evaluation. Vital signs upon arrival show blood pressure 144/83, heart rate 86, respiratory rate 20, temp 101.9 F, and SpO2 of 97% on room air. EKG was completed showing normal sinus rhythm at 78 bpm. Chest x-ray negative for acute cardiopulmonary process. Labs completed and reviewed. CBC showing WBC count of 9.9, hemoglobin of 14.0, platelet count of 279, and elevated reticulocyte count of 5.9. BMP unremarkable. Liver profile showing elevated total bili of 1.4 otherwise normal findings. Amylase and lipase normal findings. Troponin 0.014. Urinalysis negative for blood, protein, or infection. Influenza A, influenza B, RSV, COVID, and strep PCR were all negative. Patient was admitted under our services for sickle cell crisis with consultation to hematology. Physical exam: Patient seen and fully evaluated at bedside this morning. He reports generalized pain mostly in all joints of bilateral upper and lower extremities is improving with pain medication but remains at a 4 out of 10 at this time. He continues to deny having any chest pain or any other complaints. Had long discussion with patient, will wean from IV narcotics and place patient on oral pain medication and attempts of adequate pain control and discussed anticipated discharge within the next 24 hours. Vital signs reviewed and stable. General: Nontoxic, no distress and appears stated age. Derm: Skin warm and dry, normal coloration for ethnicity. Head: Atraumatic, normocephalic and symmetric. Eyes: EOMs intact, no lid lag, and anicteric sclera Mouth: no lip lesions, mucus membranes moist Cardiovascular: regular rate and rhythm with normal S1S2, no murmur, positive posterior tibial pulses bilaterally, and cap refill < 2 seconds. Lungs: Respirations even, regular, and unlabored on room air. Lungs CTA bilaterally, no rhonchi, no rales, no wheezing, and no accessory muscle usage. Abdominal: soft, nontender to palpation, no guarding, no appreciable organomegaly Ext: ROM intact. No gross muscle atrophy, no edema, no contractures Neuro: Speech clear, face symmetrical and CN II-XII grossly intact with no noted focal neuro deficits Psych: Alert and oriented to person, place, time, and situation. Appropriate and pleasant affect. Assessment and Plan of Care: Sickle cell crisis Sickle cell anemia Asymptomatic bradycardia Continue with vigorous IV fluid hydration with 0.9% normal saline at 130 cc/h. Pain management with Tylenol 650 mg every 6 hours as needed for mild pain, Toradol 15 mg IVP every 6 hours for moderate pain, and Dilaudid 1 mg IVP every 3 hours as needed for severe pain. Will add on [place] and talked with patient and RN, will attempt to wean from IV narcotics and attempt to obtain control with oral pain medication for anticipated discharge within the next 24 hours. Hematology consulted, appreciate recommendations Hemoglobin stable at 12.9 and reticulocyte count improving to 3.28. SIRS without obvious infectious process identified Continue prophylactic IV antibiotics with Rocephin 2 g daily pending blood culture results. Chest x-ray negative for acute cardiopulmonary process. Urinalysis negative for blood, protein, or infection. Influenza A, influenza B, RSV, COVID, and strep PCR were all negative Follow-up on blood cultures. Elevated temp possibly secondary to sickle cell crisis however 101.9 F is higher than typically seen with crisis. COPD with continued nicotine dependence COPD not in acute exacerbation. DuoNebs 4 times daily as needed for wheezing/shortness of breath. Recommend smoking cessation. Order placed for nicotine patch 14 mg daily. Data reviewed: Vital signs reviewed. Blood pressure 159/72, heart rate 58, respiratory rate 16, temp 98.7 F, and SpO2 of 100% on 2 L Morning labs reviewed. CBC showing hemoglobin 12.9. Reticulocyte improving and down to 3.28 this morning. BMP unremarkable. Magnesium normal findings at 1.8. Liver profile unremarkable. CODE STATUS: Full code DVT prophylaxis: Lovenox Anticipated discharge date: Anticipate discharge within the next [address]: Home Patient was seen independently by Nurse Pracitioner. This document was prepared using [employer] dictation software. Please allow for errors in land title examiner, while rare they do occur. I reviewed the documentation as provided by the SHERLYN above, who is the original author of this note. I agree with the documented assessment and plan, with the following changes: none Objective - Vital Signs Vital signs: Vital Signs Temp 98.7 F 09/15/23 07:03 Pulse 58 L 09/15/23 07:03 Resp 16 09/15/23 07:03 BP 159/72 09/15/23 07:03 Pulse Ox 100 09/15/23 07:03 FiO2 Intake & Output 09/14/23 09/15/23 09/15/23 18:59 06:59 18:59 Output Total 1375 3100 Balance -1375 -3100 Output: Urine 1375 3100 Other: Voiding Method Urinal # Voids 1 - Labs CBC & Chem 7: 09/15/23 05:08 09/15/23 05:08 Labs: Abnormal Lab Results - Last 24 Hours (Table) 09/14/23 09/14/23 Range/Units 07:35 07:35 RBC 3.68 L (4.30-5.90) m/uL Hgb 12.1 L (13.0-17.5) gm/dL Hct 33.0 L (39.0-53.0) % Sodium 134 L (137-145) mmol/L BUN 6 L (9-20) mg/dL Calcium 8.2 L (8.4-10.2) mg/dL Total Protein 6.0 L (6.3-8.2) g/dL Albumin 3.3 L (3.5-5.0) g/dL Microbiology - Last 24 Hours (Table) 09/13/23 22:30 Blood Culture - Preliminary Blood 09/13/23 22:15 Blood Culture - Preliminary Blood
--- NOTE | 2023-09-15 23:55 | P.CONS ---
History of Present Illness - Reason for Consult Consult date: 09/14/23 sickle cell Requesting physician: Hilaria Stacy - Chief Complaint body aches, fever - History of Present Illness Patient is a 43 year old male, initially seen in consult at [facility] in 09/2012, admitted with abdominal pain, nausea, and decreased oral intake. He had a h/o sickle cell trait and had had admissions in 11/16 and 03/19 for similar complaints. Patient was seen by both Dr. Herrera and Dr. Sol. Patient was recommended a trial of Hydrea but he did not want to do the same. Patient states he has crisis 1-2 times a year, usually flares with concurrent illness. Patient has had hemoglobin electrophoresis, he is positive for hemoglobin S and C. He was last seen in clinic in 2013, and missed multiple f/u appts since. Patient reports he has not f/u with hematology or PCP, and is not actively on treatment for his sickle cell. Patient presented to the emergency room with complaints of joint pain, myalgias, URI symptoms, and nausea vomiting diarrhea. Patient reports has been experiencing joint pain over the last 3 days and has been having mild cough, sore throat and runny nose. He states he felt warm but did not check his temperature at home. Patient reports myalgias and joint pain is typical of his sickle cells crises. On admission patient was noted to have a Tmax of 101.9. UA not suspicious for UTI. Viral panel negative. Blood cultures pending. Chest x-ray showed no acute cardiopulmonary processes. CBC stable, WBC 8.0, hemoglobin 12.1, platelets 230,000. Creatinine 0.72, GFR > 90. Reticulocytes elevated at 5.9. Bilirubin 1.4 on admission, today 1.1. LFTs WNL. Amylase 98, lipase 291. LDH pending. SpO2 98% on room air. He is feeling improved since admit, and states pain medications are helping control pain. Continues on IV hydration Review of Systems 10 point ROS is negative except as stated in the HPI Past Medical History Past Medical History: Blood Disorder, COPD Additional Past Medical History / Comment(s): Sickle Cell History of Any Multi-Drug Resistant Organisms: None Reported Past Surgical History: No Surgical Hx Reported Past Anesthesia/Blood Transfusion Reactions: No Reported Reaction Past Psychological History: Anxiety, Depression Smoking Status: Current some day smoker Past Alcohol Use History: Occasional Additional Past Alcohol Use History / Comment(s): , Past Drug Use History: None Reported - Past Family History Mother Additional Family Medical History / Comment(s): sickle cell trait Father Additional Family Medical History / Comment(s): sickle cell trait Medications and Allergies Home Medications Medication Instructions Recorded Confirmed Type No Known Home Medications 04/14/23 09/13/23 History Allergies Allergy/AdvReac Type Severity Reaction Status Date / Time shellfish derived [Shrimp] Allergy Anaphylaxis Verified 09/13/23 20:09 amoxicillin AdvReac Nausea & Verified 09/13/23 20:09 Vomiting & Diarrhea Penicillins AdvReac Nausea & Verified 09/13/23 20:09 Vomiting & Diarrhea Physical Exam Vitals: Vital Signs Temp Pulse Pulse Resp BP BP Pulse Ox 09/14/23 07:28 97.8 F 47 L 18 133/75 98 09/14/23 02:00 62 17 119/74 96 09/14/23 00:51 98.9 F 09/13/23 23:48 98.9 F 54 L 18 124/64 96 09/13/23 18:36 101.9 F H 86 20 144/83 97 Intake and Output 09/13/23 09/14/23 09/14/23 22:59 06:59 14:59 Output Total 300 425 Balance -300 -425 Output: Urine 300 425 Other: Voiding Method Urinal Weight 65.771 kg 65.771 kg - Constitutional General appearance: average body habitus, no acute distress - EENT Eyes: anicteric sclerae, EOMI ENT: hearing grossly normal - Respiratory Respiratory: bilateral: CTA - Cardiovascular Rhythm: regular Heart sounds: normal: S1, S2 - Gastrointestinal General gastrointestinal: soft, no tenderness - Integumentary Integumentary: no cyanotic - Neurologic Neurologic: CNII-XII intact - Musculoskeletal Musculoskeletal: strength equal bilaterally - Psychiatric Psychiatric: A&O x's 3 Results CBC & Chem 7: 09/15/23 05:08 09/15/23 05:08 Labs: Abnormal Lab Results - Last 24 Hours (Table) 09/13/23 09/13/23 09/14/23 Range/Units 19:10 19:10 07:35 RBC 4.26 L 3.68 L (4.30-5.90) m/uL Hgb 12.1 L (13.0-17.5) gm/dL Hct 37.5 L 33.0 L (39.0-53.0) % MCHC 37.4 H (31.0-37.0) g/dL Monocytes # (Manual) 1.29 H (0-1.0) k/uL Myelocytes # (Manual) 0.10 H (0) k/uL Nucleated RBCs 5 H (0-0) /100 WBC Retic Count 5.9 H (0.5-2.0) % Sodium (137-145) mmol/L BUN 6 L (9-20) mg/dL Calcium (8.4-10.2) mg/dL Total Bilirubin 1.4 H (0.2-1.3) mg/dL Total Protein (6.3-8.2) g/dL Albumin (3.5-5.0) g/dL 09/14/23 Range/Units 07:35 RBC (4.30-5.90) m/uL Hgb (13.0-17.5) gm/dL Hct (39.0-53.0) % MCHC (31.0-37.0) g/dL Monocytes # (Manual) (0-1.0) k/uL Myelocytes # (Manual) (0) k/uL Nucleated RBCs (0-0) /100 WBC Retic Count (0.5-2.0) % Sodium 134 L (137-145) mmol/L BUN 6 L (9-20) mg/dL Calcium 8.2 L (8.4-10.2) mg/dL Total Bilirubin (0.2-1.3) mg/dL Total Protein 6.0 L (6.3-8.2) g/dL Albumin 3.3 L (3.5-5.0) g/dL Chest x-ray: report reviewed Assessment and Plan (1) Fever of unknown origin Current Visit: Yes Status: Acute Priority: High Code(s): R50.9 - FEVER, UNSPECIFIED SNOMED Code(s): 5318936 (2) Sickle cell anemia Current Visit: Yes Status: Acute Priority: High Code(s): D57.1 - SICKLE- CELL DISEASE WITHOUT CRISIS SNOMED Code(s): 824978731 Plan: Sickle cell crisis, fever: Presented with complaints of joint pain, myalgias, URI symptoms, and nausea vomiting diarrhea. Patient reports has been experiencing joint pain over the last 3 days and has been having mild cough, sore throat and runny nose. He states he felt warm but did not check his temperature at home. He reports myalgias and joint pain is typical of his sickle cells crises -Sickle cell history in HPI. Not on active treatment or f/u. Reports 1-2 flare ups a year, triggered by acute illnesses -On admission patient was noted to have a Tmax of 101.9. UA not suspicious for UTI. Viral panel negative. Blood cultures pending. Chest x-ray showed no acute cardiopulmonary processes. -CBC stable, WBC 8.0, hemoglobin 12.1, platelets 230,000. Kidney function WNL, Creatinine 0.72, GFR > 90. Reticulocytes elevated at 5.9. Bilirubin 1.4 on ad mission, today 1.1. LFTs WNL. Amylase 98, lipase 291. LDH pending. Mild hemolysis noted, but hgb stable. Kidney function stable -No acute chest. SpO2 98% on room air, denies SOB. He is feeling improved since admit, and states pain medications are helping control pain. Will transition to oral pain regimen. Continue IV hydration -Supplemental O2 started -Continue to monitor CBC and CMP -Will schedule follow-up upon discharge to reestablish care in clinic
[2023-09-16 08:26] VITALS: BP 138/80; RESP 19; TEMP 98.2
[2023-09-16 11:55] VITALS: PULSE 58
--- NOTE | 2023-09-16 17:01 | P.DS ---
Providers Date of admission: 09/13/23 22:09 Expected date of discharge: 09/16/23 Attending physician: Lizbeth Hoffmann MD Consults: 09/13/23 23:04 Consult Physician Urgent Consulting Provider: Antony Herrera Consult Reason/Comments: sickle cell Do you want consulting provider notified?: Yes, Notify in am Primary care physician: Stated None Hospital Course: Discharge Diagnosis: Sickle cell crisis Sickle cell anemia Asymptomatic bradycardia SIRS without obvious infectious process identified COPD with continued nicotine dependence Hospital Course: Patient is a very pleasant 43-year-old male with a past medical history of sickle cell anemia, COPD with continued nicotine dependence, anxiety, and depression. He presented to the emergency department on 09/13/2023 with a chief complaint of diffuse bodyaches and fever. Reports body aches are similar to his typical sickle cell crisis, patient reports approximately 1-2 sickle cell crisis per year and follows with both [facility] and [facility]. Upon arrival to the emergency department, patient underwent evaluation. Vital signs upon arrival show blood pressure 144/83, heart rate 86, respiratory rate 20, temp 101.9 F, and SpO2 of 97% on room air. EKG was completed showing normal sinus rhythm at 78 bpm. Chest x-ray negative for acute cardiopulmonary process. Labs completed and reviewed. CBC showing WBC count of 9.9, hemoglobin of 14.0, platelet count of 279, and elevated reticulocyte count of 5.9. BMP unremarkable. Liver profile showing elevated total bili of 1.4 otherwise normal findings. Amylase and lipase normal findings. Troponin 0.014. Urinalysis negative for blood, protein, or infection. Influenza A, influenza B, RSV, COVID, and strep PCR were all negative. Patient was admitted under our services for sickle cell crisis with consultation to hematology. He was treated with aggressive IV fluid hydration and pain management. Patient's symptoms improving. Reticulocyte count decreasing to 3.28. Labs otherwise stable. Vital signs unremarkable. Patient medically cleared for discharge at this time. He was evaluated by hematology recommending outpatient follow-up in their office in 1 week. Patient discharged home with 3-day course of oral pain medication per recommendations of architectural project manager. Patient given information for local PCP encouraged to establish care with a primary care provider. Patient verbalized understanding of discharge instructions and is medically stable for discharge at this time. Physical exam: Vital signs reviewed and stable. General: Nontoxic, no distress and appears stated age. Derm: Skin warm and dry, normal coloration for ethnicity. Head: Atraumatic, normocephalic and symmetric. Eyes: EOMs intact, no lid lag, and anicteric sclera Mouth: no lip lesions, mucus membranes moist Cardiovascular: regular rate and rhythm with normal S1S2, no murmur, positive posterior tibial pulses bilaterally, and cap refill < 2 seconds. Lungs: Respirations even, regular, and unlabored on room air. Lungs CTA bilaterally, no rhonchi, no rales, no wheezing, and no accessory muscle usage. Abdominal: soft, nontender to palpation, no guarding, no appreciable organomegaly Ext: ROM intact. No gross muscle atrophy, no edema, no contractures Neuro: Speech clear, face symmetrical and CN II-XII grossly intact with no noted focal neuro deficits Psych: Alert and oriented to person, place, time, and situation. Appropriate and pleasant affect. A total of 35 minutes of time were spent preparing this complex discharge summary. Pt was discharged on 09/16/2023 at 12:30 PM Patient was seen independently by Nurse Practitioner. This document was prepared using [employer] dictation software. Please allow for errors in healthcare representative while rare they do occur. I reviewed the documentation as provided by the SHERLYN above, who is the original author of this note. I agree with the documented assessment and plan, with the following changes: none Patient Condition at Discharge: Stable Plan - Discharge Summary Discharge Rx Participant: Yes New Discharge Prescriptions: New HYDROcodone/APAP 10-325MG [[place] 10-325] 1 each PO Q4HR PRN #18 tab PRN Reason: Pain Discharge Medication List HYDROcodone/APAP 10-325MG [[place] 10-325] 1 each PO Q4HR PRN #18 tab 09/16/23 [Rx] Follow up Appointment(s)/Referral(s): Pennie Renee MD [STAFF PHYSICIAN] - 1 Week Yinka Morrison MD [REFERRING] - 1 Week (PCP.. it is of utmost importance to establish care with a primary care doctor. Please call Monday to schedule your appointment) Patient Instructions/Handouts: Sickle Cell Crisis (DC) Activity/Diet/Wound Care/Special Instructions: Activity: As tolerated. Take breaks as needed. Diet: Regular diet Special Instructions: It is important to follow-up with the architectural project manager " blood doctor" as we discussed at bedside. You have also been referred to a local PCP, it is of utmost importance to establish care with a primary care doctor. Please call Monday to schedule your appointments. Thank you for allowing us to participate in your care, it was truly a pleasure having you for our patient!!! Discharge Disposition: HOME SELF-CARE
== END 2023-09-16 14:47 | disposition home or self-care (01) | DRG 662 ==
LOC: EC 18:28 → 4SSUR 22:08 → OBSVTOIN 22:09 → 4SSUR 09-14 00:02
PROVIDERS: ADMIT Internal Medicine; ATTEND Internal Medicine
DX: D57.00 Hb-SS disease with crisis, unspecified (principal); F17.200 Nicotine dependence, unspecified, uncomplicated; F32.A Depression, unspecified; F41.9 Anxiety disorder, unspecified; J44.9 Chronic obstructive pulmonary disease, unspecified; Z11.52 Encounter for screening for COVID-19; R00.1 Bradycardia, unspecified; R65.10 Systemic inflammatory response syndrome (SIRS) of non-infectious origin without acute organ dysfunction; Z84.81 Family history of carrier of genetic disease
CPT/HCPCS: 36415; 71046; 80053; 81003; 82150; 83625; 83690; 83735; 84484; 85025; 85027; 85045; 87040; 87636; 87651; 93005; 94640; 96361; 96365; 96375; 96376; 99285

== ENCOUNTER 2024-01-08 22:27 | Inpatient (IN) | payer OTHER ==
--- NOTE | 2024-01-08 22:36 | ED ---
Chest Pain HPI - General Chief Complaint: Chest Pain Stated Complaint: Chest Pain Time Seen by Provider: 01/08/24 22:36 Source: patient, RN notes reviewed Mode of arrival: ambulatory Limitations: no limitations - History of Present Illness Initial Comments: 43-year-old male with history of COPD with nicotine dependence and sickle cell disease presents emergency department with anterior chest wall pain that has been present since approximately 06 100 this morning. Patient states the pain is 8 on the left and right side of his chest that is described as a stabbing sensation that is constant however will intermittently be more severe. Patient states that when the pain is present he feels short of breath however he is not short of breath at baseline. He states that he has been feeling slightly nauseated as well. He denies fevers, chills, urinary symptoms, abdominal pain, cough, rhinorrhea, sore throat. Patient states that this pain feels different as compared to his previous episodes of sickle cell crisis. - Related Data Previous Rx's Medication Instructions Recorded HYDROcodone/APAP 10-325MG [[facility] 1 each PO Q4HR PRN #18 tab 09/16/23 10-325] Allergies Allergy/AdvReac Type Severity Reaction Status Date / Time shellfish derived [Shrimp] Allergy Anaphylaxis Verified 01/08/24 22:33 amoxicillin AdvReac Nausea & Verified 01/08/24 22:33 Vomiting & Diarrhea Penicillins AdvReac Nausea & Verified 01/08/24 22:33 Vomiting & Diarrhea Review of Systems ROS Statement: Those systems with pertinent positive or pertinent negative responses have been documented in the HPI. ROS Other: All systems not noted in ROS Statement are negative. Past Medical History Past Medical History: Blood Disorder, COPD Additional Past Medical History / Comment(s): Sickle Cell History of Any Multi-Drug Resistant Organisms: None Reported Past Surgical History: No Surgical Hx Reported Past Anesthesia/Blood Transfusion Reactions: No Reported Reaction Past Psychological History: Anxiety, Depression Smoking Status: Current some day smoker Past Alcohol Use History: Occasional Past Drug Use History: None Reported - Past Family History Mother Additional Family Medical History / Comment(s): sickle cell trait Father Additional Family Medical History / Comment(s): sickle cell trait General Exam Limitations: no limitations General appearance: alert, in no apparent distress Head exam: Present: atraumatic, normocephalic, normal inspection Eye exam: Present: normal appearance, PERRL, EOMI. Absent: scleral icterus, conjunctival injection, periorbital swelling ENT exam: Present: normal exam, mucous membranes moist Neck exam: Present: normal inspection. Absent: tenderness, meningismus, lymphadenopathy Respiratory exam: Present: normal lung sounds bilaterally, decreased breath sounds. Absent: respiratory distress, wheezes, rales, rhonchi, stridor Cardiovascular Exam: Present: regular rate, normal rhythm, normal heart sounds. Absent: systolic murmur, diastolic murmur, rubs, gallop, clicks GI/Abdominal exam: Present: soft, normal bowel sounds. Absent: distended, tenderness, guarding, rebound, rigid Extremities exam: Present: normal inspection, full ROM, normal capillary refill. Absent: tenderness, pedal edema, joint swelling, calf tenderness Back exam: Present: normal inspection Neurological exam: Present: alert, oriented X3, CN II-XII intact Skin exam: Present: warm, dry, intact, normal color. Absent: rash Course Vital Signs 01/08/24 01/09/24 01/09/24 22:30 02:05 02:25 Temperature 98.4 F Pulse Rate 58 L 47 L 46 L Respiratory 20 19 Rate Blood Pressure 136/80 143/100 O2 Sat by Pulse 93 L 97 Oximetry 01/09/24 02:36 Temperature Pulse Rate 71 Respiratory Rate Blood Pressure O2 Sat by Pulse Oximetry Chest Pain MDM - MDM Was pt. sent in by a medical professional or institution ([facility] Roberto, CORE OVEN TENDER, urgent care, hospital, or fpc...) When possible be specific @ -No Did you speak to anyone other than the patient for history (EMS, parent, family, police, friend...)? What history was obtained from this source @ -No Did you review nursing and triage notes (agree or disagree)? Why? @ -I reviewed and agree with nursing and triage notes Were old charts reviewed (outside hosp., previous admission, EMS record, old EKG, old radiological studies, urgent care reports/EKG's, fpc records)? Report findings @ -I reviewed the patient's emergency department visit note from 09/13/2023 where he was admitted to the hospital for chest pain, fevers history of sickle cell crisis and discharged home following days for diagnosis of sickle cell crisis with pain medication. Differential Diagnosis (chest pain, altered mental status, abdominal pain women, abdominal pain men, vaginal bleeding, weakness, fever, dyspnea, syncope, headache, dizziness, GI bleed, back pain, seizure, CVA, palpatations, mental health, musculoskeletal)? @ -Differential Chest Pain: Stable Angina, Unstable Angina, STEMI, NSTEMI Aortic Dissection, Pneumothorax, Musculoskeletal, Esophageal Spasm GERD, Cholecystitis, Pancreatitis, Zoster, this is not meant to be an all-inclusive list. EKG interpreted by me (3pts min.). @ -Completed at 2234, sinus rhythm, ventricular rate 65, OK interval 187, QTc 422. X-rays interpreted by me (1pt min.). @ -Chest x-ray reveals mild cardiomegaly with new patchy basilar opacities favoring linear atelectasis. CT interpreted by me (1pt min.). @ -None done U/S interpreted by me (1pt. min.). @ -None done What testing was considered but not performed or refused? (CT, X-rays, U/S, l abs)? Why? @ -None What meds were considered but not given or refused? Why? @ -None Did you discuss the management of the patient with other professionals (professionals i.e. , PA, CORE OVEN TENDER, lab, RT, psych nurse, health and social care teacher, cook ship, teacher, hospital chief financial officer, outsole caser)? Give summary @ -my attending, Dr. Deleon, spoke to internal medicine physician, Dr. Calles, in regard to the patient's presentation and symptoms concerning for acute chest syndrome, patient is excepted for admission with hematology on consult continue antibiotics. Was smoking cessation discussed for >3mins.? @ -No Was critical care preformed (if so, how long)? @ -No Were there social determinants of health that impacted care today? How? (Homelessness, low income, unemployed, alcoholism, drug addiction, transportation, low edu. Level, literacy, decrease access to med. care, correction, rehab)? @ -No Was there de-escalation of care discussed even if they declined (Discuss DNR or withdrawal of care, Hospice)? DNR status @ -No What co-morbidities impacted this encounter? (DM, HTN, Smoking, COPD, CAD, Cancer, CVA, ARF, Chemo, Hep., AIDS, mental health diagnosis, sleep apnea, morbid obesity)? @ -COPD, sickle cell anemia Was patient admitted / discharged? Hospital course, mention meds given and route, prescriptions, significant lab abnormalities, going to OR and other pertinent info. @ -43-year-old male with chest pain. Patient's vitals are stable upon arrival. Anterior chest wall pain is described as a stabbing sensation that is not reproducible. Patient is provided with sublingual nitroglycerin, on reevaluation patient states that chest pain has not improved. Therefore patient is treated with IV Dilaudid pending results of chest x-ray, viral swabs, labs. Patient is in agreement with this plan. CMP unremarkable, troponin nonelevated less than 0.016, BNP 519, urinalysis no signs infection, strep negative. CBC reveals a mild leukocytosis 11.6, hemoglobin 11.6, hematocrit 32.5, elevated reticulocyte count of 6.6. In regard to chest x-ray findings concerning for patchily basilar opacities, and history of COPD, in addition to chest pain, symptoms are in alignment with ACS. Patient will be admitted to internal medicine with hematology on consult and started on antibiotics addition to pain control and breathing treatments every 6 hours. Patient is admitted to internal medicine with hematology on consult. Discussed with Dr. Deleon. Undiagnosed new problem with uncertain prognosis? @ -No Drug Therapy requiring intensive monitoring for toxicity (Heparin, Nitro, Insulin, Cardizem)? @ -No Were any procedures done? @ -No Diagnosis/symptom? @ -acute chest syndrome Acute, or Chronic, or Acute on Chronic? @ -acute Uncomplicated (without systemic symptoms) or Complicated (systemic symptoms)? @ -complicated Side effects of treatment? @ -No Exacerbation, Progression, or Severe Exacerbation? @ -No Poses a threat to life or bodily function? How? (Chest pain, [place], OR, pneumonia, PE, COPD, DKA, ARF, appy, cholecystitis, CVA, Diverticulitis, Homicidal, Suicidal, threat to staff... and all critical care pts) @ -No Disposition Clinical Impression: Chest pain, Acute chest syndrome Disposition: ADMITTED IP TO THIS HOSP Condition: Serious Is patient prescribed a controlled substance at d/c from ED?: No Decision to Admit Reason: Admit from EC Decision Date: 01/09/24 Decision Time: 02:39
[2024-01-08] MEDS: NITROGLYCERIN SL TABS 0.4 MG TAB SUBLINGUAL STA ×2 (22:59→23:21)
[2024-01-08] MEDS: HYDROmorphone 1 MG/ML 1 ML SYRINGE IVP STA (23:32)
--- NOTE | 2024-01-08 23:40 | XR ---
EXAMINATION TYPE: XR chest 2V DATE OF EXAM: 01/08/2024 COMPARISON: Prior chest x-ray September 2023 HISTORY: Anterior sternal chest pain TECHNIQUE: Frontal and lateral views of the chest are obtained. FINDINGS: Mild cardiomegaly is present. Patchy bibasilar opacity favors linear atelectasis The osse ous structures are intact. IMPRESSION: Mild cardiomegaly with new patchy bibasilar opacities favoring linear atelectasis.
[2024-01-08 23:49] LABS: ALT 20 U/L (4-49); AST 36 U/L (17-59); African American GFR (CKD) >90 (>60 ml/min/1.73 sqM); Albumin 3.8 g/dL (3.5-5.0); Alkaline Phosphatase 60 U/L (38-126); Anion Gap 1 mmol/L; Blood Urea Nitrogen 12 mg/dL (9-20); Carbon Dioxide 31 mmol/L (22-30); Chloride 108 mmol/L (98-107); Glucose 96 mg/dL (74-99); Magnesium 1.7 mg/dL (1.6-2.3); Non-African American GFR(CKD) >90 (>60 ml/min/1.73 sqM); Potassium 4.1 mmol/L (3.5-5.1); Sodium 140 mmol/L (137-145); Total Bilirubin 1.6 mg/dL (0.2-1.3); Total Protein 6.4 g/dL (6.3-8.2)
[2024-01-08 23:58] LABS: NT-Pro-B-Type Natriuretic Pept 519 pg/mL
[2024-01-09 00:04] LABS: Partial Thromboplastin Time 25.9 sec (22.0-30.0); Prothrombin Time 10.5 sec (10.0-12.5)
[2024-01-09 00:05] LABS: Appearance,Urine Clear (Clear); Bilirubin,Urine Negative (Negative); Blood,Urine Negative (Negative); Color,Urine Light Yellow; Glucose,Urine (UA) Negative (Negative); Ketones,Urine Negative (Negative); Leukocyte Esterase,Urine Negative (Negative); Nitrite,Urine Negative (Negative); PH, Urine 5.5 (5.0-8.0); Protein,Urine Negative (Negative); Specific Gravity,Urine 1.012 (1.001-1.035)
[2024-01-09 00:37] LABS: HCT 32.5 % (39.0-53.0); HGB 11.6 gm/dL (13.0-17.5); Hyperchromasia Slight; MCH 31.7 pg (25.0-35.0); MCHC 35.7 g/dL (31.0-37.0); MCV 88.9 fL (80.0-100.0); Mean Platelet Volume 9.3; Poikilocytosis Slight; RBC 3.65 m/uL (4.30-5.90); RDW 14.8 % (11.5-15.5); Reticulocyte % 6.6 % (0.5-2.0)
[2024-01-09] MEDS: NITROGLYCERIN SL TABS 0.4 MG TAB SUBLINGUAL STA (00:42)
[2024-01-09 01:34] LABS: Eosinophils # (M) 0.11 k/uL (0-0.7); Lymphocytes # (M) 4.25 k/uL (1.0-4.8); Monocytes # (M) 0.55 k/uL (0-1.0); Neutrophils % (M) 56 %; Nucleated Red Blood Cells 6 /100 WBC (0-0); Total Cells Counted 200; WBC 10.9 k/uL (3.8-10.6)
[2024-01-09 01:36] LABS: Polychromasia Present
[2024-01-09 01:38] LABS: Large Platelets Present; Target Cells Present
[2024-01-09 01:43] LABS: Anisocytosis (M) Present
[2024-01-09 01:45] LABS: Howell-Jolly Bodies Present
[2024-01-09] MEDS: AZITHROMYCIN 500 MG TAB PO STA (02:03)
[2024-01-09] MEDS: IPRATROPIUM-ALBUTEROL 3 ML NEB INHALATION STA (02:24)
[2024-01-09] MEDS ORDERED: NALOXONE 0.4 MG/ML 1 ML VIAL IV PRN ×2 (02:45→04:09)
[2024-01-09] MEDS ORDERED: ACETAMINOPHEN TAB 325 MG TAB PO PRN (02:45)
[2024-01-09] MEDS ORDERED: IPRATROPIUM-ALBUTEROL 3 ML NEB INHALATION PRN (03:20)
[2024-01-09] MEDS: HYDROmorphone 0.5 MG/0.5 ML SYRINGE IVP PRN (04:04)
[2024-01-09] MEDS ORDERED: diphenhydrAMINE 50 MG/ML 1 ML VIAL IVP PRN (04:09)
[2024-01-09] MEDS ORDERED: ONDANSETRON 4 MG/2 ML VIAL IVP PRN (04:09)
--- NOTE | 2024-01-09 04:15 | P.HPIM ---
History of Present Illness H&P Date: 01/09/24 Chief Complaint: Chest pain 43-year-old male with sickle cell disease Patient coming in reporting severe chest pain of 1 day duration he describes anterior chest wall pain 10 out of 10 in severity limiting his breathing across his chest stabbing in nature constant gets worse with any movement denies any fevers chills coughing denies any vomiting changes in bowel or urinary habit denies any abdominal pain he denies any wheezing or shortness of breath. Patient reports couple episodes of sickle cell crisis per year however this is by far the worst episode he ever experienced He would occasionally smoke he mainly vapes he denies any alcohol or street drugs Review of systems All systems reviewed pertinent positives and negatives as per HPI On physical exam General appearance patient complaining of a lot of pain pupils equal round reactive to light and accommodation Psych patient alert oriented x 3, fair judgment lungs clear to auscultation bilaterally no wheezing rhonchi or rales Cardiovascular normal S1-S2 Regular rate and rhythm no murmurs gallops or rubs, no peripheral leg edema, peripheral pulses dorsalis pedis bilateral equal and intact Abdomen soft lax no tenderness to palpation nondistended bowel sounds positive Neuro strength 5 out of 5 throughout no focal neurodeficits identified cranial nerves II to XII grossly intact Past Medical History Past Medical History: Blood Disorder, COPD Additional Past Medical History / Comment(s): Sickle Cell History of Any Multi-Drug Resistant Organisms: None Reported Past Surgical History: No Surgical Hx Reported Past Anesthesia/Blood Transfusion Reactions: No Reported Reaction Past Psychological History: Anxiety, Depression Smoking Status: Current some day smoker Past Alcohol Use History: Occasional Past Drug Use History: None Reported - Past Family History Mother Additional Family Medical History / Comment(s): sickle cell trait Father Additional Family Medical History / Comment(s): sickle cell trait Medications and Allergies Home Medications Medication Instructions Recorded Confirmed Type HYDROcodone/APAP 10-325MG [[facility] 1 each PO Q4HR PRN #18 tab 09/16/23 Rx 10-325] Allergies Allergy/AdvReac Type Severity Reaction Status Date / Time shellfish derived [Shrimp] Allergy Anaphylaxis Verified 01/08/24 22:33 amoxicillin AdvReac Nausea & Verified 01/08/24 22:33 Vomiting & Diarrhea Penicillins AdvReac Nausea & Verified 01/08/24 22:33 Vomiting & Diarrhea Physical Exam Vitals: Vital Signs Temp Pulse Resp BP Pulse Ox 01/09/24 02:36 71 01/09/24 02:25 46 L 01/09/24 02:05 47 L 19 143/100 97 01/08/24 22:30 98.4 F 58 L 20 136/80 93 L Intake and Output 01/08/24 01/08/24 01/09/24 14:59 22:59 06:59 Other: Weight 65.771 kg Results CBC & Chem 7: 01/08/24 23:17 01/08/24 23:17 Labs: Abnormal Lab Results - Last 24 Hours (Table) 01/08/24 01/08/24 Range/Units 23:17 23:17 WBC 10.9 H (3.8-10.6) k/uL RBC 3.65 L (4.30-5.90) m/uL Hgb 11.6 L (13.0-17.5) gm/dL Hct 32.5 L (39.0-53.0) % Nucleated RBCs 6 H (0-0) /100 WBC Retic Count 6.6 H (0.5-2.0) % Chloride 108 H (98-107) mmol/L Carbon Dioxide 31 H (22-30) mmol/L Total Bilirubin 1.6 H (0.2-1.3) mg/dL Assessment and Plan Assessment: 43-year-old male with COPD not on home oxygen sickle cell disease coming in with sudden onset anterior chest wall pain I discussed case with ED doctor and accepted the admission for acute sickle crisis with anticipated length of stay more than 2 midnights Acute sickle cell crisis Sickle cell anemia Hemoglobin 11.6 Reticulocyte count elevated 6.6 Elevated bilirubin 1.6 Renal function unremarkable BUN 12 creatinine 0.9 Acute respiratory viral panel negative for COVID influenza and RSV Strep a negative Urine analysis negative unremarkable Chest x-ray patchy atelectasis at lung bases EKG no acute ST changes Troponins negative 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
[2024-01-09] MEDS: DEXTROSE 5%-0.45% NACL 1,000 ML IV SCH (04:50)
[2024-01-09] MEDS: HYDROmorphone PCA 10 MG/50 ML BAG IV PRN (06:10)
[2024-01-09] MEDS: IPRATROPIUM-ALBUTEROL 3 ML NEB INHALATION SCH (07:57)
[2024-01-09] MEDS ORDERED: IPRATROPIUM-ALBUTEROL 3 ML NEB INHALATION SCH (08:00)
[2024-01-09] MEDS: HEPARIN SODIUM,PORCINE 5,000 UNIT/ML 1 ML VIAL SQ SCH (08:36)
--- NOTE | 2024-01-09 13:27 | CT ---
EXAMINATION TYPE: CT chest angio for PE DATE OF EXAM: 01/09/2024 COMPARISON: 01/08/2024 HISTORY: 43-year-old male CP, SOB, R/O PE. TECHNIQUE: Contiguous axial scanning of the chest performed with IV Contrast, patient injected with 1 00ml mL of Isovue 370. Coronal and sagittal MIP reconstructions performed. CT DLP: 235.1 mGycm Automated exposure control for dose reduction was used. FINDINGS: Heart is likely mildly enlarged with trace pericardial fluid. No flattening of the interventricular s eptum. Trace refluxing contrast into the hepatic IVC. Portal and ectatic aortic root at 3.5 cm. Aberrant direct takeoff of the left vertebral artery direct ly from the aortic arch. There appears to be mild generalized anasarca change. Distention of the IVC and azygos vein. Borderline suboptimal enhancement of the pulmonary arterial system. No definite pulmonary embolus is seen. Minimal emphysematous change. Minimal septal lines. Trace right pleural effusion. Prominent patchy ai rspace opacity at the lung bases. Visualized upper abdomen shows a possible 2.0 cm cyst of the spleen. Accentuated thoracic kyphosis with mild multilevel degenerative disc disease. IMPRESSION: 1. BORDERLINE SUBOPTIMAL CONTRAST BOLUS. NO DEFINITE PULMONARY EMBOLUS. 2. BORDERLINE TO MILD CARDIOMEGALY AND SUGGESTION OF MILD GENERALIZED ANASARCA. CORRELATE FOR THIRD S PACING AND POSSIBLE DEVELOPMENT OF CHF. TRACE RIGHT PLEURAL EFFUSION WELL. 4. PROMINENT PATCHY BIBASILAR AIRSPACE DISEASE COULD BE DUE TO PATCHY PULMONARY EDEMA VERSUS INFECTIO US OR ASPIRATION PNEUMONITIS. CLINICALLY CORRELATE. 5. BACKGROUND COPD WITH MINIMAL EMPHYSEMA.
--- NOTE | 2024-01-09 15:37 | P.PN ---
Subjective Progress Note Date: 01/09/24 Hospital course: Patient is a 43-year-old male with a past medical history of sickle cell disease, COPD with continued nicotine dependence, anxiety, and depression. He presented to the emergency department on 01/08/2024 with a chief complaint of chest pain. Patient reports pain across his chest is similar to previous sickle cell crisis and states he has approximately 1-2 crisis a year. Patient denies being on hydroxyurea or any other medications for prevention of recurrent sickle cell crisis, stating he does not have a PCP. On arrival to our facility, patient underwent evaluation in the emergency department. Vital signs upon arrival show blood pressure 136/80, heart rate 58, respiratory rate 20, temp 98.4 F, and SpO2 of 93% on room air. EKG completed showing normal sinus rhythm at 65 bpm with T wave inversion in inferior lead III. Chest x-ray completed showing mild cardiomegaly with new patchy bibasilar opacities favoring linear atelectasis. Labs were completed and reviewed. CBC showing leukocytosis with WBC count of 10.9 and normocytic anemia with hemoglobin of 11.6. Reticulocyte count is elevated at 6.6. Coagulation profile normal findings. BMP showing non-anion gap metabolic acidosis with chloride of 108, bicarb of 31, and anion gap of 1. Magnesium slightly low at 1.7. Liver profile showing elevated total bili of 1.6. Troponin was 0.016 and proBNP was 519. Physical exam: Vital signs reviewed and stable. General: Nontoxic, no distress and appears stated age. Derm: Skin warm and dry, normal coloration for ethnicity. Head: Atraumatic, normocephalic and symmetric. Eyes: EOM's intact, no lid lag, and anicteric sclera Mouth: no lip lesions, mucus membranes moist Cardiovascular: regular rate and rhythm with normal S1S2, no murmur, positive posterior tibial pulses bilaterally, and cap refill < 2 seconds. Lungs: Respirations even, regular, and unlabored on room air. Lungs CTA bilaterally, no rhonchi, no rales, no wheezing, and no accessory muscle usage. Abdominal: soft, nontender to palpation, no guarding, no appreciable organome cody Ext: ROM intact. No gross muscle atrophy, no edema, no contractures Neuro: Speech clear, face symmetrical and CN II-XII grossly intact with no noted focal neuro deficits Psych: Alert and oriented to person, place, time, and situation. Appropriate and pleasant affect. Assessment and Plan of Care: Acute Sickle cell crisis Sickle cell anemia Hyperbilirubinemia Chest pain, likely secondary to acute sickle cell crisis COPD with continued nicotine dependence -Continue IV fluid hydration for treatment of acute sickle cell crisis. 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 -Consult cardiology for continued chest pain/discomfort -Telemetry monitoring -Chest x-ray revealing bibasilar patchy atelectasis -Patient may benefit from being started on hydroxyurea once sickle cell crisis has resolved. -Will obtain a repeat troponin level -Discussed with body designer and hematology MANAGER MECHANICAL, hold off on initiating hydroxyurea and they are ordering CTA chest to rule out PE. Data and imaging reviewed: EKG completed showing normal sinus rhythm at 65 bpm with T wave inversion in inferior lead III. Chest x-ray completed showing mild cardiomegaly with new patchy bibasilar opacities favoring linear atelectasis. Labs were completed and reviewed. CBC showing leukocytosis with WBC count of 10.9 and normocytic anemia with hemoglobin of 11.6. Reticulocyte count is elevated at 6.6. Coagulation profile normal findings. BMP showing non-anion gap metabolic acidosis with chloride of 108, bicarb of 31, and anion gap of 1. Magnesium slightly low at 1.7. Liver profile showing elevated total bili of 1.6. Troponin was 0.016 and proBNP was 519. CODE STATUS:[Full code] DVT prophylaxis: [heparin sq] Anticipated discharge date: [pending clinical course] Anticipated discharge place: [pending clinical course] Patient was seen independently by Nurse Pracitioner. This document was prepared using [employer] dictation software. Please allow for errors in engineer remote control diesel, while rare they do occur. Increased IV fluids added abx Amador An NP rendered care for this patient independently, reviewed the findings and plan as documented in the note above. I did not physically speak with or examine the patient on this date. Objective - Vital Signs Vital signs: Vital Signs Temp 98.4 F 01/08/24 22:30 Pulse 51 L 01/09/24 08:05 Resp 17 01/09/24 06:00 BP 134/77 01/09/24 06:00 Pulse Ox 98 01/09/24 06:00 FiO2 Intake & Output 01/08/24 01/09/24 01/09/24 18:59 06:59 18:59 Weight 65.771 kg - Labs CBC & Chem 7: 01/08/24 23:17 01/08/24 23:17 Labs: Abnormal Lab Results - Last 24 Hours (Table) 01/08/24 01/08/24 Range/Units 23:17 23:17 WBC 10.9 H (3.8-10.6) k/uL RBC 3.65 L (4.30-5.90) m/uL Hgb 11.6 L (13.0-17.5) gm/dL Hct 32.5 L (39.0-53.0) % Nucleated RBCs 6 H (0-0) /100 WBC Retic Count 6.6 H (0.5-2.0) % Chloride 108 H (98-107) mmol/L Carbon Dioxide 31 H (22-30) mmol/L Total Bilirubin 1.6 H (0.2-1.3) mg/dL
--- NOTE | 2024-01-09 16:00 | P.CONS ---
History of Present Illness - Reason for Consult Consult date: 01/09/24 sickle cell disease Requesting physician: Chel Oates - Chief Complaint chest pain - History of Present Illness Patient is a 43 year old male, initially seen in consult at [facility] in 09/2012, admitted with abdominal pain, nausea, and decreased oral intake. He had a h/o s ickle cell trait and had had admissions in 11/16 and 03/19 for similar complaints. Patient was seen by both Dr. Herrera and Dr. Sol. Patient was recommended a trial of Hydrea but he did not want to do the same. Patient states he has crisis 1-2 times a year, usually flares with concurrent illness. Patient has had hemoglobin electrophoresis, he is positive for hemoglobin S and C. He was last seen in clinic in 2013, and missed multiple f/u appts since. Patient reports he has not f/u with hematology or PCP, and is not actively on treatment for his sickle cell. Patient presented to the emergency room with complaints of left sided chest pain. Patient said initially thought was indigestion and tried different remedies at home which did not help alleviate symptoms at which time he presented for further evaluation. On admission chest x-ray showed mild cardiomegaly with new patchy bibasilar opacities favoring Lenert layer atelectasis. He was given 1 dose of azithromycin and Rocephin. Viral panel negative. Labs reviewed, CBC showing WBC 10.9, hemoglobin 11.6, platelets were not reported but states that they appear within normal limits. Coags WNL. Bilirubin 1.6, LFTs WNL. Troponin negative. BNP 519. SpO2 98% on 2 L nasal cannula. At today's visit patient reports pain has somewhat improved on pain pump. But is reporting persisting left-sided chest pain that is worse upon inspiration as well as associated shortness of breath. He denies any recent URI. Denies fever and chills. He states his typical pain during sickle cell crisis is in his joints, and this pain is different. He has not f/u with hematology since he was last seen on consult in September 2023, and is on no treatment for sickle cell disease Review of Systems 10 point ROS is negative except as stated in the HPI Past Medical History Past Medical History: Blood Disorder, COPD Additional Past Medical History / Comment(s): Sickle Cell History of Any Multi-Drug Resistant Organisms: None Reported Past Surgical History: No Surgical Hx Reported Past Anesthesia/Blood Transfusion Reactions: No Reported Reaction Past Psychological History: Anxiety, Depression Smoking Status: Current some day smoker Past Alcohol Use History: Occasional Past Drug Use History: None Reported - Past Family History Mother Additional Family Medical History / Comment(s): sickle cell trait Father Additional Family Medical History / Comment(s): sickle cell trait Medications and Allergies Home Medications Medication Instructions Recorded Confirmed Type No Known Home Medications 01/09/24 01/09/24 History Allergies Allergy/AdvReac Type Severity Reaction Status Date / Time shellfish derived [Shrimp] Allergy Anaphylaxis Verified 01/09/24 08:12 amoxicillin AdvReac Nausea & Verified 01/09/24 08:12 Vomiting & Diarrhea Penicillins AdvReac Nausea & Verified 01/09/24 08:12 Vomiting & Diarrhea Physical Exam Vitals: Vital Signs Temp Pulse Resp BP Pulse Ox 01/09/24 11:14 53 L 01/09/24 11:05 50 L 01/09/24 08:38 52 L 99 01/09/24 08:05 51 L 01/09/24 07:57 47 L 01/09/24 06:00 64 17 134/77 98 01/09/24 04:07 71 20 139/97 98 01/09/24 02:36 71 01/09/24 02:25 46 L 01/09/24 02:05 47 L 19 143/100 97 01/08/24 22:30 98.4 F 58 L 20 136/80 93 L Intake and Output 01/08/24 01/09/24 01/09/24 22:59 06:59 14:59 Other: Weight 65.771 kg - Constitutional General appearance: average body habitus, no acute distress - EENT Eyes: anicteric sclerae, EOMI ENT: hearing grossly normal - Respiratory Respiratory: left: rales - Cardiovascular Rhythm: regular Heart sounds: normal: S1, S2 - Gastrointestinal General gastrointestinal: soft, no tenderness - Integumentary Integumentary: no cyanotic - Neurologic Neurologic: CNII-XII intact - Musculoskeletal Musculoskeletal: strength equal bilaterally - Psychiatric Psychiatric: A&O x's 3 Results CBC & Chem 7: 01/08/24 23:17 01/08/24 23:17 Labs: Abnormal Lab Results - Last 24 Hours (Table) 01/08/24 01/08/24 Range/Units 23:17 23:17 WBC 10.9 H (3.8-10.6) k/uL RBC 3.65 L (4.30-5.90) m/uL Hgb 11.6 L (13.0-17.5) gm/dL Hct 32.5 L (39.0-53.0) % Nucleated RBCs 6 H (0-0) /100 WBC Retic Count 6.6 H (0.5-2.0) % Chloride 108 H (98-107) mmol/L Carbon Dioxide 31 H (22-30) mmol/L Total Bilirubin 1.6 H (0.2-1.3) mg/dL Chest x-ray: report reviewed Assessment and Plan (1) Chest pain Current Visit: Yes Status: Acute Priority: High Code(s): R07.9 - CHEST PAIN, UNSPECIFIED SNOMED Code(s): 92961097 (2) Sickle cell anemia Current Visit: Yes Status: Acute Priority: Medium Code(s): D57.1 - SICKLE- CELL DISEASE WITHOUT CRISIS SNOMED Code(s): 042669071 Plan: Chest pain, SOB: Presented with acute left sided chest pain, with associated SOB - On admission chest x-ray showed mild cardiomegaly with new patchy bibasilar opacities favoring Lenert layer atelectasis. He was given 1 dose of azithromycin and Rocephin. Viral panel negative. -WBC 10.9, hemoglobin stable at 11.6, platelets were not reported but states that they appear within normal limits. Coags WNL. Troponin negative. BNP 519. SpO2 98% on 2 L nasal cannula -Current presentation does not appear consistent with acute chest syndrome -Due to persisting left-sided chest pain that is worse upon inspiration as well as associated shortness of breath, will obtain CTA chest to r/o PE Sickle cell disease: -Sickle cell history in HPI. Not on active treatment or f/u. Reports 1-2 flare ups a year, triggered by acute illnesses. States current pain is different than previous crises -Patient afebrile, SPO2 98% on 2L. Denies joint/extremity pains. -Hgb stable at 11.6 -We did discuss hydrea and following with hematology and patient was amendable to the same. Will schedule clinic f/u upon discharge to further discuss treatment options and recommendations attests: I have seen and examined patient, performed H&P, developed impression and plan of care. Discussed with dictator. Agree with documentation, dictated as a scribe
[2024-01-09] MEDS: AZITHROMYCIN 500 MG in SODIUM CHLORIDE 0.9% 250 ML IVPB SCH (17:19)
[2024-01-09] MEDS: SENNOSIDES-DOCUSATE SODIUM 1 EACH TAB PO SCH (20:19)
[2024-01-10 09:07] LABS: Basophils # (A) 0.05 X 10*3/uL (0.00-0.10); Basophils % (A) 0.5 %; HCT 31.6 % (39.6-50.0); HGB 11.4 g/dL (13.0-17.0); Lymphocytes # (A) 2.66 X 10*3/uL (0.90-5.00); Lymphocytes % (A) 27.6 %; MCH 30.9 pg (27.0-32.0); MCHC 36.1 g/dL (32.0-37.0); MCV 85.6 FL (80.0-97.0); Mean Platelet Volume 10.8 FL (9.5-12.2); Monocytes # (A) 1.33 X 10*3/uL (0.20-1.00); Monocytes % (A) 13.8 %; NRBC Per 100 WBC 0.49 X 10*3/uL (0.00-0.01); Neutrophils # (A) 5.42 X 10*3/uL (1.80-7.70); Neutrophils % (A) 56.4 %; Platelet Count 255 X 10*3/uL (140-440); RBC 3.69 X 10*6/uL (4.40-5.60); RDW 13.8 % (11.5-14.5); WBC 9.63 X 10*3/uL (4.50-10.00)
[2024-01-10 09:20] LABS: BUN/Creat Ratio 6.62 Ratio (12.00-20.00); Blood Urea Nitrogen 5.3 mg/dL (9.0-27.0); Glucose 87 mg/dL (70-110)
[2024-01-10 09:21] LABS: ALT 18 U/L (10-49); AST 28 U/L (14-35); Albumin 3.9 g/dL (3.8-4.9); Albumin/Globulin Ratio 1.77 Ratio (1.60-3.17); Alkaline Phosphatase 62 U/L (41-126); Calcium 8.8 mg/dL (8.7-10.3); Carbon Dioxide 26.3 mmol/L (21.6-31.8); Chloride 100 mmol/L (96-109); Globulin 2.2 g/dL (1.6-3.3); Magnesium 1.6 mg/dL (1.5-2.4); Potassium 3.9 mmol/L (3.5-5.5); Sodium 137 mmol/L (135-145); Total Protein 6.1 g/dL (6.2-8.2)
[2024-01-10 10:18] LABS: Reticulocyte % 3.76 % (0.10-1.80)
--- NOTE | 2024-01-10 10:35 | P.CRDCN ---
History of Present Illness Consult date: 01/10/24 Reason for Consult (text): Chest pain, sickle cell crisis History of present illness: This is a 43-year-old male with past medical history of sickle cell trait, COPD, tobacco use and dependence/vaping, history of alcohol abuse. We have been asked to evaluate the patient for chest pain. Patient states he had left-sided lateral chest wall pain. Patient has shortness of breath while having the chest pain as well. It is a stabbing type pain. Also had nausea. 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 Blood pressure 131/77, heart rate 50, pulse ox 95% on 2 L nasal cannula. EKG: Sinus rhythm with nonspecific ST changes Chest x-ray: Mild cardiomegaly with new patchy bibasilar opacities consistent with linear atelectasis. CTA of the chest showed no definite PE, mild generalized anasarca Laboratory studies: WBC 10.9, hemoglobin 9.6. Sodium 140, potassium 4.1, CO2 31, BUN 12 and creatinine 0.9. Troponin negative x 3. proBNP 519. Influenza A, influenza B, RSV, COVID-19 not detected. Group A strep negative. Home cardiac medications: Echocardiogram performed 06/26/2021 revealed normal LV function, mild MR, mild LA enlargement. Review Of Systems: At the time of my exam: CONSTITUTIONAL: Denies fever or chills. HEENT: Denies blurred vision, vision changes, or eye pain. Denies hemoptysis CARDIOVASCULAR: Denies chest pain. Denies orthopnea. Denies PND. Denies palpitations RESPIRATORY: Denies shortness of breath. GASTROINTESTINAL: Denies abdominal pain. Denies nausea or vomiting. HEMATOLOGIC: Denies bleeding disorders. GENITOURINARY: Denies any blood in urine. SKIN: Denies puritis. Denies rash. Physical examination: Gen: This is a 43-year-old black male resting in bed and appears to be comfortable. VS: reviewed HEENT: Head is atraumatic, normocephalic. Pupils equal, round. Sclerae is anicteric. NECK: Supple. No JVD. LUNGS: Clear to auscultation. No wheezes or rhonchi. No intercostal retractions. HEART: Regular rate and rhythm. No murmur. + Tenderness to left lateral chest w all. ABDOMEN: Soft No tenderness. EXTREMITIES: No pedal edema. No calf tenderness. NEUROLOGICAL: Patient is awake, alert and oriented x3. Assessment: Left lateral chest wall pain, acute coronary syndrome ruled out History of sickle cell trait COPD Tobacco use and dependence History of alcohol abuse Plan: Obtain 2-D echocardiogram and Doppler study to assess cardiac structure and function Further recommendations to follow based upon clinical course Thank you kindly for this consultation. Nurse practitioner note has been reviewed, I agree with documented findings and plan of care. Patient was seen and examined. Past Medical History Past Medical History: Blood Disorder, COPD Additional Past Medical History / Comment(s): Sickle Cell History of Any Multi-Drug Resistant Organisms: None Reported Past Surgical History: No Surgical Hx Reported Past Anesthesia/Blood Transfusion Reactions: No Reported Reaction Past Psychological History: Anxiety, Depression Smoking Status: Current some day smoker Past Alcohol Use History: Occasional Additional Past Alcohol Use History / Comment(s): , Past Drug Use History: None Reported - Past Family History Mother Additional Family Medical History / Comment(s): sickle cell trait Father Additional Family Medical History / Comment(s): sickle cell trait Medications and Allergies Home Medications Medication Instructions Recorded Confirmed Type No Known Home Medications 01/09/24 01/09/24 History Allergies Allergy/AdvReac Type Severity Reaction Status Date / Time shellfish derived [Shrimp] Allergy Anaphylaxis Verified 01/09/24 08:12 amoxicillin AdvReac Nausea & Verified 01/09/24 08:12 Vomiting & Diarrhea Penicillins AdvReac Nausea & Verified 01/09/24 08:12 Vomiting & Diarrhea Physical Exam Vitals: Vital Signs Temp Pulse Pulse Resp BP BP Pulse Ox 01/10/24 00:49 98.9 F 50 L 16 131/77 95 01/09/24 21:23 99.8 F H 60 18 131/77 95 01/09/24 20:58 99.2 F 66 18 132/82 96 01/09/24 19:36 58 L 01/09/24 19:25 52 L 01/09/24 18:00 60 15 141/82 97 01/09/24 17:24 99.8 F H 62 17 141/82 94 L 01/09/24 15:36 47 L 01/09/24 15:28 44 L 01/09/24 12:25 99.1 F 54 L 16 147/93 99 01/09/24 11:14 53 L 01/09/24 11:05 50 L 01/09/24 08:38 52 L 99 01/09/24 08:05 51 L 01/09/24 07:57 47 L Intake and Output 01/09/24 01/10/24 01/10/24 22:59 06:59 14:59 Output Total 900 Balance -900 Output: Urine 900 Other: # Voids 0 1 Weight 65.771 kg Results 01/10/24 02:47 01/10/24 02:47 Cardiac Enzymes 01/09/24 Range/Units 15:50 Troponin I <0.012 (0.000-0.034) ng/mL Current Medications Generic Name Dose Route Start Last Admin Trade Name Freq PRN Reason Stop Dose Admin Acetaminophen 650 mg 01/09/24 02:45 Acetaminophen Tab 325 Mg Tab PO Q6HR PRN Mild Pain or Fever > 100.5 Albuterol/Ipratropium 3 ml 01/09/24 08:00 01/09/24 19:25 Ipratropium-Albuterol 3 Ml Neb INHALATION 3 ml RT-QID HOMER Administration Albuterol/Ipratropium 3 ml 01/09/24 03:20 Ipratropium-Albuterol 3 Ml Neb INHALATION RT-Q2H PRN Shortness Of Breath Or Wheezing Diphenhydramine HCl 25 mg 01/09/24 04:09 Diphenhydramine 50 Mg/Ml 1 Ml Vial IVP Q6HR PRN Itching Heparin Sodium (Porcine) 5,000 unit 01/09/24 08:00 01/10/24 00:43 Heparin Sodium,Porcine 5,000 Unit/Ml 1 Ml Vial SQ 5,000 unit Q8HR HOMER Administration Hydromorphone HCl 0.5 mg 01/09/24 01:41 01/09/24 04:04 Hydromorphone 0.5 Mg/0.5 Ml Syringe IVP 0.5 mg Q4HR PRN Administration Pain Hydromorphone HCl 10 mg 01/09/24 04:09 01/09/24 06:10 Hydromorphone Household Appliance Installer 10 Mg/50 Ml Bag IV 10 mg PER PROTOCOL PRN Administration Pain Control Protocol Dextrose/Sodium Chloride 1,000 mls @ 125 mls/hr 01/09/24 04:15 01/10/24 00:45 Dextrose 5%-1/2ns Iv Soln IV 125 mls/hr .Q8H HOMER Administration Ceftriaxone Sodium 2 gm/ 50 mls @ 100 mls/hr 01/10/24 09:00 Sodium Chloride IVPB Q24HR HOMER Azithromycin 500 mg/ Sodium 250 mls @ 250 mls/hr 01/09/24 17:00 01/09/24 17:19 Chloride IVPB 01/11/24 17:59 250 mls/hr DAILY@1700 HOMER Administration Ibuprofen 400 mg 01/09/24 02:45 Ibuprofen 400 Mg Tab PO Q6HR PRN Mild Pain or Fever > 100.5 Naloxone HCl 0.2 mg 01/09/24 02:45 Naloxone 0.4 Mg/Ml 1 Ml Vial IV Q2M PRN Opioid Reversal Ondansetron HCl 4 mg 01/09/24 04:09 Ondansetron 4 Mg/2 Ml Vial IVP Q6HR PRN Nausea And Vomiting Senna/Docusate Sodium 2 each 01/09/24 21:00 01/09/24 20:19 Sennosides-Docusate Sodium 1 Each Tab PO 2 each HS HOMER Administration Intake and Output 01/09/24 01/10/24 01/10/24 22:59 06:59 14:59 Output Total 900 Balance -900 Output: Urine 900 Other: # Voids 0 1 Weight 65.771 kg 01/08/24 23:17 01/08/24 23:17
--- NOTE | 2024-01-10 14:55 | P.PN ---
Subjective Progress Note Date: 01/10/24 Hospital course: Patient is a 43-year-old male with a past medical history of sickle cell disease, COPD with continued nicotine dependence, anxiety, and depression. He presented to the emergency department on 01/08/2024 with a chief complaint of chest pain. Patient reports pain across his chest is similar to previous sickle cell crisis and states he has approximately 1-2 crisis a year. Patient denies being on hydroxyurea or any other medications for prevention of recurrent sickle cell crisis, stating he does not have a PCP. On arrival to our facility, shahrzad trinidad underwent evaluation in the emergency department. Vital signs upon arrival show blood pressure 136/80, heart rate 58, respiratory rate 20, temp 98.4 F, and SpO2 of 93% on room air. EKG completed showing normal sinus rhythm at 65 bpm with T wave inversion in inferior lead III. Chest x-ray completed showing mild cardiomegaly with new patchy bibasilar opacities favoring linear atelectasis. Labs were completed and reviewed. CBC showing leukocytosis with WBC count of 10.9 and normocytic anemia with hemoglobin of 11.6. Reticulocyte count is elevated at 6.6. Coagulation profile normal findings. BMP showing non-anion gap metabolic acidosis with chloride of 108, bicarb of 31, and anion gap of 1. Magnesium slightly low at 1.7. Liver profile showing elevated total bili of 1.6. Troponin was 0.016 and proBNP was 519. Troponin less than 0.012. Physical exam: Patient seen and fully evaluated at bedside this morning. He continues to repo rt mild left anterior chest pain. He reports pain improved/controlled with Dilaudid MINIBUS DRIVER at this time. He denies having any other complaints, questions, or concerns at this time. Vital signs reviewed and stable. General: Nontoxic, no distress and appears stated age. Derm: Skin warm and dry, normal coloration for ethnicity. Head: Atraumatic, normocephalic and symmetric. Eyes: EOM's intact, no lid lag, and anicteric sclera Mouth: no lip lesions, mucus membranes moist Cardiovascular: regular rate and rhythm with normal S1S2, no murmur, positive posterior tibial pulses bilaterally, and cap refill < 2 seconds. Lungs: Respirations even, regular, and unlabored on room air. Lungs CTA bilate rally, no rhonchi, no rales, no wheezing, and no accessory muscle usage. Abdominal: soft, nontender to palpation, no guarding, no appreciable organomegaly Ext: ROM intact. No gross muscle atrophy, no edema, no contractures Neuro: Speech clear, face symmetrical and CN II-XII grossly intact with no noted focal neuro deficits Psych: Alert and oriented to person, place, time, and situation. Appropriate and pleasant affect. Assessment and Plan of Care: Acute Sickle cell crisis Sickle cell anemia Hyperbilirubinemia Chest pain, likely secondary to acute sickle cell crisis, rule out acute chest syndrome COPD with continued nicotine dependence -Continue IV fluid hydration D5 0.45% NS at 125 mL/h for treatment of acute sickle cell crisis. 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 -Cardiology consulted, reviewed documentation in chart. Cardiology ordering echocardiogram. -Telemetry monitoring -Chest x-ray revealing bibasilar patchy atelectasis -Patient may benefit from being started on hydroxyurea once sickle cell crisis has resolved. -CTA chest negative for PE showing borderline to mild cardiomegaly and suggestion of mild generalized anasarca with trace right pleural effusion and prominent patchy bibasilar airspace disease possibly representing pulmonary edema versus infectious pneumonitis. -Patient started on Rocephin 2 g daily IVPB and azithromycin 500 mg IVPB for concerns of possible acute chest syndrome. Data and imaging reviewed: CTA chest negative for PE showing borderline to mild cardiomegaly and suggestion of mild generalized anasarca with trace right pleural effusion and prominent patchy bibasilar airspace disease possibly representing pulmonary edema versus infectious pneumonitis. Vital signs reviewed. Blood pressure 146/70, heart rate 88, respiratory rate 17, temp 98.2 F, and SpO2 of 95% on 2 L. Labs were completed and reviewed. CBC showing normocytic anemia with hemoglobin of 11.4. Reticulocyte count 3.76. CODE STATUS: Full code DVT prophylaxis: heparin sq Anticipated discharge date: pending clinical course Anticipated discharge place: pending clinical course Patient was seen independently by Nurse Pracitioner. This document was prepared using hoccer dictation software. Please allow for errors in project management analyst, while rare they do occur. Amador An NP rendered care for this patient independently, reviewed the findings and plan as documented in the note above. I did not physically speak with or examine the patient on this date. Objective - Vital Signs Vital signs: Vital Signs Temp 98.2 F 01/10/24 07:13 Pulse 56 L 01/10/24 08:34 Resp 17 01/10/24 07:13 BP 146/70 01/10/24 07:13 Pulse Ox 95 01/10/24 07:13 FiO2 Intake & Output 01/09/24 01/10/24 01/10/24 18:59 06:59 18:59 Output Total 1350 Balance -1350 Weight 65.771 kg Output: Urine 1350 Other: # Voids 1 - Labs CBC & Chem 7: 01/11/24 08:57 01/10/24 02:47
[2024-01-10] MEDS: MAGNESIUM SULFATE-D5W PMX 1 GM in DEXTROSE/WATER 1 100ML.BAG IVPB SCH (15:36)
--- NOTE | 2024-01-10 16:11 | P.PN ---
Subjective Progress Note Date: 01/10/24 Principal diagnosis: chest pain No acute events. Reporting improvement in pain. Reports tenderness to left chest wall. SpO2 95% on 2L. T max 99.8 Objective - Vital Signs Vital signs: Vital Signs Temp 98.2 F 01/10/24 07:13 Pulse 56 L 01/10/24 11:45 Resp 17 01/10/24 07:13 BP 146/70 01/10/24 07:13 Pulse Ox 95 01/10/24 07:13 FiO2 Intake & Output 01/09/24 01/10/24 01/10/24 18:59 06:59 18:59 Output Total 1350 Balance -1350 Weight 65.771 kg Output: Urine 1350 Other: # Voids 1 - Constitutional General appearance: Present: average body habitus, no acute distress - EENT Eyes: Present: anicteric sclerae, EOMI ENT: Present: hearing grossly normal - Respiratory Respiratory: left: rales - Cardiovascular Rhythm: regular - Gastrointestinal General gastrointestinal: Present: soft. Absent: tenderness - Integumentary Integumentary: Absent: cyanotic - Neurologic Neurologic: Present: CNII-XII intact - Musculoskeletal Musculoskeletal: Present: strength equal bilaterally - Psychiatric Psychiatric: Present: A&O x's 3 - Labs CBC & Chem 7: 01/10/24 02:47 01/10/24 02:47 Labs: Abnormal Lab Results - Last 24 Hours (Table) 01/10/24 01/10/24 Range/Units 02:47 02:47 RBC 3.69 L (4.40-5.60) X 10*6/uL Hgb 11.4 L (13.0-17.0) g/dL Hct 31.6 L (39.6-50.0) % Immature Gran # 0.07 H (0.00-0.04) X 10*3/uL Monocytes # 1.33 H (0.20-1.00) X 10*3/uL NRBC/100 WBC Diff 0.49 H (0.00-0.01) X 10*3/uL Retic Count 3.76 H (0.10-1.80) % BUN 5.3 L (9.0-27.0) mg/dL BUN/Creatinine Ratio 6.62 L (12.00-20.00) Ratio Total Protein 6.1 L (6.2-8.2) g/dL Assessment and Plan (1) Chest pain Current Visit: Yes Status: Acute Priority: High Code(s): R07.9 - CHEST PAIN, UNSPECIFIED SNOMED Code(s): 21674045 (2) Sickle cell anemia Current Visit: Yes Status: Acute Priority: Medium Code(s): D57.1 - SICKLE- CELL DISEASE WITHOUT CRISIS SNOMED Code(s): 662988389 Plan: Chest pain, SOB: Presented with acute left sided chest pain, with associated SOB - On admission chest x-ray showed mild cardiomegaly with new patchy bibasilar opacities favoring Lenert layer atelectasis. He was given 1 dose of azithromycin and Rocephin. Viral panel negative. -WBC 10.9, hemoglobin stable at 11.6, platelets were not reported but states that they appear within normal limits. Coags WNL. Troponin negative. BNP 519. SpO2 98% on 2 L nasal cannula -Today, WBC 9.6, Hgb 11.4, plt 255,000 -Current presentation does not appear consistent with acute chest syndrome -Due to persisting left-sided chest pain that is worse upon inspiration as well as associated shortness of breath, will obtain CTA chest to r/o PE -CTA showed no definitive pulmonary embolus. Borderline to mild cardiomegaly and suggestion of mild generalized anasarca. Trace right pleural effusion. Prominent patchy bibasilar airspace disease could be due to patchy pulmonary edema versus infectious or aspiration pneumonitis. Background COPD with minimal emphysema. -IV abx started by admitting team. Reporting some improvement in chest pain today Sickle cell disease: -Sickle cell history in consult HPI. Not on active treatment or f/u. Reports 1-2 flare ups a year, triggered by acute illnesses. States current pain is different than previous crises -Patient afebrile, SPO2 stable on 2L oxygen. Denies joint/extremity pains. -Hgb stable at 11.4 -We did discuss hydrea and follow up with hematology and patient was amendable to the same. Will schedule clinic f/u upon discharge to further discuss treatment options and recommendations attests: I have seen and examined patient, performed H&P, developed impression and plan of care. Discussed with dictator. Agree with documentation, dictated as a scribe
[2024-01-11 09:34] LABS: Basophils # (A) 0.1 k/uL (0-0.2); Basophils % (A) 1 %; Eosinophils # (A) 0.2 k/uL (0-0.7); Eosinophils % (A) 2 %; HCT 35.2 % (39.0-53.0); HGB 12.1 gm/dL (13.0-17.5); Lymphocytes # (A) 2.9 k/uL (1.0-4.8); Lymphocytes % (A) 34 %; MCH 30.9 pg (25.0-35.0); MCHC 34.4 g/dL (31.0-37.0); MCV 89.8 fL (80.0-100.0); Mean Platelet Volume 7.9; Monocytes # (A) 0.7 k/uL (0-1.0); Monocytes % (A) 8 %; Neutrophils # (A) 4.5 k/uL (1.3-7.7); Neutrophils % (A) 53 %; Platelet Count 331 k/uL (150-450); RBC 3.92 m/uL (4.30-5.90); RDW 14.6 % (11.5-15.5); WBC 8.5 k/uL (3.8-10.6)
[2024-01-11 09:38] LABS: Reticulocyte % 8.1 % (0.5-2.0)
[2024-01-11] MEDS: IBUPROFEN 400 MG TAB PO PRN (10:05)
--- NOTE | 2024-01-11 11:16 | CA ---
Transthoracic Echo Report Name: Nikko Cabral Age: 43 Gender: M : 1980 Exam Date: 01/10/2024 14:04 Exam Location: [facility] Ht (in): 69 Wt (lb): 145 Ordering Physician: Racquel Aguilar Attending/Referring Phys: [id number], Jeff Graining Machine Operator Keara Aguilar, JENIFER Procedure CPT: Indications: LVF Cardiac Hx: Technical Quality: Good Contrast 1: Total Dose (mL): Contrast 2: Total Dose (mL): MEASUREMENTS (Male / Female) Normal Values 2D ECHO LV Diastolic Diameter PLAX 5.3 cm 4.2 - 5.9 / 3.9 - 5.3 cm LV Systolic Diameter PLAX 3.6 cm IVS Diastolic Thickness 1.1 cm 0.6 - 1.0 / 0.6 - 0.9 cm LVPW Diastolic Thickness 1.1 cm 0.6 - 1.0 / 0.6 - 0.9 cm LV Relative Wall Thickness 0.4 RV Internal Dim ED PLAX 2.8 cm LA Systolic Diameter LX 4.5 cm 3.0 - 4.0 / 2.7 - 3.8 cm LV Diastolic Volume MOD BP 95.7 cm??? 67 - 155 / 56 - 104 cm??? LV Systolic Volume MOD BP 32.0 cm??? 22 - 58 / 19 - 49 cm??? LV Ejection Fraction MOD BP 66.5 % >= 55 % LV Cardiac Index MOD BP 2458.9 cm???/min???m??? LV Diastolic Volume MOD 4C 100.2 cm??? LV Systolic Volume MOD 4C 34.8 cm??? LV Ejection Fraction MOD 4C 65.2 % LV Cardiac Index MOD 4C 2522.0 cm???/min???m??? LV Diastolic Length 4C 8.7 cm LV Systolic Length 4C 7.0 cm LV Diastolic Volume MOD 2C 91.0 cm??? LV Systolic Volume MOD 2C 26.9 cm??? LV Ejection Fraction MOD 2C 70.5 % LV Cardiac Index MOD 2C 2475.9 cm???/min???m??? LV Diastolic Length 2C 8.8 cm LV Systolic Length 2C 6.3 cm LA Volume 83.5 cm??? 18 - 58 / 22 - 52 cm??? LA Volume Index 46.7 cm???/m??? 16 - 28 cm???/m??? M-MODE Aortic Root Diameter MM 3.5 cm LA Systolic Diameter MM 4.3 cm LA Ao Ratio MM 1.2 AV Cusp Separation MM 2.0 cm DOPPLER MV Area PHT 2.6 cm??? Mitral E Point Velocity 84.7 cm/s Mitral A Point Velocity 104.7 cm/s Mitral E to A Ratio 0.8 MV Deceleration Time 290.1 ms TR Peak Velocity 200.1 cm/s TR Peak Gradient 16.0 mmHg Right Ventricular Systolic Press 20.8 mmHg FINDINGS Left Ventricle Left ventricular ejection fraction is estimated at 60 %. Mildly increased septal wall thickness. Normal left ventricular wall motion. Left ventricular cavity size normal. Right Ventricle Normal right ventricular size and function. Right ventricular systolic pressure within normal limits. Right Atrium Mild right atrial dilatation. Left Atrium Mildly increased left atrial diameter. Severely increased left atrial volume. Mildly increased left atrial area. Mitral Valve Structurally normal mitral valve. Trace mitral regurgitation. No mitral stenosis. Aortic Valve Trileaflet aortic valve. No aortic valve stenosis or regurgitation. Tricuspid Valve Structurally normal tricuspid valve. Trace tricuspid regurgitation. No tricuspid stenosis. Pulmonic Valve Structurally normal pulmonic valve. Trace pulmonic regurgitation. No pulmonic stenosis. Pericardium No pericardial or pleural effusion. Aorta Normal size aortic root and proximal ascending aorta. CONCLUSIONS Normal LV systolic function. Enlarged left atrium. No significant abnormality on the Doppler exam. No pericardial effusion Previewed by: Dr. Enrike Zhang MD (Electronically Signed) Final Date: 11 January 2024 11:15
--- NOTE | 2024-01-11 11:50 | P.PN ---
Subjective Progress Note Date: 01/11/24 Principal diagnosis: chest pain Reporting increased left lateral chest wall pain, thats exacerbated with deep inspiration. SpO2 93% on 2L. Reamins afebrile. Hgb improved today to 12.1 Objective - Vital Signs Vital signs: Vital Signs Temp 98.3 F 01/11/24 07:30 Pulse 55 L 01/11/24 07:57 Resp 17 01/11/24 07:30 BP 120/77 01/11/24 07:30 Pulse Ox 93 L 01/11/24 07:30 FiO2 Intake & Output 01/10/24 01/11/24 01/11/24 18:59 06:59 18:59 Intake Total 708 118 Balance 708 118 Intake: Oral 708 118 Other: # Voids 4 4 # Bowel Movements 0 - Constitutional General appearance: Present: no acute distress - EENT Eyes: Present: anicteric sclerae, EOMI ENT: Present: hearing grossly normal - Respiratory Details: breathing even and unlabored - Cardiovascular Details: skin warm and dry - Gastrointestinal General gastrointestinal: Present: soft. Absent: tenderness - Integumentary Integumentary: Absent: cyanotic, jaundiced - Neurologic Neurologic: Present: CNII-XII intact - Musculoskeletal Musculoskeletal: Present: strength equal bilaterally - Psychiatric Psychiatric: Present: A&O x's 3 - Labs CBC & Chem 7: 01/11/24 08:57 01/10/24 02:47 Labs: Abnormal Lab Results - Last 24 Hours (Table) 01/11/24 01/11/24 Range/Units 08:57 08:57 RBC 3.92 L (4.30-5.90) m/uL Hgb 12.1 L (13.0-17.5) gm/dL Hct 35.2 L (39.0-53.0) % Retic Count 8.1 H (0.5-2.0) % Assessment and Plan (1) Chest pain Current Visit: Yes Status: Acute Priority: High Code(s): R07.9 - CHEST PAIN, UNSPECIFIED SNOMED Code(s): 53668428 (2) Sickle cell anemia Current Visit: Yes Status: Acute Priority: Medium Code(s): D57.1 - SICKLE- CELL DISEASE WITHOUT CRISIS SNOMED Code(s): 244754530 Plan: Chest pain, SOB: Presented with acute left sided chest pain, with associated SOB - On admission chest x-ray showed mild cardiomegaly with new patchy bibasilar opacities favoring Lenert layer atelectasis. He was given 1 dose of azithromycin and Rocephin. Viral panel negative. -WBC 10.9, hemoglobin stable at 11.6, platelets were not reported but states that they appear within normal limits. Coags WNL. Troponin negative. BNP 519. -Current presentation does not appear consistent with acute chest syndrome -Due to persisting left-sided chest pain that is worse upon inspiration as well as associated shortness of breath, will obtain CTA chest to r/o PE -CTA showed no definitive pulmonary embolus. Borderline to mild cardiomegaly and suggestion of mild generalized anasarca. Trace right pleural effusion. Prominent patchy bibasilar airspace disease could be due to patchy pulmonary edema versus infectious or aspiration pneumonitis. Background COPD with minimal emphysema. -IV abx started by admitting team for possible pneumonia -CP persisting, motrin and lidocaine patch ordered. Continues on Dilaudid Sickle cell disease: -Sickle cell history in consult HPI. Not on active treatment or f/u. Reports 1-2 flare ups a year, triggered by acute illnesses. States current pain is different than previous crises -Patient afebrile, SPO2 stable on 2L oxygen. Denies joint/extremity pains. -Hgb stable at 12.1 -We did discuss hydrea and follow up with hematology and patient was amendable to the same. Will schedule clinic f/u upon discharge to further discuss treatment options and recommendations attests: I have seen and examined patient, performed H&P, developed impression and plan of care. Discussed with dictator. Agree with documentatio n, dictated as a scribe
--- NOTE | 2024-01-11 12:12 | P.PN ---
Subjective Progress Note Date: 01/11/24 Reason for Consult (text): Chest pain, sickle cell crisis History of present illness: This is a 43-year-old male with past medical history of sickle cell trait, COPD, tobacco use and dependence/vaping, history of alcohol abuse. We have been asked to evaluate the patient for chest pain. Patient states he had left-sided lateral chest wall pain. Patient has shortness of breath while having the chest pain as well. It is a stabbing type pain. Also had nausea. Patient has been started on IV antibiotics, DuoNeb treatments, Dilaudid FELT FINISHER. Blood pressure 131/77, heart rate 50, pulse ox 95% on 2 L nasal cannula. EKG: Sinus rhythm with nonspecific ST changes Chest x-ray: Mild cardiomegaly with new patchy bibasilar opacities consistent with linear atelectasis. CTA of the chest showed no definite PE, mild generalized anasarca Laboratory studies: WBC 10.9, hemoglobin 9.6. Sodium 140, potassium 4.1, CO2 31, BUN 12 and creatinine 0.9. Troponin negative x 3. proBNP 519. Influenza A, influenza B, RSV, COVID-19 not detected. Group A strep negative. Home cardiac medications: Echocardiogram performed 06/26/2021 revealed normal LV function, mild MR, mild LA enlargement. 01/10 Echocardiogram reveals EF of 60%. Enlarged left atrium. No significant abnormality on the Doppler exam. No pericardial effusion. Results of echocardiogram reviewed with the patient. Blood pressure 120/77, heart rate in the 50s and 60s, pulse ox 93% on 2 L nasal cannula. Repeat blood work reveals hemoglobin 12.1. Magnesium 2.0. Physical examination: Gen: This is a 43-year-old black male resting in bed and appears to be comfortable. VS: reviewed HEENT: Head is atraumatic, normocephalic. Pupils equal, round. Sclerae is anicteric. NECK: Supple. No JVD. LUNGS: Clear to auscultation. No wheezes or rhonchi. No intercostal retractions. HEART: Regular rate and rhythm. No murmur. + Tenderness to left lateral chest wall. ABDOMEN: Soft No tenderness. EXTREMITIES: No pedal edema. No calf tenderness. NEUROLOGICAL: Patient is awake, alert and oriented x3. Assessment: Left lateral chest wall pain, acute coronary syndrome ruled out History of sickle cell trait COPD Tobacco use and dependence History of alcohol abuse Plan: No further cardiac workup at this time Cardiology will sign off this case and follow on an as-needed basis. Please reconsult for any new concerns. Patient may follow-up in the office in one to 2 weeks for outpatient stress test. Nurse practitioner note has been reviewed, I agree with documented findings and plan of care. Patient was seen and examined. Objective - Vital Signs Vital signs: Vital Signs Temp 98.3 F 01/11/24 07:30 Pulse 56 L 01/11/24 11:25 Resp 17 01/11/24 07:30 BP 120/77 01/11/24 07:30 Pulse Ox 93 L 01/11/24 07:30 FiO2 Intake & Output 01/10/24 01/11/24 01/11/24 18:59 06:59 18:59 Intake Total 708 118 Balance 708 118 Intake: Oral 708 118 Other: # Voids 4 4 # Bowel Movements 0 - Labs CBC & Chem 7: 01/11/24 08:57 01/10/24 02:47 Labs: Abnormal Lab Results - Last 24 Hours (Table) 01/11/24 01/11/24 Range/Units 08:57 08:57 RBC 3.92 L (4.30-5.90) m/uL Hgb 12.1 L (13.0-17.5) gm/dL Hct 35.2 L (39.0-53.0) % Retic Count 8.1 H (0.5-2.0) %
[2024-01-11] MEDS: LIDOCAINE 4% PATCH TOPICAL SCH (12:40)
--- NOTE | 2024-01-11 13:37 | XR ---
EXAMINATION TYPE: XR chest 1V portable DATE OF EXAM: 01/11/2024 Comparison: 01/08/2024 Clinical History: 43-year-old male left chest pain, follow up x-ray Findings: Heart mildly enlarged. Diffuse interstitial density. Trace bilateral pleural effusions and patchy bib asilar opacities. Aeration has worsened from prior exam. Impression: Worsening aeration with increasing interstitial density and development of trace bilateral pleural ef fusions with adjacent atelectasis and/or consolidation. Consider CHF as an etiology.
[2024-01-11] MEDS: LACTULOSE 20 GM/30 ML CUP PO ONE (14:01)
--- NOTE | 2024-01-11 14:11 | P.PN ---
Subjective Progress Note Date: 01/11/24 Hospital course: Patient is a 43-year-old male with a past medical history of sickle cell disease, COPD with continued nicotine dependence, anxiety, and depression. He presented to the emergency department on 01/08/2024 with a chief complaint of chest pain. Patient reports pain across his chest is similar to previous sickle cell crisis and states he has approximately 1-2 crisis a year. Patient denies being on hydroxyurea or any other medications for prevention of recurrent sickle cell crisis, stating he does not have a PCP. On arrival to our facility, shahrzad trinidad underwent evaluation in the emergency department. Vital signs upon arrival show blood pressure 136/80, heart rate 58, respiratory rate 20, temp 98.4 F, and SpO2 of 93% on room air. EKG completed showing normal sinus rhythm at 65 bpm with T wave inversion in inferior lead III. Chest x-ray completed showing mild cardiomegaly with new patchy bibasilar opacities favoring linear atelectasis. Labs were completed and reviewed. CBC showing leukocytosis with WBC count of 10.9 and normocytic anemia with hemoglobin of 11.6. Reticulocyte count is elevated at 6.6. Coagulation profile normal findings. BMP showing non-anion gap metabolic acidosis with chloride of 108, bicarb of 31, and anion gap of 1. Magnesium slightly low at 1.7. Liver profile showing elevated total bili of 1.6. Troponin was 0.016 and proBNP was 519. Troponin less than 0.012. Patient was admitted under our services with consultation to hematology/oncology and cardiology. CTA chest negative for PE showing borderline to mild cardiomegaly and suggestion of mild generalized anasarca with trace right pleural effusion and prominent patchy bibasilar airspace disease possibly representing pulmonary edema versus infectious pneumonitis. Physical exam: Patient seen and fully evaluated at bedside this morning. He reports worsening pain to left anterior chest this morning. Patient states he felt better yesterday and today he actually feels worse than usual day of admission. He remains on Dilaudid FIRST LEVELER. Hematology/oncology starting patient on Motrin for anti-inflammatory effects. Discussed with patient will repeat chest x-ray. He Vital signs reviewed and stable. General: Nontoxic, no distress and appears stated age. Derm: Skin warm and dry, normal coloration for ethnicity. Head: Atraumatic, normocephalic and symmetric. Eyes: EOM's intact, no lid lag, and anicteric sclera Mouth: no lip lesions, mucus membranes moist Cardiovascular: regular rate and rhythm with normal S1S2, no murmur, positive posterior tibial pulses bilaterally, and cap refill < 2 seconds. Lungs: Respirations even, regular, and unlabored on room air. Lungs CTA bilaterally, no rhonchi, no rales, no wheezing, and no accessory muscle usage. Abdominal: soft, nontender to palpation, no guarding, no appreciable organomegaly Ext: ROM intact. No gross muscle atrophy, no edema, no contractures Neuro: Speech clear, face symmetrical and CN II-XII grossly intact with no noted focal neuro deficits Psych: Alert and oriented to person, place, time, and situation. Appropriate and pleasant affect. Assessment and Plan of Care: Acute Sickle cell crisis Sickle cell anemia Hyperbilirubinemia Chest pain, likely acute chest syndrome COPD with continued nicotine dependence Bibasilar atelectasis -Continue IV fluid hydration D5 0.45% NS at 125 mL/h for treatment of acute sickle cell crisis. -Symptomatic care and pain management with Dilaudid FIRST LEVELER -Order placed for repeat chest x-ray -Hematology consulted, discussed case with senior financial analyst and hematology CORE CARRIER. -Cardiology evaluated, reviewed documentation in chart. Cardiology reports no concerns of acute coronary syndrome and stating no need for further cardiac workup at this time.. -Telemetry monitoring -Patient may benefit from being started on hydroxyurea once sickle cell crisis has resolved. -CTA chest negative for PE showing borderline to mild cardiomegaly and suggestion of mild generalized anasarca with trace right pleural effusion and prominent patchy bibasilar airspace disease possibly representing pulmonary edema versus infectious pneumonitis. -Continue Rocephin 2 g daily IVPB and azithromycin 500 mg IVPB for concerns of acute chest syndrome. Data and imaging reviewed: Echocardiogram was completed showing preserved EF of 60% with severely increased left atrial volume and mildly increased left atrial diameter. Vital signs reviewed. Blood pressure 120/77, heart rate 62, respiratory rate 17, temp 98.3 F, and SpO2 of 93% on 2 L. Labs were completed and reviewed. CBC showing normocytic anemia with hemoglobin of 12.1. Reticulocyte count increasing to 8.1. CODE STATUS: Full code DVT prophylaxis: heparin sq Anticipated discharge date: pending clinical course Anticipated discharge place: pending clinical course Patient was seen independently by Nurse Pracitioner. This document was prepared using [employer] dictation software. Please allow for errors in gre instructor, while rare they do occur. Amador An CORE CARRIER rendered care for this patient independently, reviewed the findings and plan as documented in the note above. I did not physically speak with or examine the patient on this date. Objective - Vital Signs Vital signs: Vital Signs Temp 98.3 F 01/11/24 07:30 Pulse 55 L 01/11/24 07:57 Resp 17 01/11/24 07:30 BP 120/77 01/11/24 07:30 Pulse Ox 93 L 01/11/24 07:30 FiO2 Intake & Output 01/10/24 01/11/24 01/11/24 18:59 06:59 18:59 Intake Total 708 Balance 708 Intake: Oral 708 Other: # Voids 4 4 # Bowel Movements 0 - Labs CBC & Chem 7: 01/11/24 08:57 01/10/24 02:47 Labs: Abnormal Lab Results - Last 24 Hours (Table) 01/10/24 01/10/24 Range/Units 02:47 02:47 RBC 3.69 L (4.40-5.60) X 10*6/uL Hgb 11.4 L (13.0-17.0) g/dL Hct 31.6 L (39.6-50.0) % Immature Gran # 0.07 H (0.00-0.04) X 10*3/uL Monocytes # 1.33 H (0.20-1.00) X 10*3/uL NRBC/100 WBC Diff 0.49 H (0.00-0.01) X 10*3/uL Retic Count 3.76 H (0.10-1.80) % BUN 5.3 L (9.0-27.0) mg/dL BUN/Creatinine Ratio 6.62 L (12.00-20.00) Ratio Total Protein 6.1 L (6.2-8.2) g/dL
[2024-01-12 08:50] LABS: Reticulocyte % 3.01 % (0.10-1.80)
[2024-01-12 08:51] LABS: HCT 33.5 % (39.6-50.0); HGB 12.1 g/dL (13.0-17.0); MCH 31.4 pg (27.0-32.0); MCHC 36.1 g/dL (32.0-37.0); Mean Platelet Volume 11.2 FL (9.5-12.2); NRBC Per 100 WBC 0.17 X 10*3/uL (0.00-0.01); Platelet Count 282 X 10*3/uL (140-440); RBC 3.85 X 10*6/uL (4.40-5.60); RDW 14.1 % (11.5-14.5); WBC 9.57 X 10*3/uL (4.50-10.00)
[2024-01-12 09:37] LABS: LDH 426 U/L (120-246)
[2024-01-12 09:43] LABS: ALT 17 U/L (10-49); AST 31 U/L (14-35); Albumin 4.1 g/dL (3.8-4.9); Albumin/Globulin Ratio 1.52 Ratio (1.60-3.17); Alkaline Phosphatase 69 U/L (41-126); BUN/Creat Ratio 9.78 Ratio (12.00-20.00); Blood Urea Nitrogen 8.8 mg/dL (9.0-27.0); Calcium 8.8 mg/dL (8.7-10.3); Carbon Dioxide 26.9 mmol/L (21.6-31.8); Chloride 102 mmol/L (96-109); Globulin 2.7 g/dL (1.6-3.3); Glucose 83 mg/dL (70-110); Potassium 4.7 mmol/L (3.5-5.5); Sodium 138 mmol/L (135-145); Total Bilirubin 1.1 mg/dL (0.3-1.2); Total Protein 6.8 g/dL (6.2-8.2)
[2024-01-12] MEDS: HYDROmorphone 0.5 MG/0.5 ML SYRINGE IVP PRN (14:51)
--- NOTE | 2024-01-12 16:55 | P.PN ---
Subjective Progress Note Date: 01/12/24 Hospital course: Patient is a 43-year-old male with a past medical history of sickle cell disease, COPD with continued nicotine dependence, anxiety, and depression. He presented to the emergency department on 01/08/2024 with a chief complaint of chest pain. Patient reports pain across his chest is similar to previous sickle cell crisis and states he has approximately 1-2 crisis a year. Patient denies being on hydroxyurea or any other medications for prevention of recurrent sickle cell crisis, stating he does not have a PCP. On arrival to our facility, shahrzad trinidad underwent evaluation in the emergency department. Vital signs upon arrival show blood pressure 136/80, heart rate 58, respiratory rate 20, temp 98.4 F, and SpO2 of 93% on room air. EKG completed showing normal sinus rhythm at 65 bpm with T wave inversion in inferior lead III. Chest x-ray completed showing mild cardiomegaly with new patchy bibasilar opacities favoring linear atelectasis. Labs were completed and reviewed. CBC showing leukocytosis with WBC count of 10.9 and normocytic anemia with hemoglobin of 11.6. Reticulocyte count is elevated at 6.6. Coagulation profile normal findings. BMP showing non-anion gap metabolic acidosis with chloride of 108, bicarb of 31, and anion gap of 1. Magnesium slightly low at 1.7. Liver profile showing elevated total bili of 1.6. Troponin was 0.016 and proBNP was 519. Troponin less than 0.012. Patient was admitted under our services with consultation to hematology/oncology and cardiology. CTA chest negative for PE showing borderline to mild cardiomegaly and suggestion of mild generalized anasarca with trace right pleural effusion and prominent patchy bibasilar airspace disease possibly representing pulmonary edema versus infectious pneumonitis. Echocardiogram was completed showing preserved EF of 60% with severely increased left atrial volume and mildly increased left atrial diameter.Cardiology evaluated, stating no concerns of acute coronary syndrome and stating no need for further cardiac workup at this time.. Physical exam: Patient seen and fully evaluated at bedside this morning. He reports improvement of pain to left anterior chest this morning and denies having any new complaints or concerns at this time. Vital signs reviewed and stable. General: Nontoxic, no distress and appears stated age. Derm: Skin warm and dry, normal coloration for ethnicity. Head: Atraumatic, normocephalic and symmetric. Eyes: EOM's intact, no lid lag, and anicteric sclera Mouth: no lip lesions, mucus membranes moist Cardiovascular: regular rate and rhythm with normal S1S2, no murmur, positive posterior tibial pulses bilaterally, and cap refill < 2 seconds. Lungs: Respirations even, regular, and unlabored on room air. Lungs CTA bilaterally, no rhonchi, no rales, no wheezing, and no accessory muscle usage. Abdominal: soft, nontender to palpation, no guarding, no appreciable organomegaly Ext: ROM intact. No gross muscle atrophy, no edema, no contractures Neuro: Speech clear, face symmetrical and CN II-XII grossly intact with no noted focal neuro deficits Psych: Alert and oriented to person, place, time, and situation. Appropriate and pleasant affect. Assessment and Plan of Care: Acute Sickle cell crisis Sickle cell anemia Hyperbilirubinemia Chest pain, likely acute chest syndrome COPD with continued nicotine dependence Bibasilar atelectasis -Continue IV fluid hydration D5 0.45% NS at 125 mL/h for treatment of acute sickle cell crisis. -Dilaudid CORPORATE EVENT PLANNER discontinued and patient placed on 0.5 mg of Dilaudid every 3 hours as needed for pain/discomfort. -Hematology consulted, discussed case with teleradiologist and hematology CARDROOM DRAWING RUNNER, will wean from Dilaudid CORPORATE EVENT PLANNER and monitor for the next 24 hours with plans for likely discharge home tomorrow -Cardiology evaluated, reviewed documentation in chart. Cardiology reports no concerns of acute coronary syndrome and stating no need for further cardiac workup at this time.. -Telemetry monitoring -Patient may benefit from being started on hydroxyurea once sickle cell crisis has resolved. -Continue Rocephin 2 g daily IVPB and azithromycin 500 mg IVPB for concerns of acute chest syndrome. Data and imaging reviewed: Echocardiogram was completed showing preserved EF of 60% with severely increased left atrial volume and mildly increased left atrial diameter. Vital signs reviewed. Blood pressure 120/77, heart rate 62, respiratory rate 17, temp 98.3 F, and SpO2 of 93% on 2 L. Labs were completed and reviewed. Reticulocyte count also improving from 8.1 down to 3.01 this morning. Haptoglobin less than 10.0. CBC showing stable hemoglobin of 12.1. Nucleated RBCs decreasing from 0.49-0.17. BMP unremarkable. Magnesium 2.0. LDH 426. CODE STATUS: Full code DVT prophylaxis: heparin sq Anticipated discharge date: Pending control of pain likely within the next [address]: pending clinical course Patient was seen independently by Nurse Pracitioner. This document was prepared using [employer] dictation software. Please allow for errors in product assurance engineer, while rare they do occur. I reviewed the documentation as provided by the SHERLYN above, who is the original author of this note. I agree with the documented assessment and plan, with the following changes: none Objective - Vital Signs Vital signs: Vital Signs Temp 98.3 F 01/12/24 07:05 Pulse 60 01/12/24 08:53 Resp 18 01/12/24 07:05 BP 130/76 01/12/24 07:05 Pulse Ox 95 01/12/24 07:05 FiO2 Intake & Output 01/11/24 01/12/24 01/12/24 18:59 06:59 18:59 Intake Total 920 Balance 920 Intake: Oral 920 Other: Voiding Method Toilet # Voids 2 2 # Bowel Movements 0 - Labs CBC & Chem 7: 01/12/24 04:13 01/12/24 04:13 Labs: Abnormal Lab Results - Last 24 Hours (Table) 01/11/24 01/11/24 01/11/24 Range/Units 08:57 08:57 08:57 RBC 3.92 L (4.30-5.90) m/uL Hgb 12.1 L (13.0-17.5) gm/dL Hct 35.2 L (39.0-53.0) % NRBC/100 WBC Diff (0.00-0.01) X 10*3/uL Retic Count 8.1 H (0.5-2.0) % Lactate Dehydrogenase 401 H (120-246) U/L 01/12/24 01/12/24 Range/Units 04:13 04:13 RBC 3.85 L (4.30-5.90) m/uL Hgb 12.1 L (13.0-17.5) gm/dL Hct 33.5 L (39.0-53.0) % NRBC/100 WBC Diff 0.17 H (0.00-0.01) X 10*3/uL Retic Count 3.01 H (0.5-2.0) % Lactate Dehydrogenase (120-246) U/L
[2024-01-13 09:25] LABS: ALT 15 U/L (4-49); AST 31 U/L (17-59); African American GFR (CKD) >90 (>60 ml/min/1.73 sqM); Albumin/Globulin Ratio 1.4; Alkaline Phosphatase 66 U/L (38-126); Anion Gap 7 mmol/L; Blood Urea Nitrogen 8 mg/dL (9-20); Calcium 9.2 mg/dL (8.4-10.2); Carbon Dioxide 26 mmol/L (22-30); Chloride 102 mmol/L (98-107); Globulin 2.8 g/dL; Glucose 94 mg/dL (74-99); Magnesium 1.9 mg/dL (1.6-2.3); Non-African American GFR(CKD) >90 (>60 ml/min/1.73 sqM); Potassium 4.7 mmol/L (3.5-5.1); Sodium 135 mmol/L (137-145); Total Bilirubin 1.3 mg/dL (0.2-1.3); Total Protein 6.8 g/dL (6.3-8.2)
[2024-01-13 09:33] LABS: HCT 35.3 % (39.0-53.0); HGB 12.4 gm/dL (13.0-17.5); MCH 31.3 pg (25.0-35.0); MCHC 35.1 g/dL (31.0-37.0); MCV 89.4 fL (80.0-100.0); Mean Platelet Volume 8.3; Platelet Count 357 k/uL (150-450); RBC 3.95 m/uL (4.30-5.90); RDW 14.3 % (11.5-15.5); WBC 9.1 k/uL (3.8-10.6)
[2024-01-13 10:46] LABS: Target Cells Present
--- NOTE | 2024-01-13 13:05 | P.PN ---
Subjective Progress Note Date: 01/13/24 Hospital course: Patient is a 43-year-old male with a past medical history of sickle cell disease, COPD with continued nicotine dependence, anxiety, and depression. He presented to the emergency department on 01/08/2024 with a chief complaint of chest pain. Patient reports pain across his chest is similar to previous sickle cell crisis and states he has approximately 1-2 crisis a year. Patient denies being on hydroxyurea or any other medications for prevention of recurrent sickle cell crisis, stating he does not have a PCP. On arrival to our facility, shahrzad trinidad underwent evaluation in the emergency department. Vital signs upon arrival show blood pressure 136/80, heart rate 58, respiratory rate 20, temp 98.4 F, and SpO2 of 93% on room air. EKG completed showing normal sinus rhythm at 65 bpm with T wave inversion in inferior lead III. Chest x-ray completed showing mild cardiomegaly with new patchy bibasilar opacities favoring linear atelectasis. Labs were completed and reviewed. CBC showing leukocytosis with WBC count of 10.9 and normocytic anemia with hemoglobin of 11.6. Reticulocyte count is elevated at 6.6. Coagulation profile normal findings. BMP showing non-anion gap metabolic acidosis with chloride of 108, bicarb of 31, and anion gap of 1. Magnesium slightly low at 1.7. Liver profile showing elevated total bili of 1.6. Troponin was 0.016 and proBNP was 519. Troponin less than 0.012. Patient was admitted under our services with consultation to hematology/oncology and cardiology. CTA chest negative for PE showing borderline to mild cardiomegaly and suggestion of mild generalized anasarca with trace right pleural effusion and prominent patchy bibasilar airspace disease possibly representing pulmonary edema versus infectious pneumonitis. Echocardiogram was completed showing preserved EF of 60% with severely increased left atrial volume and mildly increased left atrial diameter.Cardiology evaluated, stating no concerns of acute coronary syndrome and stating no need for further cardiac workup at this time.. Physical exam: Patient seen and fully evaluated at bedside this morning. He reports continued chest pain to left anterior chest. He denies having shortness of breath or exertional dyspnea at this time. Patient was weaned off of Dilaudid [employer] [employer] on 01/12/2024 and currently using as needed Dilaudid. Will place patient on Toradol scheduled for the next 24 hours and further attempt to wean off narcotic pain medication with plans for discharge home likely tomorrow morning.. Vital signs reviewed and stable. General: Nontoxic, no distress and appears stated age. Derm: Skin warm and dry, normal coloration for ethnicity. Head: Atraumatic, normocephalic and symmetric. Eyes: EOM's intact, no lid lag, and anicteric sclera Mouth: no lip lesions, mucus membranes moist Cardiovascular: regular rate and rhythm with normal S1S2, no murmur, positive posterior tibial pulses bilaterally, and cap refill < 2 seconds. Lungs: Respirations even, regular, and unlabored on room air. Lungs CTA bilaterally, no rhonchi, no rales, no wheezing, and no accessory muscle usage. Abdominal: soft, nontender to palpation, no guarding, no appreciable organomegaly Ext: ROM intact. No gross muscle atrophy, no edema, no contractures Neuro: Speech clear, face symmetrical and CN II-XII grossly intact with no noted focal neuro deficits Psych: Alert and oriented to person, place, time, and situation. Appropriate and pleasant affect. Assessment and Plan of Care: Acute Sickle cell crisis Sickle cell anemia Hyperbilirubinemia Chest pain, likely acute chest syndrome COPD with continued nicotine dependence Bibasilar atelectasis -Continue IV fluid hydration D5 0.45% NS at 125 mL/h for treatment of acute sickle cell crisis. -Continue symptomatic care and pain management with Toradol 15 mg IVP every 6 hours x 24 hours and Dilaudid 0.5 mg IVP every 3 hours as needed for severe pain/discomfort. -Hematology consulted, reviewed documentation in chart. -Cardiology evaluated, reviewed documentation in chart. Cardiology reports no concerns of acute coronary syndrome and stating no need for further cardiac workup at this time.. -Telemetry monitoring -Patient may benefit from being started on hydroxyurea once sickle cell crisis has resolved. -Continue Rocephin 2 g daily IVPB and azithromycin 500 mg IVPB for concerns of acute chest syndrome. Data and imaging reviewed: Vital signs reviewed. Blood pressure 119/73, heart rate 65, respiratory rate 17, temp 98.8 F, and SpO2 of 91% on room air. Labs were completed and reviewed. Reticulocyte count also improving from 8.1 down to 3.01. Haptoglobin less than 10.0. CBC showing stable hemoglobin of 12.1. Nucleated RBCs decreasing from 0.49-0.17. BMP unremarkable. Magnesium 2.0. LDH 426. CODE STATUS: Full code DVT prophylaxis: heparin sq Anticipated discharge date: Likely tomorrow morning Anticipated discharge place: Home Patient was seen independently by Nurse Pracitioner. This document was prepared using [employer] dictation software. Please allow for errors in supervisor policy change clerks, while rare they do occur. I reviewed the documentation as provided by the SHERLYN above, who is the original author of this note. I agree with the documented assessment and plan, with the following changes: none Objective - Vital Signs Vital signs: Vital Signs Temp 98.5 F 01/13/24 00:42 Pulse 62 01/13/24 00:42 Resp 16 01/13/24 00:42 BP 146/76 01/13/24 00:42 Pulse Ox 94 L 01/13/24 00:42 FiO2 Intake & Output 01/12/24 01/13/24 01/13/24 18:59 06:59 18:59 Intake Total 939 480 Balance 939 480 Intake: Oral 939 480 Other: Voiding Method Toilet Toilet # Voids 4 2 - Labs CBC & Chem 7: 01/14/24 03:02 01/14/24 03:02 Labs: Abnormal Lab Results - Last 24 Hours (Table) 01/12/24 01/12/24 01/12/24 Range/Units 04:13 04:13 04:13 RBC 3.85 L (4.40-5.60) X 10*6/uL Hgb 12.1 L (13.0-17.0) g/dL Hct 33.5 L (39.6-50.0) % NRBC/100 WBC Diff 0.17 H (0.00-0.01) X 10*3/uL Retic Count (0.10-1.80) % Haptoglobin <10.0 L (31.2-198.0) mg/dL BUN 8.8 L (9.0-27.0) mg/dL BUN/Creatinine Ratio 9.78 L (12.00-20.00) Ratio Lactate Dehydrogenase 426 H (120-246) U/L Albumin/Globulin Ratio 1.52 L (1.60-3.17) Ratio 01/12/24 Range/Units 04:13 RBC (4.40-5.60) X 10*6/uL Hgb (13.0-17.0) g/dL Hct (39.6-50.0) % NRBC/100 WBC Diff (0.00-0.01) X 10*3/uL Retic Count 3.01 H (0.10-1.80) % Haptoglobin (31.2-198.0) mg/dL BUN (9.0-27.0) mg/dL BUN/Creatinine Ratio (12.00-20.00) Ratio Lactate Dehydrogenase (120-246) U/L Albumin/Globulin Ratio (1.60-3.17) Ratio
[2024-01-13] MEDS: KETOROLAC 15 MG/ML 1 ML VIAL IVP SCH (14:09)
[2024-01-14 08:16] VITALS: BP 147/92; RESP 17; TEMP 98.4
[2024-01-14 09:36] VITALS: PULSE 54
[2024-01-14 09:37] LABS: HCT 30.4 % (39.6-50.0); MCH 31.1 pg (27.0-32.0); MCHC 36.2 g/dL (32.0-37.0); MCV 85.9 FL (80.0-97.0); Mean Platelet Volume 10.3 FL (9.5-12.2); NRBC Per 100 WBC 0.15 X 10*3/uL (0.00-0.01); Platelet Count 308 X 10*3/uL (140-440); RBC 3.54 X 10*6/uL (4.40-5.60); RDW 13.7 % (11.5-14.5); WBC 9.63 X 10*3/uL (4.50-10.00)
[2024-01-14 10:08] LABS: ALT 14 U/L (10-49); AST 25 U/L (14-35); Albumin 3.7 g/dL (3.8-4.9); Albumin/Globulin Ratio 1.68 Ratio (1.60-3.17); Alkaline Phosphatase 61 U/L (41-126); BUN/Creat Ratio 10.22 Ratio (12.00-20.00); Blood Urea Nitrogen 9.2 mg/dL (9.0-27.0); Calcium 8.7 mg/dL (8.7-10.3); Carbon Dioxide 24.4 mmol/L (21.6-31.8); Chloride 103 mmol/L (96-109); Globulin 2.2 g/dL (1.6-3.3); Glucose 120 mg/dL (70-110); Potassium 4.6 mmol/L (3.5-5.5); Sodium 136 mmol/L (135-145); Total Bilirubin 0.7 mg/dL (0.3-1.2); Total Protein 5.9 g/dL (6.2-8.2)
--- NOTE | 2024-01-14 13:57 | P.DS ---
Providers Date of admission: 01/09/24 02:47 Expected date of discharge: 01/14/24 Attending physician: Cedric Calles MD Consults: 01/09/24 02:45 Consult Physician Routine Consulting Provider: Antony Herrera Consult Reason/Comments: sickle cell disease, ACS Do you want consulting provider notified?: Yes, Notify in am 01/09/24 15:38 Consult Physician Routine Consulting Provider: Giacomo Wagner Consult Reason/Comments: continued chest pain with sickle cell crisis Do you want consulting provider notified?: Yes Primary care physician: Stated None Hospital Course: Discharge Diagnosis: Acute Sickle cell crisis Sickle cell anemia Hyperbilirubinemia Chest pain, acute chest syndrome COPD with continued nicotine dependence Bibasilar atelectasis Hospital course: Patient is a 43-year-old male with a past medical history of sickle cell disease, COPD with continued nicotine dependence, anxiety, and depression. He presented to the emergency department on 01/08/2024 with a chief complaint of chest pain. Patient reports pain across his chest is similar to previous sickle cell crisis and states he has approximately 1-2 crisis a year. Patient denies being on hydroxyurea or any other medications for prevention of recurrent sickle cell crisis, stating he does not have a PCP. On arrival to our facility, patient underwent evaluation in the emergency department. Vital signs upon arrival show blood pressure 136/80, heart rate 58, respiratory rate 20, temp 98.4 F, and SpO2 of 93% on room air. EKG completed showing normal sinus rhythm at 65 bpm with T wave inversion in inferior lead III. Chest x-ray completed showing mild cardiomegaly with new patchy bibasilar opacities favoring linear atelectasis. Labs were completed and reviewed. CBC showing leukocytosis with WBC count of 10.9 and normocytic anemia with hemoglobin of 11.6. Reticulocyte count is elevated at 6.6. Coagulation profile normal findings. BMP showing non-anion gap metabolic acidosis with chloride of 108, bicarb of 31, and anion gap of 1. Magnesium slightly low at 1.7. Liver profile showing elevated total bili of 1.6. Troponin was 0.016 and proBNP was 519. Troponin less than 0.012. Patient was admitted under our services with consultation to hematology/oncology and cardiology. CTA chest negative for PE showing borderline to mild cardiomegaly and suggestion of mild generalized anasarca with trace right pleural effusion and prominent patchy bibasilar airspace disease possibly representing pulmonary edema versus infectious pneumonitis. Echocardiogram was completed showing preserved EF of 60% with severely increased left atrial volume and mildly increased left atrial diameter.Cardiology evaluated, stating no concerns of acute coronary syndrome and stating no need for further cardiac workup at this time.. Patient received 3-day course of Zithromax and 5-day course of Rocephin. Chest pain significantly improved and nearly resolved. Patient reports feeling much better at this time. Patient has been cleared by cardiology and hematology, recommending outpatient follow-up in their office. Medically, patient is stable for discharge at this time. Patient discharged home on hydroxyurea 1000 mg daily provided with a 3-day course of [place]. Patient will need to follow-up outpatient with residency clinic to establish care with PCP and for posthospitalization follow-up. Patient also instructed he will need to follow with hematology in their office in 2 weeks. Physical exam: Vital signs reviewed and stable. General: Nontoxic, no distress and appears stated age. Derm: Skin warm and dry, normal coloration for ethnicity. Head: Atraumatic, normocephalic and symmetric. Eyes: EOM's intact, no lid lag, and anicteric sclera Mouth: no lip lesions, mucus membranes moist Cardiovascular: regular rate and rhythm with normal S1S2, no murmur, positive posterior tibial pulses bilaterally, and cap refill < 2 seconds. Lungs: Respirations even, regular, and unlabored on room air. Lungs CTA bilaterally, no rhonchi, no rales, no wheezing, and no accessory muscle usage. Abdominal: soft, nontender to palpation, no guarding, no appreciable organomegaly Ext: ROM intact. No gross muscle atrophy, no edema, no contractures Neuro: Speech clear, face symmetrical and CN II-XII grossly intact with no noted focal neuro deficits Psych: Alert and oriented to person, place, time, and situation. Appropriate and pleasant affect. A total of 36 minutes of time were spent preparing this complex discharge summary. Pt was discharged on 01/14/2024 at 9:10 AM. Patient was seen independently by Nurse Practitioner. This document was prepared using [employer] dictation software. Please allow for errors in food editor while rare they do occur. I reviewed the documentation as provided by the SHERLYN above, who is the original author of this note. I agree with the documented assessment and plan, with the following changes: none Patient Condition at Discharge: Stable Plan - Discharge Summary Discharge Rx Participant: No New Discharge Prescriptions: New Hydroxyurea [Hydrea] 1,000 mg PO DAILY 30 Days #60 capsule HYDROcodone/APAP 7.5-325MG [[place] 7.5-325] 1 tab PO Q6HR PRN 3 Days #12 tab PRN Reason: Pain Discharge Medication List HYDROcodone/APAP 7.5-325MG [[place] 7.5-325] 1 tab PO Q6HR PRN 3 Days #12 tab 01/14/24 [Rx] Hydroxyurea [Hydrea] 1,000 mg PO DAILY 30 Days #60 capsule 01/14/24 [Rx] Follow up Appointment(s)/Referral(s): Pennie Renee MD [STAFF PHYSICIAN] - 2 Weeks Yinka Morrison MD [REFERRING] - 1-2 Days (Please call office first thing tomorrow morning to schedule first available appoinment for a follow up appointment with residency clinic as you will need establishment of care and close follow up to manage pain and prevent further crisis. ) Patient Instructions/Handouts: Sickle Cell Crisis (DC) Activity/Diet/Wound Care/Special Instructions: Activity: As tolerated. Take breaks as needed. Diet: Heart healthy and carb consistent diet. Avoid salts, or foods with hidden salts such as canned or boxed foods and frozen dinners. Extra salt makes your heart work harder and traps the fluid in your body for longer. Special Instructions: Take all of your medications as directed and remember to keep all of your doctor's appointments and follow-up as needed. Thank you for allowing us to participate in your care, it was truly a pleasure having you for our patient!!! Discharge Disposition: HOME SELF-CARE
== END 2024-01-14 12:03 | disposition home or self-care (01) | DRG 662 ==
LOC: EC 22:27 → 6NMEDSUR 01-09 02:47 → OBSVTOIN 01-09 02:47 → 6NMEDSUR 01-09 05:44
PROVIDERS: ADMIT Internal Medicine; ATTEND Internal Medicine
DX: D57.00 Hb-SS disease with crisis, unspecified (principal); F32.A Depression, unspecified; F41.9 Anxiety disorder, unspecified; F17.290 Nicotine dependence, other tobacco product, uncomplicated; J44.9 Chronic obstructive pulmonary disease, unspecified; E80.6 Other disorders of bilirubin metabolism; Z83.2 Family history of diseases of the blood and blood-forming organs and certain disorders involving the immune mechanism
CPT/HCPCS: 36415; 71045; 71046; 71275; 80053; 81003; 83010; 83615; 83735; 83880; 84484; 85025; 85027; 85045; 85610; 85730; 87636; 87651; 93005; 93306; 94640; 96361; 96365; 96366; 96367; 96375; 96376; 99285